=== PATIENT | male | born 1980 | race Caucasian/White ===

== ENCOUNTER → 2018-04-16 06:59 | Outpatient (CLI) | payer OTHER, SELFPAY ==
[2018-04-16 09:01] LABS: Thyroid Stimulating Hormone 0.04 uIU/mL (0.47-4.68)
[2018-04-18 15:07] LABS: Thyroglobulin Antibodies < 1 IU/mL (< 2); Thyroglobulin Level 0.1 ng/mL (2.8-40.9)
== END ==
PROVIDERS: PCP Internal Medicine; Visit Provider Internal Medicine Endocrinology, Diabetes & Metabolism
DX: C73 Malignant neoplasm of thyroid gland (principal); E89.0 Postprocedural hypothyroidism
CPT/HCPCS: 36415; 84432; 84443; 86800

== ENCOUNTER → 2018-06-05 07:01 | Outpatient (CLI) | payer OTHER, SELFPAY ==
[2018-06-05 08:33] LABS: Blood Urea Nitrogen 19 mg/dL (9-20); Calcium 9.3 mg/dL (8.4-10.2); Carbon Dioxide 28 mmol/L (22-32); Chloride 101 mmol/L (98-107); Estimated Glomerular Filt Rate > 60.0 mL/min (>60); Glucose 166 mg/dL (70-100); HEMOLYSIS < 15 (0-50); Potassium 4.5 mmol/L (3.4-5.1); Sodium 140 mmol/L (137-145)
[2018-06-05 14:53] LABS: Creatinine Urine Random 40.5 mg/dL; Protein (Total) Urine Random 60 mg/dL (0-12); Protein Creatinine Ratio Urine 1.48 GRAM/24H
== END ==
PROVIDERS: PCP Internal Medicine; Visit Provider Student in an Organized Health Care Education/Training Program
DX: N05.9 Unspecified nephritic syndrome with unspecified morphologic changes (principal); R80.9 Proteinuria, unspecified
CPT/HCPCS: 36415; 80048; 82570; 84156

== ENCOUNTER → 2018-08-09 11:00 | Outpatient (CLI) | payer OTHER, SELFPAY | PROVIDERS: PCP Internal Medicine | DX: Z23 Encounter for immunization (principal) | CPT/HCPCS: 90471; 90682 ==

== ENCOUNTER → 2018-09-06 11:55 | Outpatient (CLI) | payer OTHER, SELFPAY ==
--- NOTE | 2018-09-06 | DI.MRI.S_ITS ---
PROCEDURE: MR CERVICAL SPINE WO CON INDICATIONS: Radiculopathy, cervical region TECHNIQUE: Noncontrast sagittal T1 spin echo and T2 fast spin echo, sagittal STIR, foraminal oblique sagittal T2 fast spin echo, and axial gradient echo or T2 fast spin echo through the cervical spine. COMPARISON: [facility], , CERVICAL SPINE 2 OR 3 VIEWS, 04/20/2011, 7:37. [facility], MR, C-SPINE WITHOUT CONTRAST, 05/09/2011, 6:44. [facility], MR, C-SPINE WITHOUT CONTRAST, 01/18/2012, 11:35. FINDINGS: Image quality: The anterior coil could not be used on this patient. Furthermore, this examination is limited by involuntary motion artifact. Alignment and Curvature: There is straightening of the normal cervical lordosis. No focal AP alignment abnormality is seen. Bone Marrow: Marrow demonstrates normal overall signal. Spinal Cord: Visualized spinal cord has normal size and signal. No cerebellar tonsillar herniation. Paraspinous Soft Tissues: No paravertebral masses. Prevertebral soft tissues are normal in thickness. C2-C3: Normal appearance. C3-C4: The disc height is well-preserved. Loss of disc signal is seen at this level. A mild degree of generalized disc osteophyte complex is seen. Mild facet joint hypertrophy is seen. There is mild left-sided and no right-sided neural foraminal narrowing seen. No central canal narrowing is seen. When comparison is made with the prior examination, these findings are similar. C4-C5: The disc height is well-preserved. Loss of disc signal is seen at this level. Minimal disc osteophyte complex is seen. Minimal to mild bilateral neural foraminal narrowing is seen. The central canal is widely patent. When comparison is made with the prior examination, these findings are similar. C5-C6: Mild loss of disc height is seen. Loss of disc signal is seen. Moderate disc osteophyte complex is seen, which is eccentric to the left. There is mild left-sided and no significant right-sided neural from narrowing seen. Mild central canal narrowing is seen. When comparison is made with the prior examination, these findings are similar. C6-C7: Mild to moderate loss of disc height and disc signal are seen. Moderate disc osteophyte complex is seen, including a right lateral recess/foraminal disc osteophyte protrusion, as on series 5 image 31. There is at least moderate right-sided neural foraminal narrowing seen. Moderate left-sided neural foraminal narrowing is seen. Moderate central canal narrowing is seen, with associated mass effect upon the ventral spinal cord. These degenerative changes are slightly progressed compared to 2012. C7-T1: No significant abnormality is seen. IMPRESSION: Cervical spine degenerative changes are seen, which are most prominent at the C6-C7 level. The degenerative changes are mildly progressed at C6-C7 compared to 2012. The degenerative changes otherwise appear similar to the prior. Dictated by: Alfie Alston M.D. on 09/06/2018 at 12:50 Approved by: Alfie Alston M.D. on 09/06/2018 at 12:56
== END ==
PROVIDERS: PCP Internal Medicine; Visit Provider Internal Medicine
DX: M50.122 Cervical disc disorder at C5-C6 level with radiculopathy (principal)
CPT/HCPCS: 72141

== ENCOUNTER → 2018-09-21 06:57 | Outpatient (CLI) | payer OTHER, SELFPAY ==
[2018-09-21 08:11] LABS: Hemoglobin A1C% w Est Avg Glu 9.8 % (4.0-6.0)
[2018-09-21 08:17] LABS: BUN Creatinine Ratio 17.8 (6-22); Blood Urea Nitrogen 16 mg/dL (9-20); Calcium 9.3 mg/dL (8.4-10.2); Carbon Dioxide 26 mmol/L (22-32); Chloride 102 mmol/L (98-107); Estimated Glomerular Filt Rate > 60.0 mL/min (>60); Glucose 225 mg/dL (70-100); HEMOLYSIS < 15 (0-50); Potassium 4.8 mmol/L (3.4-5.1); Sodium 141 mmol/L (137-145)
[2018-09-21 08:30] LABS: Creatinine Urine Random 30.7 mg/dL
[2018-09-21 08:53] LABS: Microalbumi Creatinin Ratio Ur 1332.2 ug/mg CR (<30); Microalbumin Urine Random 40.9 mg/dL (0-1.6)
[2018-09-21 09:01] LABS: Thyroid Stimulating Hormone 0.09 uIU/mL (0.47-4.68)
== END ==
PROVIDERS: PCP Internal Medicine; Visit Provider Internal Medicine Endocrinology, Diabetes & Metabolism
DX: E11.319 Type 2 diabetes mellitus with unspecified diabetic retinopathy without macular edema (principal); E89.0 Postprocedural hypothyroidism; C73 Malignant neoplasm of thyroid gland
CPT/HCPCS: 36415; 80048; 82043; 82570; 83036; 84443; 86800

== ENCOUNTER → 2018-10-03 13:09 | Outpatient (CLI) | payer OTHER, SELFPAY | PROVIDERS: PCP Internal Medicine; Visit Provider Family Medicine | DX: L03.032 Cellulitis of left toe (principal); E11.628 Type 2 diabetes mellitus with other skin complications; E11.40 Type 2 diabetes mellitus with diabetic neuropathy, unspecified | CPT/HCPCS: 99203; 99212 ==

== ENCOUNTER → 2019-04-22 06:49 | Outpatient (CLI) | payer OTHER, SELFPAY ==
[2019-04-22 07:56] LABS: Blood Urea Nitrogen 22 mg/dL (9-20); Calcium 9.7 mg/dL (8.4-10.2); Carbon Dioxide 24 mmol/L (22-32); Chloride 104 mmol/L (98-107); Estimated Glomerular Filt Rate > 60.0 mL/min (>60); Glucose 94 mg/dL (70-100); HEMOLYSIS < 15 (0-50); Potassium 4.5 mmol/L (3.4-5.1); Sodium 139 mmol/L (137-145)
[2019-04-22 09:15] LABS: Creatinine Urine Random 32.6 mg/dL; Protein (Total) Urine Random 50 mg/dL (0-12); Protein Creatinine Ratio Urine 1.53 GRAM/24H
== END ==
PROVIDERS: PCP Internal Medicine; Visit Provider Student in an Organized Health Care Education/Training Program
DX: N05.9 Unspecified nephritic syndrome with unspecified morphologic changes (principal); R80.9 Proteinuria, unspecified
CPT/HCPCS: 36415; 80048; 82570; 84156

== ENCOUNTER → 2019-04-25 12:02 | Outpatient (CLI) | payer OTHER, SELFPAY ==
[2019-04-25 14:06] LABS: Thyroid Stimulating Hormone < 0.02 uIU/mL (0.47-4.68)
[2019-04-27 16:10] LABS: Thyroglobulin Antibodies < 1 IU/mL (< 2); Thyroglobulin Level < 0.1 ng/mL (2.8-40.9)
== END ==
PROVIDERS: PCP Internal Medicine; Visit Provider Internal Medicine Endocrinology, Diabetes & Metabolism
DX: C73 Malignant neoplasm of thyroid gland (principal)
CPT/HCPCS: 36415; 84432; 84443; 86800

== ENCOUNTER → 2019-05-24 08:32 | Outpatient (CLI) | payer OTHER, SELFPAY ==
[2019-05-24 08:58] LABS: Hemoglobin 12.2 g/dL (13.5-17.5)
[2019-05-24 09:22] LABS: Blood Urea Nitrogen 24 mg/dL (9-20); Calcium 9.7 mg/dL (8.4-10.2); Carbon Dioxide 24 mmol/L (22-32); Chloride 108 mmol/L (98-107); Estimated Glomerular Filt Rate > 60.0 mL/min (>60); Glucose 87 mg/dL (70-100); HEMOLYSIS < 15 (0-50); Potassium 5.2 mmol/L (3.4-5.1); Sodium 143 mmol/L (137-145)
[2019-05-24 10:18] LABS: Creatinine Urine Random 37.9 mg/dL; Protein (Total) Urine Random 58 mg/dL (0-12); Protein Creatinine Ratio Urine 1.53 GRAM/24H
[2019-05-28 15:18] LABS: Parathyroid Hormone Int 26 pg/mL (14-64)
== END ==
PROVIDERS: PCP Internal Medicine; Visit Provider Student in an Organized Health Care Education/Training Program
DX: N05.9 Unspecified nephritic syndrome with unspecified morphologic changes (principal); D64.9 Anemia, unspecified; N25.81 Secondary hyperparathyroidism of renal origin; R80.9 Proteinuria, unspecified
CPT/HCPCS: 36415; 80048; 82570; 83970; 84156; 85014; 85018

== ENCOUNTER → 2019-08-29 14:09 | Outpatient (CLI) | payer OTHER, SELFPAY | PROVIDERS: PCP Internal Medicine | DX: Z23 Encounter for immunization (principal) | CPT/HCPCS: 90471; 90686 ==

== ENCOUNTER → 2019-11-11 07:00 | Outpatient (CLI) | payer OTHER, SELFPAY ==
[2019-11-11 09:05] LABS: Hemoglobin 9.8 g/dL (13.5-17.5)
[2019-11-11 09:06] LABS: Protein (Total) Urine Random 52 mg/dL (0-12); Protein Creatinine Ratio Urine 0.76 GRAM/24H
[2019-11-11 09:27] LABS: BUN Creatinine Ratio 14.2 (6-22); Blood Urea Nitrogen 17 mg/dL (9-20); Calcium 9.5 mg/dL (8.4-10.2); Carbon Dioxide 25 mmol/L (22-32); Chloride 106 mmol/L (98-107); Estimated Glomerular Filt Rate > 60.0 mL/min (>60); Glucose 89 mg/dL (70-100); HEMOLYSIS < 15 (0-50); Potassium 4.8 mmol/L (3.4-5.1); Sodium 143 mmol/L (137-145)
[2019-11-12 14:55] LABS: Parathyroid Hormone Int 21 pg/mL (14-64)
== END ==
PROVIDERS: PCP Internal Medicine; Visit Provider Student in an Organized Health Care Education/Training Program
DX: N05.9 Unspecified nephritic syndrome with unspecified morphologic changes (principal); D64.9 Anemia, unspecified; N25.81 Secondary hyperparathyroidism of renal origin; R80.9 Proteinuria, unspecified
CPT/HCPCS: 36415; 80048; 82570; 83970; 84156; 85014; 85018

== ENCOUNTER → 2019-12-16 06:59 | Outpatient (CLI) | payer OTHER, SELFPAY ==
[2019-12-16 07:57] LABS: Hematocrit 32.6 % (41-53); Hemoglobin 10.4 g/dL (13.5-17.5)
[2019-12-16 08:14] LABS: Blood Urea Nitrogen 14 mg/dL (9-20); Calcium 9.6 mg/dL (8.4-10.2); Carbon Dioxide 25 mmol/L (22-32); Chloride 107 mmol/L (98-107); Estimated Glomerular Filt Rate > 60.0 mL/min (>60); Glucose 106 mg/dL (70-100); HEMOLYSIS < 15 (0-50); Potassium 4.9 mmol/L (3.4-5.1); Sodium 141 mmol/L (137-145)
[2019-12-16 08:38] LABS: HEMOLYSIS < 15 (0-50); Iron 28 ug/dL (49-181)
[2019-12-16 08:44] LABS: Ferritin 9.4 ng/mL (17.9-464)
[2019-12-16 08:49] LABS: Percent Iron Saturation 8 % (20-50); Total Iron Binding Capacity 336 ug/dL (261-462); Transferrin 277 mg/dL (206-381)
[2019-12-16 09:11] LABS: Thyroid Stimulating Hormone 0.02 uIU/mL (0.47-4.68)
[2019-12-18 23:26] LABS: Fructosamine 221 umol/L (205-285)
[2019-12-19 15:23] LABS: Parathyroid Hormone Int 5 pg/mL (14-64)
== END ==
PROVIDERS: PCP Internal Medicine; Referring Provider Student in an Organized Health Care Education/Training Program; Visit Provider Internal Medicine Endocrinology, Diabetes & Metabolism
DX: N05.9 Unspecified nephritic syndrome with unspecified morphologic changes (principal); D50.0 Iron deficiency anemia secondary to blood loss (chronic); D64.9 Anemia, unspecified; E89.0 Postprocedural hypothyroidism; C73 Malignant neoplasm of thyroid gland; E11.319 Type 2 diabetes mellitus with unspecified diabetic retinopathy without macular edema
CPT/HCPCS: 36415; 80048; 82728; 82985; 83540; 83550; 83970; 84443; 85014; 85018; 86800

== ENCOUNTER → 2020-05-19 17:10 | Outpatient (CLI) | payer OTHER, SELFPAY ==
[2020-05-20 20:29] LABS: COVID19 Sendout Not Detected (Not Detect)
== END ==
PROVIDERS: PCP Internal Medicine; Visit Provider Physician Assistant
DX: Z03.818 Encounter for observation for suspected exposure to other biological agents ruled out (principal)
CPT/HCPCS: 87635

== ENCOUNTER → 2020-09-04 06:59 | Outpatient (CLI) | payer OTHER, SELFPAY ==
[2020-09-04 08:37] LABS: Hematocrit 33.8 % (41-53)
[2020-09-04 08:46] LABS: BUN Creatinine Ratio 14.7 (6-22); Blood Urea Nitrogen 17 mg/dL (9-20); Calcium 8.2 mg/dL (8.4-10.2); Carbon Dioxide 23 mmol/L (22-32); Chloride 103 mmol/L (98-107); Estimated Glomerular Filt Rate > 60.0 mL/min (>60); Glucose 239 mg/dL (70-100); HEMOLYSIS < 15 (0-50); Sodium 133 mmol/L (137-145)
[2020-09-04 08:49] LABS: Potassium 5.4 mmol/L (3.4-5.1)
[2020-09-04 09:07] LABS: HEMOLYSIS < 15 (0-50); Iron 41 ug/dL (49-181)
[2020-09-04 09:14] LABS: Creatinine Urine Random 88.8 mg/dL
[2020-09-04 09:16] LABS: Ferritin 19 ng/mL (18-464)
[2020-09-04 09:18] LABS: Percent Iron Saturation 14 % (20-50); Total Iron Binding Capacity 293 ug/dL (261-462); Transferrin 215 mg/dL (206-381)
[2020-09-04 09:38] LABS: Protein (Total) Urine Random 231 mg/dL (0-12)
[2020-09-05 07:08] LABS: Parathyroid Hormone Int 36 pg/mL (15-65)
== END ==
PROVIDERS: PCP Internal Medicine; Referring Provider Student in an Organized Health Care Education/Training Program; Visit Provider Student in an Organized Health Care Education/Training Program
DX: N05.9 Unspecified nephritic syndrome with unspecified morphologic changes (principal); D50.0 Iron deficiency anemia secondary to blood loss (chronic); D64.9 Anemia, unspecified; N25.81 Secondary hyperparathyroidism of renal origin; R80.9 Proteinuria, unspecified
CPT/HCPCS: 36415; 80048; 82570; 82728; 83540; 83550; 83970; 84156; 85014; 85018

== ENCOUNTER → 2020-09-10 03:32 | Outpatient (CLI) | payer OTHER, SELFPAY | PROVIDERS: PCP Internal Medicine; Referring Provider Internal Medicine; Visit Provider Internal Medicine | DX: Z23 Encounter for immunization (principal) | CPT/HCPCS: 90471; 90686 ==

== ENCOUNTER → 2020-09-18 09:31 | Outpatient (CLI) | payer OTHER, SELFPAY ==
[2020-09-18 11:54] LABS: HEMOLYSIS < 15 (0-50); Potassium 5.1 mmol/L (3.4-5.1)
== END ==
PROVIDERS: PCP Internal Medicine; Referring Provider Student in an Organized Health Care Education/Training Program; Visit Provider Student in an Organized Health Care Education/Training Program
DX: E87.5 Hyperkalemia (principal)
CPT/HCPCS: 36415; 84132

== ENCOUNTER → 2020-09-22 09:11 | Outpatient (CLI) | payer OTHER, SELFPAY ==
--- NOTE | 2020-09-22 09:12 | DI.RAD.S_ITS ---
PROCEDURE: XR CERVICAL SPINE 4V OR 5V INDICATIONS: Cervical radiculopathy TECHNIQUE: 5 total views of the cervical spine were acquired, including bilateral oblique views. COMPARISON: [facility], CR, CERVICAL SPINE 2 OR 3 VIEWS, 04/20/2011, 7:37. [facility], XA, C-SPINE 2 VIEWS PAIN DEPT, 06/10/2011, 14:22. [facility], XA, C-SPINE 2 VIEWS PAIN DEPT, 08/12/2011, 12:47. [facility], MR, MR CERVICAL SPINE WO CON, 09/06/2018, 12:12. FINDINGS: Bones: No fractures or dislocations to the C7 level. Oblique images demonstrate no bony foraminal stenoses. There is a partially bridging anterior osteophytes seen at C5-C6. Moderate disc space narrowing is seen at C6-C7, with partially bridging anterior osteophytes. Soft tissues: No prevertebral soft tissue swelling. The visualized lung apices are unremarkable. IMPRESSION: Lower cervical spine degenerative changes are seen. Dictated by: Alfie Alston M.D. on 09/22/2020 at 9:32 Approved by: Alfie Alston M.D. on 09/22/2020 at 9:35
== END ==
PROVIDERS: PCP Internal Medicine; Referring Provider Internal Medicine; Visit Provider Physical Medicine & Rehabilitation
DX: M47.22 Other spondylosis with radiculopathy, cervical region (principal)
CPT/HCPCS: 72050

== ENCOUNTER → 2020-10-12 11:12 | Outpatient (CLI) | payer OTHER, SELFPAY ==
[2020-10-12 13:00] LABS: Creatinine Urine Random 79.7 mg/dL; Protein (Total) Urine Random 120 mg/dL (0-12)
[2020-10-12 13:07] LABS: BUN Creatinine Ratio 18.2 (6-22); Blood Urea Nitrogen 22 mg/dL (9-20); Calcium 9.3 mg/dL (8.4-10.2); Carbon Dioxide 27 mmol/L (22-32); Chloride 101 mmol/L (98-107); Estimated Glomerular Filt Rate > 60.0 mL/min (>60); Glucose 218 mg/dL (70-100); HEMOLYSIS < 15 (0-50); Potassium 5.3 mmol/L (3.4-5.1); Sodium 134 mmol/L (137-145)
== END ==
PROVIDERS: PCP Internal Medicine; Referring Provider Student in an Organized Health Care Education/Training Program; Visit Provider Student in an Organized Health Care Education/Training Program
DX: N05.9 Unspecified nephritic syndrome with unspecified morphologic changes (principal); R80.9 Proteinuria, unspecified
CPT/HCPCS: 36415; 80048; 82570; 84156

== ENCOUNTER → 2020-11-10 08:37 | Outpatient (CLI) | payer OTHER, SELFPAY ==
[2020-11-10 10:31] LABS: Hematocrit 36.2 % (41-53); Hemoglobin 11.8 g/dL (13.5-17.5)
[2020-11-10 11:37] LABS: HEMOLYSIS < 15 (0-50); Iron 25 ug/dL (49-181)
[2020-11-10 11:44] LABS: BUN Creatinine Ratio 14.8 (6-22); Blood Urea Nitrogen 16 mg/dL (9-20); Calcium 9.2 mg/dL (8.4-10.2); Carbon Dioxide 27 mmol/L (22-32); Chloride 100 mmol/L (98-107); Estimated Glomerular Filt Rate > 60.0 mL/min (>60); Glucose 301 mg/dL (70-100); HEMOLYSIS < 15 (0-50); Sodium 133 mmol/L (137-145)
[2020-11-10 11:45] LABS: Creatinine Urine Random 63.9 mg/dL; Protein (Total) Urine Random 113 mg/dL (0-12); Protein Creatinine Ratio Urine 1.76 GRAM/24H
[2020-11-10 11:46] LABS: Potassium 5.5 mmol/L (3.4-5.1)
[2020-11-10 11:48] LABS: Percent Iron Saturation 8 % (20-50); Total Iron Binding Capacity 312 ug/dL (261-462); Transferrin 252 mg/dL (206-381)
== END ==
PROVIDERS: PCP Internal Medicine; Referring Provider Student in an Organized Health Care Education/Training Program; Visit Provider Student in an Organized Health Care Education/Training Program
DX: N05.9 Unspecified nephritic syndrome with unspecified morphologic changes (principal); D64.9 Anemia, unspecified; D50.0 Iron deficiency anemia secondary to blood loss (chronic); R80.9 Proteinuria, unspecified
CPT/HCPCS: 36415; 80048; 82570; 83540; 83550; 84156; 85014; 85018

== ENCOUNTER → 2020-11-17 14:08 | Outpatient (CLI) | payer OTHER, SELFPAY ==
[2020-11-17 15:24] LABS: COVID19 -Nasal RAPID Negative (Negative)
== END ==
PROVIDERS: PCP Internal Medicine; Visit Provider Physical Medicine & Rehabilitation
DX: Z01.812 Encounter for preprocedural laboratory examination (principal); Z20.822 Contact with and (suspected) exposure to COVID-19
CPT/HCPCS: 87635; C9803

== ENCOUNTER 2020-11-19 07:49 | Outpatient (CLI) | payer OTHER, SELFPAY ==
[2020-11-19] VITALS (8 sets, daily range): BP systolic 109–145; BP diastolic 73–98; PULSE 100–108; RESP 12–18; TEMP 37.1; O2SAT 94–100
--- NOTE | 2020-11-19 07:51 | DI.RAD.S_ITS ---
PROCEDURE: PAIN C/T INTERLAMINAR INJECT INDICATIONS: SPINAL STENOSIS COMPARISON: [facility], CR, XR CERVICAL SPINE 4V OR 5V, 09/22/2020, 9:15. [facility], RF, CERVICAL SPINE INTERLAMINAR, 10/01/2018, 8:00. FINDINGS: Fluoroscopic spot filming was performed to verify placement of spinal needles at the C6 and C7 level(s), as labeled on the films. Appropriate location(s) of the needle tip(s) was confirmed by injection of iodinated contrast. IMPRESSION: Fluoroscopy for pain management. Dictated by: Apolonia Ochoa M.D. on 11/19/2020 at 9:54 Approved by: Apolonia Ochoa M.D. on 11/19/2020 at 10:06
[2020-11-19] MEDS: fentaNYL 100 MCG/2 ML INJ 50 MCG IV (09:20)
[2020-11-19] MEDS: MIDAZOLAM 5 MG/5 ML VIAL IV (09:21)
[2020-11-19] MEDS: BUPIVACAINE 0.25% (PF) VIAL 2 ML INJ (09:25)
[2020-11-19] MEDS: IOPAMIDOL 15 ML VIAL 3 ML INJ (09:25)
[2020-11-19] MEDS: DEXAMETHASONE 10 MG/ML VIAL 30 MG INJ (09:26)
--- NOTE | 2020-11-19 09:34 | P.PCN_ITS ---
Date/Time/Diagnoses Date of procedure: 11/19/20 Time of procedure: 09:34 Pre-procedure diagnosis: 1. CERVICAL STENOSIS, 2. CERVICAL HNP WITH UPPER EXTREMITY RADICULAR FEATURES Post-procedure diagnosis: same Procedure Notes Procedure: 1. FLUORSCOPICALLY GUIDED CONTRAST CONTROLLED INTERLAMINAR EPIDURAL STEROID INJECTION - C6/7 TL MARNIE Indications: Tao is referred by Dr. Haq for treatment of Cervical HNP with Upper Extremity Paresthesias. Physician: Owen Del Toro Total Fluoroscopy time (seconds): 19 Total sedation minutes: 13 Complications: none Procedure in detail & Post-procedure care: FINDINGS Cervical Stenosis due to disc deterioration and nerve root irritation and nerve root irritation DESCRIPTION OF PROCEDURE Fluoroscopically guided, contrast-controlled C6/7 translaminar epidural steroid injection with conscious sedation. Following review of allergy and review of potential side effects and complications, including, but not necessarily limited to, infection, allergic reaction, local tissue breakdown, temporary as well as permanent nerve injury, stroke, paralysis, and possible , the patient indicated that patient understood and agreed to proceed. An informed consent document was signed by the patient, witnessed by a nurse, and placed in the patient's chart. Additionally, other treatment options including modalities, medications, and physical therapy were reviewed with the patient. After review of previous anaesthesic history and IV conscious sedation the patient was deemed safe to proceed with today?s procedure with IV conscious sedation as ASA class II designation. Safety time-out was performed to confirm patient ID, procedure to be performed and site of procedure. IV sedation was accomplished with a combination of 4mg of Versed and 50mcg of Fentanyl administered by the RN after DO order, titrated to patient comfort during the course of the procedure while the patient remained responsive to all verbal commands. In the prone position, following sterile prep and drape of the cervical region, the C6/7 translaminar space was identified fluoroscopically. The skin was anesthetized via a 25-gauge 1.5-inch needle with 1% lidocaine solution. At this point, a 25-gauge, 2.5-inch short bevel spinal needle was atraumatically introduced and advanced under fluoroscopic guidance into epidural space at the C6/7 translaminar space. Depth was confirmed on lateral view. Radiological data, including multiple fluoroscopic views of the cervical spine, reveal a spinal needle at the C6/7 translaminar space. Lateral views then show placement of the needle in the epidural space. Subsequent views show contrast material flowing superiorly and inferiorly in the epidural space. DSA fluoroscopy with live contrast injection, once again, confirmed no vascular or intrathecal uptake. At this point, using loss of resistance technique with saline and air, the epidural space was entered. Following negative aspiration, injection of appr oximately 1.5 cc of [id number]-[id number] with live fluoroscopy in the AP view confirmed epidural flow in the epidural space without vascular or intrathecal uptake observed. Subsequently, a test dose of 1 cc of 1% lidocaine solution was injected and patient was observed for two minutes without signs or symptoms of complications, including abdominal pain, shortness of breath, bilateral upper or lower extremity weakness, nausea and vomiting, prior to steroid injection. At this point, 3cc or 30mg of dexamethasone was then injected without incident. The patient tolerated the procedure well without signs or symptoms of complications prior to being transferred to the recovery area for further monitoring, The patient was then transferred to the recovery area where they were observed for an appropriate period of time after the injection. The patient reported a VAS score of 6 prior to the procedure and a post-procedure VAS of 0. POST OP INSTRUCTIONS The patient was provided a Pain Log to continue to record their response to the target-specific procedure prior to follow-up visit with the referring provider. Additionally, specific post-injection care instructions and a contact number to our office were provided if concerns arise regarding possible complications associated with the procedure are suspected.
--- NOTE | 2020-11-19 10:44 | PC.NURSE ---
Pt ambulated with strong steady gait upon discharge. Stating he was running errands after the procedure. Reiterated repeatedly that pt was to not drive, not drink, nor make any important decisions today. Staying home and resting was recommended per Dr Del Toro post procedure instructions. Pt acting silly and laughing at instructions. Decided to try and spin around and needed redirection and firm verbal instruction to sit into wheelchair safely. He was told (as well as rachel Espinoza) that following the instructions per Dr Del Toro was of utmost importance. Verbalized understanding as did rachel.
== END 2020-11-19 08:57 | disposition home or self-care (01) ==
LOC: RAD 07:49
PROVIDERS: PCP Internal Medicine; Referring Provider Physical Medicine & Rehabilitation; Visit Provider Physical Medicine & Rehabilitation
DX: M48.02 Spinal stenosis, cervical region (principal); M50.123 Cervical disc disorder at C6-C7 level with radiculopathy
CPT/HCPCS: 62321; 99152; J1100; J2250; J3010

== ENCOUNTER → 2020-11-27 09:39 | Outpatient (CLI) | payer OTHER, SELFPAY ==
[2020-11-27] MEDS: COVID-19 VACC(MODERNA-1)/PF 100 MCG/0.5 ML VIAL IM (09:49)
== END ==
PROVIDERS: PCP Internal Medicine; Visit Provider Internal Medicine
DX: Z23 Encounter for immunization (principal)
CPT/HCPCS: 0011A; 91301

== ENCOUNTER → 2020-12-09 08:32 | Outpatient (CLI) | payer OTHER, SELFPAY ==
[2020-12-09 09:16] LABS: Hematocrit 37.7 % (41-53); Hemoglobin 12.1 g/dL (13.5-17.5)
[2020-12-09 09:34] LABS: BUN Creatinine Ratio 21.8 (6-22); Blood Urea Nitrogen 22 mg/dL (9-20); Calcium 8.9 mg/dL (8.4-10.2); Carbon Dioxide 31 mmol/L (22-32); Chloride 99 mmol/L (98-107); Estimated Glomerular Filt Rate > 60.0 mL/min (>60); Glucose 297 mg/dL (70-100); HEMOLYSIS < 15 (0-50); Potassium 4.8 mmol/L (3.4-5.1); Sodium 134 mmol/L (137-145)
[2020-12-09 09:47] LABS: HEMOLYSIS < 15 (0-50); Iron 30 ug/dL (49-181)
[2020-12-09 09:50] LABS: Creatinine Urine Random 51.2 mg/dL; Protein (Total) Urine Random 112 mg/dL (0-12); Protein Creatinine Ratio Urine 2.18 GRAM/24H
[2020-12-09 10:00] LABS: Percent Iron Saturation 9 % (20-50); Total Iron Binding Capacity 320 ug/dL (261-462); Transferrin 249 mg/dL (206-381)
== END ==
PROVIDERS: PCP Internal Medicine; Referring Provider Internal Medicine; Visit Provider Student in an Organized Health Care Education/Training Program
DX: N05.9 Unspecified nephritic syndrome with unspecified morphologic changes (principal); D64.9 Anemia, unspecified; R80.9 Proteinuria, unspecified
CPT/HCPCS: 36415; 80048; 82570; 83540; 83550; 84156; 85014; 85018

== ENCOUNTER → 2020-12-25 09:14 | Outpatient (CLI) | payer OTHER, SELFPAY ==
[2020-12-25] MEDS: COVID-19 VACC #2, MRNA(MOD) 100 MCG/0.5 ML VIAL IM (09:20)
== END ==
PROVIDERS: PCP Internal Medicine; Visit Provider Internal Medicine
DX: Z23 Encounter for immunization (principal)
CPT/HCPCS: 0012A; 91301

== ENCOUNTER → 2021-01-29 08:41 | Outpatient (CLI) | payer OTHER, SELFPAY ==
[2021-01-29 10:05] LABS: Hemoglobin A1C% w Est Avg Glu 11.3 % (4.0-6.0)
[2021-01-29 10:42] LABS: Thyroid Stimulating Hormone 0.886 uIU/mL (0.47-4.68)
[2021-01-30 07:22] LABS: Fructosamine 327 umol/L (0-285)
[2021-01-30 20:07] LABS: Anti Thyroglobulin Antibody <1.0 IU/mL (0.0-0.9)
[2021-02-06 21:06] LABS: Thyroglobulin Level <2.0 ng/mL (.)
== END ==
PROVIDERS: PCP Internal Medicine; Referring Provider Internal Medicine Endocrinology, Diabetes & Metabolism; Visit Provider Internal Medicine Endocrinology, Diabetes & Metabolism
DX: E11.22 Type 2 diabetes mellitus with diabetic chronic kidney disease (principal); N18.2 Chronic kidney disease, stage 2 (mild); E89.0 Postprocedural hypothyroidism; C73 Malignant neoplasm of thyroid gland
CPT/HCPCS: 36415; 82985; 83036; 84432; 84443; 86800

== ENCOUNTER → 2021-03-31 07:05 | Outpatient (CLI) | payer OTHER, SELFPAY ==
[2021-03-31 12:05] LABS: Clostridium Difficile Tox PCR Negative for C. diff
== END ==
PROVIDERS: PCP Internal Medicine; Referring Provider Internal Medicine; Visit Provider Internal Medicine
DX: R19.7 Diarrhea, unspecified (principal)
CPT/HCPCS: 87045; 87177; 87493; 87899

== ENCOUNTER → 2021-04-14 08:33 | Outpatient (CLI) | payer OTHER, SELFPAY ==
[2021-04-14 09:43] LABS: Creatinine Urine Random 52.9 mg/dL; Protein (Total) Urine Random 89 mg/dL (0-12); Protein Creatinine Ratio Urine 1.68 GRAM/24H
[2021-04-14 09:50] LABS: HEMOLYSIS < 15 (0-50); Iron 31 ug/dL (49-181)
[2021-04-14 09:51] LABS: BUN Creatinine Ratio 20.7 (6-22); Blood Urea Nitrogen 23 mg/dL (9-20); Calcium 9.2 mg/dL (8.4-10.2); Carbon Dioxide 27 mmol/L (22-32); Chloride 100 mmol/L (98-107); Estimated Glomerular Filt Rate > 60.0 mL/min (>60); Glucose 196 mg/dL (70-100); HEMOLYSIS < 15 (0-50); Sodium 136 mmol/L (137-145)
[2021-04-14 09:52] LABS: Potassium 4.2 mmol/L (3.4-5.1)
[2021-04-14 10:00] LABS: Percent Iron Saturation 10 % (20-50); Total Iron Binding Capacity 309 ug/dL (261-462); Transferrin 239 mg/dL (206-381)
== END ==
PROVIDERS: PCP Internal Medicine; Referring Provider Student in an Organized Health Care Education/Training Program; Visit Provider Student in an Organized Health Care Education/Training Program
DX: N05.9 Unspecified nephritic syndrome with unspecified morphologic changes (principal); D50.0 Iron deficiency anemia secondary to blood loss (chronic); R80.9 Proteinuria, unspecified
CPT/HCPCS: 36415; 80048; 82570; 83540; 83550; 84156

== ENCOUNTER → 2021-05-18 07:11 | Outpatient (CLI) | payer OTHER, SELFPAY ==
[2021-05-18 09:01] LABS: Add Manual Diff / Slide Review NO; Basophils Absolute Auto 0 /uL (0-100); Basophils Percent Auto 0.4 % (0-2); Eosinophils Absolute Auto 200 /uL (0-450); Hematocrit 35.7 % (41-53); Hemoglobin 11.7 g/dL (13.5-17.5); Lymphocytes Absolute Auto 900 /uL (1100-4500); Lymphocytes Percent Auto 14.3 % (25-40); Mean Corpuscular HGB Conc 32.9 % (30-36); Mean Corpuscular Hemoglobin 27.8 PG (26-34); Mean Corpuscular Volume 84.7 fL (80-100); Monocytes Absolute Auto 600 /uL (0-900); Monocytes Percent Auto 9.7 % (3-14); Neutrophils Absolute Auto 4600 /uL (1500-7000); Neutrophils Percent Auto 72.6 % (50-75); Platelet Count 296 X10^3/uL (150-400); Red Blood Cell Count 4.21 X10^6/uL (4.5-5.9); Red Cell Distribution Width 14.1 % (11.6-14.8); White Blood Cell Count 6.3 X10^3/uL (4.5-11.0)
[2021-05-18 09:31] LABS: Erythrocyte Sedimentation Rate 38 MM/HR (0-15)
[2021-05-18 09:43] LABS: HEMOLYSIS < 15 (0-50); Iron 43 ug/dL (49-181)
[2021-05-18 09:44] LABS: HEMOLYSIS < 15 (0-50); Sodium 138 mmol/L (137-145)
[2021-05-18 09:47] LABS: Alanine Aminotransferase 12 IU/L (<50); Albumin Globulin Ratio 1.3 (1.0-2.8); Alkaline Phosphatase 94 U/L (38-126); Aspartate Aminotransferase 24 IU/L (17-59); BUN Creatinine Ratio 14.3 (6-22); Bilirubin Total 0.2 mg/dL (0.2-1.3); Blood Urea Nitrogen 14 mg/dL (9-20); C-Reactive Protein Quant 1.1 mg/dL (<1.0); Calcium 9.4 mg/dL (8.4-10.2); Carbon Dioxide 26 mmol/L (22-32); Chloride 104 mmol/L (98-107); Estimated Glomerular Filt Rate > 60.0 mL/min (>60); Globulin 3.2 g/dL (1.7-4.1); Glucose 165 mg/dL (70-100); Potassium 4.4 mmol/L (3.4-5.1); Total Protein 7.2 g/dL (6.3-8.2)
[2021-05-18 09:57] LABS: Percent Iron Saturation 14 % (20-50); Total Iron Binding Capacity 317 ug/dL (261-462); Transferrin 249 mg/dL (206-381)
[2021-05-18 10:19] LABS: Ferritin 12 ng/mL (18-464)
[2021-05-18 10:49] LABS: Folate 12.1 ng/mL (2.76-20.0); Vitamin B12 > 1000 pg/mL (239-931)
[2021-05-18 10:52] LABS: Protein (Total) Urine Random 48 mg/dL (0-12); Protein Creatinine Ratio Urine 1.37 GRAM/24H
== END ==
PROVIDERS: PCP Internal Medicine; Referring Provider Internal Medicine Gastroenterology; Visit Provider Internal Medicine Gastroenterology
DX: R19.7 Diarrhea, unspecified (principal); N05.9 Unspecified nephritic syndrome with unspecified morphologic changes; D50.0 Iron deficiency anemia secondary to blood loss (chronic); D64.9 Anemia, unspecified; R80.9 Proteinuria, unspecified
CPT/HCPCS: 36415; 80053; 82175; 82570; 82607; 82710; 82728; 82746; 83540; 83550; 84156; 84597; 85025; 85651; 86140

== ENCOUNTER → 2021-07-20 08:33 | Outpatient (CLI) | payer OTHER, SELFPAY ==
[2021-07-20 10:04] LABS: Hematocrit 36.7 % (41-53); Hemoglobin 11.8 g/dL (13.5-17.5)
[2021-07-20 10:18] LABS: BUN Creatinine Ratio 16.5 (6-22); Blood Urea Nitrogen 17 mg/dL (9-20); Carbon Dioxide 25 mmol/L (22-32); Chloride 102 mmol/L (98-107); Estimated Glomerular Filt Rate > 60.0 mL/min (>60); Glucose 228 mg/dL (70-100); HEMOLYSIS < 15 (0-50); Potassium 4.7 mmol/L (3.4-5.1); Sodium 136 mmol/L (137-145)
[2021-07-20 10:51] LABS: Ferritin 13 ng/mL (18-464)
[2021-07-20 10:58] LABS: HEMOLYSIS < 15 (0-50); Iron 34 ug/dL (49-181)
[2021-07-20 11:09] LABS: Percent Iron Saturation 11 % (20-50); Total Iron Binding Capacity 313 ug/dL (261-462); Transferrin 270 mg/dL (206-381)
[2021-07-20 11:59] LABS: Creatinine Urine Random 57.6 mg/dL; Protein (Total) Urine Random 124 mg/dL (0-12); Protein Creatinine Ratio Urine 2.15 GRAM/24H
[2021-07-21 08:16] LABS: Immunoglobulin A 346 mg/dL (90-386); Immunoglobulin G, Quantitative 1188 mg/dL (603-1613)
== END ==
PROVIDERS: PCP Internal Medicine; Referring Provider Internal Medicine Gastroenterology; Visit Provider Internal Medicine Gastroenterology
DX: N05.9 Unspecified nephritic syndrome with unspecified morphologic changes (principal); D50.0 Iron deficiency anemia secondary to blood loss (chronic); D64.9 Anemia, unspecified; R80.9 Proteinuria, unspecified; R19.7 Diarrhea, unspecified
CPT/HCPCS: 36415; 80048; 82570; 82728; 82784; 83540; 83550; 84156; 85014; 85018

== ENCOUNTER → 2021-09-02 15:52 | Outpatient (CLI) | payer OTHER, SELFPAY | PROVIDERS: PCP Internal Medicine; Referring Provider Internal Medicine; Visit Provider Internal Medicine | DX: Z23 Encounter for immunization (principal) | CPT/HCPCS: 90471; 90686 ==

== ENCOUNTER → 2021-09-16 08:38 | Outpatient (CLI) | payer OTHER, SELFPAY ==
[2021-09-16 11:08] LABS: Cholesterol 156 mg/dL (140-199); HDL Cholesterol 25 mg/dL (40-60); Triglycerides 460 mg/dL (35-150)
[2021-09-16 11:45] LABS: Thyroid Stimulating Hormone 0.773 uIU/mL (0.47-4.68)
[2021-09-17 07:48] LABS: Fructosamine 366 umol/L (0-285)
== END ==
PROVIDERS: PCP Internal Medicine; Referring Provider Internal Medicine Endocrinology, Diabetes & Metabolism; Visit Provider Internal Medicine Endocrinology, Diabetes & Metabolism
DX: E78.2 Mixed hyperlipidemia (principal); C73 Malignant neoplasm of thyroid gland; E11.3213 Type 2 diabetes mellitus with mild nonproliferative diabetic retinopathy with macular edema, bilateral; E89.0 Postprocedural hypothyroidism
CPT/HCPCS: 36415; 80061; 82985; 84443; 86800

== ENCOUNTER → 2021-09-17 13:59 | Outpatient (CLI) | payer OTHER, SELFPAY ==
[2021-09-17] MEDS: COVID-19 VACC #3, MRNA(MOD) 50 MCG/0.25 ML VIAL IM (14:04)
== END ==
PROVIDERS: PCP Internal Medicine; Visit Provider Internal Medicine
DX: Z23 Encounter for immunization (principal)
CPT/HCPCS: 0013A; 91301

== ENCOUNTER → 2021-11-01 08:38 | Outpatient (CLI) | payer OTHER, SELFPAY ==
[2021-11-01 09:45] LABS: Hematocrit 33.9 % (41-53); Hemoglobin 11.5 g/dL (13.5-17.5)
[2021-11-01 10:12] LABS: HEMOLYSIS < 15 (0-50); Iron 26 ug/dL (49-181)
[2021-11-01 10:13] LABS: Blood Urea Nitrogen 22 mg/dL (9-20); Calcium 9.6 mg/dL (8.4-10.2); Carbon Dioxide 29 mmol/L (22-32); Chloride 98 mmol/L (98-107); Estimated Glomerular Filt Rate > 60.0 mL/min (>60); Glucose 303 mg/dL (70-100); HEMOLYSIS < 15 (0-50); Potassium 5.1 mmol/L (3.4-5.1); Sodium 133 mmol/L (137-145)
[2021-11-01 10:24] LABS: Percent Iron Saturation 8 % (20-50); Total Iron Binding Capacity 314 ug/dL (261-462); Transferrin 224 mg/dL (206-381)
[2021-11-01 10:48] LABS: Ferritin 18 ng/mL (18-464)
[2021-11-01 14:50] LABS: Protein (Total) Urine Random 66 mg/dL (0-12); Protein Creatinine Ratio Urine 0.81 GRAM/24H
== END ==
PROVIDERS: PCP Internal Medicine; Referring Provider Student in an Organized Health Care Education/Training Program; Visit Provider Student in an Organized Health Care Education/Training Program
DX: N05.9 Unspecified nephritic syndrome with unspecified morphologic changes (principal); D60.0 Chronic acquired pure red cell aplasia; D64.9 Anemia, unspecified; D50.0 Iron deficiency anemia secondary to blood loss (chronic); R80.9 Proteinuria, unspecified
CPT/HCPCS: 36415; 80048; 82570; 82728; 83540; 83550; 84156; 85014; 85018

== ENCOUNTER → 2022-03-21 07:52 | Outpatient (CLI) | payer OTHER, SELFPAY ==
[2022-03-21 08:50] LABS: Hematocrit 34.9 % (41-53); Hemoglobin 11.6 g/dL (13.5-17.5)
[2022-03-21 08:54] LABS: HEMOLYSIS < 15 (0-50); Iron 32 ug/dL (49-181)
[2022-03-21 08:58] LABS: Creatinine Urine Random 85.2 mg/dL; Protein (Total) Urine Random 107 mg/dL (0-12); Protein Creatinine Ratio Urine 1.25 GRAM/24H
[2022-03-21 09:01] LABS: BUN Creatinine Ratio 16.7 (6-22); Blood Urea Nitrogen 21 mg/dL (9-20); Calcium 8.6 mg/dL (8.4-10.2); Carbon Dioxide 26 mmol/L (22-32); Chloride 101 mmol/L (98-107); Estimated Glomerular Filt Rate > 60 mL/min (>60); Glucose 287 mg/dL (70-100); HEMOLYSIS < 15 (0-50); Potassium 4.8 mmol/L (3.4-5.1); Sodium 134 mmol/L (137-145)
[2022-03-21 09:13] LABS: Percent Iron Saturation 12 % (20-50); Total Iron Binding Capacity 264 ug/dL (261-462); Transferrin 188 mg/dL (206-381)
[2022-03-21 09:33] LABS: Ferritin 26 ng/mL (18-464)
== END ==
PROVIDERS: PCP Internal Medicine; Referring Provider Student in an Organized Health Care Education/Training Program; Visit Provider Student in an Organized Health Care Education/Training Program
DX: N05.9 Unspecified nephritic syndrome with unspecified morphologic changes (principal); D50.0 Iron deficiency anemia secondary to blood loss (chronic); D64.9 Anemia, unspecified; R80.9 Proteinuria, unspecified
CPT/HCPCS: 36415; 80048; 82570; 82728; 83540; 83550; 84156; 85014; 85018

== ENCOUNTER → 2022-06-28 08:38 | Outpatient (CLI) | payer OTHER, SELFPAY ==
[2022-06-28 13:52] LABS: Clostridium Difficile Tox PCR Negative for C. diff (Negative)
[2022-06-30 15:09] LABS: t-Transglutaminase IgA <2 U/mL (0-3)
== END ==
PROVIDERS: PCP Internal Medicine; Referring Provider Internal Medicine Gastroenterology; Visit Provider Internal Medicine Gastroenterology
DX: D50.9 Iron deficiency anemia, unspecified (principal); R19.7 Diarrhea, unspecified; K20.0 Eosinophilic esophagitis; K51.90 Ulcerative colitis, unspecified, without complications
CPT/HCPCS: 36415; 83516; 87493

== ENCOUNTER → 2022-07-01 08:35 | Outpatient (CLI) | payer OTHER, SELFPAY ==
[2022-07-01 10:42] LABS: Alanine Aminotransferase 8 IU/L (<50); Albumin Globulin Ratio 1.2 (1.0-2.8); Alkaline Phosphatase 115 U/L (38-126); Aspartate Aminotransferase 20 IU/L (17-59); BUN Creatinine Ratio 17.9 (6-22); Bilirubin Total 0.3 mg/dL (0.2-1.3); Blood Urea Nitrogen 22 mg/dL (9-20); Calcium 9.1 mg/dL (8.4-10.2); Carbon Dioxide 27 mmol/L (22-32); Chloride 100 mmol/L (98-107); Cholesterol 158 mg/dL (140-199); Estimated Glomerular Filt Rate > 60 mL/min (>60); Globulin 3.3 g/dL (1.7-4.1); Glucose 141 mg/dL (70-100); HDL Cholesterol 27 mg/dL (40-60); HEMOLYSIS < 15 (0-50); Hemoglobin A1C% w Est Avg Glu 11.5 % (4.0-6.0); LDL Cholesterol Calculated 56 mg/dL (<100); Potassium 4.5 mmol/L (3.4-5.1); Sodium 137 mmol/L (137-145); Total Protein 7.3 g/dL (6.3-8.2); Triglycerides 377 mg/dL (35-150)
[2022-07-01 11:02] LABS: Free T4, Direct Thyroxine 2.01 ng/dL (0.78-2.19)
[2022-07-01 11:15] LABS: Thyroid Stimulating Hormone 1.18 uIU/mL (0.47-4.68)
[2022-07-01 13:00] LABS: Creatinine Urine Random 56.3 mg/dL
[2022-07-01 13:26] LABS: Microalbumi Creatinin Ratio Ur 674.9 ug/mg CR (<30)
[2022-07-02 18:40] LABS: Anti Thyroglobulin Antibody <1.0 IU/mL (0.0-0.9); Thyroid Peroxidase Antibodies 18 IU/mL (0-34)
[2022-07-02 22:42] LABS: Thyroglobulin Antibodies < 1.0 IU/mL (0.0-0.9)
== END ==
PROVIDERS: PCP Internal Medicine; Referring Provider Internal Medicine Endocrinology, Diabetes & Metabolism; Visit Provider Internal Medicine Endocrinology, Diabetes & Metabolism
DX: E11.3213 Type 2 diabetes mellitus with mild nonproliferative diabetic retinopathy with macular edema, bilateral (principal); C73 Malignant neoplasm of thyroid gland
CPT/HCPCS: 36415; 80053; 80061; 82043; 82570; 83036; 84432; 84439; 84443; 86376; 86800

== ENCOUNTER → 2022-09-05 08:32 | Outpatient (CLI) | payer OTHER, SELFPAY ==
[2022-09-05 09:43] LABS: Hematocrit 37.6 % (41-53); Hemoglobin 12.8 g/dL (13.5-17.5)
[2022-09-05 10:27] LABS: BUN Creatinine Ratio 21.6 (6-22); Blood Urea Nitrogen 24 mg/dL (9-20); Calcium 8.8 mg/dL (8.4-10.2); Carbon Dioxide 25 mmol/L (22-32); Chloride 103 mmol/L (98-107); Estimated Glomerular Filt Rate > 60 mL/min (>60); Glucose 116 mg/dL (70-100); Potassium 4.5 mmol/L (3.4-5.1); Sodium 139 mmol/L (137-145)
[2022-09-05 10:28] LABS: Iron 51 ug/dL (49-181)
[2022-09-05 10:37] LABS: Total Iron Binding Capacity 309 ug/dL (261-462)
[2022-09-05 11:42] LABS: Creatinine Urine Random 42.7 mg/dL; Protein (Total) Urine Random 58 mg/dL (0-12); Protein Creatinine Ratio Urine 1.35 GRAM/24H
[2022-09-07 09:27] LABS: Parathyroid Hormone Int 32 pg/mL (15-65)
== END ==
PROVIDERS: PCP Internal Medicine; Referring Provider Student in an Organized Health Care Education/Training Program; Visit Provider Student in an Organized Health Care Education/Training Program
DX: N05.9 Unspecified nephritic syndrome with unspecified morphologic changes (principal); D64.9 Anemia, unspecified; D50.0 Iron deficiency anemia secondary to blood loss (chronic); R80.9 Proteinuria, unspecified; N25.81 Secondary hyperparathyroidism of renal origin
CPT/HCPCS: 36415; 80048; 82570; 83540; 83550; 83970; 84156; 85014; 85018

== ENCOUNTER → 2022-09-16 12:42 | Outpatient (CLI) | payer OTHER, SELFPAY | PROVIDERS: PCP Internal Medicine; Referring Provider Internal Medicine; Visit Provider Internal Medicine | DX: Z23 Encounter for immunization (principal) | CPT/HCPCS: 90471; 90686 ==

== ENCOUNTER → 2022-09-22 09:22 | Outpatient (CLI) | payer OTHER, SELFPAY ==
--- NOTE | 2022-09-22 | DI.RAD.S_ITS ---
PROCEDURE: XR CHEST 2V INDICATIONS: Other shelter (current) drug therapy TECHNIQUE: 2 views of the chest were acquired. COMPARISON: None. FINDINGS: Surgical changes and devices: None. Lungs and pleura: Lungs are clear. No pleural effusions or pneumothorax. Mediastinum: Mediastinal contours are normal. Heart size is normal. Bones and chest wall: No suspicious bony abnormalities. Soft tissues appear unremarkable. IMPRESSION: No evidence for active disease in the chest. Dictated by: David Bower M.D. on 09/22/2022 at 9:41 Approved by: David Bower M.D. on 09/22/2022 at 9:42
== END ==
PROVIDERS: PCP Internal Medicine; Referring Provider Surgery; Visit Provider Surgery
DX: K51.90 Ulcerative colitis, unspecified, without complications (principal); K20.0 Eosinophilic esophagitis; D50.9 Iron deficiency anemia, unspecified; Z79.899 Other long term (current) drug therapy
CPT/HCPCS: 36415; 71046; 86480; 86704; 87340

== ENCOUNTER → 2022-09-22 09:47 | Outpatient (CLI) | payer OTHER, SELFPAY ==
[2022-09-22 17:28] LABS: Hepatitis B Surface Antigen NEGATIVE s/c (NEGATIVE)
[2022-09-24 03:10] LABS: Hepatitis B Core Antibody Negative (Negative)
[2022-09-26 16:09] LABS: QuantiFERON Mitogen Value >10.00 IU/mL (.); QuantiFERON Nil Value 0.07 IU/mL (.); QuantiFERON TB Gold Plus Negative (Negative); QuantiFERON TB1 Ag Value 0.06 IU/mL (.); QuantiFERON TB2 Ag Value 0.06 IU/mL (.)
== END ==
PROVIDERS: PCP Internal Medicine; Referring Provider Internal Medicine Gastroenterology; Visit Provider Internal Medicine Gastroenterology
DX: K51.90 Ulcerative colitis, unspecified, without complications (principal); K20.0 Eosinophilic esophagitis; D50.9 Iron deficiency anemia, unspecified; Z79.899 Other long term (current) drug therapy
CPT/HCPCS: 36415; 86480; 86704; 87340

== ENCOUNTER → 2022-10-09 11:21 | Outpatient (CLI) | payer OTHER, SELFPAY ==
[2022-10-09 12:40] LABS: Influenza A - CEPHEID Flu A NEGATIVE (NEGATIVE); Influenza B - CEPHEID Flu B NEGATIVE (NEGATIVE); Respiratory Syncytial Virus Negative (Negative)
[2022-10-09 12:57] LABS: COVID-19 CEPHEID 4-PLEX PCR Negative (Negative)
== END ==
PROVIDERS: PCP Internal Medicine; Visit Provider Physician Assistant
DX: R05.9 Cough, unspecified (principal)
CPT/HCPCS: 0241U

== ENCOUNTER → 2022-11-01 08:51 | Outpatient (CLI) | payer OTHER, SELFPAY ==
[2022-11-01 09:37] LABS: Hemoglobin A1C% w Est Avg Glu 8.2 % (4.0-6.0)
[2022-11-01 09:40] LABS: Alanine Aminotransferase 13 IU/L (<50); Albumin 3.9 g/dL (3.5-5.0); Albumin Globulin Ratio 1.1 (1.0-2.8); Alkaline Phosphatase 90 U/L (38-126); Aspartate Aminotransferase 16 IU/L (17-59); BUN Creatinine Ratio 17.1 (6-22); Bilirubin Total 0.4 mg/dL (0.2-1.3); Blood Urea Nitrogen 22 mg/dL (9-20); Carbon Dioxide 26 mmol/L (22-32); Chloride 103 mmol/L (98-107); Cholesterol 157 mg/dL (140-199); Estimated Glomerular Filt Rate > 60 mL/min (>60); Globulin 3.5 g/dL (1.7-4.1); Glucose 153 mg/dL (70-100); HDL Cholesterol 26 mg/dL (40-60); HEMOLYSIS < 15 (0-50); LDL Cholesterol Calculated 98 mg/dL (<100); Potassium 4.9 mmol/L (3.4-5.1); Sodium 141 mmol/L (137-145); Total Protein 7.4 g/dL (6.3-8.2); Triglycerides 164 mg/dL (35-150)
[2022-11-01 09:41] LABS: Creatinine Urine Random 83.7 mg/dL
[2022-11-01 10:03] LABS: Microalbumi Creatinin Ratio Ur 519.7 ug/mg CR (<30); Microalbumin Urine Random 43.5 mg/dL (0-1.6)
== END ==
PROVIDERS: PCP Internal Medicine; Referring Provider Internal Medicine Endocrinology, Diabetes & Metabolism; Visit Provider Internal Medicine Endocrinology, Diabetes & Metabolism
DX: E11.3213 Type 2 diabetes mellitus with mild nonproliferative diabetic retinopathy with macular edema, bilateral (principal)
CPT/HCPCS: 36415; 80053; 80061; 82043; 82570; 83036

== ENCOUNTER → 2023-01-20 08:33 | Outpatient (CLI) | payer OTHER, SELFPAY ==
[2023-01-20 09:52] LABS: Hematocrit 35.1 % (41-53); Hemoglobin 11.5 g/dL (13.5-17.5)
[2023-01-20 09:59] LABS: Hemoglobin A1C% w Est Avg Glu 7.8 % (4.0-6.0)
[2023-01-20 10:25] LABS: HEMOLYSIS < 15 (0-50); Iron 36 ug/dL (49-181)
[2023-01-20 10:36] LABS: Percent Iron Saturation 11 % (20-50); Total Iron Binding Capacity 337 ug/dL (261-462); Transferrin 269 mg/dL (206-381)
[2023-01-20 10:48] LABS: Alanine Aminotransferase 13 IU/L (<50); Albumin 3.9 g/dL (3.5-5.0); Albumin Globulin Ratio 1.3 (1.0-2.8); Alkaline Phosphatase 92 U/L (38-126); Aspartate Aminotransferase 21 IU/L (17-59); BUN Creatinine Ratio 23.6 (6-22); Bilirubin Total 0.2 mg/dL (0.2-1.3); Blood Urea Nitrogen 26 mg/dL (9-20); Calcium 9.4 mg/dL (8.4-10.2); Carbon Dioxide 25 mmol/L (22-32); Chloride 100 mmol/L (98-107); Cholesterol 180 mg/dL (140-199); Estimated Glomerular Filt Rate > 60 mL/min (>60); Glucose 170 mg/dL (70-100); HDL Cholesterol 25 mg/dL (40-60); HEMOLYSIS < 15 (0-50); Potassium 4.8 mmol/L (3.4-5.1); Sodium 135 mmol/L (137-145); Total Protein 6.9 g/dL (6.3-8.2)
[2023-01-20 10:59] LABS: Triglycerides 773 mg/dL (35-150)
[2023-01-20 15:16] LABS: Microalbumi Creatinin Ratio Ur 480.3 ug/mg CR (<30); Microalbumin Urine Random 31.7 mg/dL (0-1.6)
[2023-01-24 07:20] LABS: Parathyroid Hormone Int 17 pg/mL (15-65)
== END ==
PROVIDERS: Internal Medicine Endocrinology, Diabetes & Metabolism; PCP Internal Medicine; Referring Provider Student in an Organized Health Care Education/Training Program; Visit Provider Student in an Organized Health Care Education/Training Program
DX: N05.9 Unspecified nephritic syndrome with unspecified morphologic changes (principal); D64.9 Anemia, unspecified; D50.0 Iron deficiency anemia secondary to blood loss (chronic); N25.81 Secondary hyperparathyroidism of renal origin; R80.9 Proteinuria, unspecified; E11.3213 Type 2 diabetes mellitus with mild nonproliferative diabetic retinopathy with macular edema, bilateral
CPT/HCPCS: 80053; 80061; 82043; 82570; 83036; 83540; 83550; 83970; 85014; 85018

== ENCOUNTER 2023-02-03 10:03 | Inpatient (IN) | payer OTHER, SELFPAY ==
[2023-02-03] VITALS (22 sets, daily range): BP systolic 115–159; BP diastolic 57–85; PULSE 31–118; RESP 18–22; TEMP 36.6–37.1; O2SAT 94–100; BMI 37.3; BMI 35.7
[2023-02-03 10:31] LABS: Add Manual Diff / Slide Review NO; Basophils Absolute Auto 0 /uL (0-100); Basophils Percent Auto 0.4 % (0-2); Eosinophils Absolute Auto 100 /uL (0-450); Eosinophils Percent Auto 1.8 % (2-4); Hematocrit 32.1 % (41-53); Hemoglobin 10.7 g/dL (13.5-17.5); Lymphocytes Absolute Auto 800 /uL (1100-4500); Lymphocytes Percent Auto 13.7 % (25-40); Mean Corpuscular HGB Conc 33.5 % (30-36); Mean Corpuscular Volume 83.7 fL (80-100); Monocytes Absolute Auto 1100 /uL (0-900); Monocytes Percent Auto 17.6 % (3-14); Neutrophils Absolute Auto 4000 /uL (1500-7000); Neutrophils Percent Auto 66.5 % (50-75); Platelet Count 385 X10^3/uL (150-400); Red Blood Cell Count 3.83 X10^6/uL (4.5-5.9); Red Cell Distribution Width 14.1 % (11.6-14.8)
[2023-02-03 10:57] LABS: Alanine Aminotransferase 11 IU/L (<50); Albumin 3.6 g/dL (3.5-5.0); Alkaline Phosphatase 87 U/L (38-126); Aspartate Aminotransferase 16 IU/L (17-59); Bilirubin Total 0.3 mg/dL (0.2-1.3); Blood Urea Nitrogen 24 mg/dL (9-20); Calcium 8.2 mg/dL (8.4-10.2); Carbon Dioxide 27 mmol/L (22-32); Chloride 95 mmol/L (98-107); Estimated Glomerular Filt Rate > 60 mL/min (>60); Globulin 3.7 g/dL (1.7-4.1); Glucose 155 mg/dL (70-100); HEMOLYSIS < 15 (0-50); Lipase 40 U/L (23-300); Sodium 130 mmol/L (137-145); Total Protein 7.3 g/dL (6.3-8.2)
[2023-02-03 11:53] LABS: Bacteria Urine None Seen; Culture Indicated Urine Cult Not Indicated; RBC Urine None Seen (0-5/HPF); Squamous Epithelial Cell Urine None Seen (0-5/HPF); WBC Urine None Seen (0-5/HPF)
--- NOTE | 2023-02-03 13:22 | ED.ABDPAIN ---
HPI - Abdominal Pain <Carlos Sanabria PA-C - Last Filed: 02/03/23 19:45> General Chief Complaint: Abdominal Pain Stated Complaint: dizziness, chills, body aches, extreme abd pain Time Seen by Provider: 02/03/23 12:33 Source: patient Mode of arrival: Ambulatory History of Present Illness HPI narrative: This is a 42-year-old male with a history of ulcerative colitis presents emergency department due to acute onset right lower quadrant pain as well as some nausea, and ?hot flashes? onset 2 days ago. Patient has a history of ulcerative colitis states that the pain that he is experiencing is different. He says he has had minimal food as he is nauseous whenever he eats. Denies any recorded fevers, chest pain, shortness of breath. States that he has chronic diarrhea secondary to his ulcerative colitis. Currently seen by a GI provider, Ed Jack who helps manage his UC meds. States he currently takes mesalamine and was just started on Humira. Related Data Home Medications Medication Instructions Recorded Confirmed levothyroxine 112 mcg tablet 224 mcg PO 0600 09/30/18 02/03/23 Respironics Dreamstation CPAP #1 ea 05/28/19 02/03/23 glipizide 10 mg tablet 10 mg PO DAILY 10/12/20 02/03/23 metoprolol tartrate 50 mg tablet 25 mg PO TID 10/12/20 02/03/23 amlodipine 10 mg tablet 10 mg PO DAILY 04/29/22 02/03/23 hydrochlorothiazide 25 mg tablet 25 mg PO BEDTIME 04/29/22 02/03/23 insulin glargine 100 unit/mL (3 40 unit SUBCUT BEDTIME 04/29/22 02/03/23 mL) subcutaneous pen (Basaglar KwikPen U-100 Insulin) liraglutide 0.6 mg/0.1 mL (18 mg/3 1.8 mg SUBCUT BEDTIME 04/29/22 02/03/23 mL) subcutaneous pen injector (Victoza 2-Lloyd) losartan 25 mg tablet 25 mg PO BID 04/29/22 02/03/23 mesalamine 1.2 gram tablet,delayed 1.2 g PO BID 04/29/22 02/03/23 release pen needle, diabetic 32 gauge x #50 ea 06/17/22 03/24/23 5/32 (BD Ultra-Fine [place]elaria Pen Needle) sodium zirconium cyclosilicate 5 5 g PO DAILY PRN low potassium 04/29/22 02/03/23 gram oral powder packet blood sugar diagnostic (FreeStyle #10 ea 10/26/22 02/03/23 Precision Felix Strips) budesonide 9 mg tablet,delayed and 9 mg PO DAILY 10/26/22 02/03/23 extended release adalimumab 40 mg/0.4 mL 40 mg SUBCUT Q2W 02/03/23 02/03/23 subcutaneous pen kit (Humira(CF) Pen) atorvastatin 10 mg tablet 10 mg PO DAILY 02/03/23 02/03/23 gabapentin 300 mg capsule 300 mg PO TID 02/03/23 02/03/23 Allergies Allergy/AdvReac Type Severity Reaction Status Date / Time alcohol [ALCOHOL] Allergy Severe throat Verified 02/03/23 10:12 swells up Review of Systems <Carlos Sanabria PA-C - Last Filed: 02/03/23 19:45> Review of Systems Narrative: GENERAL: Denies chills, fatigue, malaise, fever, sweats. HEENT: Denies sinus pain, ear pain, sore throat, difficulty swallowing, dizziness. RESPIRATORY: Denies dyspnea, cough, wheezing, hemoptysis, sputum. CARDIOVASCULAR: Denies chest pain, palpitations, orthopnea, edema, GASTROINTESTINAL: Reports abdominal pain, chronic diarrhea,, Denies nausea, vomiting, , constipation, melena. : Denies dysuria, frequency, incontinence, hematuria, urinary retention. MUSCULOSKELETAL: denies weakness, joint pain, or bony pain SKIN: Denies rash, skin lesions, or other NEUROLOGIC: Denies weakness, headache, numbness, change in speech, confusion, seizures, incoordination. PSYCHIATRIC: No concerning psychosocial issues. 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 and albumin creatinine ratio 30-299 mg/g Eosinophilic esophagitis Essential hypertension Facet arthropathy, cervical Inflamed sebaceous cyst Mixed hyperlipidemia Pinched nerve (~2013) Polyneuropathy, unspecified Primary osteoarthritis involving multiple joints Severe obesity Sleep apnea (~2013) Thyroid cancer (~2015) 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 chronic kidney disease Type 2 diabetes mellitus with stage 3a chronic kidney disease Ulcerative colitis (~2020) Venous insufficiency Viral URI with cough Vocal cord paralysis (~2015) Surgical History Anesthesia H/O Achilles tendon repair (~2012) Status post removal of thyroid nodule (~2015) Family History Mother Spine degeneration Grandmother Diabetes mellitus History of heart disease Grandfather History of heart disease Grandfather Diabetes mellitus Stroke Grandmother Cancer Social History household members: friend(s) Smoking Status: Never smoker alcohol intake: current Smoking Status: Never smoker alcohol intake frequency: 0-2 drinks per day Substance Use Type: does not use Exam <Carlos Sanabria PA-C - Last Filed: 02/03/23 19:45> Narrative Exam Narrative: GENERAL: Well-developed patient, in mild distress. HEAD: Atraumatic. Normocephalic. EYES: Pupils equal round and reactive. Extraocular motions intact. No scleral icterus. No injection or drainage. ENT: Nose without bleeding, purulent drainage. Throat without erythema, tonsillar hypertrophy or exudate. Airway patent. NECK: Trachea midline. Non tender CARDIOVASCULAR: Regular rate and rhythm without murmurs, gallops, or rubs. RESPIRATORY: Clear to auscultation. Breath sounds equal bilaterally. No wheezes, rales, or rhonchi. GASTROINTESTINAL: Moderate right lower quadrant tenderness to palpation. Nondistended. EXTREMITIES: No edema or joint tenderness. BACK: Nontender without deformity or crepitance. No flank tenderness. NEURO: AOx3. SKIN: No rash or erythema of visible areas Initial Vital Signs Initial Vital Signs: Vital Signs Temperature 98.8 F 02/03/23 10:09 Pulse Rate 97 H 02/03/23 10:09 Respiratory Rate 18 02/03/23 10:09 Blood Pressure 138/80 02/03/23 10:09 Pulse Oximetry 100 02/03/23 10:09 Oxygen Delivery Method Room Air 02/03/23 10:09 <Maddie Sommer DO - Last Filed: 02/04/23 08:29> Initial Vital Signs Initial Vital Signs: Vital Signs Temperature 98.8 F 02/03/23 10:09 Pulse Rate 97 H 02/03/23 10:09 Respiratory Rate 18 02/03/23 10:09 Blood Pressure 138/80 02/03/23 10:09 Pulse Oximetry 100 02/03/23 10:09 Oxygen Delivery Method Room Air 02/03/23 10:09 Course <Carlos Sanabria PA-C - Last Filed: 02/03/23 19:45> Orders Ordered: Acetaminophen (Acetaminophen 325 Mg Tablet) 650 mg PO Q6H PRN PRN Reason: Fever/Mild Pain (1-3) Amlodipine Besylate (Amlodipine 5 Mg Tablet) 10 mg PO DAILY JONEL Atorvastatin Calcium (Atorvastatin 20 Mg Tablet) 10 mg PO DAILY JONEL Budesonide (Budesonide 3 Mg Cap) 9 mg PO DAILY JONEL Calcium Carbonate (Calcium Carbonate 500 Mg Tab) 1,000 mg PO Q4HR PRN PRN Reason: Dyspepsia Dextrose (Dextrose 50 % In Water 25 Gm/50 Ml Syringe) 25 gm IV PRN PRN PRN Reason: Hypoglycemia Enoxaparin Sodium (Enoxaparin 40 Mg/0.4 Ml Syringe) 40 mg SUBCUT DAILY JONEL Gabapentin (Gabapentin 300 Mg Capsule) 300 mg PO TID PRN PRN Reason: Pain, Mild (1-3) Sodium Chloride (Normal Saline 0.9%) 1,000 mls @ 84 mls/hr IV CONT [facility] Last Admin: 02/04/23 08:13 Dose: 84 mls/hr Documented By: Infusion: 02/04/23 07:07 Dose: 84 mls/hr Documented By: Admin: 02/03/23 19:12 Dose: 84 mls/hr Documented By: UMA Insulin Glargine (Insulin Glargine 100 Unit/Ml 3ml Pen) 40 unit SUBCUT BEDTIME [facility] Last Admin: 02/04/23 00:26 Dose: 40 unit Documented By: AGW Co-signed By: ISAÍAS Insulin Human Lispro (Insulin Lispro 100 Unit/Ml 3ml Vial) 0 unit SUBCUT ACHS [facility]; Protocol Levothyroxine Sodium (Levothyroxine 100 Mcg Tablet) 200 mcg PO DAILY@0600 [facility] Last Admin: 02/04/23 05:47 Dose: 200 mcg Documented By: SURI Losartan Potassium (Losartan 25 Mg Tablet) 25 mg PO BID [facility] Last Admin: 02/04/23 00:27 Dose: 25 mg Documented By: SURI Mesalamine (Mesalamine 400 Mg Cap.Drtab.) 1,200 mg PO BID [facility] Methylprednisolone (Methylprednisolone 125 Mg/2 Ml Vial) 125 mg IV DAILY [facility] Metoprolol Tartrate (Metoprolol Ir 50 Mg Tablet) 25 mg PO TID [facility] Last Admin: 02/04/23 00:30 Dose: 25 mg Documented By: SURI Naloxone HCl (Naloxone 0.4 Mg/Ml Vial) 0.2 mg IV Q2MIN PRN PRN Reason: Opiate Reversal Nf - Liraglutide ( Victoza) 0.6 Mg/0.1 Ml Pen 1.8 mg SUBCUT BEDTIME [facility] Ondansetron HCl (Ondansetron 4 Mg Odt) 4 mg PO NOW PRN PRN Reason: Nausea And Vomiting Ondansetron HCl (Ondansetron 4 Mg/2 Ml Inj) 4 mg IV NOW PRN PRN Reason: Nausea And Vomiting Ondansetron HCl (Ondansetron 4 Mg/2 Ml Inj) 4 mg IV Q4HR PRN PRN Reason: Nausea And Vomiting Discontinued Medications Gabapentin (Gabapentin 300 Mg Capsule) 300 mg PO TID [facility] Last Admin: 02/04/23 00:29 Dose: Not Given Documented By: SURI Sodium Chloride (Normal Saline 0.9%) 1,000 mls @ 1,000 mls/hr IV BOLUS ONE Stop: 02/03/23 14:16 Last Infusion: 02/03/23 15:15 Dose: 0 mls/hr Documented By: Admin: 02/03/23 13:49 Dose: 1,000 mls/hr Documented By: RLS Levothyroxine Sodium (Levothyroxine 112 Mcg Tablet) 224 mcg PO 0600 [facility] Methylprednisolone (Methylprednisolone 125 Mg/2 Ml Vial) 125 mg IV NOW ONE Stop: 02/03/23 17:10 Last Admin: 02/03/23 17:44 Dose: 125 mg Documented By: UMA Non-Formulary Medication (Adalimumab [Humira(Cf) Pen]) 40 mg SUBCUT Q2W [facility] Last Admin: 02/04/23 04:02 Dose: Not Given Documented By: AGW Vital Signs Vital signs: Vital Signs - 8 hr 02/03/23 13:52 02/03/23 13:53 02/03/23 13:53 Pulse Rate 94 H 95 H Respiratory Rate 22 Blood Pressure 136/76 Pulse Oximetry 100 100 Oxygen Delivery Method Room Air 02/03/23 14:09 02/03/23 14:19 02/03/23 14:19 Pulse Rate 101 H 95 H Respiratory Rate 19 Blood Pressure 137/73 Pulse Oximetry 96 99 Oxygen Delivery Method 02/03/23 14:30 02/03/23 14:30 02/03/23 15:00 Pulse Rate 93 H Respiratory Rate 22 Blood Pressure 133/60 130/66 Pulse Oximetry 98 Oxygen Delivery Method 02/03/23 15:00 02/03/23 15:30 02/03/23 15:30 Pulse Rate 96 H 94 H Respiratory Rate 20 Blood Pressure 125/58 L Pulse Oximetry 100 98 Oxygen Delivery Method Room Air 02/03/23 16:00 02/03/23 16:00 02/03/23 16:36 Pulse Rate 95 H 31 L Respiratory Rate Blood Pressure 136/70 Pulse Oximetry 98 96 Oxygen Delivery Method 02/03/23 16:38 02/03/23 16:38 02/03/23 17:00 Pulse Rate 96 H Respiratory Rate 22 Blood Pressure 123/67 117/58 L Pulse Oximetry 99 Oxygen Delivery Method 02/03/23 17:00 02/03/23 17:30 02/03/23 17:30 Pulse Rate 91 H 94 H Respiratory Rate 20 Blood Pressure 115/66 Pulse Oximetry 97 96 Oxygen Delivery Method 02/03/23 18:00 02/03/23 18:00 02/03/23 18:30 Pulse Rate 95 H Respiratory Rate 22 Blood Pressure 124/69 121/62 Pulse Oximetry 94 Oxygen Delivery Method 02/03/23 18:30 Pulse Rate 95 H Respiratory Rate Blood Pressure Pulse Oximetry 94 Oxygen Delivery Method <Maddie Sommer DO - Last Filed: 02/04/23 08:29> Orders Ordered: Acetaminophen (Acetaminophen 325 Mg Tablet) 650 mg PO Q6H PRN PRN Reason: Fever/Mild Pain (1-3) Amlodipine Besylate (Amlodipine 5 Mg Tablet) 10 mg PO DAILY JONEL Atorvastatin Calcium (Atorvastatin 20 Mg Tablet) 10 mg PO DAILY JONEL Budesonide (Budesonide 3 Mg Cap) 9 mg PO DAILY [facility] Calcium Carbonate (Calcium Carbonate 500 Mg Tab) 1,000 mg PO Q4HR PRN PRN Reason: Dyspepsia Dextrose (Dextrose 50 % In Water 25 Gm/50 Ml Syringe) 25 gm IV PRN PRN PRN Reason: Hypoglycemia Enoxaparin Sodium (Enoxaparin 40 Mg/0.4 Ml Syringe) 40 mg SUBCUT DAILY [facility] Gabapentin (Gabapentin 300 Mg Capsule) 300 mg PO TID PRN PRN Reason: Pain, Mild (1-3) Sodium Chloride (Normal Saline 0.9%) 1,000 mls @ 84 mls/hr IV CONT [facility] Last Admin: 02/04/23 08:13 Dose: 84 mls/hr Documented By: Infusion: 02/04/23 07:07 Dose: 84 mls/hr Documented By: Admin: 02/03/23 19:12 Dose: 84 mls/hr Documented By: UMA Insulin Glargine (Insulin Glargine 100 Unit/Ml 3ml Pen) 40 unit SUBCUT BEDTIME [facility] Last Admin: 02/04/23 00:26 Dose: 40 unit Documented By: SURI Co-signed By: ISAÍAS Insulin Human Lispro (Insulin Lispro 100 Unit/Ml 3ml Vial) 0 unit SUBCUT ACHS [facility]; Protocol Levothyroxine Sodium (Levothyroxine 100 Mcg Tablet) 200 mcg PO DAILY@0600 [facility] Last Admin: 02/04/23 05:47 Dose: 200 mcg Documented By: SURI Losartan Potassium (Losartan 25 Mg Tablet) 25 mg PO BID [facility] Last Admin: 02/04/23 00:27 Dose: 25 mg Documented By: SURI Mesalamine (Mesalamine 400 Mg Cap.Drtab.) 1,200 mg PO BID [facility] Methylprednisolone (Methylprednisolone 125 Mg/2 Ml Vial) 125 mg IV DAILY [facility] Metoprolol Tartrate (Metoprolol Ir 50 Mg Tablet) 25 mg PO TID [facility] Last Admin: 02/04/23 00:30 Dose: 25 mg Documented By: SURI Naloxone HCl (Naloxone 0.4 Mg/Ml Vial) 0.2 mg IV Q2MIN PRN PRN Reason: Opiate Reversal Nf - Liraglutide ( Victoza) 0.6 Mg/0.1 Ml Pen 1.8 mg SUBCUT BEDTIME [facility] Ondansetron HCl (Ondansetron 4 Mg Odt) 4 mg PO NOW PRN PRN Reason: Nausea And Vomiting Ondansetron HCl (Ondansetron 4 Mg/2 Ml Inj) 4 mg IV NOW PRN PRN Reason: Nausea And Vomiting Ondansetron HCl (Ondansetron 4 Mg/2 Ml Inj) 4 mg IV Q4HR PRN PRN Reason: Nausea And Vomiting Discontinued Medications Gabapentin (Gabapentin 300 Mg Capsule) 300 mg PO TID [facility] Last Admin: 02/04/23 00:29 Dose: Not Given Documented By: SURI Sodium Chloride (Normal Saline 0.9%) 1,000 mls @ 1,000 mls/hr IV BOLUS ONE Stop: 02/03/23 14:16 Last Infusion: 02/03/23 15:15 Dose: 0 mls/hr Documented By: Admin: 02/03/23 13:49 Dose: 1,000 mls/hr Documented By: UMA Levothyroxine Sodium (Levothyroxine 112 Mcg Tablet) 224 mcg PO 0600 [facility] Methylprednisolone (Methylprednisolone 125 Mg/2 Ml Vial) 125 mg IV NOW ONE Stop: 02/03/23 17:10 Last Admin: 02/03/23 17:44 Dose: 125 mg Documented By: UMA Non-Formulary Medication (Adalimumab [Humira(Cf) Pen]) 40 mg SUBCUT Q2W [facility] Last Admin: 02/04/23 04:02 Dose: Not Given Documented By: SURI Vital Signs Vital signs: Vital Signs - 8 hr 02/03/23 13:52 02/03/23 13:53 02/03/23 13:53 Pulse Rate 94 H 95 H Respiratory Rate 22 Blood Pressure 136/76 Pulse Oximetry 100 100 Oxygen Delivery Method Room Air 02/03/23 14:09 02/03/23 14:19 02/03/23 14:19 Pulse Rate 101 H 95 H Respiratory Rate 19 Blood Pressure 137/73 Pulse Oximetry 96 99 Oxygen Delivery Method 02/03/23 14:30 02/03/23 14:30 02/03/23 15:00 Pulse Rate 93 H Respiratory Rate 22 Blood Pressure 133/60 130/66 Pulse Oximetry 98 Oxygen Delivery Method 02/03/23 15:00 02/03/23 15:30 02/03/23 15:30 Pulse Rate 96 H 94 H Respiratory Rate 20 Blood Pressure 125/58 L Pulse Oximetry 100 98 Oxygen Delivery Method Room Air 02/03/23 16:00 02/03/23 16:00 02/03/23 16:36 Pulse Rate 95 H 31 L Respiratory Rate Blood Pressure 136/70 Pulse Oximetry 98 96 Oxygen Delivery Method 02/03/23 16:38 02/03/23 16:38 02/03/23 17:00 Pulse Rate 96 H Respiratory Rate 22 Blood Pressure 123/67 117/58 L Pulse Oximetry 99 Oxygen Delivery Method 02/03/23 17:00 02/03/23 17:30 02/03/23 17:30 Pulse Rate 91 H 94 H Respiratory Rate 20 Blood Pressure 115/66 Pulse Oximetry 97 96 Oxygen Delivery Method 02/03/23 18:00 02/03/23 18:00 02/03/23 18:30 Pulse Rate 95 H Respiratory Rate 22 Blood Pressure 124/69 121/62 Pulse Oximetry 94 Oxygen Delivery Method 02/03/23 18:30 Pulse Rate 95 H Respiratory Rate Blood Pressure Pulse Oximetry 94 Oxygen Delivery Method MDM - Abdominal Pain <Carlos Sanabria PA-C - Last Filed: 02/03/23 19:45> Lab Data 02/04/23 05:16 02/04/23 05:16 Labs: Lab Results 02/03/23 02/03/23 02/03/23 Range/Units 10:14 10:25 10:25 WBC 6.0 (4.5-11.0) X10^3/uL RBC 3.83 L (4.5-5.9) X10^6/uL Hgb 10.7 L (13.5-17.5) g/dL Hct 32.1 L (41-53) % MCV 83.7 (80-100) fL MCH 28.0 (26-34) PG MCHC 33.5 (30-36) % RDW 14.1 (11.6-14.8) % Plt Count 385 (150-400) X10^3/uL Neut % (Auto) 66.5 (50-75) % Lymph % (Auto) 13.7 L (25-40) % [place] % (Auto) 17.6 H (3-14) % Eos % (Auto) 1.8 L (2-4) % Baso % (Auto) 0.4 (0-2) % Neut # (Auto) 4000 (2860-0647) /uL Lymph # (Auto) 800 L (8493-5900) /uL [place] # (Auto) 1100 H (0-900) /uL Eos # (Auto) 100 (0-450) /uL Baso # (Auto) 0 (0-100) /uL Sodium 130 L (137-145) mmol/L Potassium 4.0 (3.4-5.1) mmol/L Chloride 95 L (98-107) mmol/L Carbon Dioxide 27 (22-32) mmol/L BUN 24 H (9-20) mg/dL Creatinine 1.33 H (0.66-1.25) mg/dL Estimated GFR > 60 (>60) mL/min BUN/Creatinine Ratio 18.0 (6-22) Glucose 155 H (70-100) mg/dL Calcium 8.2 L (8.4-10.2) mg/dL Magnesium (1.6-2.3) mg/dL Total Bilirubin 0.3 (0.2-1.3) mg/dL AST 16 L (17-59) IU/L ALT 11 (<50) IU/L Alkaline Phosphatase 87 (38-126) U/L C-Reactive Protein (<1.0) mg/dL Total Protein 7.3 (6.3-8.2) g/dL Albumin 3.6 (3.5-5.0) g/dL Globulin 3.7 (1.7-4.1) g/dL Albumin/Globulin Ratio 1.0 (1.0-2.8) Lipase 40 (23-300) U/L Procalcitonin (<0.5) ng/mL TSH (0.47-4.68) uIU/mL Urine RBC (0-5/HPF) Urine WBC (0-5/HPF) Ur Squamous Epith Cells (0-5/HPF) Urine Bacteria (None) Ur Culture Indicated? SARS-CoV-2 (PCR) Negative (Negative) Influenza A (RT-PCR) Flu a negative (NEGATIVE) Influenza B (RT-PCR) Flu b negative (NEGATIVE) RSV (PCR) Negative (Negative) 02/03/23 02/03/23 02/03/23 Range/Units 10:25 10:25 10:25 WBC (4.5-11.0) X10^3/uL RBC (4.5-5.9) X10^6/uL Hgb (13.5-17.5) g/dL Hct (41-53) % MCV (80-100) fL MCH (26-34) PG MCHC (30-36) % RDW (11.6-14.8) % Plt Count (150-400) X10^3/uL Neut % (Auto) (50-75) % Lymph % (Auto) (25-40) % [place] % (Auto) (3-14) % Eos % (Auto) (2-4) % Baso % (Auto) (0-2) % Neut # (Auto) (3614-5571) /uL Lymph # (Auto) (1237-4209) /uL [place] # (Auto) (0-900) /uL Eos # (Auto) (0-450) /uL Baso # (Auto) (0-100) /uL Sodium (137-145) mmol/L Potassium (3.4-5.1) mmol/L Chloride (98-107) mmol/L Carbon Dioxide (22-32) mmol/L BUN (9-20) mg/dL Creatinine (0.66-1.25) mg/dL Estimated GFR (>60) mL/min BUN/Creatinine Ratio (6-22) Glucose (70-100) mg/dL Calcium (8.4-10.2) mg/dL Magnesium 2.6 H (1.6-2.3) mg/dL Total Bilirubin (0.2-1.3) mg/dL AST (17-59) IU/L ALT (<50) IU/L Alkaline Phosphatase (38-126) U/L C-Reactive Protein 14.4 H (<1.0) mg/dL Total Protein (6.3-8.2) g/dL Albumin (3.5-5.0) g/dL Globulin (1.7-4.1) g/dL Albumin/Globulin Ratio (1.0-2.8) Lipase (23-300) U/L Procalcitonin 0.20 (<0.5) ng/mL TSH 0.093 L (0.47-4.68) uIU/mL Urine RBC (0-5/HPF) Urine WBC (0-5/HPF) Ur Squamous Epith Cells (0-5/HPF) Urine Bacteria (None) Ur Culture Indicated? SARS-CoV-2 (PCR) (Negative) Influenza A (RT-PCR) (NEGATIVE) Influenza B (RT-PCR) (NEGATIVE) RSV (PCR) (Negative) 02/03/23 Range/Units 10:49 WBC (4.5-11.0) X10^3/uL RBC (4.5-5.9) X10^6/uL Hgb (13.5-17.5) g/dL Hct (41-53) % MCV (80-100) fL MCH (26-34) PG MCHC (30-36) % RDW (11.6-14.8) % Plt Count (150-400) X10^3/uL Neut % (Auto) (50-75) % Lymph % (Auto) (25-40) % [place] % (Auto) (3-14) % Eos % (Auto) (2-4) % Baso % (Auto) (0-2) % Neut # (Auto) (0587-9955) /uL Lymph # (Auto) (3269-7102) /uL [place] # (Auto) (0-900) /uL Eos # (Auto) (0-450) /uL Baso # (Auto) (0-100) /uL Sodium (137-145) mmol/L Potassium (3.4-5.1) mmol/L Chloride (98-107) mmol/L Carbon Dioxide (22-32) mmol/L BUN (9-20) mg/dL Creatinine (0.66-1.25) mg/dL Estimated GFR (>60) mL/min BUN/Creatinine Ratio (6-22) Glucose (70-100) mg/dL Calcium (8.4-10.2) mg/dL Magnesium (1.6-2.3) mg/dL Total Bilirubin (0.2-1.3) mg/dL AST (17-59) IU/L ALT (<50) IU/L Alkaline Phosphatase (38-126) U/L C-Reactive Protein (<1.0) mg/dL Total Protein (6.3-8.2) g/dL Albumin (3.5-5.0) g/dL Globulin (1.7-4.1) g/dL Albumin/Globulin Ratio (1.0-2.8) Lipase (23-300) U/L Procalcitonin (<0.5) ng/mL TSH (0.47-4.68) uIU/mL Urine RBC None seen (0-5/HPF) Urine WBC None seen (0-5/HPF) Ur Squamous Epith Cells None seen (0-5/HPF) Urine Bacteria None seen (None) Ur Culture Indicated? Cult not indicated SARS-CoV-2 (PCR) (Negative) Influenza A (RT-PCR) (NEGATIVE) Influenza B (RT-PCR) (NEGATIVE) RSV (PCR) (Negative) Point of care testing: Urine Dip Bedside Urine Glucose Negative Bedside Urine Bilirubin - Negative Bedside Urine Ketone - Negative Urine Specific [place] 1.015 Bedside Urine Occult Blood - Negative Bedside Urine pH 6.0 Bedside Urine Protein + 30 Bedside Urine Urobilinogen - Negative Bedside Urine Nitrite - Negative Bedside Urine Leukocytes - Negative Esterase Imaging Data CT scan - abdomen/pelvis: Radiologist's Impression: [address] [address] [address] Scan Report Signed Patient: Tao Lamb MR#: [id number] : 1980 Acct:[id number] Age/Sex: 42 / M Date of Service: 02/03/23 Loc: ED Accession Number: [id number] ?? Procedure: CT abdomen pelvis w con Ordering Provider: Carlos Sanabria P.A-C PROCEDURE:? CT ABDOMEN PELVIS W CON ? INDICATIONS:? RLQ pain, hx of UC ? TECHNIQUE:? After the administration of IV contrast, axial sections were acquired from the lung bases to the pubic symphysis.? Coronal and sagittal reformats were performed.? For radiation dose reduction, the following was used:? automated exposure control, adjustment of mA and/or kV according to patient size. ? COMPARISON:? None. ? FINDINGS:? Image quality:? Excellent.? ? Lung bases:? Small lung nodules are present in right lung base.? For example, there is a 4 mm nodule in the right lower lobe (series 3 image 2).? Left basilar atelectasis.? Small hiatal hernia.? Heart:? No significant findings. ? ? ABDOMEN: Liver:? Normal size.? Mild hepatic steatosis.? ? Gallbladder:? Unremarkable.? ? Biliary ducts:? Unremarkable.? ? Pancreas:? Unremarkable.? ? Spleen:? Unremarkable.? ? Adrenal Glands:? Unremarkable.? ? Kidneys and Ureters:? There is a 4 mm nonobstructive stone in the inferior pole of the left kidney.? ? ? Stomach and Bowel:? Stomach, small bowel loops, and colon are normal in caliber.? There is diffuse colonic wall thickening consistent with colitis.? Appendix is mildly thickened, measuring up to 11 mm in diameter.? No periappendiceal stranding. ? Peritoneum:? No abnormal intraperitoneal fluid.? No free air.? ? Ventral Wall: ? Small umbilical hernia.? Abdominal Nodes:? There are multiple borderline sized mesenteric lymph nodes in the right abdomen.? Vessels:? Aorta and inferior vena cava are normal in size.? ? PELVIS: Pelvic Organs:? Unremarkable.? ? Bladder:? Unremarkable.? ? Pelvic Nodes: No enlarged lymph nodes.? Miscellaneous: No inguinal hernias are seen. ? ? ? Bones:? Unremarkable.? IMPRESSION:? ? 1. Diffuse colonic wall thickening in keeping with colitis. 2. There is thickening of appendix, measuring up to 11 mm.? No periappendiceal stranding. ?The findings may be secondary to appendiceal involvement of UC.? Infectious acute appendicitis is felt less likely but not excluded.? Recommend clinical correlation. 3. Borderline enlarged mesenteric lymph nodes in the right abdomen.? This finding is nonspecific and may be secondary to infectious, inflammatory or neoplastic etiology.? Recommend clinical correlation and follow up.? 4. A nonobstructive left renal stone.? 5. Small lung nodules are present in the right lung base.? Recommend follow-up chest CT for further evaluation.? Please see enclosed follow-up recommendation.? Fleischner Society criteria for SOLID lung nodule followup.? Nodule size (mm)Low-risk patientHigh-risk patient?4No follow-up neededFollow-up at 12 mo; if no change, no further follow-up>[id number] CT at 12 mo; if no change, no further follow-up needed.Initial follow-up CT at 6-12 mo, then 18-24 mo if no change.? >6-8Initial follow-up CT at 6-12 mo, then 18-24 mo if no change. Initial follow-up CT at 3-6 mo, then 9-12 mo and 24 mo if no change.? >8Follow-up CT at 3, 9, 24 mo.? Or PET and/or biopsy.Same as for low-risk pts.? Dictated by: Apolonia Ochoa M.D. on 02/03/2023 at 14:21 ? ? Approved by: Apolonia Ochoa M.D. on 02/03/2023 at 14:30 ? MDM Narrative Medical decision making narrative: MDM * differential diagnosis includes but not limited to ulcerative colitis flare, appendicitis, gastroenteritis, cholecystitis * Prior records reviewed: Per GI note patient has a history of eosinophilic esophagitis as well as ulcerative colitis. Patient has baseline diarrhea. Patient was seen most recently 2 months ago. By his housekeeper. Patient's housekeeper is Ed Jack. History of diabetes. History of hypertension, hyperlipidemia, hypothyroidism, CKD stage 2, osteoarthritis, ulcerative colitis, obstructive sleep apnea. * My lab interpretation: No evidence of leukocytosis. Anemia which is chronic. Mild hyponatremia. Creatinine of 1.33 which is mildly elevated from the creatinine of 1.1 14 days ago. Patient has a history of stage 2 chronic kidney disease. * My imgaing interpretation: As above in report. CT scan was negative for appendicitis but did show diffuse inflammation. * Clinical Decision Rules/Scores evaluated: None * Independent discussions with: Spoke with Dr. Del Cid, general surgeon, who recommended admission due to the amount of inflammation with IV steroids. She read the CT head low suspicion for appendicitis at this time. Stated that she would be happy to see the patient while hospitalized. ED Course: This is a 42-year-old male with a history of ulcerative colitis as well as multiple other medical comorbidities as above presents to the emergency department due to 2 days of acute right-sided abdominal pain. CT abdomen pelvis was ordered which showed the above findings. They were discussed with the general surgeon, Dr. Del Cid who recommended admission for IV steroids due to the amount of inflammation found on CT. Solu-Medrol given. Lab work was remarkable for mild hyponatremia as well as decreased TSH. Free T4 pending at time of writing this note. Patient states he has been taking his thyroid medication as prescribed. Discussed case with hospitalist, EFREM Mike, who kindly accepted the patient for admission. Recommended I add blood cultures, procalcitonin, ESR, magnesium, guaiac if patient is able to provide, and start maintenance fluids at 80 cc/hour, which were ordered. Assistance very much appreciated. Shared Decision Making: Discussed plan for possible admission with the patient who is comfortable with this plan. Social Considerations: None Disposition: Admit to hospitalist <Maddie Sommer DO - Last Filed: 02/04/23 08:29> Lab Data Labs: Lab Results 02/03/23 02/03/23 02/03/23 Range/Units 10:14 10:25 10:25 WBC 6.0 (4.5-11.0) X10^3/uL RBC 3.83 L (4.5-5.9) X10^6/uL Hgb 10.7 L (13.5-17.5) g/dL Hct 32.1 L (41-53) % MCV 83.7 (80-100) fL MCH 28.0 (26-34) PG MCHC 33.5 (30-36) % RDW 14.1 (11.6-14.8) % Plt Count 385 (150-400) X10^3/uL Neut % (Auto) 66.5 (50-75) % Lymph % (Auto) 13.7 L (25-40) % [place] % (Auto) 17.6 H (3-14) % Eos % (Auto) 1.8 L (2-4) % Baso % (Auto) 0.4 (0-2) % Neut # (Auto) 4000 (5287-0341) /uL Lymph # (Auto) 800 L (2525-4183) /uL [place] # (Auto) 1100 H (0-900) /uL Eos # (Auto) 100 (0-450) /uL Baso # (Auto) 0 (0-100) /uL Sodium 130 L (137-145) mmol/L Potassium 4.0 (3.4-5.1) mmol/L Chloride 95 L (98-107) mmol/L Carbon Dioxide 27 (22-32) mmol/L BUN 24 H (9-20) mg/dL Creatinine 1.33 H (0.66-1.25) mg/dL Estimated GFR > 60 (>60) mL/min BUN/Creatinine Ratio 18.0 (6-22) Glucose 155 H (70-100) mg/dL Calcium 8.2 L (8.4-10.2) mg/dL Magnesium (1.6-2.3) mg/dL Total Bilirubin 0.3 (0.2-1.3) mg/dL AST 16 L (17-59) IU/L ALT 11 (<50) IU/L Alkaline Phosphatase 87 (38-126) U/L C-Reactive Protein (<1.0) mg/dL Total Protein 7.3 (6.3-8.2) g/dL Albumin 3.6 (3.5-5.0) g/dL Globulin 3.7 (1.7-4.1) g/dL Albumin/Globulin Ratio 1.0 (1.0-2.8) Lipase 40 (23-300) U/L Procalcitonin (<0.5) ng/mL TSH (0.47-4.68) uIU/mL Urine RBC (0-5/HPF) Urine WBC (0-5/HPF) Ur Squamous Epith Cells (0-5/HPF) Urine Bacteria (None) Ur Culture Indicated? SARS-CoV-2 (PCR) Negative (Negative) Influenza A (RT-PCR) Flu a negative (NEGATIVE) Influenza B (RT-PCR) Flu b negative (NEGATIVE) RSV (PCR) Negative (Negative) 02/03/23 02/03/23 02/03/23 Range/Units 10:25 10:25 10:25 WBC (4.5-11.0) X10^3/uL RBC (4.5-5.9) X10^6/uL Hgb (13.5-17.5) g/dL Hct (41-53) % MCV (80-100) fL MCH (26-34) PG MCHC (30-36) % RDW (11.6-14.8) % Plt Count (150-400) X10^3/uL Neut % (Auto) (50-75) % Lymph % (Auto) (25-40) % [place] % (Auto) (3-14) % Eos % (Auto) (2-4) % Baso % (Auto) (0-2) % Neut # (Auto) (1887-2754) /uL Lymph # (Auto) (9392-7695) /uL [place] # (Auto) (0-900) /uL Eos # (Auto) (0-450) /uL Baso # (Auto) (0-100) /uL Sodium (137-145) mmol/L Potassium (3.4-5.1) mmol/L Chloride (98-107) mmol/L Carbon Dioxide (22-32) mmol/L BUN (9-20) mg/dL Creatinine (0.66-1.25) mg/dL Estimated GFR (>60) mL/min BUN/Creatinine Ratio (6-22) Glucose (70-100) mg/dL Calcium (8.4-10.2) mg/dL Magnesium 2.6 H (1.6-2.3) mg/dL Total Bilirubin (0.2-1.3) mg/dL AST (17-59) IU/L ALT (<50) IU/L Alkaline Phosphatase (38-126) U/L C-Reactive Protein 14.4 H (<1.0) mg/dL Total Protein (6.3-8.2) g/dL Albumin (3.5-5.0) g/dL Globulin (1.7-4.1) g/dL Albumin/Globulin Ratio (1.0-2.8) Lipase (23-300) U/L Procalcitonin 0.20 (<0.5) ng/mL TSH 0.093 L (0.47-4.68) uIU/mL Urine RBC (0-5/HPF) Urine WBC (0-5/HPF) Ur Squamous Epith Cells (0-5/HPF) Urine Bacteria (None) Ur Culture Indicated? SARS-CoV-2 (PCR) (Negative) Influenza A (RT-PCR) (NEGATIVE) Influenza B (RT-PCR) (NEGATIVE) RSV (PCR) (Negative) 02/03/23 Range/Units 10:49 WBC (4.5-11.0) X10^3/uL RBC (4.5-5.9) X10^6/uL Hgb (13.5-17.5) g/dL Hct (41-53) % MCV (80-100) fL MCH (26-34) PG MCHC (30-36) % RDW (11.6-14.8) % Plt Count (150-400) X10^3/uL Neut % (Auto) (50-75) % Lymph % (Auto) (25-40) % [place] % (Auto) (3-14) % Eos % (Auto) (2-4) % Baso % (Auto) (0-2) % Neut # (Auto) (0671-5646) /uL Lymph # (Auto) (2150-3049) /uL [place] # (Auto) (0-900) /uL Eos # (Auto) (0-450) /uL Baso # (Auto) (0-100) /uL Sodium (137-145) mmol/L Potassium (3.4-5.1) mmol/L Chloride (98-107) mmol/L Carbon Dioxide (22-32) mmol/L BUN (9-20) mg/dL Creatinine (0.66-1.25) mg/dL Estimated GFR (>60) mL/min BUN/Creatinine Ratio (6-22) Glucose (70-100) mg/dL Calcium (8.4-10.2) mg/dL Magnesium (1.6-2.3) mg/dL Total Bilirubin (0.2-1.3) mg/dL AST (17-59) IU/L ALT (<50) IU/L Alkaline Phosphatase (38-126) U/L C-Reactive Protein (<1.0) mg/dL Total Protein (6.3-8.2) g/dL Albumin (3.5-5.0) g/dL Globulin (1.7-4.1) g/dL Albumin/Globulin Ratio (1.0-2.8) Lipase (23-300) U/L Procalcitonin (<0.5) ng/mL TSH (0.47-4.68) uIU/mL Urine RBC None seen (0-5/HPF) Urine WBC None seen (0-5/HPF) Ur Squamous Epith Cells None seen (0-5/HPF) Urine Bacteria None seen (None) Ur Culture Indicated? Cult not indicated SARS-CoV-2 (PCR) (Negative) Influenza A (RT-PCR) (NEGATIVE) Influenza B (RT-PCR) (NEGATIVE) RSV (PCR) (Negative) Point of care testing: Urine Dip Bedside Urine Glucose Negative Bedside Urine Bilirubin - Negative Bedside Urine Ketone - Negative Urine Specific [place] 1.015 Bedside Urine Occult Blood - Negative Bedside Urine pH 6.0 Bedside Urine Protein + 30 Bedside Urine Urobilinogen - Negative Bedside Urine Nitrite - Negative Bedside Urine Leukocytes - Negative Esterase Discharge Plan Departure Patient Disposition: Admitted As Inpatient Clinical Impression: Ulcerative colitis, Acquired hypothyroidism, CKD stage G2/A2, GFR 60-89 and albumin creatinine ratio 30-299 mg/g, Acute hyponatremia Admit Date/Time: 02/03/23 18:42 Admit Provider: Suzie Mike <Maddie Sommer DO - Last Filed: 02/04/23 08:29> Cosign ED Attending Cosignature Attestation: I was immediately available in the department for consultation. Documentation has been reviewed.
--- NOTE | 2023-02-03 13:38 | DI.CT.S_ITS ---
PROCEDURE: CT ABDOMEN PELVIS W CON INDICATIONS: RLQ pain, hx of UC TECHNIQUE: After the administration of IV contrast, axial sections were acquired from the lung bases to the pubic symphysis. Coronal and sagittal reformats were performed. For radiation dose reduction, the following was used: automated exposure control, adjustment of mA and/or kV according to patient size. COMPARISON: None. FINDINGS: Image quality: Excellent. Lung bases: Small lung nodules are present in right lung base. For example, there is a 4 mm nodule in the right lower lobe (series 3 image 2). Left basilar atelectasis. Small hiatal hernia. Heart: No significant findings. ABDOMEN: Liver: Normal size. Mild hepatic steatosis. Gallbladder: Unremarkable. Biliary ducts: Unremarkable. Pancreas: Unremarkable. Spleen: Unremarkable. Adrenal Glands: Unremarkable. Kidneys and Ureters: There is a 4 mm nonobstructive stone in the inferior pole of the left kidney. Stomach and Bowel: Stomach, small bowel loops, and colon are normal in caliber. There is diffuse colonic wall thickening consistent with colitis. Appendix is mildly thickened, measuring up to 11 mm in diameter. No periappendiceal stranding. Peritoneum: No abnormal intraperitoneal fluid. No free air. Ventral Wall: Small umbilical hernia. Abdominal Nodes: There are multiple borderline sized mesenteric lymph nodes in the right abdomen. Vessels: Aorta and inferior vena cava are normal in size. PELVIS: Pelvic Organs: Unremarkable. Bladder: Unremarkable. Pelvic Nodes: No enlarged lymph nodes. Miscellaneous: No inguinal hernias are seen. Bones: Unremarkable. IMPRESSION: 1. Diffuse colonic wall thickening in keeping with colitis. 2. There is thickening of appendix, measuring up to 11 mm. No periappendiceal stranding. The findings may be secondary to appendiceal involvement of UC. Infectious acute appendicitis is felt less likely but not excluded. Recommend clinical correlation. 3. Borderline enlarged mesenteric lymph nodes in the right abdomen. This finding is nonspecific and may be secondary to infectious, inflammatory or neoplastic etiology. Recommend clinical correlation and follow up. 4. A nonobstructive left renal stone. 5. Small lung nodules are present in the right lung base. Recommend follow-up chest CT for further evaluation. Please see enclosed follow-up recommendation. Fleischner Society criteria for SOLID lung nodule followup. Nodule size (mm)Low-risk patientHigh-risk patient?4No follow-up neededFollow-up at 12 mo; if no change, no further follow-up>[id number]-dd CT at 12 mo; if no change, no further follow-up needed.Initial follow-up CT at 6-12 mo, then 18-24 mo if no change. >6-8Initial follow-up CT at 6-12 mo, then 18-24 mo if no change. Initial follow-up CT at 3-6 mo, then 9-12 mo and 24 mo if no change. >8Follow-up CT at 3, 9, 24 mo. Or PET and/or biopsy.Same as for low-risk pts. Dictated by: Apolonia Ochoa M.D. on 02/03/2023 at 14:21 Approved by: Apolonia Ochoa M.D. on 02/03/2023 at 14:30
[2023-02-03 13:39] LABS: COVID-19 CEPHEID 4-PLEX PCR Negative (Negative); Influenza A - CEPHEID Flu A NEGATIVE (NEGATIVE); Influenza B - CEPHEID Flu B NEGATIVE (NEGATIVE); Respiratory Syncytial Virus Negative (Negative)
[2023-02-03] MEDS: SODIUM CHLORIDE 0.9% 1,000 ML 1000 ML IV (13:49)
[2023-02-03 15:30] LABS: C-Reactive Protein Quant 14.4 mg/dL (<1.0)
[2023-02-03 16:20] LABS: Thyroid Stimulating Hormone 0.093 uIU/mL (0.47-4.68)
[2023-02-03] MEDS: methylPREDNISolone 125 MG/2 ML VIAL IV (17:44)
[2023-02-03] MEDS: SODIUM CHLORIDE 0.9% 1,000 ML 84 ML IV (19:12)
[2023-02-03 19:15] LABS: Magnesium 2.6 mg/dL (1.6-2.3)
--- NOTE | 2023-02-03 23:39 | DI.RAD.S_ITS ---
PROCEDURE: XR CHEST 2V INDICATIONS: Tachypneic, tachycardic TECHNIQUE: 2 views of the chest were acquired. COMPARISON: [facility], CR, XR CHEST 2V, 09/22/2022, 9:26. FINDINGS: Surgical changes and devices: None. Lungs and pleura: There are low lung volumes with mild elevation of the right hemidiaphragm redemonstrated. No acute consolidation. No pleural effusions or pneumothorax. Mediastinum: Mediastinal contours are normal. Heart size is normal. Bones and chest wall: No suspicious bony abnormalities. Soft tissues appear unremarkable. IMPRESSION: 1. No acute cardiopulmonary disease. Dictated by: Tommy Holloway M.D. on 02/04/2023 at 1:15 Approved by: Tommy Holloway M.D. on 02/04/2023 at 1:15
[2023-02-04] VITALS: BP 128/69; PULSE 107; RESP 21; TEMP 36.8; O2SAT 93
[2023-02-04] MEDS: INSULIN GLARGINE 100 UNIT/ML 3ML PEN 40 UNIT SUBCUT (00:26)
[2023-02-04 00:27] VITALS: BP 118/69; PULSE 107
[2023-02-04] MEDS: LOSARTAN 25 MG TABLET PO ×2 (00:27→09:11)
[2023-02-04] MEDS: METOPROLOL IR 50 MG TABLET 25 MG PO ×2 (00:30→09:12)
--- NOTE | 2023-02-04 03:45 | P.HP_ITS ---
History of Present Illness History of Present Illness Date Patient Seen: 02/03/23 Time Patient Seen: 23:28 Chief complaint: dizziness, chills, body aches, extreme abd pain Narrative: Tao Lamb is a 42-year-old male who presented to the ED with a medical history of CKD stage G2/A2, HLD, INDRA, DM type 2, hypothyroidism secondary to surgery for papillary thyroid carcinoma, and ulcerative colitis who presented to the ED complaining acute onset of right lower abdominal pain, nausea, hot flashes x2 days.?He says he has had minimal food as he is nauseous whenever he eats.? Denies any recorded fevers, chest pain, shortness of breath.? States that he has chronic diarrhea secondary to his ulcerative colitis.? Currently seen by a GI provider, Ed Jack who helps manage his UC meds.? States he currently takes mesalamine and was just started on Humira. ABD CT: demonstrated Diffuse colonic wall thickening in keeping with colitis, thickening of appendix, mary uring up to 11 mm.? No periappendiceal stranding which may be secondary to appendiceal involvement of UC.?Borderline enlarged mesenteric lymph nodes in the right abdomen.? A nonobstructive left renal stone, and Small lung nodules are present in the right lung base. Dr. Del Cid was consulted as it was initially believed that possible this was an acute appendicitis Dr. Del Cid did not feel that to be the case but recommended the patient be brought in for hydration fluids and IV steroids. Patient had no white count mono feels 1100, H&H 10.7/32.1, sodium 130, chloride 95, BUN 24, creatinine 1.33, glucose 1 D5, urinalysis was negative, CRP 14.4, procalcitonin was negative, COVID/influenza a/B/RSV are all negative. Patient had received IV steroids and fluid bolus in ED at the time of admit patient reports that abdominal pain has all but resolved he is feeling much improved, and is resting comfortably. denies chest pain, shortness in breath, headache, changes in vision, difficulty swallowing, speech impairment, weakness, numbness, tingling, difficulty with ambulation, recent falls, head injury, LOC, fever, body aches, chills, cough, recent exposure to illness, abdominal pain, nausea, vomiting, urinary incontinence/retention, dysuria, frequency, urgency, hematuria, bowel changes, constipation, incontinence, melena, rashes, illness, injury, or trauma. Vital signs are stable temp 98.3?, BP 118/69, HR 107, RR 21, O2 saturation 93% on room air. Patient admitted for right lower abdominal pain. Patient History Medical History Acquired hypothyroidism Acute bacterial sinusitis Cervical radiculopathy CKD stage G2/A2, GFR 60-89 and albumin creatinine ratio 30-299 mg/g Eosinophilic esophagitis Essential hypertension Facet arthropathy, cervical Inflamed sebaceous cyst Mixed hyperlipidemia Pinched nerve (~2013) Polyneuropathy, unspecified Primary osteoarthritis involving multiple joints Severe obesity Sleep apnea (~2013) Thyroid cancer (~2015) 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 chronic kidney disease Type 2 diabetes mellitus with stage 3a chronic kidney disease Ulcerative colitis (~2020) Venous insufficiency Viral URI with cough Vocal cord paralysis (~2015) Surgical History Anesthesia H/O Achilles tendon repair (~2012) Status post removal of thyroid nodule (~2015) Family & Social History Family History Mother Spine degeneration Grandmother Diabetes mellitus History of heart disease Grandfather History of heart disease Grandfather Diabetes mellitus Stroke Grandmother Cancer Social History: household members friend(s) Prior Living Arrangements Apartment/Condo Safety & Behavioral: Feels Safe in Current Yes Environment Been Physically Hurt or No Threatened By a Person Tobacco & Substance use: Smoking Status Never smoker alcohol intake current alcohol intake frequency 0-2 drinks per day Substance Use Type does not use Meds Home Medications and Allergies Home Medications Medication Instructions Recorded Confirmed Type levothyroxine 112 mcg tablet 224 mcg PO 0600 09/30/18 02/03/23 History Respironics Dreamstation CPAP #1 ea 05/28/19 02/03/23 History glipizide 10 mg tablet 10 mg PO DAILY 10/12/20 02/03/23 History metoprolol tartrate 50 mg tablet 25 mg PO TID 10/12/20 02/03/23 History amlodipine 10 mg tablet 10 mg PO DAILY 04/29/22 02/03/23 History hydrochlorothiazide 25 mg tablet 25 mg PO BEDTIME 04/29/22 02/03/23 History insulin glargine 100 unit/mL (3 40 unit SUBCUT BEDTIME 04/29/22 02/03/23 History mL) subcutaneous pen (Basaglar KwikPen U-100 Insulin) liraglutide 0.6 mg/0.1 mL (18 mg/3 1.8 mg SUBCUT BEDTIME 04/29/22 02/03/23 His tory mL) subcutaneous pen injector (Counselyticsza 2-Lloyd) losartan 25 mg tablet 25 mg PO BID 04/29/22 02/03/23 History mesalamine 1.2 gram tablet,delayed 1.2 g PO BID 04/29/22 02/03/23 History release pen needle, diabetic 32 gauge x #50 ea 04/29/22 02/03/23 History / (BD Ultra-Fine Candelaria Pen Needle) sodium zirconium cyclosilicate 5 5 g PO DAILY PRN low potassium 04/29/22 02/03/23 History gram oral powder packet blood sugar diagnostic (FreeStyle #10 ea 10/26/22 02/03/23 History Precision Felix Strips) budesonide 9 mg tablet,delayed and 9 mg PO DAILY 10/26/22 02/03/23 History extended release adalimumab 40 mg/0.4 mL 40 mg SUBCUT Q2W 02/03/23 02/03/23 History subcutaneous pen kit (Humira(CF) Pen) atorvastatin 10 mg tablet 10 mg PO DAILY 02/03/23 02/03/23 History gabapentin 300 mg capsule 300 mg PO TID 02/03/23 02/03/23 History Allergies Allergy/AdvReac Type Severity Reaction Status Date / Time alcohol [ALCOHOL] Allergy Severe throat Verified 02/03/23 10:12 swells up Review of Systems Review of Systems Narrative: All 12 point systems reviewed with the patient and are negative except otherwise documented. Exam Vital Signs (past 8 hours): - 02/03/23 20:00 02/03/23 20:00 02/03/23 20:30 Temperature Pulse Rate 105 H Respiratory Rate Blood Pressure 118/57 L 124/66 Pulse Oximetry 95 02/03/23 20:30 02/03/23 21:00 02/03/23 21:00 Temperature Pulse Rate 99 H 98 H Respiratory Rate Blood Pressure 121/58 L Pulse Oximetry 94 94 02/03/23 21:30 02/03/23 21:30 02/03/23 21:45 Temperature 97.8 F Pulse Rate 103 H 118 H Respiratory Rate 20 Blood Pressure 159/85 H 136/77 Pulse Oximetry 95 95 02/04/23 00:00 02/04/23 00:27 Temperature 98.3 F Pulse Rate 107 H 107 H Respiratory Rate 21 Blood Pressure 128/69 118/69 Pulse Oximetry 93 Oxygen Delivery Method Room Air Narrative Exam Narrative: General: Patient is a well-developed, well-nourished in no distress at this time. Currently on CPAP HEENT: Normocephalic, atraumatic, extraocular muscles intact, oral pharynx is clear and mucous membranes are moist. Neck is supple and symmetric, trachea is midline, no adenopathy, no thyroid enlargement, nontender, no masses palpated. Negative for JVD Chest: Normal AP diameter and contour without kyphoscoliosis, no nasal flaring, retractions, or tachypneic labored Lungs: Auscultation of all lung weber are clear without adventitious sounds, wheezes, rhonchi, or rales. Cardio: regular rate and rhythm without murmur, rubs, or gallops, no carotid bruit, no cardiac pulsations present. Abdomen: Soft nontender, negative for organomegaly, or masses. Bowel sounds are Hypoactive present in all 4 quadrants no CVA tenderness. Musculoskeletal: Muscle strength and tone are equal within normal limits, no deformity, crepitus, effusions, cyanosis, clubbing or edema present. Full range of motion intact radial and pedal pulses are normal. Skin: Warm dry and intact without rashes, ulcerations or petechiae. Neuro: Alert and orientated x3, strength is +5/5 in all extremities, sensation to touch intact, no gross deficits noted of cranial nerves. Psych: Patient has a well-kept appearance, appropriate affect, mental status attitude thought context and judgment are appropriate for age. Objective Labs 02/03/23 10:25 02/03/23 10:25 Labs: Laboratory Results - last 24 hr 02/03/23 02/03/23 02/03/23 10:14 10:25 10:25 WBC 6.0 RBC 3.83 L Hgb 10.7 L Hct 32.1 L MCV 83.7 MCH 28.0 MCHC 33.5 RDW 14.1 Plt Count 385 Neut % (Auto) 66.5 Lymph % (Auto) 13.7 L [place] % (Auto) 17.6 H Eos % (Auto) 1.8 L Baso % (Auto) 0.4 Neut # (Auto) 4000 Lymph # (Auto) 800 L [place] # (Auto) 1100 H Eos # (Auto) 100 Baso # (Auto) 0 Sodium 130 L Potassium 4.0 Chloride 95 L Carbon Dioxide 27 BUN 24 H Creatinine 1.33 H Estimated GFR > 60 BUN/Creatinine Ratio 18.0 Glucose 155 H Calcium 8.2 L Magnesium Total Bilirubin 0.3 AST 16 L ALT 11 Alkaline Phosphatase 87 C-Reactive Protein Total Protein 7.3 Albumin 3.6 Globulin 3.7 Albumin/Globulin Ratio 1.0 Lipase 40 Procalcitonin TSH Urine RBC Urine WBC Ur Squamous Epith Cells Urine Bacteria Ur Culture Indicated? SARS-CoV-2 (PCR) Negative Influenza A (RT-PCR) Flu a negative Influenza B (RT-PCR) Flu b negative RSV (PCR) Negative 02/03/23 02/03/23 02/03/23 10:25 10:25 10:25 WBC RBC Hgb Hct MCV MCH MCHC RDW Plt Count Neut % (Auto) Lymph % (Auto) [place] % (Auto) Eos % (Auto) Baso % (Auto) Neut # (Auto) Lymph # (Auto) [place] # (Auto) Eos # (Auto) Baso # (Auto) Sodium Potassium Chloride Carbon Dioxide BUN Creatinine Estimated GFR BUN/Creatinine Ratio Glucose Calcium Magnesium 2.6 H Total Bilirubin AST ALT Alkaline Phosphatase C-Reactive Protein 14.4 H Total Protein Albumin Globulin Albumin/Globulin Ratio Lipase Procalcitonin 0.20 TSH 0.093 L Urine RBC Urine WBC Ur Squamous Epith Cells Urine Bacteria Ur Culture Indicated? SARS-CoV-2 (PCR) Influenza A (RT-PCR) Influenza B (RT-PCR) RSV (PCR) 02/03/23 10:49 WBC RBC Hgb Hct MCV MCH MCHC RDW Plt Count Neut % (Auto) Lymph % (Auto) [place] % (Auto) Eos % (Auto) Baso % (Auto) Neut # (Auto) Lymph # (Auto) [place] # (Auto) Eos # (Auto) Baso # (Auto) Sodium Potassium Chloride Carbon Dioxide BUN Creatinine Estimated GFR BUN/Creatinine Ratio Glucose Calcium Magnesium Total Bilirubin AST ALT Alkaline Phosphatase C-Reactive Protein Total Protein Albumin Globulin Albumin/Globulin Ratio Lipase Procalcitonin TSH Urine RBC None seen Urine WBC None seen Ur Squamous Epith Cells None seen Urine Bacteria None seen Ur Culture Indicated? Cult not indicated SARS-CoV-2 (PCR) Influenza A (RT-PCR) Influenza B (RT-PCR) RSV (PCR) Assessment & Plan Assessment & Plan narrative: Tao Lamb is a 42-year-old male who presented to the ED with a medical history of CKD stage G2/A2, HLD, INDRA, DM type 2, hypothyroidism secondary to surgery for papillary thyroid carcinoma, and ulcerative colitis who presented to the ED complaining acute onset of right lower abdominal pain, nausea, hot flashes x2 days. Patient admitted for acute abdominal pain, will receive IV fluid hydration, monitoring for acute abdomen/appendicitis, Dr. Del Cid to consult, and IV Solu-Medrol. 1. Abdominal pain, acute, right lower quadrant, present on admission-resolved -likely UC exacerbation -patient on IV hydration NS at 84 cc/HR, Solu-Medrol 125mg IV Q24H - ABD CT: demonstrated Diffuse colonic wall thickening in keeping with colitis, thickening of appendix, measuring up to 11 mm.? No periappendiceal stranding which may be secondary to appendiceal involvement of UC.?Borderline enlarged mesenteric lymph nodes in the right abdomen.? A nonobstructive left renal stone, and Small lung nodules are present in the right lung base. -Dr. Del Cid to consult -abdominal ultrasound ordered for tomorrow 2. Ulcerative colitis, possible exacerbation, acute on chronic, present on admission -Currently seen by a GI provider, Ed Jack who helps manage his UC meds.? States he currently takes mesalamine and was just started on Humira. -continue meds 3. LIZABETH on CKD stage 3A, with type 2 diabetes, chronic, present on admission -admitting creatinine 1.33/BUN 24, GFR>60, previous creatinine 1.10. -baseline GFR 60-89 -admit sodium 130-NS at 84 cc/HR -patient admitted under diabetic protocol, blood sugar checks a.c. HS, sliding scale for coverage 4. Hypothyroidism secondary to thyroidectomy from papillary thyroid carcinoma, chronic, present on admission -order TSH 0.093 Low -continue levothyroxine will decrease levothyroxine from dosage from 224mcg to 200mcg - recommend follow-up and repeat TSH check in 6 weeks 5. Hyperlipidemia secondary to type 2 diabetes, chronic, present on admission -continue Lipitor 6. Hypertension, essential, chronic present on admission -continue Norvasc Budesonide 7. Obesity mild, acute on chronic, present on admission -as evidence by BMI of 35.7 -dietary consult ordered regarding nutritional education and information for dietary, lifestyle, exercise, and weight changes. -the patient is at much higher risk for medical and surgical complications due to obesity as it relates to chronic illnesses:, and acute illness. The patient's obesity increases the difficulty and complexity of medical and/or surgical interventions, management and increases the chances of poor outcome such as morbidity and mortality as well as impaired wound healing. 8. INDRA, chronic, present on admission -respiratory consult, CPAP Code status: Full Surrogate decision maker: Mother Tawnya MORENO PCR: Negative DVT/VTE prophylaxis: Lovenox and SCDs Disposition: Patient admitted to acute care expected length of stay greater th an 2 midnights, patient will require IV hydration, monitoring for acute appendicitis, and IV steroids. I have utilized all available immediate resources to obtain, update, or review the patient's current medications. I confirmed that the patient's advanced care plan is present, Code status is documented and/or surrogate decision maker is listed in the patient's medical record. I have personally reviewed patient's chart notes from PCP, specialists, diagnostic imaging, and laboratory results. Quality VTE Deep Vein Thrombosis/Pulmonary Embolism Present on Admission: No
[2023-02-04 05:32] LABS: Add Manual Diff / Slide Review NO; Basophils Absolute Auto 0 /uL (0-100); Basophils Percent Auto 0.1 % (0-2); Eosinophils Absolute Auto 0 /uL (0-450); Eosinophils Percent Auto 0.1 % (2-4); Hematocrit 30.5 % (41-53); Hemoglobin 10.1 g/dL (13.5-17.5); Lymphocytes Absolute Auto 500 /uL (1100-4500); Lymphocytes Percent Auto 9.7 % (25-40); Mean Corpuscular HGB Conc 33.2 % (30-36); Mean Corpuscular Hemoglobin 27.8 PG (26-34); Mean Corpuscular Volume 83.9 fL (80-100); Monocytes Absolute Auto 200 /uL (0-900); Monocytes Percent Auto 4.2 % (3-14); Neutrophils Absolute Auto 4400 /uL (1500-7000); Neutrophils Percent Auto 85.9 % (50-75); Platelet Count 358 X10^3/uL (150-400); Red Blood Cell Count 3.64 X10^6/uL (4.5-5.9); Red Cell Distribution Width 14.2 % (11.6-14.8); White Blood Cell Count 5.1 X10^3/uL (4.5-11.0)
[2023-02-04 05:41] LABS: Alanine Aminotransferase 11 IU/L (<50); Albumin 3.2 g/dL (3.5-5.0); Albumin Globulin Ratio 0.9 (1.0-2.8); Alkaline Phosphatase 74 U/L (38-126); Aspartate Aminotransferase 14 IU/L (17-59); BUN Creatinine Ratio 18.2 (6-22); Bilirubin Total 0.3 mg/dL (0.2-1.3); Blood Urea Nitrogen 29 mg/dL (9-20); Calcium 7.7 mg/dL (8.4-10.2); Carbon Dioxide 16 mmol/L (22-32); Chloride 98 mmol/L (98-107); Estimated Glomerular Filt Rate 55 mL/min (>60); Globulin 3.4 g/dL (1.7-4.1); Glucose 336 mg/dL (70-100); HEMOLYSIS < 15 (0-50); Magnesium 2.5 mg/dL (1.6-2.3); Potassium 4.6 mmol/L (3.4-5.1); Sodium 131 mmol/L (137-145); Total Protein 6.6 g/dL (6.3-8.2)
[2023-02-04] MEDS: LEVOTHYROXINE 100 MCG TABLET 200 MCG PO (05:47)
[2023-02-04 06:00] VITALS: BP 129/74; PULSE 101; RESP 21; TEMP 36.1; O2SAT 100
[2023-02-04 06:29] LABS: Erythrocyte Sedimentation Rate 78 MM/HR (0-15)
[2023-02-04 07:41] VITALS: BP 145/78; PULSE 101; RESP 16; TEMP 36.1; O2SAT 94
--- NOTE | 2023-02-04 08:00 | DI.US.S_ITS ---
PROCEDURE: US ABDOMEN LIMITED INDICATIONS: RLQ PAIN; POSSIBLE APPENDICITIS ON CT TECHNIQUE: Real-time focused scanning was performed of the abdomen with attention to the appendix, with image documentation. COMPARISON: [facility], CT, CT ABDOMEN PELVIS W CON, 02/03/2023, 14:03. FINDINGS: Appendix visualization: Appendix is not visualized. Appendix is noted to be in retrocecal location on prior CT from 02/03/2023. Associated findings: Nearby free fluid: Absent Lymphadenopathy: Absent Tenderness on exam: Absent IMPRESSION: Appendix not visualized, and acute appendicitis cannot be entirely excluded. No secondary signs of acute cholecystitis. Upon review of the CT from the day prior, no significant periappendiceal inflammatory changes are seen and acute appendicitis is felt to be less likely. Approved by: Omer Lewis M.D. on 02/04/2023 at 8:55
[2023-02-04] MEDS: SODIUM CHLORIDE 0.9% 1,000 ML 84 ML IV (08:13)
[2023-02-04] MEDS: INSULIN LISPRO 100 UNIT/ML 3ML VIAL SUBCUT ×2 (09:06→11:59)
[2023-02-04] MEDS: ATORVASTATIN 20 MG TABLET 10 MG PO (09:10)
[2023-02-04] MEDS: AMLODIPINE 5 MG TABLET 10 MG PO (09:11)
[2023-02-04] MEDS: methylPREDNISolone 125 MG/2 ML VIAL IV (09:13)
[2023-02-04] MEDS: MESALAMINE 400 MG CAP.DRTAB. 1200 MG PO (09:44)
--- NOTE | 2023-02-04 10:26 | CM.DANOTE ---
Initial Discharge Assessment Note: Case reviewed, met with patient. Introduced self and role. Payer: [facility] Medical and self pay PCP: Dr Haq 42 year old male with chronic ulcerative colitis and IBS, managed by medications. He was admitted with acute onset abdominal pain, treated with IVFs, IV steroids, which have relieved pain. Ultrasound done. 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 He is pleasant, alert/oriented. He lives in [place] with roommates, his mom Tawnya (Amrit) is his POA. No identified dc needs. Plan: When medically cleared, dc home, no dc needs identified. Friend to transport. FARRAH Discharge Planning/Care Management CM Discharge Assessment Start: 02/04/23 10:24 Freq: Status: Active Protocol: Document 02/04/23 10:25 (Rec: 02/04/23 10:26 [id number]) Discharge Planning Assessment Assigned Oversize Load Pilot Escort Shea Merlos RN/DCP Advance Directives? No History Provided By Patient,Medical Record Has Patient been admitted in last 30 No days? Prior Living Arrangements Apartment/Condo Household Members friend(s) Type of transporation used prior to Drives own vehicle admit Independent with ADL's Yes Is patient alert and oriented? Yes Caregiver for Another No Barriers to Discharge No Discharge Plan Home Transportation Arrangement Friend to transport Referrals Initiated None needed Review Status In Process Next Review Type Continued Stay Review
--- NOTE | 2023-02-04 10:49 | PM.CN ---
History of Present Illness Consult details Date Patient Seen: 02/04/23 Chief complaint: dizziness, chills, body aches, extreme abd pain Narrative: Saul is a 42-year-old man with known ulcerative colitis who presented with abdominal pain. A CT scan showed thickening of the colon as well as a slightly enlarged appendix. There is no periappendiceal stranding or fluid Meds Home Medications and Allergies Home Medications Medication Instructions Recorded Confirmed Type levothyroxine 112 mcg tablet 224 mcg PO 0600 09/30/18 02/03/23 History Respironics Dreamstation CPAP #1 ea 05/28/19 02/03/23 History glipizide 10 mg tablet 10 mg PO DAILY 10/12/20 02/03/23 History metoprolol tartrate 50 mg tablet 25 mg PO TID 10/12/20 02/03/23 History amlodipine 10 mg tablet 10 mg PO DAILY 04/29/22 02/03/23 History hydrochlorothiazide 25 mg tablet 25 mg PO BEDTIME 04/29/22 02/03/23 History insulin glargine 100 unit/mL (3 40 unit SUBCUT BEDTIME 04/29/22 02/03/23 History mL) subcutaneous pen (Basaglar KwikPen U-100 Insulin) liraglutide 0.6 mg/0.1 mL (18 mg/3 1.8 mg SUBCUT BEDTIME 04/29/22 02/03/23 History mL) subcutaneous pen injector (Victoza 2-Lloyd) losartan 25 mg tablet 25 mg PO BID 04/29/22 02/03/23 History mesalamine 1.2 gram tablet,delayed 1.2 g PO BID 04/29/22 02/03/23 History release pen needle, diabetic 32 gauge x #50 ea 04/29/22 02/03/23 History /32 (BD Ultra-Fine Candelaria Pen Needle) sodium zirconium cyclosilicate 5 5 g PO DAILY PRN low potassium 04/29/22 02/03/23 History gram oral powder packet blood sugar diagnostic (FreeStyle #10 ea 10/26/22 02/03/23 History Precision Felix Strips) budesonide 9 mg tablet,delayed and 9 mg PO DAILY 10/26/22 02/03/23 History extended release adalimumab 40 mg/0.4 mL 40 mg SUBCUT Q2W 02/03/23 02/03/23 History subcutaneous pen kit (Humira(CF) Pen) atorvastatin 10 mg tablet 10 mg PO DAILY 02/03/23 02/03/23 History gabapentin 300 mg capsule 300 mg PO TID 02/03/23 02/03/23 History Allergies Allergy/AdvReac Type Severity Reaction Status Date / Time alcohol [ALCOHOL] Allergy Severe throat Verified 02/03/23 10:12 swells up Exam Vital Signs (past 8 hours): - 02/04/23 06:00 02/04/23 07:41 Temperature 97.0 F L 96.9 F L Pulse Rate 101 H 101 H Respiratory Rate 21 16 Blood Pressure 129/74 145/78 H Pulse Oximetry 100 94 Oxygen Delivery Method Room Air Narrative Exam Narrative: Abdomen soft, nontender Objective Labs 02/04/23 05:16 02/04/23 05:16 Labs: Laboratory Results - last 24 hr 02/03/23 02/03/23 02/03/23 10:14 10:25 10:25 WBC RBC Hgb Hct MCV MCH MCHC RDW Plt Count Neut % (Auto) Lymph % (Auto) [place] % (Auto) Eos % (Auto) Baso % (Auto) Neut # (Auto) Lymph # (Auto) [place] # (Auto) Eos # (Auto) Baso # (Auto) ESR Sodium 130 L Potassium 4.0 Chloride 95 L Carbon Dioxide 27 BUN 24 H Creatinine 1.33 H Estimated GFR > 60 BUN/Creatinine Ratio 18.0 Glucose 155 H Calcium 8.2 L Magnesium Total Bilirubin 0.3 AST 16 L ALT 11 Alkaline Phosphatase 87 C-Reactive Protein 14.4 H Total Protein 7.3 Albumin 3.6 Globulin 3.7 Albumin/Globulin Ratio 1.0 Lipase 40 Procalcitonin TSH Urine RBC Urine WBC Ur Squamous Epith Cells Urine Bacteria Ur Culture Indicated? SARS-CoV-2 (PCR) Negative Influenza A (RT-PCR) Flu a negative Influenza B (RT-PCR) Flu b negative RSV (PCR) Negative 02/03/23 02/03/23 02/03/23 10:25 10:25 10:49 WBC RBC Hgb Hct MCV MCH MCHC RDW Plt Count Neut % (Auto) Lymph % (Auto) [place] % (Auto) Eos % (Auto) Baso % (Auto) Neut # (Auto) Lymph # (Auto) [place] # (Auto) Eos # (Auto) Baso # (Auto) ESR Sodium Potassium Chloride Carbon Dioxide BUN Creatinine Estimated GFR BUN/Creatinine Ratio Glucose Calcium Magnesium 2.6 H Total Bilirubin AST ALT Alkaline Phosphatase C-Reactive Protein Total Protein Albumin Globulin Albumin/Globulin Ratio Lipase Procalcitonin 0.20 TSH 0.093 L Urine RBC None seen Urine WBC None seen Ur Squamous Epith Cells None seen Urine Bacteria None seen Ur Culture Indicated? Cult not indicated SARS-CoV-2 (PCR) Influenza A (RT-PCR) Influenza B (RT-PCR) RSV (PCR) 02/04/23 02/04/23 02/04/23 05:16 05:16 05:16 WBC 5.1 RBC 3.64 L Hgb 10.1 L Hct 30.5 L MCV 83.9 MCH 27.8 MCHC 33.2 RDW 14.2 Plt Count 358 Neut % (Auto) 85.9 H Lymph % (Auto) 9.7 L [place] % (Auto) 4.2 Eos % (Auto) 0.1 L Baso % (Auto) 0.1 Neut # (Auto) 4400 Lymph # (Auto) 500 L [place] # (Auto) 200 Eos # (Auto) 0 Baso # (Auto) 0 ESR 78 H Sodium 131 L Potassium 4.6 Chloride 98 Carbon Dioxide 16 L BUN 29 H Creatinine 1.59 H Estimated GFR 55 L BUN/Creatinine Ratio 18.2 Glucose 336 H D Calcium 7.7 L Magnesium 2.5 H Total Bilirubin 0.3 AST 14 L ALT 11 Alkaline Phosphatase 74 C-Reactive Protein Total Protein 6.6 Albumin 3.2 L Globulin 3.4 Albumin/Globulin Ratio 0.9 L Lipase Procalcitonin TSH Urine RBC Urine WBC Ur Squamous Epith Cells Urine Bacteria Ur Culture Indicated? SARS-CoV-2 (PCR) Influenza A (RT-PCR) Influenza B (RT-PCR) RSV (PCR) [facility] Medical History Acquired hypothyroidism Acute bacterial sinusitis Cervical radiculopathy CKD stage G2/A2, GFR 60-89 and albumin creatinine ratio 30-299 mg/g Eosinophilic esophagitis Essential hypertension Facet arthropathy, cervical Inflamed sebaceous cyst Mixed hyperlipidemia Pinched nerve (~2013) Polyneuropathy, unspecified Primary osteoarthritis involving multiple joints Severe obesity Sleep apnea (~2013) Thyroid cancer (~2015) 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 chronic kidney disease Type 2 diabetes mellitus with stage 3a chronic kidney disease Ulcerative colitis (~2020) Venous insufficiency Viral URI with cough Vocal cord paralysis (~2015) Surgical History Anesthesia H/O Achilles tendon repair (~2012) Status post removal of thyroid nodule (~2015) Family History Mother Spine degeneration Grandmother Diabetes mellitus History of heart disease Grandfather History of heart disease Grandfather Diabetes mellitus Stroke Grandmother Cancer Social History household members: friend(s) Tobacco & Substance Use Smoking Status: Never smoker alcohol intake: current Assessment & Plan Assessment and plan (1) Ulcerative colitis: Status: Acute Plan A 42-year-old man with ulcerative colitis and a mildly enlarged appendix with no evidence of appendicitis. Recommend continuation of treatment for ulcerative colitis.
--- NOTE | 2023-02-04 12:55 | P.DS_ITS ---
History of Present Illness History of Present Illness Chief complaint: dizziness, chills, body aches, extreme abd pain Narrative: Tao Lamb is a 42-year-old male who presented to the ED with a medical history of CKD stage G2/A2, HLD, INDRA, DM type 2, hypothyroidism secondary to surgery for papillary thyroid carcinoma, and ulcerative colitis who presented to the ED complaining acute onset of right lower abdominal pain, nausea, hot flashes x2 days.?He stated he has had minimal food as he had nausea whenever he ate.? Denied any recorded fevers, chest pain, shortness of breath.? Stated that he has chronic diarrhea secondary to his ulcerative colitis.? Currently seen by a GI provider, Ed Jack who helps manage his UC meds.? States he currently takes mesalamine and was just started on Humira.? ABD CT: demonstrated Diffuse colonic wall thickening in keeping with colitis, thickening of appendix, measu ring up to 11 mm.? No periappendiceal stranding which may be secondary to appendiceal involvement of UC.?Borderline enlarged mesenteric lymph nodes in the right abdomen.? A nonobstructive left renal stone, and Small lung nodules are present in the right lung base.? Dr. Del Cid was consulted as it was initially believed that possible this was an acute appendicitis Dr. Del Cid did not feel that to be the case but recommended the patient be brought in for hydration fluids and IV steroids. Dr. Holley saw the patient on the day of discharge and confirmed no concern for appendicitis. Patient has been pain-free since the initiation of the Solu-Medrol. Patient's blood sugars has been not as well controlled and required sliding scale insulin. He is aware that on discharge she needs to closely monitor his insulin and likely give higher dose of Basaglar for a day or 2. He will monitor this with the freestyle apparatus. Discharge Providers Provider Date of admission: 02/03/23 18:42 Discharge Date: 02/04/23 Primary care physician: Radhames Haq MD Consults: 02/03/23 23:39 Consult to Dietitian, Adult Routine Comment: Reason For Exam: BMI 37.3 Consult to Discharge Planning Routine Comment: 02/04/23 03:56 Consult to Physician Routine Comment: Consulting Provider: Rosey Del Cid Reason for consultation: Acute ABD pain, poss appy Has provider been notified: Yes Discharge provider: Rosemary Dubose MD Summary Hospital Course Discharge Diagnosis: Abdominal pain, acute, right lower quadrant, present on admission-resolved Ulcerative colitis, possible exacerbation, acute on chronic, present on admission LIZABETH on CKD stage 3A, with type 2 diabetes, chronic, present on admission Hypothyroidism secondary to thyroidectomy from papillary thyroid carcinoma, chronic, present on admission Hyperlipidemia secondary to type 2 diabetes, chronic, present on admission Hypertension, essential, chronic present on admission Obesity, acute on chronic, present on admission INDRA, chronic, present on admission History of Acute bacterial sinusitis History of Cervical radiculopathy History of Eosinophilic esophagitis Facet arthropathy, cervical History of Inflamed sebaceous cyst Polyneuropathy, unspecified Venous insufficiency History of Vocal cord paralysis (~2015) H/O Achilles tendon repair (~2012) Status post removal of thyroid nodule (~2015) Hospital Course: Patient presented because of acute onset of right lower abdominal pain, nausea, hot flashes x2 days.?He stated he has had minimal food as he had nausea whenever he ate.? He had right lower quadrant pain and CT was concerning for possible appendicitis/colitis. However based on the findings of the CT it was thought that it was more than likely a flare of the ulcerative colitis and the patient was treated with Solu-Medrol 125 mg IV daily. This resolved his symptoms and follow-up with the surgeon in the hospital confirm that no concern was for appendicitis is was present and no surgery was planned. Ultrasound confirmed no acute cholecystitis as well. Due to the corticosteroid treatment the patient required sliding scale insulin to help control his blood sugars. On discharge patient will more closely monitor his blood sugars and increase his Basaglar d ose accordingly. Patient has a good understanding of how to manage his blood sugars. Status at Discharge Cognitive/behavioral status at discharge: at baseline, oriented Functional status at discharge: independent ambulation Overall status at discharge: patient is back to baseline Time Spent with Patient Time spent: Greater than 30 minutes Exam Vital Signs (past 8 hours): - 02/04/23 06:00 02/04/23 07:41 Temperature 97.0 F L 96.9 F L Pulse Rate 101 H 101 H Respiratory Rate 21 16 Blood Pressure 129/74 145/78 H Pulse Oximetry 100 94 Oxygen Delivery Method Room Air Narrative Exam Narrative: General:? Patient is a well-developed, well-nourished in no distress at this time.? HEENT:? Normocephalic, atraumatic, extraocular muscles intact, oral pharynx is clear and mucous membranes are moist.? Neck is supple and symmetric, trachea is midline, no adenopathy, no thyroid enlargement, nontender, no masses palpated.? Negative for JVD Chest:? Normal AP diameter and contour without kyphoscoliosis, no nasal flaring, retractions, or tachypneic labored Lungs:? Auscultation of all lung weber are clear without adventitious sounds, wheezes, rhonchi, or rales. Cardio: ? regular rate and rhythm without murmur, rubs, or gallops, no carotid bruit, no cardiac pulsations present. Abdomen:? Soft nontender, negative for organomegaly, or masses.? Bowel sounds are Hypoactive present in all 4 quadrants no CVA tenderness. Musculoskeletal:? Muscle strength and tone are equal within normal limits, no deformity, crepitus, effusions, cyanosis, clubbing or edema present.? Full range of motion intact radial and pedal pulses are normal. Skin:? Warm dry and intact without rashes, ulcerations or petechiae.? Neuro:? Alert and orientated x3, strength is +5/5 in all extremities, sensation to touch intact, no gross deficits noted of cranial nerves. Psych:? Patient has a well-kept appearance, appropriate affect, mental status attitude thought context and judgment are appropriate for age. Objective Labs 02/04/23 05:16 02/04/23 05:16 Labs: Laboratory Results - last 24 hr 02/03/23 02/03/23 02/03/23 10:14 10:25 10:25 WBC RBC Hgb Hct MCV MCH MCHC RDW Plt Count Neut % (Auto) Lymph % (Auto) [place] % (Auto) Eos % (Auto) Baso % (Auto) Neut # (Auto) Lymph # (Auto) [place] # (Auto) Eos # (Auto) Baso # (Auto) ESR Sodium Potassium Chloride Carbon Dioxide BUN Creatinine Estimated GFR BUN/Creatinine Ratio Glucose Calcium Magnesium Total Bilirubin AST ALT Alkaline Phosphatase C-Reactive Protein 14.4 H Total Protein Albumin Globulin Albumin/Globulin Ratio Procalcitonin TSH 0.093 L SARS-CoV-2 (PCR) Negative Influenza A (RT-PCR) Flu a negative Influenza B (RT-PCR) Flu b negative RSV (PCR) Negative 02/03/23 02/04/23 02/04/23 10:25 05:16 05:16 WBC 5.1 RBC 3.64 L Hgb 10.1 L Hct 30.5 L MCV 83.9 MCH 27.8 MCHC 33.2 RDW 14.2 Plt Count 358 Neut % (Auto) 85.9 H Lymph % (Auto) 9.7 L [place] % (Auto) 4.2 Eos % (Auto) 0.1 L Baso % (Auto) 0.1 Neut # (Auto) 4400 Lymph # (Auto) 500 L [place] # (Auto) 200 Eos # (Auto) 0 Baso # (Auto) 0 ESR 78 H Sodium Potassium Chloride Carbon Dioxide BUN Creatinine Estimated GFR BUN/Creatinine Ratio Glucose Calcium Magnesium 2.6 H Total Bilirubin AST ALT Alkaline Phosphatase C-Reactive Protein Total Protein Albumin Globulin Albumin/Globulin Ratio Procalcitonin 0.20 TSH SARS-CoV-2 (PCR) Influenza A (RT-PCR) Influenza B (RT-PCR) RSV (PCR) 02/04/23 05:16 WBC RBC Hgb Hct MCV MCH MCHC RDW Plt Count Neut % (Auto) Lymph % (Auto) [place] % (Auto) Eos % (Auto) Baso % (Auto) Neut # (Auto) Lymph # (Auto) [place] # (Auto) Eos # (Auto) Baso # (Auto) ESR Sodium 131 L Potassium 4.6 Chloride 98 Carbon Dioxide 16 L BUN 29 H Creatinine 1.59 H Estimated GFR 55 L BUN/Creatinine Ratio 18.2 Glucose 336 H D Calcium 7.7 L Magnesium 2.5 H Total Bilirubin 0.3 AST 14 L ALT 11 Alkaline Phosphatase 74 C-Reactive Protein Total Protein 6.6 Albumin 3.2 L Globulin 3.4 Albumin/Globulin Ratio 0.9 L Procalcitonin TSH SARS-CoV-2 (PCR) Influenza A (RT-PCR) Influenza B (RT-PCR) RSV (PCR) [facility] Medical History Acquired hypothyroidism Acute bacterial sinusitis Cervical radiculopathy CKD stage G2/A2, GFR 60-89 and albumin creatinine ratio 30-299 mg/g Eosinophilic esophagitis Essential hypertension Facet arthropathy, cervical Inflamed sebaceous cyst Mixed hyperlipidemia Pinched nerve (~2013) Polyneuropathy, unspecified Primary osteoarthritis involving multiple joints Severe obesity Sleep apnea (~2013) Thyroid cancer (~2015) 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 chronic kidney disease Type 2 diabetes mellitus with stage 3a chronic kidney disease Ulcerative colitis (~2020) Venous insufficiency Viral URI with cough Vocal cord paralysis (~2015) Surgical History Anesthesia H/O Achilles tendon repair (~2012) Status post removal of thyroid nodule (~2015) Family History Mother Spine degeneration Grandmother Diabetes mellitus History of heart disease Grandfather History of heart disease Grandfather Diabetes mellitus Stroke Grandmother Cancer Social History household members: friend(s) Smoking Status: Never smoker alcohol intake: current Discharge Plan Discharge Plan Patient Disposition: Home Provider Discharge Comment: Follow-up with Dr. Haq next week. Patient is aware that he may need to increase his Basaglar over the next day or 2. He ind icated that he will be monitoring his blood glucose with a freestyle unit. He is confident that he can blood sugars until the effect of the corticosteroid subsides. Discharge orders & Medications Prescriptions: Continued levothyroxine 112 mcg tablet 224 mcg PO 0600 (DME) Respironics Dreamstation CPAP Qty: 1 Dose Instruction: As directed Patient Comments: Pressure: 8-18 cmH2O DME: [employer] Rx Instructions: As directed (DME) pen needle, diabetic [BD Ultra-Fine Candelaria Pen Needle] 32 gauge x 5/32 needle See Rx Instructions .ROUTE .MEDSUPPLY Qty: 50 Rx Instructions: As directed losartan 25 mg tablet 25 mg PO BID amlodipine 10 mg tablet 10 mg PO DAILY hydrochlorothiazide 25 mg tablet 25 mg PO BEDTIME mesalamine 1.2 gram tablet,delayed release (DR/EC) 1.2 g PO BID insulin glargine [Basaglar KwikPen U-100 Insulin] 100 unit/mL (3 mL) insulin pen 40 unit SUBCUT BEDTIME sodium zirconium cyclosilicate 5 gram powder in packet 5 g PO DAILY PRN (Reason: low potassium) (DME) FreeStyle Precision Felix Strips Strip See Rx Instructions .ROUTE .MEDSUPPLY Qty: 10 Rx Instructions: As directed; Use to check blood glucose. budesonide 9 mg tablet,delayed and ext.release 9 mg PO DAILY atorvastatin 10 mg tablet 10 mg PO DAILY Patient Comments: patient has not started yet. Humira(CF) Pen 40 mg/0.4 mL pen injector kit 40 mg SUBCUT Q2W gabapentin 300 mg capsule 300 mg PO TID Rx Instructions: 1-3 PO Tid to begin at HS and titrate to pain relief metoprolol tartrate 50 mg tablet 25 mg PO TID glipizide 10 mg tablet 10 mg PO DAILY Victoza 2-Lloyd 0.6 mg/0.1 mL (18 mg/3 mL) pen injector 1.8 mg SUBCUT BEDTIME Follow up/Referrals: Radhames Haq MD [Primary Care Provider] - Visit Report/Discharge Packet Instructions: DI for Ulcerative Colitis Stand Alone Forms: Patient Portal/API, Stroke Signs & Symptoms Discharge Data Primary Care Provider: Radhames Haq [facility] Quality VTE Deep Vein Thrombosis/Pulmonary Embolism Present on Admission: No
[2023-02-04 13:02] VITALS: BMI 35.7
[2023-02-07 04:57] LABS: Free T4, Direct Thyroxine 2.89 ng/dL (0.78-2.19)
== END 2023-02-04 13:40 | disposition home or self-care (01) | DRG 386 ==
LOC: ED 13:17 → AC 18:44
PROVIDERS: Emergency Medicine; Admitting Provider Nurse Practitioner Family; Emergency Provider Physician Assistant Medical; PCP Internal Medicine; Referring Provider Physician Assistant Medical; Visit Provider Nurse Practitioner Family
DX: K51.90 Ulcerative colitis, unspecified, without complications (principal); D84.821 Immunodeficiency due to drugs; N17.9 Acute kidney failure, unspecified; E11.22 Type 2 diabetes mellitus with diabetic chronic kidney disease; I12.9 Hypertensive chronic kidney disease with stage 1 through stage 4 chronic kidney disease, or unspecified chronic kidney disease; N18.31 Chronic kidney disease, stage 3a; K21.9 Gastro-esophageal reflux disease without esophagitis; E89.0 Postprocedural hypothyroidism; E78.5 Hyperlipidemia, unspecified; E66.9 Obesity, unspecified; G47.33 Obstructive sleep apnea (adult) (pediatric); Z20.822 Contact with and (suspected) exposure to COVID-19; Z68.35 Body mass index [BMI] 35.0-35.9, adult; Z85.850 Personal history of malignant neoplasm of thyroid; Z79.4 Long term (current) use of insulin; Z79.620 Long term (current) use of immunosuppressive biologic
CPT/HCPCS: 0241U; 36415; 36592; 71046; 74177; 76705; 80053; 81003; 81015; 82962; 83690; 83735; 84145; 84439; 84443; 85025; 85651; 86140; 87040; 94660; 96374; 99232; 99284; J1650; J1815; J2930

== ENCOUNTER → 2023-03-08 08:30 | Outpatient (CLI) | payer OTHER, SELFPAY ==
[2023-03-08 10:06] LABS: BUN Creatinine Ratio 12.5 (6-22); Blood Urea Nitrogen 15 mg/dL (9-20); Calcium 8.3 mg/dL (8.4-10.2); Carbon Dioxide 29 mmol/L (22-32); Chloride 101 mmol/L (98-107); Estimated Glomerular Filt Rate > 60 mL/min (>60); Glucose 132 mg/dL (70-100); HEMOLYSIS < 15 (0-50); Potassium 5.1 mmol/L (3.4-5.1); Sodium 136 mmol/L (137-145)
[2023-03-09 16:00] LABS: Clostridium Difficile Tox PCR Negative for C. diff (Negative)
[2023-03-09 18:00] LABS: Adenovirus F 40/41 Not Detected (Not Detect); Astrovirus Not Detected (Not Detect); Campylobacter Not Detected (Not Detect); Clostridium difficile toxin AB Not Detected (Not Detect); Cryptosporidium Not Detected (Not Detect); Cyclospora cayetanensis Not Detected (Not Detect); Entamoeba histolytica Not Detected (Not Detect); Enteroaggregative E.coli Not Detected (Not Detect); Enteropathogenic E.coli Not Detected (Not Detect); Enterotoxigenic E.coli It/st Not Detected (Not Detect); Giardia lamblia Not Detected (Not Detect); Norovirus GI/GII Not Detected (Not Detect); Plesiomonsa shigelloides Not Detected (Not Detect); Rotavirus A Not Detected (Not Detect); Salmonella Not Detected (Not Detect); Sapovirus Not Detected (Not Detect); Shiga-like toxin-prod E.coli Not Detected (Not Detect); Shigella/Enteroinvasive E.coli Not Detected (Not Detect); Vibrio Not Detected (Not Detect); Vibrio cholerae Not Detected (Not Detect); Yersinia enterocolitica Not Detected (Not Detect)
== END ==
PROVIDERS: PCP Internal Medicine; Referring Provider Internal Medicine Gastroenterology; Visit Provider Internal Medicine Gastroenterology
DX: Z79.899 Other long term (current) drug therapy (principal); R19.7 Diarrhea, unspecified
CPT/HCPCS: 36415; 80048; 87493; 87507

== ENCOUNTER → 2023-05-22 08:16 | Outpatient (CLI) | payer BC, SELFPAY ==
[2023-05-22 10:09] LABS: Hematocrit 32.4 % (41-53); Hemoglobin 10.6 g/dL (13.5-17.5)
[2023-05-22 10:33] LABS: HEMOLYSIS < 15 (0-50); Iron 17 ug/dL (49-181)
[2023-05-22 10:42] LABS: HEMOLYSIS < 15 (0-50)
[2023-05-22 10:43] LABS: Blood Urea Nitrogen 17 mg/dL (9-20); Calcium 8.9 mg/dL (8.4-10.2); Carbon Dioxide 26 mmol/L (22-32); Chloride 102 mmol/L (98-107); Estimated Glomerular Filt Rate > 60 mL/min (>60); Glucose 131 mg/dL (70-100); Sodium 136 mmol/L (137-145)
[2023-05-22 10:44] LABS: Percent Iron Saturation 5 % (20-50); Potassium 5.5 mmol/L (3.4-5.1); Total Iron Binding Capacity 330 ug/dL (261-462); Transferrin 229 mg/dL (206-381)
[2023-05-22 10:54] LABS: Creatinine Urine Random 73.2 mg/dL; Protein (Total) Urine Random 90 mg/dL (0-12); Protein Creatinine Ratio Urine 1.22 GRAM/24H
[2023-05-24 10:00] LABS: Parathyroid Hormone Int 25 pg/mL (15-65)
== END ==
PROVIDERS: PCP Internal Medicine; Referring Provider Student in an Organized Health Care Education/Training Program; Visit Provider Student in an Organized Health Care Education/Training Program
DX: N05.9 Unspecified nephritic syndrome with unspecified morphologic changes (principal); D64.9 Anemia, unspecified; D50.0 Iron deficiency anemia secondary to blood loss (chronic); R80.9 Proteinuria, unspecified; N25.81 Secondary hyperparathyroidism of renal origin
CPT/HCPCS: 36415; 80048; 82570; 83540; 83550; 83970; 84156; 85014; 85018

== ENCOUNTER → 2023-06-14 07:56 | Outpatient (CLI) | payer BC, SELFPAY ==
[2023-06-14 09:09] LABS: HEMOLYSIS < 15 (0-50); Potassium 5.3 mmol/L (3.4-5.1)
== END ==
PROVIDERS: PCP Internal Medicine; Referring Provider Student in an Organized Health Care Education/Training Program; Visit Provider Student in an Organized Health Care Education/Training Program
DX: E87.5 Hyperkalemia (principal)
CPT/HCPCS: 36415; 84132

== ENCOUNTER → 2023-06-30 08:19 | Outpatient (CLI) | payer BC, SELFPAY ==
[2023-06-30 09:00] LABS: Hematocrit 33.3 % (41-53)
[2023-06-30 09:10] LABS: BUN Creatinine Ratio 19.5 (6-22); Blood Urea Nitrogen 23 mg/dL (9-20); Calcium 9.3 mg/dL (8.4-10.2); Carbon Dioxide 26 mmol/L (22-32); Chloride 102 mmol/L (98-107); Estimated Glomerular Filt Rate > 60 mL/min (>60); Glucose 112 mg/dL (70-100); HEMOLYSIS < 15 (0-50); Iron 27 ug/dL (49-181); Sodium 138 mmol/L (137-145)
[2023-06-30 09:21] LABS: Percent Iron Saturation 8 % (20-50); Total Iron Binding Capacity 320 ug/dL (261-462); Transferrin 235 mg/dL (206-381)
[2023-06-30 09:45] LABS: Ferritin 21 ng/mL (18-464)
[2023-06-30 10:54] LABS: Creatinine Urine Random 50.7 mg/dL; Protein (Total) Urine Random 62 mg/dL (0-12); Protein Creatinine Ratio Urine 1.22 GRAM/24H
== END ==
PROVIDERS: PCP Internal Medicine; Referring Provider Student in an Organized Health Care Education/Training Program; Visit Provider Student in an Organized Health Care Education/Training Program
DX: N05.9 Unspecified nephritic syndrome with unspecified morphologic changes (principal); T86.10 Unspecified complication of kidney transplant; D64.9 Anemia, unspecified; D50.0 Iron deficiency anemia secondary to blood loss (chronic); R80.9 Proteinuria, unspecified
CPT/HCPCS: 36415; 80048; 82570; 82728; 83540; 83550; 84156; 85014; 85018

== ENCOUNTER → 2023-08-29 16:15 | Outpatient (CLI) | payer BC, SELFPAY | PROVIDERS: PCP Internal Medicine; Referring Provider Family Medicine; Visit Provider Family Medicine | DX: Z23 Encounter for immunization (principal) | CPT/HCPCS: 90471; 90686 ==

== ENCOUNTER → 2023-10-17 07:03 | Outpatient (CLI) | payer BC, SELFPAY ==
[2023-10-17 08:10] LABS: Hematocrit 29.5 % (41-53); Hemoglobin 9.7 g/dL (13.5-17.5)
[2023-10-17 08:27] LABS: HEMOLYSIS < 15 (0-50); Iron 24 ug/dL (49-181)
[2023-10-17 08:28] LABS: BUN Creatinine Ratio 18.3 (6-22); Blood Urea Nitrogen 26 mg/dL (9-20); Calcium 9.5 mg/dL (8.4-10.2); Carbon Dioxide 24 mmol/L (22-32); Chloride 102 mmol/L (98-107); Estimated Glomerular Filt Rate > 60 mL/min (>60); Glucose 94 mg/dL (70-100); HEMOLYSIS < 15 (0-50); Potassium 4.7 mmol/L (3.4-5.1); Sodium 133 mmol/L (137-145)
[2023-10-17 08:38] LABS: Percent Iron Saturation 11 % (20-50); Total Iron Binding Capacity 218 ug/dL (261-462); Transferrin 175 mg/dL (206-381)
[2023-10-17 11:13] LABS: Creatinine Urine Random 75.5 mg/dL; Protein (Total) Urine Random 47 mg/dL (0-12); Protein Creatinine Ratio Urine 0.62 GRAM/24H
[2023-10-19 08:19] LABS: Parathyroid Hormone Int 27 pg/mL (15-65)
[2023-10-20 09:44] LABS: Ferritin 96 ng/mL (18-464)
== END ==
PROVIDERS: PCP Internal Medicine; Referring Provider Student in an Organized Health Care Education/Training Program; Visit Provider Student in an Organized Health Care Education/Training Program
DX: N05.9 Unspecified nephritic syndrome with unspecified morphologic changes (principal); D70.9 Neutropenia, unspecified; D63.1 Anemia in chronic kidney disease; D50.0 Iron deficiency anemia secondary to blood loss (chronic); N25.1 Nephrogenic diabetes insipidus; R80.9 Proteinuria, unspecified
CPT/HCPCS: 36415; 80048; 82570; 82728; 83540; 83550; 83970; 84156; 85014; 85018

== ENCOUNTER 2023-11-07 14:40 | Emergency (ER) | payer BC, SELFPAY ==
[2023-11-07] VITALS (27 sets, daily range): BP systolic 115–177; BP diastolic 59–85; PULSE 99–137; RESP 11–22; TEMP 37.1–37.9; O2SAT 90–95; BMI 37.3
--- NOTE | 2023-11-07 14:58 | DI.RAD.S_ITS ---
PROCEDURE: XR CHEST 1V INDICATIONS: Shortness of breath TECHNIQUE: One view of the chest was acquired. COMPARISON: [facility], CR, XR CHEST 2V, 02/04/2023, 0:10. FINDINGS: Surgical changes and devices: None. Lungs and pleura: Patchy opacities in the left mid lung concerning for pneumonia. Increased opacification right lung base which could represent pneumonia or atelectasis. Mediastinum: Mediastinal contours appear normal. Heart size is normal. Bones and chest wall: No suspicious bony lesions. Overlying soft tissues appear unremarkable. IMPRESSION: Left-sided pneumonia. Right basilar atelectasis versus pneumonia. Dictated by: Cheryle Ontiveros MD, PhD on 11/07/2023 at 15:31 Approved by: Cheryle Ontiveros MD, PhD on 11/07/2023 at 15:32
--- NOTE | 2023-11-07 15:12 | PC.NURSE ---
Pt states he gets frequent Iron infusions for anemia. States recently has been more SOB and fatigued than normal. SPO2 91% RA. ST 106 and hypertensive 160/systolic which he states is not normal for him. appears pale. states my last hemoglobin was around 9 denies any bloody or melena stool. Also reporting new onset back pain sharp in the low back and stops mid leg. No cardiac history noted by patient. Resting in [facility] on cardiac monitoring. IV in place. CXR and EKG obtained.
[2023-11-07 15:15] LABS: Add Manual Diff / Slide Review NO; Basophils Absolute Auto 0 /uL (0-100); Basophils Percent Auto 0.4 % (0-2); Eosinophils Absolute Auto 100 /uL (0-450); Eosinophils Percent Auto 2.5 % (2-4); Hematocrit 24.1 % (41-53); Hemoglobin 7.9 g/dL (13.5-17.5); Lymphocytes Absolute Auto 800 /uL (1100-4500); Lymphocytes Percent Auto 13.7 % (25-40); Mean Corpuscular Hemoglobin 26.7 PG (26-34); Monocytes Absolute Auto 1100 /uL (0-900); Monocytes Percent Auto 19.1 % (3-14); Neutrophils Absolute Auto 3700 /uL (1500-7000); Neutrophils Percent Auto 64.3 % (50-75); Platelet Count 500 X10^3/uL (150-400); Red Blood Cell Count 2.98 X10^6/uL (4.5-5.9); Red Cell Distribution Width 15.3 % (11.6-14.8); White Blood Cell Count 5.7 X10^3/uL (4.5-11.0)
[2023-11-07 15:20] LABS: INR 1.3 (0.9-1.3)
[2023-11-07 15:29] LABS: Alanine Aminotransferase 12 IU/L (<50); Albumin 3.3 g/dL (3.5-5.0); Albumin Globulin Ratio 0.9 (1.0-2.8); Alkaline Phosphatase 132 U/L (38-126); Aspartate Aminotransferase 20 IU/L (17-59); BUN Creatinine Ratio 18.1 (6-22); Bilirubin Total 0.6 mg/dL (0.2-1.3); Blood Urea Nitrogen 48 mg/dL (9-20); Calcium 8.7 mg/dL (8.4-10.2); Carbon Dioxide 24 mmol/L (22-32); Chloride 97 mmol/L (98-107); Estimated Glomerular Filt Rate 29 mL/min (>60); Globulin 3.8 g/dL (1.7-4.1); Glucose 102 mg/dL (70-100); HEMOLYSIS < 15 (0-50); Lactate (Lactic Acid) 0.9 mmol/L (0.7-2.1); Sodium 128 mmol/L (137-145); Total Protein 7.1 g/dL (6.3-8.2)
[2023-11-07 15:38] LABS: NT-proBNP (BNP-Adult 18+) 3420 pg/mL (<125)
[2023-11-07 15:42] LABS: Troponin I < 0.012 ng/mL (0.01-0.034)
--- NOTE | 2023-11-07 16:24 | ED_ITS ---
HPI - SOB/Dyspnea <Maddie Sommer, DO - Last Filed: 11/08/23 08:03> General Chief Complaint: Shortness of Breath/Dyspnea Stated Complaint: back pain/bad reaction iron infusions/fatigue/ sob Time Seen by Provider: 11/07/23 16:04 Source: patient Mode of arrival: Ambulatory Limitations: no limitations History of Present Illness HPI Narrative: Patient is a 43-year-old male history of ulcerative colitis on Humira, insulin- dependent diabetes, anemia with iron infusions, ongoing back pain presenting today with increasing shortness of breath and fatigue. He has been seen sore some ongoing low back pain given naproxen 500 mg twice a day. He has been taking it. He went for his iron infusion today it would be his 4th iron infusion. He says typically they do help him although the 1st 1 helped him the most in the others not as much. Today he reports he felt significantly worse. He is significant shortness of breath with exertion. He denies any fever. He actually reports significant rigors without fever. He says he shakes so hard it hurts but denies any sweats. He has no abdominal pain nausea or vomiting. He does not feel like his legs are significantly swollen. Patient reports that he was seen by Nephrology instructed to stop taking naproxen on October 19. However he started having back flare last Monday and started taking it. Related Data Home Medications Medication Instructions Recorded Confirmed levothyroxine 112 mcg tablet 224 mcg PO 0600 09/30/18 10/13/23 Respironics Dreamstation CPAP #1 ea 05/28/19 10/13/23 glipizide 10 mg tablet 10 mg PO DAILY 10/12/20 10/13/23 metoprolol tartrate 50 mg tablet 25 mg PO TID 10/12/20 10/13/23 amlodipine 10 mg tablet 10 mg PO DAILY 04/29/22 10/13/23 hydrochlorothiazide 25 mg tablet 25 mg PO BEDTIME 04/29/22 10/13/23 insulin glargine 100 unit/mL (3 40 unit SUBCUT BEDTIME 04/29/22 10/13/23 mL) subcutaneous pen (Basaglar KwikPen U-100 Insulin) liraglutide 0.6 mg/0.1 mL (18 mg/3 1.8 mg SUBCUT BEDTIME 04/29/22 10/13/23 mL) subcutaneous pen injector ([employer] 2-Lloyd) losartan 25 mg tablet 25 mg PO BID 04/29/22 10/13/23 mesalamine 1.2 gram tablet,delayed 1.2 g PO BID 04/29/22 10/13/23 release pen needle, diabetic 32 gauge x #50 ea 04/29/22 10/13/23/32 (BD Ultra-Fine [place] Pen Needle) sodium zirconium cyclosilicate 5 5 g PO DAILY PRN low potassium 04/29/22 10/13/23 gram oral powder packet blood sugar diagnostic (FreeStyle #10 ea 10/26/22 10/13/23 Precision Felix Strips) adalimumab 40 mg/0.4 mL 40 mg SUBCUT Q2W 02/03/23 10/13/23 subcutaneous pen kit (Humira(CF) Pen) atorvastatin 10 mg tablet 10 mg PO DAILY 02/03/23 10/13/23 gabapentin 300 mg capsule 300 mg PO TID 02/03/23 10/13/23 flash glucose sensor (FreeStyle #1 ea 05/19/23 10/13/23 Cody 14 Day Sensor kit) Previous Rx's Medication Instructions Recorded diabetic shoes and orthotics #1 ea 05/19/23 methocarbamol 500 mg tablet 500 mg PO TID PRN Muscle strain 10/13/23 #30 tabs naproxen 500 mg tablet 500 mg PO BID PRN pain #30 tabs 10/13/23 furosemide 20 mg tablet (Lasix) 20 mg PO DAILY #3 tabs 11/08/23 levofloxacin 750 mg tablet 750 mg PO DAILY 5 days #5 tabs 11/08/23 Allergies Allergy/AdvReac Type Severity Reaction Status Date / Time alcohol [ALCOHOL] Allergy Severe throat Verified 10/13/23 10:29 swells up Patient History <Maddie Sommer DO - Last Filed: 11/08/23 08:03> Medical History (Updated 11/08/23 @ 01:00 by David Liz DO) Strain of flexor muscle of left hip 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 History of thyroid cancer Paralysis of left vocal cord Acute bacterial sinusitis Viral URI with cough Sleep apnea (~2013) Pinched nerve (~2013) Vocal cord paralysis (~2015) Thyroid cancer (~2015) Eosinophilic esophagitis Inflamed sebaceous cyst Ulcerative colitis (~2020) 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 chronic kidney disease Severe obesity Venous insufficiency Polyneuropathy, unspecified CKD stage G2/A2, GFR 60-89 and albumin creatinine ratio 30-299 mg/g Primary osteoarthritis involving multiple joints Acquired hypothyroidism Mixed hyperlipidemia Essential hypertension Facet arthropathy, cervical Cervical radiculopathy Surgical History Anesthesia H/O Achilles tendon repair (~2012) Status post removal of thyroid nodule (~2015) Family History Mother Spine degeneration Grandmother Diabetes mellitus History of heart disease Grandfather History of heart disease Grandfather Diabetes mellitus Stroke Grandmother Cancer Social History household members: friend(s) Smoking Status: Never smoker alcohol intake: current Smoking Status: Never smoker alcohol intake frequency: 0-2 drinks per day Substance Use Type: does not use Exam <Maddie Sommer DO - Last Filed: 11/08/23 08:03> Initial Vital Signs Initial Vital Signs: Vital Signs Temperature 98.7 F 11/07/23 14:53 Pulse Rate 105 H 11/07/23 14:53 Respiratory Rate 20 11/07/23 14:53 Blood Pressure 160/78 H 11/07/23 14:53 Pulse Oximetry 91 11/07/23 14:53 Oxygen Delivery Method Room Air 11/07/23 14:53 GENERAL: 43-year-old male pale HEENT: Head atraumatic,EOMI, pupils reactive, face symmetric, moist mucous membranes CARDIOVASCULAR: Regular rate and rhythm without murmurs, rubs or gallops. RESPIRATORY: Breath sounds equal bilaterally, no wheezes rales or rhonchi. Minimal conversational dyspnea ABDOMEN: Soft, nontender. Normoactive bowel sounds all 4 quadrants. No guarding or rebound. EXTREMITIES: Normal range of motion, no clubbing or edema. Neurovascularly intact NEUROLOGICAL: Alert and oriented x4 SKIN: Warm, dry, no laceration, no petechiae, no rashes or lesions. <DO Damir Guevara Last Filed: 11/08/23 05:29> Initial Vital Signs Initial Vital Signs: Vital Signs Temperature 98.7 F 11/07/23 14:53 Pulse Rate 105 H 11/07/23 14:53 Respiratory Rate 20 11/07/23 14:53 Blood Pressure 160/78 H 11/07/23 14:53 Pulse Oximetry 91 11/07/23 14:53 Oxygen Delivery Method Room Air 11/07/23 14:53 Course <Maddie Sommer DO - Last Filed: 11/08/23 08:03> Orders Ordered: Discontinued Medications Furosemide (Furosemide 40 Mg/4 Ml Vial) 20 mg IV NOW ONE Stop: 11/07/23 16:37 Last Admin: 11/07/23 18:42 Dose: 20 mg Documented By: EM Acetaminophen (Ofirmev) 1,000 mg in 100 mls @ 400 mls/hr IV NOW ONE Stop: 11/07/23 20:02 Last Infusion: 11/07/23 20:26 Dose: Infused Documented By: Admin: 11/07/23 20:05 Dose: 400 mls/hr Documented By: EM Ceftriaxone Sodium 2,000 mg/ (Sodium Chloride) 100 mls @ 200 mls/hr IV NOW ONE Stop: 11/07/23 19:54 Last Infusion: 11/07/23 21:04 Dose: Infused Documented By: Infusion: 11/07/23 20:26 Dose: 200 mls/hr Documented By: Infusion: 11/07/23 20:10 Dose: 0 mls/hr Documented By: Admin: 11/07/23 20:10 Dose: 200 mls/hr Documented By: EM Azithromycin 500 mg/ Dextrose 250 mls @ 250 mls/hr IV NOW ONE Stop: 11/07/23 19:54 Last Infusion: 11/07/23 22:17 Dose: Infused Documented By: Admin: 11/07/23 21:06 Dose: 250 mls/hr Documented By: EM Ondansetron HCl (Ondansetron 4 Mg/2 Ml Inj) 4 mg IV NOW ONE Stop: 11/07/23 21:22 Last Admin: 11/07/23 21:22 Dose: 4 mg Documented By: EM Vital Signs Vital signs: Vital Signs - 8 hr 11/08/23 01:03 11/08/23 01:04 11/08/23 01:04 Pulse Rate 101 H 101 H Blood Pressure 132/71 Pulse Oximetry 92 94 <David Liz DO - Last Filed: 11/08/23 05:29> Orders Ordered: Discontinued Medications Furosemide (Furosemide 40 Mg/4 Ml Vial) 20 mg IV NOW ONE Stop: 11/07/23 16:37 Last Admin: 11/07/23 18:42 Dose: 20 mg Documented By: EM Acetaminophen (Ofirmev) 1,000 mg in 100 mls @ 400 mls/hr IV NOW ONE Stop: 11/07/23 20:02 Last Infusion: 11/07/23 20:26 Dose: Infused Documented By: Admin: 11/07/23 20:05 Dose: 400 mls/hr Documented By: EM Ceftriaxone Sodium 2,000 mg/ (Sodium Chloride) 100 mls @ 200 mls/hr IV NOW ONE Stop: 11/07/23 19:54 Last Infusion: 11/07/23 21:04 Dose: Infused Documented By: Infusion: 11/07/23 20:26 Dose: 200 mls/hr Documented By: Infusion: 11/07/23 20:10 Dose: 0 mls/hr Documented By: Admin: 11/07/23 20:10 Dose: 200 mls/hr Documented By: EM Azithromycin 500 mg/ Dextrose 250 mls @ 250 mls/hr IV NOW ONE Stop: 11/07/23 19:54 Last Infusion: 11/07/23 22:17 Dose: Infused Documented By: Admin: 11/07/23 21:06 Dose: 250 mls/hr Documented By: EM Ondansetron HCl (Ondansetron 4 Mg/2 Ml Inj) 4 mg IV NOW ONE Stop: 11/07/23 21:22 Last Admin: 11/07/23 21:22 Dose: 4 mg Documented By: EM Vital Signs Vital signs: Vital Signs - 8 hr 11/08/23 01:03 11/08/23 01:04 11/08/23 01:04 Pulse Rate 101 H 101 H Blood Pressure 132/71 Pulse Oximetry 92 94 MDM - SOB/Dyspnea <Maddie Sommer DO - Last Filed: 11/08/23 08:03> Lab Data 11/07/23 22:14 11/07/23 22:14 Labs: Lab Results 11/07/23 11/07/23 11/07/23 Range/Units 15:00 16:08 16:43 WBC 5.7 (4.5-11.0) X10^3/uL RBC 2.98 L (4.5-5.9) X10^6/uL Hgb 7.9 L (13.5-17.5) g/dL Hct 24.1 L (41-53) % MCV 81.0 (80-100) fL MCH 26.7 (26-34) PG MCHC 33.0 (30-36) % RDW 15.3 H (11.6-14.8) % Plt Count 500 H (150-400) X10^3/uL Neut % (Auto) 64.3 (50-75) % Lymph % (Auto) 13.7 L (25-40) % [place] % (Auto) 19.1 H (3-14) % Eos % (Auto) 2.5 (2-4) % Baso % (Auto) 0.4 (0-2) % Neut # (Auto) 3700 (0599-4910) /uL Lymph # (Auto) 800 L (9304-8413) /uL [place] # (Auto) 1100 H (0-900) /uL Eos # (Auto) 100 (0-450) /uL Baso # (Auto) 0 (0-100) /uL PT 15.0 H (9.4-12.5) SECONDS INR 1.3 (0.9-1.3) Sodium 128 L (137-145) mmol/L Potassium 5.0 (3.4-5.1) mmol/L Chloride 97 L (98-107) mmol/L Carbon Dioxide 24 (22-32) mmol/L BUN 48 H (9-20) mg/dL Creatinine 2.65 H (0.66-1.25) mg/dL Estimated GFR 29 L (>60) mL/min BUN/Creatinine Ratio 18.1 (6-22) Glucose 102 H (70-100) mg/dL Lactate 0.9 (0.7-2.1) mmol/L Calcium 8.7 (8.4-10.2) mg/dL Total Bilirubin 0.6 (0.2-1.3) mg/dL AST 20 (17-59) IU/L ALT 12 (<50) IU/L Alkaline Phosphatase 132 H (38-126) U/L Troponin I < 0.012 (0.01-0.034) ng/mL NT-Pro-B Natriuret Pep 3420 H (<125) pg/mL Total Protein 7.1 (6.3-8.2) g/dL Albumin 3.3 L (3.5-5.0) g/dL Globulin 3.8 (1.7-4.1) g/dL Albumin/Globulin Ratio 0.9 L (1.0-2.8) Procalcitonin 0.29 (<0.5) ng/mL Urine Color Urine Appearance Urine pH (4.5-8.0) Ur Specific [place] (1.000-1.035) Urine Protein (Negative) Urine Glucose (UA) (Negative) g/dL Urine Ketones (NEGATIVE) Urine Occult Blood (Negative) Urine Nitrate (Negative) Urine Bilirubin (NEGATIVE) Urine Urobilinogen (0.2) E.U./dL Ur Leukocyte Esterase (NEGATIVE) Urine RBC (0-5/HPF) Urine WBC (0-5/HPF) Ur Squamous Epith Cells (0-5/HPF) Urine Bacteria (None) Ur Culture Indicated? SARS-CoV-2 (PCR) Negative (Negative) Influenza A (RT-PCR) Flu a negative (NEGATIVE) Influenza B (RT-PCR) Flu b negative (NEGATIVE) RSV (PCR) Negative (Negative) Blood Type O Positive Antibody Screen Negative Crossmatch See Detail 11/07/23 11/07/23 11/07/23 Range/Units 19:03 19:53 22:14 WBC 6.9 (4.5-11.0) X10^3/uL RBC 3.04 L (4.5-5.9) X10^6/uL Hgb 8.1 L (13.5-17.5) g/dL Hct 24.2 L (41-53) % MCV 79.7 L (80-100) fL MCH 26.7 (26-34) PG MCHC 33.5 (30-36) % RDW 16.3 H (11.6-14.8) % Plt Count 466 H (150-400) X10^3/uL Neut % (Auto) 77.8 H (50-75) % Lymph % (Auto) 6.0 L (25-40) % [place] % (Auto) 15.0 H (3-14) % Eos % (Auto) 0.7 L (2-4) % Baso % (Auto) 0.5 (0-2) % Neut # (Auto) 5300 (9555-6478) /uL Lymph # (Auto) 400 L (9464-1333) /uL [place] # (Auto) 1000 H (0-900) /uL Eos # (Auto) 0 (0-450) /uL Baso # (Auto) 0 (0-100) /uL PT (9.4-12.5) SECONDS INR (0.9-1.3) Sodium 131 L 129 L (137-145) mmol/L Potassium 4.5 4.6 (3.4-5.1) mmol/L Chloride 98 99 (98-107) mmol/L Carbon Dioxide 22 20 L (22-32) mmol/L BUN 45 H 46 H (9-20) mg/dL Creatinine 2.56 H 2.35 H (0.66-1.25) mg/dL Estimated GFR 31 L 34 L (>60) mL/min BUN/Creatinine Ratio 17.6 19.6 (6-22) Glucose 81 118 H (70-100) mg/dL Lactate (0.7-2.1) mmol/L Calcium 8.7 8.2 L (8.4-10.2) mg/dL Total Bilirubin (0.2-1.3) mg/dL AST (17-59) IU/L ALT (<50) IU/L Alkaline Phosphatase (38-126) U/L Troponin I (0.01-0.034) ng/mL NT-Pro-B Natriuret Pep (<125) pg/mL Total Protein (6.3-8.2) g/dL Albumin (3.5-5.0) g/dL Globulin (1.7-4.1) g/dL Albumin/Globulin Ratio (1.0-2.8) Procalcitonin (<0.5) ng/mL Urine Color Yellow Urine Appearance Clear Urine pH 5.5 (4.5-8.0) Ur Specific [place] <=1.005 (1.000-1.035) Urine Protein Negative (Negative) Urine Glucose (UA) Negative (Negative) g/dL Urine Ketones Negative (NEGATIVE) Urine Occult Blood Trace-intact (Negative) Urine Nitrate Negative (Negative) Urine Bilirubin Negative (NEGATIVE) Urine Urobilinogen 0.2 (0.2) E.U./dL Ur Leukocyte Esterase Negative (NEGATIVE) Urine RBC 0-1/hpf (0-5/HPF) Urine WBC None seen (0-5/HPF) Ur Squamous Epith Cells None seen (0-5/HPF) Urine Bacteria None seen (None) Ur Culture Indicated? Cult not indicated SARS-CoV-2 (PCR) (Negative) Influenza A (RT-PCR) (NEGATIVE) Influenza B (RT-PCR) (NEGATIVE) RSV (PCR) (Negative) Blood Type Antibody Screen Crossmatch Point of Care Testing Glucose POC 83 Urine Dip Bedside Urine Glucose Negative Bedside Urine Bilirubin - Negative Bedside Urine Ketone - Negative Urine Specific [place] 1.01 Bedside Urine Occult Blood - Negative Bedside Urine pH 6 Bedside Urine Protein - Negative Bedside Urine Urobilinogen - Negative Bedside Urine Nitrite - Negative Bedside Urine Leukocytes - Negative Esterase Imaging Data Chest x-ray: Radiologist's Impression: PROCEDURE: XR CHEST 1V INDICATIONS: Shortness of breath TECHNIQUE: One view of the chest was acquired. COMPARISON: [facility], , XR CHEST 2V, 02/04/2023, 0:10. FINDINGS: Surgical changes and devices: None. Lungs and pleura: Patchy opacities in the left mid lung concerning for pneumonia. Increased opacification right lung base which could represent pneumonia or atelectasis. Mediastinum: Mediastinal contours appear normal. Heart size is normal. Bones and chest wall: No suspicious bony lesions. Overlying soft tissues appear unremarkable. IMPRESSION: Left-sided pneumonia. Right basilar atelectasis versus pneumonia. Dictated by: Cheryle Ontiveros MD, PhD on 11/07/2023 at 15:31 MDM Narrative Medical decision making narrative: Patient 43-year-old male presenting today with increasing shortness of breath weakness and pain. On exam he is hypoxic requiring 3 L of oxygen. He also complains of some orthopnea. He is quite chilled but no fever. Blood work reveals worsening anemia hemoglobin of 7.9 hematocrit 24.1 previously 9.7 and 29.5. He has no leukocytosis. Mild hyponatremia sodium 128 potassium 5.0 chloride 97 carbon dioxide 24 BUN 40, creatinine 2.65, previously creatinine was 1.42 on October 17 he has a negative troponin and a BNP of 3420 without prior history of congestive heart failure. Chest x-ray right atelectasis versus pneumonia left-sided pneumonia, bilateral lower extremity ultrasound negative for DVT,, CT abdomen pelvis without contrast shows a left 6 mm obstructing stone at the UPJ Patient he has not tachycardic or hypotensive. But he has some obvious shortness of breath. With significant changes anemia and hypoxia I think reasonable to transfuse 1 unit of blood. He has no prior history of congestive heart failure he is also given 40 mg of Lasix and urinating. Patient has worsening renal function initially thought to be due to naproxen use however he has a 6 mm obstructing UPJ which also might be contributing to it. I do think that his back pain is likely secondary to a kidney stone in not herniated disc. Unfortunately urology not available locally with worsening renal function would likely benefit from stent. Creatinine actually did improve on repeat went from 2.65-2.56. Patient signed out to Dr. Liz <David Liz DO - Last Filed: 11/08/23 05:29> Lab Data Labs: Lab Results 11/07/23 11/07/23 11/07/23 Range/Units 15:00 16:08 16:43 WBC 5.7 (4.5-11.0) X10^3/uL RBC 2.98 L (4.5-5.9) X10^6/uL Hgb 7.9 L (13.5-17.5) g/dL Hct 24.1 L (41-53) % MCV 81.0 (80-100) fL MCH 26.7 (26-34) PG MCHC 33.0 (30-36) % RDW 15.3 H (11.6-14.8) % Plt Count 500 H (150-400) X10^3/uL Neut % (Auto) 64.3 (50-75) % Lymph % (Auto) 13.7 L (25-40) % [place] % (Auto) 19.1 H (3-14) % Eos % (Auto) 2.5 (2-4) % Baso % (Auto) 0.4 (0-2) % Neut # (Auto) 3700 (3020-4051) /uL Lymph # (Auto) 800 L (8819-3296) /uL [place] # (Auto) 1100 H (0-900) /uL Eos # (Auto) 100 (0-450) /uL Baso # (Auto) 0 (0-100) /uL PT 15.0 H (9.4-12.5) SECONDS INR 1.3 (0.9-1.3) Sodium 128 L (137-145) mmol/L Potassium 5.0 (3.4-5.1) mmol/L Chloride 97 L (98-107) mmol/L Carbon Dioxide 24 (22-32) mmol/L BUN 48 H (9-20) mg/dL Creatinine 2.65 H (0.66-1.25) mg/dL Estimated GFR 29 L (>60) mL/min BUN/Creatinine Ratio 18.1 (6-22) Glucose 102 H (70-100) mg/dL Lactate 0.9 (0.7-2.1) mmol/L Calcium 8.7 (8.4-10.2) mg/dL Total Bilirubin 0.6 (0.2-1.3) mg/dL AST 20 (17-59) IU/L ALT 12 (<50) IU/L Alkaline Phosphatase 132 H (38-126) U/L Troponin I < 0.012 (0.01-0.034) ng/mL NT-Pro-B Natriuret Pep 3420 H (<125) pg/mL Total Protein 7.1 (6.3-8.2) g/dL Albumin 3.3 L (3.5-5.0) g/dL Globulin 3.8 (1.7-4.1) g/dL Albumin/Globulin Ratio 0.9 L (1.0-2.8) Procalcitonin 0.29 (<0.5) ng/mL Urine Color Urine Appearance Urine pH (4.5-8.0) Ur Specific [place] (1.000-1.035) Urine Protein (Negative) Urine Glucose (UA) (Negative) g/dL Urine Ketones (NEGATIVE) Urine Occult Blood (Negative) Urine Nitrate (Negative) Urine Bilirubin (NEGATIVE) Urine Urobilinogen (0.2) E.U./dL Ur Leukocyte Esterase (NEGATIVE) Urine RBC (0-5/HPF) Urine WBC (0-5/HPF) Ur Squamous Epith Cells (0-5/HPF) Urine Bacteria (None) Ur Culture Indicated? SARS-CoV-2 (PCR) Negative (Negative) Influenza A (RT-PCR) Flu a negative (NEGATIVE) Influenza B (RT-PCR) Flu b negative (NEGATIVE) RSV (PCR) Negative (Negative) Blood Type O Positive Antibody Screen Negative Crossmatch See Detail 11/07/23 11/07/23 11/07/23 Range/Units 19:03 19:53 22:14 WBC 6.9 (4.5-11.0) X10^3/uL RBC 3.04 L (4.5-5.9) X10^6/uL Hgb 8.1 L (13.5-17.5) g/dL Hct 24.2 L (41-53) % MCV 79.7 L (80-100) fL MCH 26.7 (26-34) PG MCHC 33.5 (30-36) % RDW 16.3 H (11.6-14.8) % Plt Count 466 H (150-400) X10^3/uL Neut % (Auto) 77.8 H (50-75) % Lymph % (Auto) 6.0 L (25-40) % [place] % (Auto) 15.0 H (3-14) % Eos % (Auto) 0.7 L (2-4) % Baso % (Auto) 0.5 (0-2) % Neut # (Auto) 5300 (6619-1615) /uL Lymph # (Auto) 400 L (4419-6930) /uL [place] # (Auto) 1000 H (0-900) /uL Eos # (Auto) 0 (0-450) /uL Baso # (Auto) 0 (0-100) /uL PT (9.4-12.5) SECONDS INR (0.9-1.3) Sodium 131 L 129 L (137-145) mmol/L Potassium 4.5 4.6 (3.4-5.1) mmol/L Chloride 98 99 (98-107) mmol/L Carbon Dioxide 22 20 L (22-32) mmol/L BUN 45 H 46 H (9-20) mg/dL Creatinine 2.56 H 2.35 H (0.66-1.25) mg/dL Estimated GFR 31 L 34 L (>60) mL/min BUN/Creatinine Ratio 17.6 19.6 (6-22) Glucose 81 118 H (70-100) mg/dL Lactate (0.7-2.1) mmol/L Calcium 8.7 8.2 L (8.4-10.2) mg/dL Total Bilirubin (0.2-1.3) mg/dL AST (17-59) IU/L ALT (<50) IU/L Alkaline Phosphatase (38-126) U/L Troponin I (0.01-0.034) ng/mL NT-Pro-B Natriuret Pep (<125) pg/mL Total Protein (6.3-8.2) g/dL Albumin (3.5-5.0) g/dL Globulin (1.7-4.1) g/dL Albumin/Globulin Ratio (1.0-2.8) Procalcitonin (<0.5) ng/mL Urine Color Yellow Urine Appearance Clear Urine pH 5.5 (4.5-8.0) Ur Specific [place] <=1.005 (1.000-1.035) Urine Protein Negative (Negative) Urine Glucose (UA) Negative (Negative) g/dL Urine Ketones Negative (NEGATIVE) Urine Occult Blood Trace-intact (Negative) Urine Nitrate Negative (Negative) Urine Bilirubin Negative (NEGATIVE) Urine Urobilinogen 0.2 (0.2) E.U./dL Ur Leukocyte Esterase Negative (NEGATIVE) Urine RBC 0-1/hpf (0-5/HPF) Urine WBC None seen (0-5/HPF) Ur Squamous Epith Cells None seen (0-5/HPF) Urine Bacteria None seen (None) Ur Culture Indicated? Cult not indicated SARS-CoV-2 (PCR) (Negative) Influenza A (RT-PCR) (NEGATIVE) Influenza B (RT-PCR) (NEGATIVE) RSV (PCR) (Negative) Blood Type Antibody Screen Crossmatch Point of Care Testing Glucose POC 83 Urine Dip Bedside Urine Glucose Negative Bedside Urine Bilirubin - Negative Bedside Urine Ketone - Negative Urine Specific [place] 1.01 Bedside Urine Occult Blood - Negative Bedside Urine pH 6 Bedside Urine Protein - Negative Bedside Urine Urobilinogen - Negative Bedside Urine Nitrite - Negative Bedside Urine Leukocytes - Negative Esterase MDM Narrative Medical decision making narrative: Patient 43-year-old male presenting today with increasing shortness of breath weakness and pain. On exam he is hypoxic requiring 3 L of oxygen. He also complains of some orthopnea. He is quite chilled but no fever. Blood work reveals worsening anemia hemoglobin of 7.9 hematocrit 24.1 previously 9.7 and 29.5. He has no leukocytosis. Mild hyponatremia sodium 128 potassium 5.0 chloride 97 carbon dioxide 24 BUN 40, creatinine 2.65, previously creatinine was 1.42 on October 17 he has a negative troponin and a BNP of 3420 without prior history of congestive heart failure. Chest x-ray right atelectasis versus pneumonia left-sided pneumonia, bilateral lower extremity ultrasound negative for DVT,, CT abdomen pelvis without contrast shows a left 6 mm obstructing stone at the UPJ Patient he has not tachycardic or hypotensive. But he has some obvious shortness of breath. With significant changes anemia and hypoxia I think reasonable to transfuse 1 unit of blood. He has no prior history of congestive heart failure he is also given 40 mg of Lasix and urinating. Patient has worsening renal function initially thought to be due to naproxen use however he has a 6 mm obstructing UPJ which also might be contributing to it. I do think that his back pain is likely secondary to a kidney stone in not herniated disc. Unfortunately urology not available locally with worsening renal function would likely benefit from stent. Creatinine actually did improve on repeat went from 2.65-2.56. Patient signed out to Dr. Agusto liz: Received turned over. Review patient's history and physical and workup up to this point. Patient has received a unit of blood. Had a extensive discussion with the patient regarding his symptoms. He stated that he was feeling much better. His shortness of breath was improving. He was able to ambulate to the bathroom and around the department and did have an oxygen saturation as low as 89% but he states he was not having chest pain and no cough and no short of breath. He does see a sales support advisor. His creatinine is slightly improving. We had a discussion regarding the findings of the proximal ureteral stone. He has not having back pain. No urinary symptoms. His urinalysis is not consistent with a urinary tract infection. Chest x-ray was concerning for pneumonia. He clinically does not have pneumonia. I had a very extensive discussion with the patient regarding his symptoms. We discussed possibility of transferring to a facility that has pulmonology and urology although given the fact that he now states that he is ?night and day? different from when he arrived I suspect that there would be no facility that would accept the patient for transfer as he does not appear to need any emergent urologic intervention. Discussed admitting the patient here to this facility although the fever would require admission he should be transferred to a facility that has neurology which we do not have this point in time. Patient states that he is feeling much better and feels like he can be discharged home. Plan will be is to continue him on Levaquin. This would treat any potential respiratory infection and any urologic infection. Will have patient contact his primary doctor for follow-up. He was given strict return precautions. He expressed understanding and agreement. Discharge Plan Departure Patient Disposition: Home Clinical Impression: Anemia, Shortness of breath, Left ureteral stone, Creatinine elevation Activity Restrictions/Additional Instructions: Continue to take all of your medications as directed. Contact your primary care doctor and also your sales support advisor for follow-up. Given the left-sided kidney stone I suspect a follow-up with Urology would be warranted as well. You can contact them with the number provided below. Keep all of your scheduled medical appointments. Return to the emergency department for new or worsening symptoms. Prescriptions: New levofloxacin 750 mg tablet 750 mg PO DAILY 5 Days Qty: 5 0RF furosemide [Lasix] 20 mg tablet 20 mg PO DAILY Qty: 3 0RF No Action levothyroxine 112 mcg tablet 224 mcg PO 0600 (DME) Respironics Dreamstation CPAP Qty: 1 Dose Instruction: As directed Patient Comments: Pressure: 8-18 cmH2O DME: [facility] Instructions: As directed (DME) pen needle, diabetic [BD Ultra-Fine Candelaria Pen Needle] 32 gauge x 5/32 needle See Rx Instructions .ROUTE .MEDSUPPLY Qty: 50 Rx Instructions: As directed losartan 25 mg tablet 25 mg PO BID amlodipine 10 mg tablet 10 mg PO DAILY hydrochlorothiazide 25 mg tablet 25 mg PO BEDTIME mesalamine 1.2 gram tablet,delayed release (DR/EC) 1.2 g PO BID insulin glargine [Basaglar KwikPen U-100 Insulin] 100 unit/mL (3 mL) insulin pen 40 unit SUBCUT BEDTIME sodium zirconium cyclosilicate 5 gram powder in packet 5 g PO DAILY PRN (Reason: low potassium) (DME) FreeStyle Precision Felix Strips Strip See Rx Instructions .ROUTE .MEDSUPPLY Qty: 10 Rx Instructions: As directed; Use to check blood glucose. (DME) FreeStyle Cody 14 Day Sensor Kit See Rx Instructions .ROUTE .MEDSUPPLY Qty: 1 Patient Comments: CHANGE EVERY 14 DAYS DIRECTED. Rx Instructions: As directed (DME) diabetic shoes and orthotics See Rx Instructions .Route .MEDSUPPLY Qty: 1 0RF Rx Instructions: As directed naproxen 500 mg tablet 500 mg PO BID PRN (Reason: pain) Qty: 30 1RF methocarbamol 500 mg tablet 500 mg PO TID PRN (Reason: Muscle strain) Qty: 30 0RF atorvastatin 10 mg tablet 10 mg PO DAILY Patient Comments: patient has not started yet. Humira(CF) Pen 40 mg/0.4 mL pen injector kit 40 mg SUBCUT Q2W gabapentin 300 mg capsule 300 mg PO TID Rx Instructions: 1-3 PO Tid to begin at HS and titrate to pain relief metoprolol tartrate 50 mg tablet 25 mg PO TID glipizide 10 mg tablet 10 mg PO DAILY Victoza 2-Lloyd 0.6 mg/0.1 mL (18 mg/3 mL) pen injector 1.8 mg SUBCUT BEDTIME Referrals: Radhames Haq MD [Primary Care Provider] - Rodney Dawkins MD [Physician] - Stand Alone Forms: Patient Portal/API
--- NOTE | 2023-11-07 16:36 | DI.US.S_ITS ---
PROCEDURE: US PERIPH VENOUS LOW EXTREM BI INDICATIONS: Please evaluate for dvt hypoxia TECHNIQUE: Real-time imaging, as well as color and pulse Doppler interrogation, were performed of the deep veins of both legs from the inguinal ligament to the popliteal fossa, with documentation of the visualized calf veins. COMPARISON: None. FINDINGS: Right: The common femoral, femoral, popliteal, and the visualized calf veins are normally compressible, and free of intraluminal thrombus. Color and pulse Doppler demonstrate normal phasic intravascular flow. There is normal augmentation response to distal compression maneuver. Left: The common femoral, femoral, popliteal, and the visualized calf veins are normally compressible, and free of intraluminal thrombus. Color and pulse Doppler demonstrate normal phasic intravascular flow. There is normal augmentation response to distal compression maneuver. IMPRESSION: No findings of deep venous thrombosis in either lower extremity. Dictated by: Alfie Alston M.D. on 11/07/2023 at 16:25 Approved by: Alfie Alston M.D. on 11/07/2023 at 16:26
[2023-11-07 17:05] LABS: Influenza A - CEPHEID Flu A NEGATIVE (NEGATIVE); Influenza B - CEPHEID Flu B NEGATIVE (NEGATIVE); Respiratory Syncytial Virus Negative (Negative)
[2023-11-07 17:14] LABS: COVID-19 CEPHEID 4-PLEX PCR Negative (Negative)
[2023-11-07 17:16] LABS: Procalcitonin 0.29 ng/mL (<0.5)
--- NOTE | 2023-11-07 17:54 | DI.CT.S_ITS ---
PROCEDURE: CT ABDOMEN PELVIS WO CON INDICATIONS: renal failure TECHNIQUE: Axial sections were acquired from the lung bases to the pubic symphysis. Coronal and sagittal reformats were performed. For radiation dose reduction, the following was used: automated exposure control, adjustment of mA and/or kV according to patient size. COMPARISON: [facility], CT, CT ABDOMEN PELVIS W CON, 02/03/2023, 14:03. FINDINGS: Image quality: Diagnostic. Lower Chest: Diffusely scattered patchy and ill-defined bibasilar consolidations. URINARY: Right Kidney: No stones or hydronephrosis. Right Ureter: No hydroureter. Left Kidney: There is a 3 mm left renal stone. There is mild left hydronephrosis. There is mild left perinephric stranding. There is a 6 mm proximal left ureteral stone with associated hydroureter proximally as well as dilatation of the left renal pelvis. The left ureter is normal in course and caliber distally. Bladder: Normal wall thickness. No stones. ABDOMEN: Liver: No contour-deforming solid mass. Gallbladder: No radiopaque gallstones or wall thickening. Biliary ducts: No biliary dilation. Pancreas: No ductal dilation. Spleen: Size is within normal limits. Adrenal Glands: No adrenal nodules. Stomach and Bowel: Stable appearance of circumferential wall thickening of the entire colon. No significant pericolonic stranding. Chronic appearing dilatation thickening of the appendix without periappendiceal stranding. This is similar to prior study. Multiple scattered mesenteric lymph nodes more notable for number rather than size, likely reactive in etiology. Peritoneum: No abnormal intraperitoneal fluid. No free air. Ventral Wall: There is a fat-containing umbilical hernia with small amount of fluid in the hernia sac. Minimal amount of surrounding inflammation. Abdominal Nodes: Multiple scattered mesenteric lymph nodes are more notable for number rather than size and likely reactive in etiology. Vessels: Scattered atherosclerotic calcifications of the abdominal aorta and iliac vessels without aneurysmal dilatation. The inferior vena cava appears patent. PELVIS: Pelvic Organs: Unremarkable. Pelvic Nodes: Unremarkable. Miscellaneous: No inguinal hernias are seen. Bones: No acute vertebral body compression fractures. Multilevel spondylitic changes throughout the imaged spine. No suspicious osseous lesions. IMPRESSION: Obstructing 6 mm proximal left ureteral stone visualized a short distance from the left ureteropelvic junction. This stone measures approximately 150 Hounsfield units. There is also mild left hydronephrosis and perinephric stranding. Recommend clinical and laboratory correlation for possible concurrent infectious uropathy. Additional punctate 3 mm left renal stone. Persistent circumferential wall thickening of the entire colon likely related to infectious or inflammatory colitis. Numerous scattered mesenteric lymph nodes are more notable for number rather than size and likely reactive in etiology. Diffusely scattered patchy ill-defined airspace consolidations of the bilateral lung bases which may represent multifocal pneumonia. Recommend clinical correlation. Recommend short interval follow-up chest CT in 3 months to document stability versus resolution. Other chronic findings as above. Dictated by: Francisco Rinaldi M.D. on 11/07/2023 at 19:05 Approved by: Francisco Rinaldi M.D. on 11/07/2023 at 19:14
[2023-11-07] MEDS: FUROSEMIDE 40 MG/4 ML VIAL 20 MG IV (18:42)
[2023-11-07 19:21] LABS: BUN Creatinine Ratio 17.6 (6-22); Blood Urea Nitrogen 45 mg/dL (9-20); Calcium 8.7 mg/dL (8.4-10.2); Carbon Dioxide 22 mmol/L (22-32); Chloride 98 mmol/L (98-107); Estimated Glomerular Filt Rate 31 mL/min (>60); Glucose 81 mg/dL (70-100); HEMOLYSIS < 15 (0-50); Potassium 4.5 mmol/L (3.4-5.1); Sodium 131 mmol/L (137-145)
[2023-11-07 20:02] LABS: Appearance Urine UA CLEAR; Bilirubin Urine UA NEGATIVE (NEGATIVE); Color Urine UA YELLOW; Glucose Urine UA NEGATIVE (Negative); Ketones Urine UA NEGATIVE (NEGATIVE); Leukocyte Esterase Urine UA NEGATIVE (NEGATIVE); Nitrite Urine UA NEGATIVE (Negative); Occult Blood Urine UA TRACE-INTACT (Negative); Protein Urine UA NEGATIVE (Negative); Specific Gravity Urine UA <=1.005 (1.000-1.035); Urobilinogen Urine UA 0.2 E.U./dL (0.2); pH Urine UA 5.5 (4.5-8.0)
[2023-11-07] MEDS: ACETAMINOPHEN IV 1,000 MG/100 ML VIAL 400 MG IV (20:05)
[2023-11-07] MEDS: cefTRIAXone 2,000 MG in SODIUM CHLORIDE 0.9% 100 ML 200 MG IV (20:10)
[2023-11-07 20:30] LABS: Bacteria Urine None Seen; Culture Indicated Urine Cult Not Indicated; RBC Urine 0-1/HPF (0-5/HPF); Squamous Epithelial Cell Urine None Seen (0-5/HPF); WBC Urine None Seen (0-5/HPF)
[2023-11-07] MEDS: AZITHROMYCIN 500 MG in DEXTROSE 5% IN WATER 250 ML 250 MG IV (21:06)
[2023-11-07] MEDS: ONDANSETRON 4 MG/2 ML INJ IV (21:22)
--- NOTE | 2023-11-07 21:29 | PC.NURSE ---
patient had a sudden onset of nausea and one episode of vomiting. Dr. Liz aware and 4mg of zofran IV given.
[2023-11-07 22:25] LABS: Add Manual Diff / Slide Review NO; Basophils Absolute Auto 0 /uL (0-100); Basophils Percent Auto 0.5 % (0-2); Eosinophils Absolute Auto 0 /uL (0-450); Eosinophils Percent Auto 0.7 % (2-4); Hematocrit 24.2 % (41-53); Hemoglobin 8.1 g/dL (13.5-17.5); Lymphocytes Absolute Auto 400 /uL (1100-4500); Mean Corpuscular HGB Conc 33.5 % (30-36); Mean Corpuscular Hemoglobin 26.7 PG (26-34); Mean Corpuscular Volume 79.7 fL (80-100); Monocytes Absolute Auto 1000 /uL (0-900); Neutrophils Absolute Auto 5300 /uL (1500-7000); Neutrophils Percent Auto 77.8 % (50-75); Platelet Count 466 X10^3/uL (150-400); Red Blood Cell Count 3.04 X10^6/uL (4.5-5.9); Red Cell Distribution Width 16.3 % (11.6-14.8); White Blood Cell Count 6.9 X10^3/uL (4.5-11.0)
[2023-11-07 22:33] LABS: BUN Creatinine Ratio 19.6 (6-22); Blood Urea Nitrogen 46 mg/dL (9-20); Calcium 8.2 mg/dL (8.4-10.2); Carbon Dioxide 20 mmol/L (22-32); Chloride 99 mmol/L (98-107); Estimated Glomerular Filt Rate 34 mL/min (>60); Glucose 118 mg/dL (70-100); HEMOLYSIS < 15 (0-50); Potassium 4.6 mmol/L (3.4-5.1); Sodium 129 mmol/L (137-145)
[2023-11-08 01:03] VITALS: PULSE 101; O2SAT 92
[2023-11-08 01:04] VITALS: BP 132/71; PULSE 101; O2SAT 94
== END 2023-11-08 01:13 | disposition home or self-care (01) ==
PROVIDERS: Emergency Medicine; Emergency Provider Emergency Medicine; PCP Internal Medicine
DX: D64.9 Anemia, unspecified (principal); R06.02 Shortness of breath; N20.1 Calculus of ureter; R79.89 Other specified abnormal findings of blood chemistry; I10 Essential (primary) hypertension
CPT/HCPCS: 0241U; 36415; 36430; 71045; 74176; 80048; 80053; 81001; 81003; 82962; 83605; 83880; 84145; 84484; 85025; 85610; 86850; 86900; 86901; 87040; 93005; 93970; 96365; 96367; 96375; 99284; 99285; P9016; J0131; J0696; J1756; J1940; J2405

== ENCOUNTER → 2023-11-21 06:51 | Outpatient (CLI) | payer BC, SELFPAY ==
[2023-11-21 08:00] LABS: Hematocrit 29.2 % (41-53); Hemoglobin 9.4 g/dL (13.5-17.5); Mean Corpuscular HGB Conc 32.4 % (30-36); Mean Corpuscular Hemoglobin 26.3 PG (26-34); Mean Corpuscular Volume 81.3 fL (80-100); Platelet Count 424 X10^3/uL (150-400); Red Blood Cell Count 3.59 X10^6/uL (4.5-5.9); Red Cell Distribution Width 17.4 % (11.6-14.8); White Blood Cell Count 9.1 X10^3/uL (4.5-11.0)
[2023-11-21 08:22] LABS: Hemoglobin A1C% w Est Avg Glu 6.7 % (4.0-6.0)
[2023-11-21 08:29] LABS: HEMOLYSIS < 15 (0-50); Iron 29 ug/dL (49-181)
[2023-11-21 08:35] LABS: Alanine Aminotransferase 12 IU/L (<50); Albumin 3.7 g/dL (3.5-5.0); Alkaline Phosphatase 116 U/L (38-126); Aspartate Aminotransferase 22 IU/L (17-59); BUN Creatinine Ratio 13.3 (6-22); Bilirubin Total 0.4 mg/dL (0.2-1.3); Blood Urea Nitrogen 28 mg/dL (9-20); Calcium 9.6 mg/dL (8.4-10.2); Carbon Dioxide 21 mmol/L (22-32); Chloride 106 mmol/L (98-107); Estimated Glomerular Filt Rate 39 mL/min (>60); Globulin 3.7 g/dL (1.7-4.1); Glucose 63 mg/dL (70-100); HEMOLYSIS < 15 (0-50); Sodium 138 mmol/L (137-145); Total Protein 7.4 g/dL (6.3-8.2)
[2023-11-21 08:36] LABS: Potassium 5.8 mmol/L (3.4-5.1)
[2023-11-21 08:41] LABS: Percent Iron Saturation 11 % (20-50); Total Iron Binding Capacity 256 ug/dL (261-462); Transferrin 208 mg/dL (206-381)
[2023-11-21 09:05] LABS: Ferritin 249 ng/mL (18-464)
== END ==
LOC: LAB 06:52
PROVIDERS: PCP Internal Medicine; Referring Provider Internal Medicine; Visit Provider Internal Medicine
DX: R79.89 Other specified abnormal findings of blood chemistry (principal); I50.32 Chronic diastolic (congestive) heart failure; E11.22 Type 2 diabetes mellitus with diabetic chronic kidney disease; N18.2 Chronic kidney disease, stage 2 (mild)
CPT/HCPCS: 36415; 80053; 82728; 83036; 83540; 83550; 85027

== ENCOUNTER → 2023-12-19 15:13 | Outpatient (CLI) | payer BC, SELFPAY ==
--- NOTE | 2023-12-19 15:15 | DI.CT.S_ITS ---
PROCEDURE: CT KIDNEY URETER BLADDER (KUB) INDICATIONS: kidney stones TECHNIQUE: Axial sections were acquired from the lung bases to the pubic symphysis. Coronal and sagittal reformats were performed. For radiation dose reduction, the following was used: automated exposure control, adjustment of mA and/or kV according to patient size. COMPARISON: [facility], CT, CT ABDOMEN PELVIS WO CON, 11/07/2023, 18:00. FINDINGS: Image quality: Diagnostic. Lower Chest: No significant findings. URINARY: Right Kidney: Nonobstructing 2 mm calcification within the right interpolar kidney posteriorly. No hydronephrosis. Right Ureter: No hydroureter. Left Kidney: No hydronephrosis. Nonobstructing 2 mm calcification in the inferior pole. Left Ureter: No hydroureter. Bladder: Normal wall thickness. No stones. ABDOMEN: Liver: No contour-deforming solid mass. Gallbladder: No radiopaque gallstones or wall thickening. Biliary ducts: No biliary dilation. Pancreas: No ductal dilation. Spleen: Size is within normal limits. Adrenal Glands: No adrenal nodules. Stomach and Bowel: Stomach is grossly unremarkable. There is mild thickening and dilatation of the distal ileum. Normal appendix. Colon is nondistended. There is mild diffuse colonic thickening. Peritoneum: No abnormal intraperitoneal fluid. No free air. Ventral Wall: No hernia. Abdominal Nodes: No enlarged retroperitoneal or mesenteric lymph nodes. Vessels: Aorta and inferior vena cava are normal in size. PELVIS: Pelvic Organs: Unremarkable. Pelvic Nodes: Unremarkable. Miscellaneous: No inguinal hernias are seen. Bones: Unremarkable. IMPRESSION: 1. Non-obstructing bilateral nephroliths. 2. Normal appendix. 3. Thickening of the small and large bowel. Differential considerations include ischemia, infection, and inflammation. Colonoscopy is recommended to exclude underlying neoplasm. Dictated by: Connie Escobar M.D. on 12/19/2023 at 15:57 Approved by: Connie Escobar M.D. on 12/19/2023 at 15:59
== END ==
PROVIDERS: PCP Internal Medicine; Referring Provider Specialist; Visit Provider Specialist
DX: N20.0 Calculus of kidney (principal)
CPT/HCPCS: 74176

== ENCOUNTER → 2023-12-21 12:29 | Outpatient (CLI) | payer BC, SELFPAY ==
--- NOTE | 2023-12-21 12:30 | DI.ECHO.S_ITS ---
[facility] +---------+ [facility] +---------+ : : [address] : : : : [id number] : : : : Phone: [phone] Echocardiogram Report + + :Name: ANAND HAMMER Study Date: 12/21/2023 Height: 70 in : :[facility] ReadingLocation: Weight: 250 lb : : Gender: Male BSA: 2.3 m2 : :: 1980 Age: 43 yrs BP: 147/83 mmHg: :Reason For Study: CONGESTIVE HEART FAILURE : :Ordering Physician: SUSAN, : :TRACIE Performed By: Elsa Oneil : :Referring: TRACIE DAVIS : + + Interpretation Summary The ejection fraction is estimated to be 60-65%. Diastolic parameters suggest probable normal left ventricular diastolic function and normal filling pressures. The right ventricle is normal in size and function. There is mild mitral regurgitation. Pulmonary artery pressures cannot be estimated because of the lack of a measurable TR jet velocity but the IVC suggests a CVP of around 3 mmHg. Procedure: A two-dimensional transthoracic echocardiogram with color flow and Doppler was performed. The study quality was technically adequate. There is no prior echocardiogram noted for this patient. The patient was in sinus rhythm with heart rates between 75-90 bpm during the exam. Left Ventricle: The left ventricle is normal in size and wall thickness. The ejection fraction is estimated to be 60-65%. Diastolic parameters suggest probable normal left ventricular diastolic function and normal filling pressures. Right Ventricle: The right ventricle is normal in size and function. Atria: The left atrial size is normal. Right atrial size is normal. There is no Doppler evidence for an interatrial shunt. Mitral Valve: The mitral valve is normal. There is mild mitral regurgitation. Aortic Valve: The aortic valve is trileaflet. The aortic valve is slightly calcified. There is no aortic valve stenosis. No aortic regurgitation is present. Tricuspid Valve: The tricuspid valve is normal in structure and function. There is trace tricuspid regurgitation. Pulmonary artery pressures cannot be estimated because of the lack of a measurable TR jet velocity but the IVC suggests a CVP of around 3 mmHg. Pulmonic Valve: The pulmonic valve leaflets are thin and pliable; valve motion is normal. There is mild pulmonic regurgitation. Great Vessels: The aortic root is normal size. The dimensions of the ascending aorta are normal. The IVC is of normal diameter and collapses greater than 50% with a sniff. This suggests a low right atrial pressure of 3 mm Hg. Pericardium/ Pleura There is no pericardial effusion. There is no pleural effusion. MMode/2D Measurements & Calculations LVIDd: 4.4 cm LVOT diam: 2.3 cm LVIDs: 3.3 cm Ao root diam: 3.6 cm FS: 25.4 % asc Aorta Diam: 3.4 cm EPSS: 1.1 cm Ao Arch Diam (Prox Trans): 3.2 cm IVSd: 1.1 cm LVPWd: 0.99 cm LV cotton. diameter/BSA (cm/m^2): 1.9 LV sys. diameter/BSA (cm/m^2): 1.4 LA A2 area: 21.8 cm2 RA long axis: 4.9 cm LA A4 area: 18.6 cm2 RA area: 16.4 cm2 LA length (vol): 5.5 cm RA vol: 46.4 ml LA vol: 62.1 ml RA : 20.2 ml/m2 LA vol index: 27.1 ml/m2 IVC diam: 1.7 cm RVD1 (basal): 4.2 cm TAPSE: 2.0 cm Doppler Measurements & Calculations Ao V2 max: 138.5 cm/sec LVOT Max Quinton: 84.2 cm/sec Ao V2 mean: 107.0 cm/sec LV V1 max P.8 mmHg Ao max P.7 mmHg LV V1 VTI: 19.2 cm Ao mean P.9 mmHg HIMA(I,D): 2.4 cm2 Ao V2 VTI: 33.0 cm HIMA(V,D): 2.5 cm2 sev ratio: 0.58 HIMA indexed to BSA (cm^2/m^2): 1.1 MV E max quinton: 106.3 cm/sec TR max quinton: 269.8 cm/sec MV A max quinton: 48.6 cm/sec TR max P.1 mmHg MV E/A: 2.2 PA V2 max: 89.8 cm/sec Med Peak E' Quinton: 8.4 cm/sec PA V2 mean: 63.6 cm/sec E/E' med: 12.6 PA mean P.8 mmHg Lat Peak E' Quinton: 11.3 cm/sec PA pr(Accel): 43.0 mmHg E/E' lat: 9.4 E/e' average: 11.0 MV dec time: 0.20 sec SVLVOT): 79.6 ml Reading Physician:08:20 PM
== END ==
PROVIDERS: PCP Internal Medicine; Referring Provider Internal Medicine; Visit Provider Internal Medicine
DX: I34.0 Nonrheumatic mitral (valve) insufficiency (principal); I37.1 Nonrheumatic pulmonary valve insufficiency; I50.32 Chronic diastolic (congestive) heart failure; K51.90 Ulcerative colitis, unspecified, without complications
CPT/HCPCS: 93306

== ENCOUNTER → 2023-12-26 06:29 | Outpatient (CLI) | payer BC, SELFPAY ==
[2023-12-26 08:00] LABS: Hematocrit 33.6 % (41-53); Hemoglobin 11.1 g/dL (13.5-17.5)
[2023-12-26 08:20] LABS: HEMOLYSIS < 15 (0-50); Iron 42 ug/dL (49-181)
[2023-12-26 08:24] LABS: BUN Creatinine Ratio 18.3 (6-22); Blood Urea Nitrogen 23 mg/dL (9-20); Calcium 9.2 mg/dL (8.4-10.2); Carbon Dioxide 22 mmol/L (22-32); Chloride 105 mmol/L (98-107); Estimated Glomerular Filt Rate > 60 mL/min (>60); Glucose 91 mg/dL (70-100); HEMOLYSIS < 15 (0-50); Potassium 5.1 mmol/L (3.4-5.1); Sodium 138 mmol/L (137-145)
[2023-12-26 08:31] LABS: Percent Iron Saturation 17 % (20-50); Total Iron Binding Capacity 248 ug/dL (261-462); Transferrin 199 mg/dL (206-381)
[2023-12-26 08:54] LABS: Ferritin 64 ng/mL (18-464)
[2023-12-26 10:41] LABS: Creatinine Urine Random 51.2 mg/dL; Protein (Total) Urine Random 53 mg/dL (0-12); Protein Creatinine Ratio Urine 1.03 GRAM/24H
[2023-12-28 09:15] LABS: Parathyroid Hormone Int 22 pg/mL (15-65)
== END ==
PROVIDERS: PCP Internal Medicine; Referring Provider Student in an Organized Health Care Education/Training Program; Visit Provider Student in an Organized Health Care Education/Training Program
DX: N05.9 Unspecified nephritic syndrome with unspecified morphologic changes (principal); D50.0 Iron deficiency anemia secondary to blood loss (chronic); D70.9 Neutropenia, unspecified; D63.1 Anemia in chronic kidney disease; R80.9 Proteinuria, unspecified
CPT/HCPCS: 36415; 80048; 82570; 82728; 83540; 83550; 83970; 84156; 85014; 85018

== ENCOUNTER → 2024-02-22 15:27 | Outpatient (CLI) | payer BC, SELFPAY ==
[2024-02-22 16:23] LABS: Add Manual Diff / Slide Review NO; Basophils Absolute Auto 0 /uL (0-100); Basophils Percent Auto 0.4 % (0-2); Eosinophils Absolute Auto 100 /uL (0-450); Eosinophils Percent Auto 1.1 % (2-4); Hematocrit 30.9 % (41-53); Hemoglobin 10.2 g/dL (13.5-17.5); Lymphocytes Absolute Auto 1400 /uL (1100-4500); Lymphocytes Percent Auto 13.8 % (25-40); Mean Corpuscular HGB Conc 33.1 % (30-36); Mean Corpuscular Hemoglobin 27.5 PG (26-34); Monocytes Absolute Auto 1900 /uL (0-900); Monocytes Percent Auto 18.3 % (3-14); Neutrophils Absolute Auto 6900 /uL (1500-7000); Neutrophils Percent Auto 66.4 % (50-75); Platelet Count 482 X10^3/uL (150-400); Red Blood Cell Count 3.72 X10^6/uL (4.5-5.9); Red Cell Distribution Width 15.4 % (11.6-14.8); White Blood Cell Count 10.3 X10^3/uL (4.5-11.0)
[2024-02-22 16:50] LABS: Alanine Aminotransferase 9 IU/L (<50); Albumin 3.6 g/dL (3.5-5.0); Alkaline Phosphatase 95 U/L (38-126); Aspartate Aminotransferase 17 IU/L (17-59); BUN Creatinine Ratio 15.7 (6-22); Bilirubin Total 0.4 mg/dL (0.2-1.3); Blood Urea Nitrogen 44 mg/dL (9-20); Carbon Dioxide 22 mmol/L (22-32); Chloride 96 mmol/L (98-107); Estimated Glomerular Filt Rate 27 mL/min (>60); Globulin 3.6 g/dL (1.7-4.1); Glucose 166 mg/dL (70-100); HEMOLYSIS < 15 (0-50); Sodium 129 mmol/L (137-145); Total Protein 7.2 g/dL (6.3-8.2)
[2024-02-22 17:07] LABS: Erythrocyte Sedimentation Rate 89 MM/HR (0-15)
[2024-02-22 17:21] LABS: TSH w/ Reflex to FT4 2.84 uIU/mL (0.47-4.68)
== END ==
PROVIDERS: PCP Internal Medicine; Referring Provider Physician Assistant; Visit Provider Physician Assistant
DX: D64.9 Anemia, unspecified (principal)
CPT/HCPCS: 36415; 80053; 84443; 85025; 85651

== ENCOUNTER 2024-02-26 07:06 | Emergency (ER) | payer SELFPAY ==
[2024-02-26] VITALS (34 sets, daily range): BP systolic 101–147; BP diastolic 51–72; PULSE 87–121; RESP 16–18; TEMP 37.2–38.1; O2SAT 92–100; BMI 35.7
--- NOTE | 2024-02-26 07:18 | ED.GENADULT ---
HPI - General Adult General Chief complaint: Urogenital-Male Stated complaint: pain in kidney area per pt Time Seen by Provider: 02/26/24 07:16 Source: patient, RN notes reviewed and old records reviewed Mode of arrival: Ambulatory Limitations: no limitations History of Present Illness HPI narrative: This is a 43-year-old male with a history of ulcerative colitis on Humira, insulin-dependent diabetes, anemia with iron infusions, chronic kidney disease, hypertension, hypothyroidism with complaint of having some abdominal pain, frequent diarrhea with black stools and nausea. Patient had outpatient labs on 02/22/2024 hemoglobin was stable but his creatinine had increased 2.8. Patient has had 1 prior episode when he had kidney stone here in October had a creatinine 2.6 at that time which had improved he states that he has not having pain like that but is having a little bit of left flank pain he has had some generalized abdominal discomfort. He denies fevers or chills. No syncope, denies any chest pain or shortness of breath. He has had nausea, occasional small amounts of emesis or dry heaves but not persistently. He does describe frequent loose watery stools that are blackish in color. He related a black discoloration to his iron supplements. He states he has only been urinating about once a day 1st thing in the morning and a small amount. Patient states no new swelling of his extremities. He also notes it has been hard to regulate his temperature he feels hot and cold on and off. Patient notes he has not been using his insulin recently because he has not been eating much but continues to take his oral diabetic meds. States only surgery prior was thyroidectomy. He has not alcohol intolerance. Denies any tobacco, alcohol or recreational drugs. Primary care is Dr. Haq, Dr. Gutierrez is his director machine, Dr. Conroy is his urologist and he follows with endocrinology [facility]. Related Data Home Medications Medication Instructions Recorded Confirmed levothyroxine 112 mcg tablet 224 mcg PO 0600 09/30/18 02/26/24 Respironics Dreamstation CPAP #1 ea 05/28/19 02/26/24 glipizide 10 mg tablet 10 mg PO DAILY 10/12/20 02/26/24 metoprolol tartrate 50 mg tablet 25 mg PO TID 10/12/20 02/26/24 amlodipine 10 mg tablet 10 mg PO DAILY 04/29/22 02/26/24 hydrochlorothiazide 25 mg tablet 25 mg PO BEDTIME 04/29/22 02/26/24 insulin glargine 100 unit/mL (3 40 unit SUBCUT BEDTIME 04/29/22 02/26/24 mL) subcutaneous pen (Basaglar KwikPen U-100 Insulin) pen needle, diabetic 32 gauge x #50 ea 04/29/22 02/26/24 (BD Ultra-Fine Candelaria Pen Needle) sodium zirconium cyclosilicate 5 5 g PO DAILY PRN low potassium 04/29/22 02/26/24 gram oral powder packet blood sugar diagnostic (FreeStyle #10 ea 10/26/22 02/26/24 Precision Felix Strips) flash glucose sensor (FreeStyle #1 ea 05/19/23 02/26/24 Cody 14 Day Sensor kit) adalimumab 80 mg/0.8 mL 80 mg SUBCUT Q2W 11/20/23 02/26/24 subcutaneous pen kit (Humira(CF) Pen Crohn's-[facility] Colitis-Hid Sup Strt) losartan 50 mg tablet 50 mg PO BID 11/20/23 02/26/24 empagliflozin 10 mg tablet 10 mg PO DAILY 02/07/24 02/26/24 (Jardiance) ferrous gluconate 324 mg (37.5 mg 324 mg PO DAILY 02/26/24 02/26/24 iron) tablet Previous Rx's Medication Instructions Recorded diabetic shoes and orthotics #1 ea 05/19/23 potassium citrate 10 mEq (1,080 20 meq (2 x 10 mEq (1,080 mg)) PO 02/07/24 mg) tablet,extended release TID #270 tabs Allergies Allergy/AdvReac Type Severity Reaction Status Date / Time alcohol [ALCOHOL] Allergy Severe throat Verified 02/26/24 10:01 swells up Review of Systems Review of Systems ROS Unobtainable: All systems reviewed & are unremarkable except as noted in HPI and below Patient History Medical History History of nephrolithiasis Bilateral nephrolithiasis Chronic diastolic (congestive) heart failure 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 History of thyroid cancer Paralysis of left vocal cord Acute bacterial sinusitis Viral URI with cough Sleep apnea (~2013) Pinched nerve (~2013) Vocal cord paralysis (~2015) Eosinophilic esophagitis Inflamed sebaceous cyst Ulcerative colitis (~2020) 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 chronic kidney disease Severe obesity Venous insufficiency Polyneuropathy, unspecified CKD stage G2/A2, GFR 60-89 and albumin creatinine ratio 30-299 mg/g Primary osteoarthritis involving multiple joints Acquired hypothyroidism Mixed hyperlipidemia Essential hypertension Facet arthropathy, cervical Cervical radiculopathy Surgical History Anesthesia H/O Achilles tendon repair (~2012) Status post removal of thyroid nodule (~2015) Family History Mother Spine degeneration Grandmother Diabetes mellitus History of heart disease Grandfather History of heart disease Grandfather Diabetes mellitus Stroke Hyperlipidemia Grandmother Cancer Other Hypertension Social History marital status: unmarried,single household members: friend(s) Smoking Status: Never smoker alcohol intake: current caffeine: Yes Type(s) of exercise: walking frequency: daily Smoking Status: Never smoker alcohol intake frequency: 0-2 drinks per day Substance Use Type: does not use Exam Narrative Exam Narrative: GENERAL: Alert and oriented x three, male in mild distress. HEENT: Head normocephalic, atraumatic, EOMI, pupils reactive, face symmetric, moist mucous membranes NECK: Supple, full range of motion CARDIOVASCULAR: Regular rate and rhythm without murmurs, rubs or gallops. RESPIRATORY: Breath sounds equal bilaterally, no wheezes rales or rhonchi. No tachypnea accessory muscle use. ABDOMEN: Soft, nontender. Normoactive bowel sounds all 4 quadrants. No guarding or rebound, rigidity, no mass : No CVA tenderness EXTREMITIES: Normal range of motion, no clubbing or edema. Neurovascularly intact NEUROLOGICAL: Cranial nerves II through XII grossly intact. Moving all extremities. Normal gait. SKIN: Warm, dry, no petechiae, no rashes or lesions. Initial Vital Signs Initial Vital Signs: Vital Signs Pulse Rate 104 H 02/26/24 07:13 Blood Pressure 136/72 02/26/24 07:13 Pulse Oximetry 97 02/26/24 07:13 Course Orders Ordered: Discontinued Medications Acetaminophen (Acetaminophen 325 Mg Tablet) 650 mg PO Q6H PRN PRN Reason: Pain, Moderate (4-6) Amlodipine Besylate (Amlodipine 5 Mg Tablet) 10 mg PO DAILY JONEL Amlodipine Besylate (Amlodipine 5 Mg Tablet) 10 mg PO NOW ONE Stop: 02/26/24 18:07 Last Admin: 02/26/24 18:40 Dose: 10 mg Documented By: SPF Glipizide (Glipizide 5 Mg Tablet) 5 mg PO NOW ONE Stop: 02/26/24 18:06 Last Admin: 02/26/24 18:40 Dose: 5 mg Documented By: SPF Glipizide (Glipizide 5 Mg Tablet) 5 mg PO DAILY JONEL Hydrochlorothiazide (Hydrochlorothiazide 25 Mg Tablet) 25 mg PO BEDTIME JONEL Sodium Chloride (Normal Saline 0.9%) 1,000 mls @ 1,000 mls/hr IV BOLUS ONE Stop: 02/26/24 08:17 Last Infusion: 02/26/24 08:54 Dose: Infused Documented By: Admin: 02/26/24 07:53 Dose: 1,000 mls/hr Documented By: SPF Sodium Chloride (Normal Saline 0.9%) 1,000 mls @ 150 mls/hr IV CONT JONEL Last Infusion: 02/26/24 17:50 Dose: Infused Documented By: Admin: 02/26/24 10:29 Dose: 150 mls/hr Documented By: SPF Sodium Chloride (Normal Saline 0.9%) 1,000 mls @ 150 mls/hr IV CONT JONEL Last Infusion: 02/26/24 20:59 Dose: 150 mls/hr Documented By: Admin: 02/26/24 19:10 Dose: 150 mls/hr Documented By: SPF Insulin Glargine (Insulin Glargine 100 Unit/Ml 3ml Pen) 40 unit SUBCUT BEDTIME JONEL Levothyroxine Sodium (Levothyroxine 112 Mcg Tablet) 112 mcg PO DAILY@0600 JONEL Losartan Potassium (Losartan 50 Mg Tablet) 50 mg PO BID JONEL Metoprolol Tartrate (Metoprolol Ir 25 Mg Tablet) 25 mg PO Q8HR JONEL Ondansetron HCl (Ondansetron 4 Mg/2 Ml Inj) 4 mg IV NOW ONE Stop: 02/26/24 07:43 Last Admin: 02/26/24 07:53 Dose: 4 mg Documented By: REGINALD Ondansetron HCl (Ondansetron 4 Mg/2 Ml Inj) 4 mg IV NOW ONE Stop: 02/26/24 19:09 Last Admin: 02/26/24 19:32 Dose: 4 mg Documented By: BERNARDO Vital Signs Vital signs: Vital Signs - 8 hr 02/26/24 07:13 02/26/24 07:13 02/26/24 07:18 Temperature 98.9 F Pulse Rate 104 H 106 H Respiratory Rate 18 Blood Pressure 136/72 145/66 H Pulse Oximetry 97 95 Oxygen Delivery Method Room Air 02/26/24 07:34 02/26/24 08:04 02/26/24 08:29 Temperature Pulse Rate 96 H 96 H 98 H Respiratory Rate Blood Pressure Pulse Oximetry 98 96 100 Oxygen Delivery Method Room Air Room Air 02/26/24 08:29 02/26/24 08:30 02/26/24 08:30 Temperature Pulse Rate 96 H Respiratory Rate Blood Pressure 121/59 L 106/55 L Pulse Oximetry 99 Oxygen Delivery Method Room Air 02/26/24 09:00 02/26/24 09:00 02/26/24 09:34 Temperature Pulse Rate 89 98 H Respiratory Rate Blood Pressure 106/56 L Pulse Oximetry 97 99 Oxygen Delivery Method Room Air 02/26/24 09:34 02/26/24 10:00 02/26/24 10:00 Temperature Pulse Rate 89 Respiratory Rate Blood Pressure 114/56 L 109/55 L Pulse Oximetry 94 Oxygen Delivery Method 02/26/24 10:25 02/26/24 10:30 02/26/24 10:30 Temperature Pulse Rate 92 H Respiratory Rate Blood Pressure 103/55 L Pulse Oximetry 92 98 Oxygen Delivery Method Room Air Room Air Medical Decision Making Lab Data 02/26/24 07:35 02/26/24 19:40 Labs: Lab Results 02/26/24 02/26/24 02/26/24 Range/Units 07:35 09:30 11:57 WBC 10.7 (4.5-11.0) X10^3/uL RBC 3.66 L (4.5-5.9) X10^6/uL Hgb 9.9 L (13.5-17.5) g/dL Hct 30.0 L (41-53) % MCV 81.9 (80-100) fL MCH 27.1 (26-34) PG MCHC 33.1 (30-36) % RDW 15.2 H (11.6-14.8) % Plt Count 596 H (150-400) X10^3/uL Neut % (Auto) 80.3 H (50-75) % Lymph % (Auto) 7.7 L (25-40) % [place] % (Auto) 11.5 (3-14) % Eos % (Auto) 0.3 L (2-4) % Baso % (Auto) 0.2 (0-2) % Neut # (Auto) 8600 H (3218-6305) /uL Lymph # (Auto) 800 L (1640-2935) /uL [place] # (Auto) 1200 H (0-900) /uL Eos # (Auto) 0 (0-450) /uL Baso # (Auto) 0 (0-100) /uL PT 13.3 H (9.4-12.5) SECONDS INR 1.2 (0.9-1.3) APTT 33 (25.1-36.5) SECONDS Sodium 128 L (137-145) mmol/L Potassium 3.7 (3.4-5.1) mmol/L Chloride 94 L (98-107) mmol/L Carbon Dioxide 23 (22-32) mmol/L BUN 48 H (9-20) mg/dL Creatinine 3.00 H (0.66-1.25) mg/dL Estimated GFR 25 L (>60) mL/min BUN/Creatinine Ratio 16.0 (6-22) Glucose 171 H (70-100) mg/dL Calcium 8.3 L (8.4-10.2) mg/dL Total Bilirubin 0.4 (0.2-1.3) mg/dL AST 20 (17-59) IU/L ALT 13 (<50) IU/L Alkaline Phosphatase 100 (38-126) U/L Total Protein 7.1 (6.3-8.2) g/dL Albumin 3.6 (3.5-5.0) g/dL Globulin 3.5 (1.7-4.1) g/dL Albumin/Globulin Ratio 1.0 (1.0-2.8) Lipase 51 (23-300) U/L Urine Color Yellow Urine Appearance Clear Urine pH 5.0 (4.5-8.0) Ur Specific [place] 1.015 (1.000-1.035) Urine Protein Negative (Negative) Urine Glucose (UA) Negative (Negative) g/dL Urine Ketones Negative (NEGATIVE) Urine Occult Blood Trace-intact (Negative) Urine Nitrate Negative (Negative) Urine Bilirubin Negative (NEGATIVE) Urine Urobilinogen 0.2 (0.2) E.U./dL Ur Leukocyte Esterase Negative (NEGATIVE) Urine RBC 0-1/hpf (0-5/HPF) Urine WBC 0-1/hpf (0-5/HPF) Ur Squamous Epith Cells 1-5 /hpf (0-5/HPF) Urine Bacteria None seen (None) Hyaline Casts 1-5/lpf (None) Ur Culture Indicated? Cult not indicated Vol Urine Centrifuged 10ml (spun) Ur Random Sodium 21 L (30-90) mmol/L Urine Creatinine 136.8 mg/dL C. difficile Tox (PCR) Negative for c. diff (Negative) 02/26/24 Range/Units 19:40 WBC (4.5-11.0) X10^3/uL RBC (4.5-5.9) X10^6/uL Hgb (13.5-17.5) g/dL Hct (41-53) % MCV (80-100) fL MCH (26-34) PG MCHC (30-36) % RDW (11.6-14.8) % Plt Count (150-400) X10^3/uL Neut % (Auto) (50-75) % Lymph % (Auto) (25-40) % [place] % (Auto) (3-14) % Eos % (Auto) (2-4) % Baso % (Auto) (0-2) % Neut # (Auto) (6684-7104) /uL Lymph # (Auto) (8242-9089) /uL [place] # (Auto) (0-900) /uL Eos # (Auto) (0-450) /uL Baso # (Auto) (0-100) /uL PT (9.4-12.5) SECONDS INR (0.9-1.3) APTT (25.1-36.5) SECONDS Sodium 128 L (137-145) mmol/L Potassium 3.6 (3.4-5.1) mmol/L Chloride 99 (98-107) mmol/L Carbon Dioxide 20 L (22-32) mmol/L BUN 45 H (9-20) mg/dL Creatinine 2.38 H (0.66-1.25) mg/dL Estimated GFR 33 L (>60) mL/min BUN/Creatinine Ratio 18.9 (6-22) Glucose 189 H (70-100) mg/dL Calcium 7.5 L (8.4-10.2) mg/dL Total Bilirubin (0.2-1.3) mg/dL AST (17-59) IU/L ALT (<50) IU/L Alkaline Phosphatase (38-126) U/L Total Protein (6.3-8.2) g/dL Albumin (3.5-5.0) g/dL Globulin (1.7-4.1) g/dL Albumin/Globulin Ratio (1.0-2.8) Lipase (23-300) U/L Urine Color Urine Appearance Urine pH (4.5-8.0) Ur Specific [place] (1.000-1.035) Urine Protein (Negative) Urine Glucose (UA) (Negative) g/dL Urine Ketones (NEGATIVE) Urine Occult Blood (Negative) Urine Nitrate (Negative) Urine Bilirubin (NEGATIVE) Urine Urobilinogen (0.2) E.U./dL Ur Leukocyte Esterase (NEGATIVE) Urine RBC (0-5/HPF) Urine WBC (0-5/HPF) Ur Squamous Epith Cells (0-5/HPF) Urine Bacteria (None) Hyaline Casts (None) Ur Culture Indicated? Vol Urine Centrifuged Ur Random Sodium (30-90) mmol/L Urine Creatinine mg/dL C. difficile Tox (PCR) (Negative) Imaging Data CT scan - abdomen/pelvis: Radiologist's Impression: [address] [address] [address] Scan Report Signed Patient: Tao Lamb MR#: [id number] : 1980 Acct:[id number] Age/Sex: 43 / M Date of Service: 02/26/24 Loc: ED Accession Number: [id number] Procedure: CT kidney ureter bladder (KUB) Ordering Provider: Constance Amador D.O. PROCEDURE: CT KIDNEY URETER BLADDER (KUB) INDICATIONS: l flank, lower abd, alissa TECHNIQUE: Axial sections were acquired from the lung bases to the pubic symphysis. Coronal and sagittal reformats were performed. For radiation dose reduction, the following was used: automated exposure control, adjustment of mA and/or kV according to patient size. COMPARISON: Located Within [facility], CT, CT KIDNEY URETER BLADDER (KUB), 12/19/2023, 15:22. FINDINGS: Image quality: Diagnostic. Lower Chest: No significant findings. URINARY: Right Kidney: 2 mm nonobstructing calculus is seen at the inferior pole of the right kidney. No hydronephrosis. Right Ureter: No hydroureter. Left Kidney: 3 mm nonobstructing calculus is seen at the inferior pole of the left kidney. No hydronephrosis. Left Ureter: No hydroureter. Bladder: Normal wall thickness. No stones. ABDOMEN: Liver: No contour-deforming solid mass. Liver is mildly hypoattenuating, compatible with fatty infiltration. Gallbladder: No radiopaque gallstones or wall thickening. Biliary ducts: No biliary dilation. Pancreas: No ductal dilation. Spleen: Size is within normal limits. Adrenal Glands: No adrenal nodules. Stomach and Bowel: Mild diffuse bowel wall thickening throughout the colon with fluid in the lumen, suspicious for an nonspecific colitis. Retrocecal appendix is upper limits of normal in size without periappendiceal fat stranding. Peritoneum: No abnormal intraperitoneal fluid. No free air. Ventral Wall: Small fat containing periumbilical hernia. Abdominal Nodes: No enlarged retroperitoneal or mesenteric lymph nodes. Vessels: Aorta and inferior vena cava are normal in size. PELVIS: Pelvic Organs: Unremarkable. Pelvic Nodes: Unremarkable. Miscellaneous: No inguinal hernias are seen. Bones: Degenerative changes are noted in the hips and included spine. Mild sclerosis is seen adjacent to the sacroiliac joints that could indicate prior sacroiliitis. IMPRESSION: 1. Mild bowel wall thickening throughout the colon is suspicious for a nonspecific colitis. 2. Bilateral small non-obstructing renal calculi. No hydronephrosis. 3. Mild diffuse hepatic steatosis. 4. Mild sclerosis adjacent to the sacroiliac joints may indicate prior sacroiliitis. Approved by: Omer Lewis M.D. on 02/26/2024 at 8:28 MDM Narrative Medical decision making narrative: This is a 43-year-old male who presents with lab abnormalities, patient appears to have a worsening creatinine. Labs show hemoglobin of 9.9 today was 10.2 on the , he has been describing some black stools and diarrhea. He states he feel like his colitis has been worsened. Platelets are 596 with a white count of 10.7. Sodium is 128 chloride 94 potassium 3 7, BUN 48 with a creatinine of 3, glucose is 171. LFTs are otherwise negative. FENA is 0.4% prerenal. UA shows no signs of infection. Urine sodium and creatinine were sent CT KUB shows mild bowel wall thickening throughout the colon suspicious for nonspecific colitis, bilateral small nonobstructing renal calculi no hydro, mild diffuse hepatic steatosis with mild sclerosis adjacent sacroiliac joints possibly indicating prior sacroiliitis. Patient notes he has had decreased urine output, was given fluids and Slater catheter was placed for strict I's and O's. Spoke with Dr. Hawkins, nephrology: Recommends IV fluids to monitor creatinine and monitor over the next 1 or 2 days if improving does not require additional intervention if not to re-contact. Spoke with Dr. Voss, hospitalist who notes that gastroenterology has told folks with ulcerative colitis should be transferred because we do not have the right medications and did not have gastroenterology service here. He does note if patient has positive for C diff you could keep him here. Spoke with Gastroenterology, [facility] they do recommend C diff and calprotectin in case they need to start steroids agree with transfer if we do not have gastroenterology support. SPoke with Dr. Moore, hospitalist at [facility], accepts for transfer patient would likely be appropriate for [facility]. Has been ambulating. Otherwise not in any distress. Discharge Plan Departure Patient Disposition: [facility] Clinical Impression: Acute on chronic kidney failure, Ulcerative colitis, Dehydration Prescriptions: No Action levothyroxine 112 mcg tablet 224 mcg PO 0600 (DME) Respironics Dreamstation CPAP Qty: 1 Dose Instruction: As directed Patient Comments: Pressure: 8-18 cmH2O DME: [employer] Rx Instructions: As directed (DME) pen needle, diabetic [BD Ultra-Fine Candelaria Pen Needle] 32 gauge x 5/32 needle See Rx Instructions .ROUTE .MEDSUPPLY Qty: 50 Rx Instructions: As directed amlodipine 10 mg tablet 10 mg PO DAILY hydrochlorothiazide 25 mg tablet 25 mg PO BEDTIME insulin glargine [Basaglar KwikPen U-100 Insulin] 100 unit/mL (3 mL) insulin pen 40 unit SUBCUT BEDTIME sodium zirconium cyclosilicate 5 gram powder in packet 5 g PO DAILY PRN (Reason: low potassium) (DME) FreeStyle Precision Felix Strips Strip See Rx Instructions .ROUTE .MEDSUPPLY Qty: 10 Rx Instructions: As directed; Use to check blood glucose. (DME) FreeStyle Cody 14 Day Sensor Kit See Rx Instructions .ROUTE .MEDSUPPLY Qty: 1 Patient Comments: CHANGE EVERY 14 DAYS DIRECTED. Rx Instructions: As directed (DME) diabetic shoes and orthotics See Rx Instructions .Route .MEDSUPPLY Qty: 1 0RF Rx Instructions: As directed losartan 50 mg tablet 50 mg PO BID Humira(CF) Pen Axdwmd-QT-TS 80 mg/0.8 mL pen injector kit 80 mg SUBCUT Q2W Patient Comments: [NO ORIGINAL SIG] ferrous gluconate 324 mg (37.5 mg iron) Tablet 324 mg PO DAILY metoprolol tartrate 50 mg tablet 25 mg PO TID glipizide 10 mg tablet 10 mg PO DAILY Jardiance 10 mg tablet 10 mg PO DAILY potassium citrate 10 mEq (1,080 mg) tablet extended release 20 meq PO TID Qty: 270 3RF Patient Comments: Pt has not picked up RX yet due to insurance changes 02/26/24 Referrals: Radhames Haq MD [Primary Care Provider] -
[2024-02-26 07:43] LABS: Add Manual Diff / Slide Review NO; Basophils Absolute Auto 0 /uL (0-100); Basophils Percent Auto 0.2 % (0-2); Eosinophils Absolute Auto 0 /uL (0-450); Eosinophils Percent Auto 0.3 % (2-4); Hemoglobin 9.9 g/dL (13.5-17.5); Lymphocytes Absolute Auto 800 /uL (1100-4500); Lymphocytes Percent Auto 7.7 % (25-40); Mean Corpuscular HGB Conc 33.1 % (30-36); Mean Corpuscular Hemoglobin 27.1 PG (26-34); Mean Corpuscular Volume 81.9 fL (80-100); Monocytes Absolute Auto 1200 /uL (0-900); Monocytes Percent Auto 11.5 % (3-14); Neutrophils Absolute Auto 8600 /uL (1500-7000); Neutrophils Percent Auto 80.3 % (50-75); Platelet Count 596 X10^3/uL (150-400); Red Blood Cell Count 3.66 X10^6/uL (4.5-5.9); Red Cell Distribution Width 15.2 % (11.6-14.8); White Blood Cell Count 10.7 X10^3/uL (4.5-11.0)
[2024-02-26 07:49] LABS: INR 1.2 (0.9-1.3); Prothrombin Time 13.3 SECONDS (9.4-12.5)
[2024-02-26 07:52] LABS: PTT Partial Thromboplastin Tim 33 SECONDS (25.1-36.5)
[2024-02-26] MEDS: SODIUM CHLORIDE 0.9% 1,000 ML 1000 ML IV (07:53)
[2024-02-26] MEDS: ONDANSETRON 4 MG/2 ML INJ IV ×2 (07:53→19:32)
[2024-02-26 07:55] LABS: Alanine Aminotransferase 13 IU/L (<50); Albumin 3.6 g/dL (3.5-5.0); Alkaline Phosphatase 100 U/L (38-126); Aspartate Aminotransferase 20 IU/L (17-59); Bilirubin Total 0.4 mg/dL (0.2-1.3); Blood Urea Nitrogen 48 mg/dL (9-20); Calcium 8.3 mg/dL (8.4-10.2); Carbon Dioxide 23 mmol/L (22-32); Chloride 94 mmol/L (98-107); Estimated Glomerular Filt Rate 25 mL/min (>60); Globulin 3.5 g/dL (1.7-4.1); Glucose 171 mg/dL (70-100); HEMOLYSIS < 15 (0-50); Lipase 51 U/L (23-300); Potassium 3.7 mmol/L (3.4-5.1); Sodium 128 mmol/L (137-145); Total Protein 7.1 g/dL (6.3-8.2)
--- NOTE | 2024-02-26 08:11 | PC.NURSE ---
PT reports feeling of urinary retention with abdominal pressure and minimal urine output. He describes waking up around 4am to urinate, and then dribbling throughout the day. Bladder scan reading 22cc. Diarrhea with history of ulcerative collitis, reports dark stools, taking iron supplements. Pt is an insulin dependant diabetic, has not taken his insulin since monday since he has been unable to eat. Pt describes eating toast for breakfast, a small ham sandwich for dinners.
[2024-02-26 09:43] LABS: Appearance Urine UA CLEAR; Bilirubin Urine UA NEGATIVE (NEGATIVE); Color Urine UA YELLOW; Glucose Urine UA NEGATIVE (Negative); Ketones Urine UA NEGATIVE (NEGATIVE); Leukocyte Esterase Urine UA NEGATIVE (NEGATIVE); Nitrite Urine UA NEGATIVE (Negative); Occult Blood Urine UA TRACE-INTACT (Negative); Protein Urine UA NEGATIVE (Negative); Specific Gravity Urine UA 1.015 (1.000-1.035); Urobilinogen Urine UA 0.2 E.U./dL (0.2)
[2024-02-26 09:47] LABS: Urine Volume 10mL (spun)
[2024-02-26 09:48] LABS: Bacteria Urine None Seen; Culture Indicated Urine Cult Not Indicated; Hyaline Casts Urine 1-5/LPF; RBC Urine 0-1/HPF (0-5/HPF); Squamous Epithelial Cell Urine 1-5 /HPF (0-5/HPF); WBC Urine 0-1/HPF (0-5/HPF)
[2024-02-26] MEDS: SODIUM CHLORIDE 0.9% 1,000 ML 150 ML IV ×2 (10:29→19:10)
[2024-02-26 10:41] LABS: Creatinine Urine Random 136.8 mg/dL; Sodium Urine Random 21 mmol/L (30-90)
[2024-02-26 13:11] LABS: Clostridium Difficile Tox PCR Negative for C. diff (Negative)
--- NOTE | 2024-02-26 13:23 | PC.NURSE ---
Started transfer. Called [id number], on list for bed, notes short staffed, may not be able to take, will call back. Called [facility], on list for bed, may need Covid test prior to admit, will call back. Called [facility], on list for bed, will call back. Called [facility], on list, will call back.
--- NOTE | 2024-02-26 13:37 | PC.NURSE ---
Dr. Moore, [facility] accepts transfer awaiting bed assignment.
[2024-02-26] MEDS: AMLODIPINE 5 MG TABLET 10 MG PO (18:40)
[2024-02-26] MEDS: glipiZIDE 5 MG TABLET PO (18:40)
[2024-02-26 20:00] LABS: BUN Creatinine Ratio 18.9 (6-22); Blood Urea Nitrogen 45 mg/dL (9-20); Calcium 7.5 mg/dL (8.4-10.2); Carbon Dioxide 20 mmol/L (22-32); Chloride 99 mmol/L (98-107); Estimated Glomerular Filt Rate 33 mL/min (>60); Glucose 189 mg/dL (70-100); HEMOLYSIS < 15 (0-50); Potassium 3.6 mmol/L (3.4-5.1); Sodium 128 mmol/L (137-145)
[2024-03-03 20:38] LABS: Calprotectin, Stool 7070 ug/g (0-120)
== END 2024-02-26 20:59 | disposition short-term general hospital (02) ==
PROVIDERS: Emergency Provider Emergency Medicine; PCP Internal Medicine
DX: N17.9 Acute kidney failure, unspecified (principal); K51.90 Ulcerative colitis, unspecified, without complications; E86.0 Dehydration
CPT/HCPCS: 36415; 74176; 80048; 80053; 81001; 82570; 83690; 83993; 84300; 85025; 85610; 85730; 87493; 96361; 96374; 96376; 99284; J2405

== ENCOUNTER → 2024-03-08 06:54 | Outpatient (CLI) | payer BC, SELFPAY ==
[2024-03-01 08:36] VITALS: BMI 35.7
[2024-03-08 09:03] LABS: Hemoglobin 10.3 g/dL (13.5-17.5); Mean Corpuscular HGB Conc 32.2 % (30-36); Mean Corpuscular Hemoglobin 27.5 PG (26-34); Mean Corpuscular Volume 85.4 fL (80-100); Platelet Count 488 X10^3/uL (150-400); Red Blood Cell Count 3.74 X10^6/uL (4.5-5.9); Red Cell Distribution Width 16.2 % (11.6-14.8); White Blood Cell Count 9.4 X10^3/uL (4.5-11.0)
[2024-03-08 09:27] LABS: Hemoglobin A1C% w Est Avg Glu 8.8 % (4.0-6.0)
[2024-03-08 09:32] LABS: Alanine Aminotransferase 13 IU/L (<50); Albumin 3.9 g/dL (3.5-5.0); Albumin Globulin Ratio 1.6 (1.0-2.8); Alkaline Phosphatase 94 U/L (38-126); Aspartate Aminotransferase 16 IU/L (17-59); BUN Creatinine Ratio 37.7 (6-22); Bilirubin Total 0.4 mg/dL (0.2-1.3); Blood Urea Nitrogen 52 mg/dL (9-20); Calcium 9.2 mg/dL (8.4-10.2); Carbon Dioxide 25 mmol/L (22-32); Chloride 104 mmol/L (98-107); Estimated Glomerular Filt Rate > 60 mL/min (>60); Globulin 2.5 g/dL (1.7-4.1); Glucose 250 mg/dL (70-100); HEMOLYSIS < 15 (0-50); Potassium 5.4 mmol/L (3.4-5.1); Sodium 136 mmol/L (137-145); Total Protein 6.4 g/dL (6.3-8.2)
== END ==
PROVIDERS: PCP Internal Medicine; Referring Provider Internal Medicine; Visit Provider Internal Medicine
DX: N17.9 Acute kidney failure, unspecified (principal); N18.9 Chronic kidney disease, unspecified; E11.22 Type 2 diabetes mellitus with diabetic chronic kidney disease; N18.2 Chronic kidney disease, stage 2 (mild)
CPT/HCPCS: 36415; 80053; 83036; 85027

== ENCOUNTER → 2024-03-20 06:51 | Outpatient (CLI) | payer BC, SELFPAY ==
[2024-03-01 08:36] VITALS: BMI 35.7
[2024-03-20 07:28] LABS: HEMOLYSIS < 15 (0-50); Potassium 4.3 mmol/L (3.4-5.1)
== END ==
PROVIDERS: PCP Internal Medicine; Referring Provider Student in an Organized Health Care Education/Training Program; Visit Provider Student in an Organized Health Care Education/Training Program
DX: E87.5 Hyperkalemia (principal)
CPT/HCPCS: 36415; 84132

== ENCOUNTER → 2024-05-01 09:34 | Outpatient (CLI) | payer OTHER, SELFPAY ==
[2024-03-01 08:36] VITALS: BMI 35.7
[2024-05-01 10:25] LABS: Add Manual Diff / Slide Review NO; Basophils Absolute Auto 0 /uL (0-100); Basophils Percent Auto 0.1 % (0-2); Eosinophils Absolute Auto 100 /uL (0-450); Eosinophils Percent Auto 0.8 % (2-4); Hematocrit 32.8 % (41-53); Hemoglobin 10.3 g/dL (13.5-17.5); Lymphocytes Absolute Auto 800 /uL (1100-4500); Lymphocytes Percent Auto 9.9 % (25-40); Mean Corpuscular HGB Conc 31.4 % (30-36); Mean Corpuscular Hemoglobin 25.7 PG (26-34); Mean Corpuscular Volume 81.8 fL (80-100); Monocytes Absolute Auto 1200 /uL (0-900); Monocytes Percent Auto 14.1 % (3-14); Neutrophils Absolute Auto 6300 /uL (1500-7000); Neutrophils Percent Auto 75.1 % (50-75); Platelet Count 458 X10^3/uL (150-400); Red Blood Cell Count 4.01 X10^6/uL (4.5-5.9); Red Cell Distribution Width 15.4 % (11.6-14.8); White Blood Cell Count 8.3 X10^3/uL (4.5-11.0)
[2024-05-01 10:54] LABS: HEMOLYSIS < 15 (0-50); Iron 28 ug/dL (49-181)
[2024-05-01 10:58] LABS: Alanine Aminotransferase 7 IU/L (<50); Albumin 3.6 g/dL (3.5-5.0); Albumin Globulin Ratio 1.2 (1.0-2.8); Alkaline Phosphatase 78 U/L (38-126); Aspartate Aminotransferase 15 IU/L (17-59); BUN Creatinine Ratio 10.7 (6-22); Bilirubin Total 0.3 mg/dL (0.2-1.3); Blood Urea Nitrogen 18 mg/dL (9-20); Calcium 8.2 mg/dL (8.4-10.2); Carbon Dioxide 25 mmol/L (22-32); Chloride 98 mmol/L (98-107); Estimated Glomerular Filt Rate 50 mL/min (>60); Globulin 2.9 g/dL (1.7-4.1); Glucose 90 mg/dL (70-100); HEMOLYSIS < 15 (0-50); Potassium 4.2 mmol/L (3.4-5.1); Sodium 130 mmol/L (137-145); Total Protein 6.5 g/dL (6.3-8.2)
[2024-05-01 11:07] LABS: Percent Iron Saturation 13 % (20-50); Total Iron Binding Capacity 221 ug/dL (261-462); Transferrin 155 mg/dL (206-381)
[2024-05-01 11:28] LABS: Ferritin 74 ng/mL (18-464)
--- NOTE | 2024-05-01 12:54 | DI.RAD.S_ITS ---
PROCEDURE: XR CHEST 2V INDICATIONS: Fever; hx of pneumonia TECHNIQUE: 2 views of the chest were acquired. COMPARISON: [facility], CR, XR CHEST 1V, 11/07/2023, 14:57. FINDINGS: Surgical changes and devices: None. Lungs and pleura: Lungs are clear. No pleural effusions or pneumothorax. Mediastinum: Mediastinal contours are normal. Heart size is normal. Bones and chest wall: No suspicious bony abnormalities. Soft tissues appear unremarkable. IMPRESSION: No acute cardiopulmonary abnormality is seen. Dictated by: Kim Wade M.D. on 05/01/2024 at 16:41 Approved by: Kim Wade M.D. on 05/01/2024 at 16:42
[2024-05-01 15:22] LABS: Adenovirus Not Detected (Not Detect); B. parapertussis Not Detected (Not Detecte); Bordetella pertussis Not Detected (Not Detect); Chlamydophila pneumoniae Not Detected (Not Detect); Coronavirus 229E Not Detected (Not Detect); Coronavirus HKU1 Not Detected (Not Detect); Coronavirus NL 63 Not Detected (Not Detect); Coronavirus OC43 Not Detected (Not Detect); Human Metapneumovirus Not Detected (Not Detect); Human Rhinovirus/Enterovirus Detected (Not Detect); Influenza A Not Detected (Not Detect); Influenza B Not Detected (Not Detect); Mycoplasma pneumoniae Not Detected (Not Detect); Parainfluenza Virus 1 Not Detected (Not Detect); Parainfluenza Virus 2 Not Detected (Not Detect); Parainfluenza Virus 3 Not Detected (Not Detect); Parainfluenza Virus 4 Not Detected (Not Detect); Respiratory Syncytial Virus Not Detected (Not Detect); SARS- CoV-2 Not Detected (Not Detecte)
== END ==
PROVIDERS: PCP Internal Medicine; Referring Provider Physician Assistant; Visit Provider Physician Assistant
DX: D84.821 Immunodeficiency due to drugs (principal); T45.1X5A Adverse effect of antineoplastic and immunosuppressive drugs, initial encounter; K51.90 Ulcerative colitis, unspecified, without complications; N18.2 Chronic kidney disease, stage 2 (mild); R50.9 Fever, unspecified; D64.9 Anemia, unspecified; R53.83 Other fatigue; Z79.899 Other long term (current) drug therapy; E11.22 Type 2 diabetes mellitus with diabetic chronic kidney disease
CPT/HCPCS: 36415; 71046; 80053; 82728; 83540; 83550; 85025; 87633

== ENCOUNTER → 2024-05-08 10:50 | Outpatient (CLI) | payer OTHER, BC, SELFPAY ==
[2024-03-01 08:36] VITALS: BMI 35.7
--- NOTE | 2024-05-08 10:52 | DI.RAD.S_ITS ---
PROCEDURE: XR HAND LT MIN 3V INDICATIONS: swelling and pain of left hand w/o injury att medial aspect TECHNIQUE: 3 views of the hand(s) acquired. COMPARISON: None. FINDINGS: Bones: No acute fractures or dislocations. Carpal bones are normally aligned. No suspicious bony lesions. Soft tissues: Diffuse soft tissue swelling of the left hand. No suspicious soft tissue calcifications. Vascular calcifications are present. IMPRESSION: Diffuse left hand soft tissue swelling without underlying osseous abnormalities. If there are persistent symptoms or clinical suspicion for pathology, then repeat radiographs or advanced imaging (CT or MRI) may be considered for further evaluation. Dictated by: Francisco Rinaldi M.D. on 05/08/2024 at 13:54 Approved by: Francisco Rinaldi M.D. on 05/08/2024 at 13:56
== END ==
PROVIDERS: PCP Internal Medicine; Referring Provider Nurse Practitioner Family; Visit Provider Nurse Practitioner Family
DX: M79.642 Pain in left hand (principal); M79.89 Other specified soft tissue disorders
CPT/HCPCS: 73130

== ENCOUNTER → 2024-05-10 08:43 | Outpatient (CLI) | payer OTHER, SELFPAY ==
[2024-03-01 08:36] VITALS: BMI 35.7
[2024-05-10 09:53] LABS: Hematocrit 31.4 % (41-53); Hemoglobin 10.1 g/dL (13.5-17.5)
[2024-05-10 10:28] LABS: BUN Creatinine Ratio 12.7 (6-22); Blood Urea Nitrogen 16 mg/dL (9-20); Carbon Dioxide 27 mmol/L (22-32); Chloride 102 mmol/L (98-107); Estimated Glomerular Filt Rate > 60 mL/min (>60); Glucose 81 mg/dL (70-100); HEMOLYSIS < 15 (0-50); Potassium 4.7 mmol/L (3.4-5.1); Sodium 134 mmol/L (137-145)
[2024-05-10 10:33] LABS: Creatinine Urine Random 118.54 mg/dL; Protein (Total) Urine Random 54 mg/dL (0-12); Protein Creatinine Ratio Urine 0.45 GRAM/24H
[2024-05-10 10:36] LABS: HEMOLYSIS < 15 (0-50); Iron 29 ug/dL (49-181)
[2024-05-10 10:47] LABS: Percent Iron Saturation 14 % (20-50); Total Iron Binding Capacity 206 ug/dL (261-462); Transferrin 153 mg/dL (206-381)
[2024-05-12 11:39] LABS: Parathyroid Hormone Int 33 pg/mL (15-65)
== END ==
PROVIDERS: PCP Internal Medicine; Referring Provider Student in an Organized Health Care Education/Training Program; Visit Provider Student in an Organized Health Care Education/Training Program
DX: N05.9 Unspecified nephritic syndrome with unspecified morphologic changes (principal); D70.9 Neutropenia, unspecified; D63.1 Anemia in chronic kidney disease; D50.0 Iron deficiency anemia secondary to blood loss (chronic); N25.81 Secondary hyperparathyroidism of renal origin; R80.9 Proteinuria, unspecified
CPT/HCPCS: 36415; 80048; 82570; 83540; 83550; 83970; 84156; 85014; 85018

== ENCOUNTER → 2024-08-02 06:43 | Outpatient (CLI) | payer OTHER, SELFPAY ==
[2024-07-03 11:30] VITALS: BMI 35.7
[2024-08-02 08:12] LABS: Hematocrit 31.7 % (41-53); Hemoglobin 9.9 g/dL (13.5-17.5)
[2024-08-02 08:53] LABS: Creatinine Urine Random 66.11 mg/dL; Protein (Total) Urine Random 23 mg/dL (0-12); Protein Creatinine Ratio Urine 0.34 GRAM/24H
[2024-08-02 08:57] LABS: BUN Creatinine Ratio 15.8 (6-22); Blood Urea Nitrogen 21 mg/dL (9-20); Calcium 9.4 mg/dL (8.4-10.2); Carbon Dioxide 26 mmol/L (22-32); Chloride 102 mmol/L (98-107); Estimated Glomerular Filt Rate > 60 mL/min (>60); Glucose 147 mg/dL (70-100); HEMOLYSIS < 15 (0-50); Iron 39 ug/dL (49-181); Potassium 4.8 mmol/L (3.4-5.1); Sodium 138 mmol/L (137-145)
[2024-08-02 09:05] LABS: Transferrin 213 mg/dL (206-381)
[2024-08-02 09:10] LABS: Percent Iron Saturation 14 % (20-50); Total Iron Binding Capacity 282 ug/dL (261-462)
[2024-08-02 09:30] LABS: Ferritin 19 ng/mL (18-464)
[2024-08-04 10:07] LABS: Parathyroid Hormone Int 31 pg/mL (15-65)
== END ==
PROVIDERS: PCP Internal Medicine; Referring Provider Student in an Organized Health Care Education/Training Program; Visit Provider Student in an Organized Health Care Education/Training Program
DX: N05.9 Unspecified nephritic syndrome with unspecified morphologic changes (principal); D50.0 Iron deficiency anemia secondary to blood loss (chronic); T86.10 Unspecified complication of kidney transplant; N25.81 Secondary hyperparathyroidism of renal origin; D63.1 Anemia in chronic kidney disease; D70.9 Neutropenia, unspecified; R80.9 Proteinuria, unspecified
CPT/HCPCS: 36415; 80048; 82570; 82728; 83540; 83550; 83970; 84156; 85014; 85018

== ENCOUNTER → 2024-09-06 15:42 | Outpatient (CLI) | payer OTHER, SELFPAY ==
[2024-07-03 11:30] VITALS: BMI 35.7
== END ==
PROVIDERS: PCP Internal Medicine; Referring Provider Internal Medicine; Visit Provider Internal Medicine
DX: Z23 Encounter for immunization (principal)
CPT/HCPCS: 90471; 90656

== ENCOUNTER 2024-10-22 09:07 | Day surgery (SDC) | payer OTHER, SELFPAY ==
[2024-07-03 11:30] VITALS: BMI 35.7
[2024-10-21 13:14] VITALS: BMI 35.2
[2024-10-22] MEDS: LACTATED RINGERS 1,000 ML 42 ML IV (09:31)
[2024-10-22 09:40] VITALS: BP 119/74; PULSE 84; RESP 18; TEMP 36.1; O2SAT 100; BMI 35.2
[2024-10-22] MEDS: ACETAMINOPHEN 325 MG TABLET 975 MG PO (10:12)
--- NOTE | 2024-10-22 10:41 | PM.OP.1 ---
Operative Date/Time/Diagnoses Date of procedure: 10/22/24 Time of procedure: 11:49 Pre-op diagnosis: Umbilical hernia Post-op diagnosis: same Procedure & Clinicians Procedure: Open umbilical hernia repair with mesh Same procedure as scheduled: Yes Surgeon: Jorje Juarez [employer] Founder: Tyrel Rasmussen Anesthesia Type: General Operative Notes Procedure in detail: Ancef was administered. The patient was brought to the operating room, placed on the table in the supine position and general endotracheal anesthesia was induced. The abdomen was prepped and draped in the usual fashion. A time-out was performed. A 6 cm curvilinear incision was made inferior to the umbilicus. The hernia sac was dissected free from the surrounding subcutaneous adipose tissue. The sac was dissected off the umbilical stalk using a combination of cautery, sharp and blunt dissection. The hernia sac was dissected free from the fascial ring and allowed to drop back down into the abdomen. The fascial defect was about 1 cm. The fascia was then closed transversely with four interrupted 0 Ethibond sutures. The subcutaneous adipose tissue was cleared off of the anterior sheath circumferentially about 2 cm in each direction. A piece of polypropylene mesh was trimmed to fit over the fascial closure and secured with Tisseel. Once the Tisseel was dried the umbilical skin was tacked down to the mesh with a single 3-0 Vicryl stitch. The skin was closed with multiple interrupted 3-0 Vicryl dermal sutures followed by a running 4 Monocryl subcuticular closure. Steri-Strips were applied and an abdominal binder was applied. EBL: 10 mL Tyrel MEZA provided assistance with exposure, retraction and closure of incisions. Post-operative Condition: stable Disposition: PACU
--- NOTE | 2024-10-22 10:42 | P.HP_ITS ---
History of Present Illness History of Present Illness Date Patient Seen: 10/22/24 Time Patient Seen: 10:42 Chief complaint: Open umbilical hernia repair w/mesh Narrative: Saul is a 44-year-old man who presents for an umbilical hernia repair. See the prior office note for details. 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 History of thyroid cancer Paralysis of left vocal cord Acute bacterial sinusitis Viral URI with cough Sleep apnea (~2013) Pinched nerve (~2013) Vocal cord paralysis (~2015) Eosinophilic esophagitis Inflamed sebaceous cyst Ulcerative colitis (~2020) 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 chronic kidney disease Severe obesity Venous insufficiency Polyneuropathy, unspecified CKD stage G2/A2, GFR 60-89 and albumin creatinine ratio 30-299 mg/g Primary osteoarthritis involving multiple joints Acquired hypothyroidism Mixed hyperlipidemia Essential hypertension Facet arthropathy, cervical Cervical radiculopathy Surgical History Anesthesia H/O Achilles tendon repair (~2012) Status post removal of thyroid nodule (~2015) Family History Mother Spine degeneration Grandmother Diabetes mellitus History of heart disease Grandfather History of heart disease Grandfather Diabetes mellitus Stroke Hyperlipidemia Grandmother Cancer Other Hypertension Social History marital status: unmarried,single household members: family Smoking Status: Never smoker alcohol intake: former caffeine: Yes Type(s) of exercise: walking frequency: daily Meds Home Medications and Allergies Home Medications Medication Instructions Recorded Confirmed Type levothyroxine 112 mcg tablet 224 mcg PO 0600 09/30/18 10/22/24 History Respironics Dreamstation CPAP #1 ea 05/28/19 09/02/24 History glipizide 10 mg tablet 10 mg PO DAILY 10/12/20 10/22/24 History metoprolol tartrate 50 mg tablet 25 mg PO TID 10/12/20 10/22/24 History amlodipine 10 mg tablet 10 mg PO DAILY 04/29/22 10/22/24 History hydrochlorothiazide 25 mg tablet 25 mg PO BEDTIME 04/29/22 10/22/24 History insulin glargine 100 unit/mL (3 40 unit SUBCUT BEDTIME 04/29/22 10/22/24 History mL) subcutaneous pen (Basaglar KwikPen U-100 Insulin) pen needle, diabetic 32 gauge x #50 ea 04/29/22 09/02/24 History 5/32 (BD Ultra-Fine Candelaria Pen Needle) sodium zirconium cyclosilicate 5 5 g PO DAILY PRN low potassium 04/29/22 10/22/24 History gram oral powder packet blood sugar diagnostic (FreeStyle #10 ea 10/26/22 09/02/24 History Precision Felix Strips) diabetic shoes and orthotics #1 ea 05/19/23 09/02/24 Rx flash glucose sensor (FreeStyle #1 ea 05/19/23 09/02/24 History Cody 14 Day Sensor kit) empagliflozin 10 mg tablet 10 mg PO DAILY 02/07/24 10/22/24 History (Jardiance) ferrous gluconate 324 mg (37.5 mg 324 mg PO DAILY 02/26/24 10/22/24 History iron) tablet adalimumab-bwwd 40 mg/0.8 mL 80 mg (1.6 mL) SUBCUT Q2W #4.8 mL 05/01/24 10/22/24 Rx subcutaneous syringe (Hadlima) losartan 50 mg tablet 50 mg PO DAILY 05/01/24 10/22/24 History prednisone 10 mg tablet See Rx Instructions .Route 07/04/24 10/22/24 Rx .COMPLEX #20 tabs Allergies Allergy/AdvReac Type Severity Reaction Status Date / Time alcohol [ALCOHOL] Allergy Severe throat Verified 10/22/24 09:34 swells up Exam Vital Signs (past 8 hours): - 10/22/24 09:40 Temperature 96.9 F L Pulse Rate 84 Respiratory Rate 18 Blood Pressure 119/74 Pulse Oximetry 100 Oxygen Delivery Method Room Air Oxygen Delivery Method Room Air Const General: No acute distress Assessment & Plan Assessment and plan (1) Umbilical hernia without mention of obstruction or gangrene: Qualifiers: Obstruction and gangrene presence: without obstruction or gangrene Qualified Code(s): K42.9 - Umbilical hernia without obstruction or gangrene Status: Acute Plan Open umbilical hernia repair with mesh Time-Based Coding :: [TOTAL MINUTES] spent with patient and on the chart (including review of chart, obtaining history, exam, reviewing outside data, placing orders, documenting exam and treatment plan, and counseling patient) on [DATE].
[2024-10-22] MEDS: CEFAZOLIN 2 GM/100 ML PREMIX 100 ML IV (11:21)
--- NOTE | 2024-10-22 11:36 | SUR.OPER ---
Supine on padded OR bed, head on pillow, arms secured on padded arm boards at <90 degrees abduction, legs uncrossed, safety belt at thigh, tape over blanket over lower legs.
[2024-10-22] MEDS: BUPIVACAINE 0.5% W/ EPI (PF) 30 ML VIAL INJ (11:44)
[2024-10-22 12:01] VITALS: PULSE 11; RESP 97; TEMP 36.7; O2SAT 4
[2024-10-22 12:05] VITALS: BP 91/58; PULSE 92; RESP 11; O2SAT 98
[2024-10-22 12:10] VITALS: BP 93/61; PULSE 93; RESP 11; O2SAT 98
[2024-10-22 12:20] VITALS: BP 109/62; PULSE 88; RESP 11; O2SAT 96
[2024-10-22] MEDS: OXYCODONE IR 5 MG TABLET PO ×2 (12:20→13:08)
[2024-10-22] MEDS: ONDANSETRON 4 MG/2 ML INJ IV (12:20)
[2024-10-22 12:28] VITALS: BP 109/65; PULSE 89; RESP 11; O2SAT 94
== END 2024-10-22 13:17 | disposition home or self-care (01) ==
PROVIDERS: PCP Internal Medicine; Referring Provider Surgery; Visit Provider Surgery
PROC: (CPT 49591; principal; 2024-10-22 10:45)
DX: K42.9 Umbilical hernia without obstruction or gangrene (principal)
CPT/HCPCS: 49591; 82962; J0690; J2250; J2405; J2704; J3010

== ENCOUNTER → 2024-10-25 11:24 | Outpatient (CLI) | payer OTHER, SELFPAY ==
[2024-07-03 11:30] VITALS: BMI 35.7
[2024-11-18 13:09] LABS: Adalimumab Antiboday 33993 ng/mL (.); Adalimumab Drug Level <0.6 ug/mL (.)
== END ==
PROVIDERS: PCP Internal Medicine; Referring Provider Internal Medicine Gastroenterology; Visit Provider Internal Medicine Gastroenterology
DX: K51.919 Ulcerative colitis, unspecified with unspecified complications (principal)
CPT/HCPCS: 36415; 80145; 82397

== ENCOUNTER → 2024-12-06 06:26 | Outpatient (CLI) | payer OTHER, SELFPAY ==
[2024-07-03 11:30] VITALS: BMI 35.7
[2024-12-06 08:08] LABS: Creatinine Urine Random 64.44 mg/dL
[2024-12-06 08:13] LABS: Microalbumin Urine Random 6.6 mg/dL (0-1.6)
[2024-12-06 08:21] LABS: Hemoglobin A1C% w Est Avg Glu 6.4 % (4.0-6.0)
[2024-12-06 08:38] LABS: BUN Creatinine Ratio 17.1 (6-22); Blood Urea Nitrogen 26 mg/dL (9-20); Carbon Dioxide 26 mmol/L (22-32); Chloride 104 mmol/L (98-107); Cholesterol 168 mg/dL (140-199); Estimated Glomerular Filt Rate 57 mL/min (>60); Glucose 74 mg/dL (70-100); HDL Cholesterol 33 mg/dL (40-60); HEMOLYSIS < 15 (0-50); LDL Cholesterol Calculated 101 mg/dL (<100); Sodium 140 mmol/L (137-145); Triglycerides 171 mg/dL (35-150)
== END ==
PROVIDERS: PCP Internal Medicine; Referring Provider Internal Medicine Endocrinology, Diabetes & Metabolism; Visit Provider Internal Medicine Endocrinology, Diabetes & Metabolism
DX: E11.65 Type 2 diabetes mellitus with hyperglycemia (principal); Z79.4 Long term (current) use of insulin
CPT/HCPCS: 36415; 80048; 80061; 82043; 82570; 83036

== ENCOUNTER → 2025-01-28 10:58 | Outpatient (CLI) | payer OTHER, SELFPAY ==
[2024-07-03 11:30] VITALS: BMI 35.7
[2025-01-28 12:00] LABS: Add Manual Diff / Slide Review NO; Basophils Absolute Auto 0 /uL (0-100); Basophils Percent Auto 0.2 % (0-2); Eosinophils Absolute Auto 200 /uL (0-450); Eosinophils Percent Auto 1.6 % (2-4); Hematocrit 33.6 % (41-53); Hemoglobin 10.4 g/dL (13.5-17.5); Lymphocytes Absolute Auto 1100 /uL (1100-4500); Lymphocytes Percent Auto 9.2 % (25-40); Mean Corpuscular HGB Conc 31.1 % (30-36); Mean Corpuscular Hemoglobin 23.7 PG (26-34); Mean Corpuscular Volume 76.4 fL (80-100); Monocytes Absolute Auto 1200 /uL (0-900); Monocytes Percent Auto 10.4 % (3-14); Neutrophils Absolute Auto 9200 /uL (1500-7000); Neutrophils Percent Auto 78.6 % (50-75); Platelet Count 420 X10^3/uL (150-400); Red Blood Cell Count 4.39 X10^6/uL (4.5-5.9); Red Cell Distribution Width 16.3 % (11.6-14.8); White Blood Cell Count 11.7 X10^3/uL (4.5-11.0)
[2025-01-28 12:18] LABS: HEMOLYSIS < 15 (0-50); Iron 21 ug/dL (49-181)
--- NOTE | 2025-01-28 12:19 | DI.RAD.S_ITS ---
PROCEDURE: XR FOOT RT 2V INDICATIONS: r/o osteo TECHNIQUE: 2 views of the foot were acquired. COMPARISON: None. FINDINGS AND IMPRESSION: Pathologic fracture and erosive changes at the 5th metatarsal base, concerning for infection/osteomyelitis. Surrounding periosteal reaction is present. There is also soft tissue swelling. Dictated by: David Vora M.D. on 01/28/2025 at 12:46 Approved by: David Vora M.D. on 01/28/2025 at 12:47
[2025-01-28 12:29] LABS: Percent Iron Saturation 7 % (20-50); Total Iron Binding Capacity 307 ug/dL (261-462); Transferrin 245 mg/dL (206-381)
[2025-01-28 12:54] LABS: Ferritin 16 ng/mL (18-464)
[2025-01-28 15:26] LABS: Hepatitis B Surface Antigen NEGATIVE s/c (NEGATIVE)
[2025-01-29 01:08] LABS: Hepatitis B Surf AB Quant <3.5 mIU/mL (Immunity>10)
== END ==
PROVIDERS: PCP Internal Medicine; Referring Provider Physician Assistant; Visit Provider Nurse Practitioner Family
DX: K51.019 Ulcerative (chronic) pancolitis with unspecified complications (principal); D50.0 Iron deficiency anemia secondary to blood loss (chronic); M79.671 Pain in right foot
CPT/HCPCS: 36415; 73620; 82728; 83540; 83550; 85025; 86480; 86706; 87340

== ENCOUNTER 2025-01-28 15:06 | Inpatient (IN) | payer OTHER, SELFPAY ==
[2024-07-03 11:30] VITALS: BMI 35.7
[2025-01-28] VITALS (11 sets, daily range): BP systolic 91–139; BP diastolic 48–73; PULSE 95–107; RESP 18–20; TEMP 36.7–38.3; O2SAT 93–97; BMI 35.2
--- NOTE | 2025-01-28 15:33 | ED.WOUNDLAC ---
HPI - Wound/Laceration General Chief Complaint: Wound/Laceration Stated Complaint: lesion on rt foot Time Seen by Provider: 01/28/25 15:27 Source: patient Mode of arrival: Ambulatory History of Present Illness HPI narrative: Patient is diabetic. Complains of left lateral foot pain swelling and discharge since this past weekend. He got his foot wet while walking. However redness and pain started in the past couple of days. Had outpatient x-ray of the foot showed pathological fracture and possible osteomyelitis of the 5th metatarsal bone. Fever noted. Related Data Home Medications Medication Instructions Recorded Confirmed levothyroxine 112 mcg tablet 224 mcg PO 0600 09/30/18 01/28/25 Respironics Dreamstation CPAP #1 ea 05/28/19 01/28/25 glipizide 10 mg tablet 10 mg PO DAILY 10/12/20 01/28/25 metoprolol tartrate 50 mg tablet 25 mg PO TID 10/12/20 01/28/25 amlodipine 10 mg tablet 10 mg PO DAILY 04/29/22 01/28/25 hydrochlorothiazide 25 mg tablet 25 mg PO QAM 04/29/22 01/28/25 insulin glargine 100 unit/mL (3 40 unit SUBCUT BEDTIME 04/29/22 01/28/25 mL) subcutaneous pen (Basaglar KwikPen U-100 Insulin) pen needle, diabetic 32 gauge x #50 ea 04/29/22 01/28/25/ (BD Ultra-Fine Candelaria Pen Needle) sodium zirconium cyclosilicate 5 5 g PO DAILY PRN low potassium 04/29/22 01/28/25 gram oral powder packet blood sugar diagnostic (FreeStyle #10 ea 10/26/22 01/28/25 Precision Felix Strips) flash glucose sensor (FreeStyle #1 ea 05/19/23 01/28/25 Cody 14 Day Sensor kit) empagliflozin 10 mg tablet 10 mg PO DAILY 02/07/24 01/28/25 (Jardiance) ferrous gluconate 324 mg (37.5 mg 324 mg PO DAILY 02/26/24 01/28/25 iron) tablet adalimumab-bwwd 40 mg/0.4 mL 40 mg SUBCUT Q2W 01/28/25 01/28/25 subcutaneous auto-injector (Hadlima(CF) PushTouch) atorvastatin 10 mg tablet 10 mg PO DAILY 01/28/25 01/28/25 losartan 25 mg tablet 25 mg PO DAILY 01/28/25 01/28/25 prednisone 10 mg tablet 10 mg PO QAM PRN colitis 01/28/25 01/28/25 Previous Rx's Medication Instructions Recorded diabetic shoes and orthotics #1 ea 05/19/23 cephalexin 500 mg capsule 500 mg PO QID 10 days #40 caps 01/28/25 Allergies Allergy/AdvReac Type Severity Reaction Status Date / Time alcohol [ALCOHOL] Allergy Severe throat Verified 01/28/25 11:56 swells up Review of Systems Review of Systems Narrative: GENERAL: Negative chills, fatigue, malaise, positive fever, negative sweats. HEENT: Negative sinus pain, ear pain, sore throat RESPIRATORY: Negative dyspnea, cough CARDIOVASCULAR: Negative chest pain, palpitations GASTROINTESTINAL: Negative vomiting, nausea, abdominal pain : Negative dysuria, frequency, hematuria MUSCULOSKELETAL: Positive muscle or bony pain SKIN: Negative rash, skin lesions NEUROLOGIC: Negative weakness, numbness ROS Unobtainable: All systems reviewed & are unremarkable except as noted in HPI and below Patient History Medical History (Updated 01/28/25 @ 15:36 by Rodney Cabrera MD) Thyroid cancer Umbilical hernia without mention of obstruction or gangrene History of nephrolithiasis Bilateral nephrolithiasis Chronic diastolic (congestive) heart failure 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 due to intermediate immunosuppressive drug therapy History of thyroid cancer Paralysis of left vocal cord Acute bacterial sinusitis Viral URI with cough Sleep apnea (~2013) Pinched nerve (~2013) Vocal cord paralysis (~2015) Eosinophilic esophagitis Inflamed sebaceous cyst Ulcerative colitis (~2020) 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 chronic kidney disease Severe obesity Venous insufficiency Polyneuropathy, unspecified CKD stage G2/A2, GFR 60-89 and albumin creatinine ratio 30-299 mg/g Primary osteoarthritis involving multiple joints Acquired hypothyroidism Mixed hyperlipidemia Essential hypertension Facet arthropathy, cervical Cervical radiculopathy Surgical History Anesthesia H/O Achilles tendon repair (~2012) Status post removal of thyroid nodule (~2015) Family History Mother Spine degeneration Grandmother Diabetes mellitus History of heart disease Grandfather History of heart disease Grandfather Diabetes mellitus Stroke Hyperlipidemia Grandmother Cancer Other Hypertension Social History marital status: unmarried,single household members: family Smoking Status: Never smoker alcohol intake: former caffeine: Yes Type(s) of exercise: walking frequency: daily Smoking Status: Never smoker alcohol intake frequency: 0-2 drinks per day Exam Narrative Exam Narrative: GENERAL: in no distress, not toxic not dyspneic HEAD: Normocephalic. EYES: Pupils equal round EXTREMITIES: Examination right foot. On the lateral aspect of the foot it is edematous erythematous and tender with fissure at the center. No fluctuance. Foot otherwise warm soft pink strong pedal pulse brisk cap refills. No crepitus. No pain out of portion exam. No necrotizing fasciitis. Strong pedal pulse. NEURO: AOx4. Clear speech SKIN: Warm and dry PSYCH: Not anxious, is cooperative Initial Vital Signs Initial Vital Signs: Vital Signs Temperature 101 F H 01/28/25 15:17 Pulse Rate 105 H 01/28/25 15:17 Respiratory Rate 20 01/28/25 15:17 Blood Pressure 109/67 01/28/25 15:17 Pulse Oximetry 95 01/28/25 15:17 Oxygen Delivery Method Room Air 01/28/25 15:17 Course Orders Ordered: Acetaminophen (Acetaminophen 325 Mg Tablet) 650 mg PO Q6H PRN PRN Reason: Fever/Mild Pain (1-3) Hydrocodone Bitart/Acetaminophen (Hydrocodone/Acet 5/325 Tablet) 1 tab PO Q4H PRN PRN Reason: Pain, Moderate (4-6) Dextrose (Dextrose 50 % In Water 25 Gm/50 Ml Syringe) 12.5 gm IV PRN PRN PRN Reason: Hypoglycemia Sodium Chloride (Normal Saline 0.9%) 1,000 mls @ 100 mls/hr IV CONT JONEL Last Infusion: 01/29/25 04:49 Dose: 100 mls/hr Documented By: Admin: 01/29/25 04:49 Dose: 100 mls/hr Documented By: Infusion: 01/29/25 04:25 Dose: Infused Documented By: Admin: 01/28/25 18:25 Dose: 100 mls/hr Documented By: PRATIBHA Cefepime HCl 2 gm/ Sodium (Chloride) 100 mls @ 200 mls/hr IV Q12H [facility] Last Infusion: 01/29/25 04:05 Dose: Infused Documented By: Admin: 01/29/25 03:35 Dose: 200 mls/hr Documented By: DENILSON Daptomycin 530 mg/ (Miscellaneous) 0 mls @ 318 mls/hr IV DAILY [facility] Insulin Human Lispro (Insulin Lispro 100 Unit/Ml 3ml Vial) 0 unit SUBCUT [facility]; Protocol Last Admin: 01/29/25 08:13 Dose: Not Given Documented By: Admin: 01/28/25 21:06 Dose: Not Given Documented By: DENILSON Naloxone HCl (Naloxone 0.4 Mg/Ml Vial) 0.2 mg IV Q2MIN PRN PRN Reason: Opiate Reversal Ondansetron HCl (Ondansetron 4 Mg/2 Ml Inj) 4 mg IV Q8HR PRN PRN Reason: Nausea And Vomiting Discontinued Medications Heparin Sodium (Porcine) (Heparin 5,000 Unit/Ml Vial) 5,000 unit SUBCUT NOW ONE Stop: 01/28/25 18:06 Last Admin: 01/28/25 18:26 Dose: 5,000 unit Documented By: PRATIBHA Cefepime HCl 2 gm/ Sodium (Chloride) 100 mls @ 200 mls/hr IV NOW ONE Stop: 01/28/25 15:32 Last Infusion: 01/28/25 16:43 Dose: Infused Documented By: Admin: 01/28/25 16:10 Dose: 200 mls/hr Documented By: KJ Vancomycin HCl/Dextrose (Vancomycin) 2,000 mg in 400 mls @ 200 mls/hr IV NOW ONE Stop: 01/28/25 17:44 Last Infusion: 01/28/25 16:49 Dose: 0 mls/hr Documented By: Admin: 01/28/25 16:46 Dose: 200 mls/hr Documented By: KJ Morphine Sulfate (Morphine 4 Mg/Ml Inj) 4 mg IV NOW ONE Stop: 01/28/25 17:02 Last Admin: 01/28/25 17:33 Dose: Not Given Documented By: LARA Ondansetron HCl (Ondansetron 4 Mg/2 Ml Inj) 4 mg IV NOW ONE Stop: 01/28/25 17:02 Last Admin: 01/28/25 17:16 Dose: 4 mg Documented By: KJ Ondansetron HCl (Ondansetron 4 Mg/2 Ml Inj) 4 mg IV NOW ONE Stop: 01/28/25 17:02 Last Admin: 01/28/25 18:00 Dose: Not Given Documented By: PRATIBHA Vancomycin HCl (Vancomycin Per Pharmacy) 1 request MISC NOW PRN PRN Reason: Wound Healing Vital Signs Vital signs: Vital Signs - 8 hr 01/28/25 15:17 01/28/25 15:43 01/28/25 15:43 Temperature 101 F H Pulse Rate 105 H 107 H Respiratory Rate 20 Blood Pressure 109/67 104/59 L Pulse Oximetry 95 96 Oxygen Delivery Method Room Air 01/28/25 16:00 Temperature Pulse Rate 99 H Respiratory Rate Blood Pressure Pulse Oximetry 93 Oxygen Delivery Method Room Air MDM - Wound/Laceration Lab Data 01/29/25 05:50 01/28/25 15:40 Labs: Lab Results 01/28/25 Range/Units 15:40 WBC 11.3 H (4.5-11.0) X10^3/uL RBC 4.16 L (4.5-5.9) X10^6/uL Hgb 9.9 L (13.5-17.5) g/dL Hct 31.5 L (41-53) % MCV 75.7 L (80-100) fL MCH 23.8 L (26-34) PG MCHC 31.5 (30-36) % RDW 16.5 H (11.6-14.8) % Plt Count 412 H (150-400) X10^3/uL Neut % (Auto) 76.7 H (50-75) % Lymph % (Auto) 11.3 L (25-40) % [place] % (Auto) 10.7 (3-14) % Eos % (Auto) 1.0 L (2-4) % Baso % (Auto) 0.3 (0-2) % Neut # (Auto) 8700 H (0482-0788) /uL Lymph # (Auto) 1300 (1430-3020) /uL [place] # (Auto) 1200 H (0-900) /uL Eos # (Auto) 100 (0-450) /uL Baso # (Auto) 0 (0-100) /uL ESR 65 H (0-15) MM/HR Sodium 135 L (137-145) mmol/L Potassium 4.2 (3.4-5.1) mmol/L Chloride 101 (98-107) mmol/L Carbon Dioxide 21 L (22-32) mmol/L BUN 29 H (9-20) mg/dL Creatinine 1.81 H (0.66-1.25) mg/dL Estimated GFR 46 L (>60) mL/min BUN/Creatinine Ratio 16.0 (6-22) Glucose 92 (70-100) mg/dL Lactate 1.1 (0.7-2.1) mmol/L Calcium 9.0 (8.4-10.2) mg/dL Total Bilirubin 0.3 (0.2-1.3) mg/dL AST 23 (17-59) IU/L ALT 13 (<50) IU/L Alkaline Phosphatase 87 (38-126) U/L C-Reactive Protein 8.4 H (<1.0) mg/dL Total Protein 7.7 (6.3-8.2) g/dL Albumin 4.2 (3.5-5.0) g/dL Globulin 3.5 (1.7-4.1) g/dL Albumin/Globulin Ratio 1.2 (1.0-2.8) Procalcitonin 0.113 (<0.5) ng/mL Imaging Data Extremity x-ray #1: Radiologist's Impression: [place] [address] XRay Report Signed Patient: Tao Lamb MR#: [id number] : 1980 Acct:[id number] Age/Sex: 44 / M Date of Service: 01/28/25 Loc: LAB Accession Number: [id number] Procedure: XR foot RT 2V Ordering Provider: Manuela Lopez [facility] PROCEDURE: XR FOOT RT 2V INDICATIONS: r/o osteo TECHNIQUE: 2 views of the foot were acquired. COMPARISON: None. FINDINGS AND IMPRESSION: Pathologic fracture and erosive changes at the 5th metatarsal base, concerning for infection/osteomyelitis. Surrounding periosteal reaction is present. There is also soft tissue swelling. Dictated by: David Vora M.D. on 01/28/2025 at 12:46 Approved by: David Vora M.D. on 01/28/2025 at 12:47 [facility] Narrative Medical decision making narrative: Patient is diabetic. Complains of left lateral foot pain swelling and discharge since this past weekend. He got his foot wet while walking. However redness and pain started in the past couple of days. Had outpatient x-ray of the foot showed pathological fracture and possible osteomyelitis of the 5th metatarsal bone. Fever noted. After history and exam, CBC CMP ESR CRP blood culture procalcitonin lactic acid vancomycin cefepime/admit [facility] Medical records reviewed: No recent visit for this complaint Differential considered: Includes but not limited to osteomyelitis foot fracture Lab Test results independently reviewed as above. Pertinent findings: WBC 11.3 hemoglobin 9.9 sodium 135 potassium 4.2 BUN 29 creatinine 1.81 GFR 46 lactate 1.1 procalcitonin 0.113 CRP 8.4 glucose 92 bicarb 21 Imaging studies independently reviewed: X-ray right foot pathological fracture with erosive changes 5th metatarsal base infection/osteomyelitis Consultations: 3:50 p.m.. Spoke with Orthopedics, Dr. Daily, who will follow in consult. No surgery indicated at this time. 5:08 p.m.. Spoke with hospitalist,, Dr Lopez, will admit Treatments: Vancomycin cefepime Re-evaluations: Updated patient findings and results and agrees for admission. Discussion: Appropriate for admission for IV antibiotics and orthopedic consult/management. Antibiotics have been started. Pain is controlled. Diagnosis: Foot osteomyelitis/fracture Discharge Plan Departure Patient Disposition: Admitted As Inpatient Clinical Impression: Acute osteomyelitis of right foot Foot fracture, right Qualifiers: Encounter type: initial encounter Fracture type: closed Qualified Code(s): S92.901A - Unspecified fracture of right foot, initial encounter for closed fracture Admit Date/Time: 01/28/25 17:17 Admit Provider: Earnest Lopez
[2025-01-28 15:54] LABS: Add Manual Diff / Slide Review NO; Basophils Absolute Auto 0 /uL (0-100); Basophils Percent Auto 0.3 % (0-2); Eosinophils Absolute Auto 100 /uL (0-450); Hematocrit 31.5 % (41-53); Hemoglobin 9.9 g/dL (13.5-17.5); Lymphocytes Absolute Auto 1300 /uL (1100-4500); Lymphocytes Percent Auto 11.3 % (25-40); Mean Corpuscular HGB Conc 31.5 % (30-36); Mean Corpuscular Hemoglobin 23.8 PG (26-34); Mean Corpuscular Volume 75.7 fL (80-100); Monocytes Absolute Auto 1200 /uL (0-900); Monocytes Percent Auto 10.7 % (3-14); Neutrophils Absolute Auto 8700 /uL (1500-7000); Neutrophils Percent Auto 76.7 % (50-75); Platelet Count 412 X10^3/uL (150-400); Red Blood Cell Count 4.16 X10^6/uL (4.5-5.9); Red Cell Distribution Width 16.5 % (11.6-14.8); White Blood Cell Count 11.3 X10^3/uL (4.5-11.0)
[2025-01-28 16:08] LABS: HEMOLYSIS < 15 (0-50); Sodium 135 mmol/L (137-145)
[2025-01-28] MEDS: CEFEPIME 2 GM in SODIUM CHLORIDE 0.9% 100 ML IV (16:10)
[2025-01-28 16:11] LABS: Lactate (Lactic Acid) 1.1 mmol/L (0.7-2.1)
[2025-01-28 16:13] LABS: Alanine Aminotransferase 13 IU/L (<50); Albumin 4.2 g/dL (3.5-5.0); Albumin Globulin Ratio 1.2 (1.0-2.8); Alkaline Phosphatase 87 U/L (38-126); Aspartate Aminotransferase 23 IU/L (17-59); Bilirubin Total 0.3 mg/dL (0.2-1.3); Blood Urea Nitrogen 29 mg/dL (9-20); C-Reactive Protein Quant 8.4 mg/dL (<1.0); Carbon Dioxide 21 mmol/L (22-32); Chloride 101 mmol/L (98-107); Erythrocyte Sedimentation Rate 65 MM/HR (0-15); Estimated Glomerular Filt Rate 46 mL/min (>60); Globulin 3.5 g/dL (1.7-4.1); Glucose 92 mg/dL (70-100); Potassium 4.2 mmol/L (3.4-5.1); Total Protein 7.7 g/dL (6.3-8.2)
[2025-01-28 16:27] LABS: Procalcitonin 0.113 ng/mL (<0.5)
[2025-01-28] MEDS: VANCOMYCIN 2,000 MG/400 ML PIGGYBACK 200 MG IV (16:46)
[2025-01-28] MEDS: ONDANSETRON 4 MG/2 ML INJ IV (17:16)
--- NOTE | 2025-01-28 17:17 | PC.NURSE ---
This RN started the vancomycin and after a couple minutes the patient reports sudden onset nausea and started vomiting, this RN stopped the infusion and notified Dr elias. Provider ordered for the infusion to be paused until hospitalist can come assess and decide orders. Gave the patient dulce maria, see MAR
--- NOTE | 2025-01-28 18:13 | PM.HP.1 ---
History of Present Illness History of Present Illness Chief complaint: lesion on rt foot Narrative: Chief complaint: Right foot pain and swelling with ascending erythema secondary to osteomyelitis with pathological fracture in right foot. History of present illness: 44-year-old male with type 2 diabetes recently escalated in his treatment to include 44 units of basal insulin about 4 years ago who has had multiple previous foot infections of the right foot and previous infections of the left foot patient got caught in the rain and developed a blister on the right lateral foot over the weekend. He develops these frequently however this morning he started having significant pain redness swelling with streaking up his right lower leg went to a walk-in clinic. X-rays of foot at the walk-in clinic showed a pathologic fracture and erosive changes at the 5th metatarsal base concerning for osteomyelitis. Patient came to the emergency department for evaluation. In the emergency department the patient was noted to have fever of 101 white blood cell count of 11,000, ESR 65 BUN 29 creatinine 1.8 C-reactive protein of 8.4 patient was given 2 g of cefepime and vancomycin was started but was not tolerated and interrupted due to nausea and vomiting and headache Patient was referred for admission for osteomyelitis consultation with Dr. Pedro orthopedic surgery. Consultation with pharmacy for coverage of MRSA and g negative I do have concerns discussion of cefepime and daptomycin given his reaction to vancomycin and his acute on chronic kidney injury. Pharmacy will also help manage his insulin we will hold his oral medications tonight and will resume only essential medications tomorrow Review of systems: Up until today patient has not had fever or chills dizziness No visuals or sinus symptoms or dysphagia No chest pain palpitation No shortness of breath cough No abdominal pain nausea vomiting No urinary symptoms No paresthesias paresis Physical exam: Pleasant middle-aged male that nervous but no acute distress HEENT unremarkable Neck no carotid bruits Heart rate and rhythm regular no murmurs Lungs clear Abdomen benign Extremities right lower extremity demonstrates erythema and swelling from toes to just below the knee there is callus and eschar on the right lateral aspect of the right foot Left lower extremity shows chronic edema no acute erythema but evidence of pes cavus suggesting neuropathy [facility] Medical History (Updated 01/28/25 @ 15:36 by Rodney Cabrera MD) Thyroid cancer Umbilical hernia without mention of obstruction or gangrene History of nephrolithiasis Bilateral nephrolithiasis Chronic diastolic (congestive) heart failure 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 History of thyroid cancer Paralysis of left vocal cord Acute bacterial sinusitis Viral URI with cough Sleep apnea (~2013) Pinched nerve (~2013) Vocal cord paralysis (~2015) Eosinophilic esophagitis Inflamed sebaceous cyst Ulcerative colitis (~2020) 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 chronic kidney disease Severe obesity Venous insufficiency Polyneuropathy, unspecified CKD stage G2/A2, GFR 60-89 and albumin creatinine ratio 30-299 mg/g Primary osteoarthritis involving multiple joints Acquired hypothyroidism Mixed hyperlipidemia Essential hypertension Facet arthropathy, cervical Cervical radiculopathy Surgical History Anesthesia H/O Achilles tendon repair (~2012) Status post removal of thyroid nodule (~2015) Family History Mother Spine degeneration Grandmother Diabetes mellitus History of heart disease Grandfather History of heart disease Grandfather Diabetes mellitus Stroke Hyperlipidemia Grandmother Cancer Other Hypertension Social History marital status: unmarried,single household members: family Smoking Status: Never smoker alcohol intake: former caffeine: Yes Type(s) of exercise: walking frequency: daily Meds Home Medications and Allergies Home Medications Medication Instructions Recorded Confirmed Type levothyroxine 112 mcg tablet 224 mcg PO 0600 09/30/18 01/28/25 History Respironics Dreamstation CPAP #1 ea 05/28/19 01/28/25 History glipizide 10 mg tablet 10 mg PO DAILY 10/12/20 01/28/25 History metoprolol tartrate 50 mg tablet 25 mg PO TID 10/12/20 01/28/25 History amlodipine 10 mg tablet 10 mg PO DAILY 04/29/22 01/28/25 History hydrochlorothiazide 25 mg tablet 25 mg PO QAM 04/29/22 01/28/25 History insulin glargine 100 unit/mL (3 40 unit SUBCUT BEDTIME 04/29/22 01/28/25 History mL) subcutaneous pen (Basaglar KwikPen U-100 Insulin) pen needle, diabetic 32 gauge x #50 ea 04/29/22 01/28/25 History (BD Ultra-Fine Candelaria Pen Needle) sodium zirconium cyclosilicate 5 5 g PO DAILY PRN low potassium 04/29/22 01/28/25 History gram oral powder packet blood sugar diagnostic (FreeStyle #10 ea 10/26/22 01/28/25 History Precision Felix Strips) diabetic shoes and orthotics #1 ea 05/19/23 01/28/25 Rx flash glucose sensor (FreeStyle #1 ea 05/19/23 01/28/25 History Cody 14 Day Sensor kit) empagliflozin 10 mg tablet 10 mg PO DAILY 02/07/24 01/28/25 History (Jardiance) ferrous gluconate 324 mg (37.5 mg 324 mg PO DAILY 02/26/24 01/28/25 History iron) tablet adalimumab-bwwd 40 mg/0.4 mL 40 mg SUBCUT Q2W 01/28/25 01/28/25 History subcutaneous auto-injector (Hadlima(CF) PushTouch) atorvastatin 10 mg tablet 10 mg PO DAILY 01/28/25 01/28/25 History cephalexin 500 mg capsule 500 mg PO QID 10 days #40 caps 01/28/25 01/28/25 Rx losartan 25 mg tablet 25 mg PO DAILY 01/28/25 01/28/25 History prednisone 10 mg tablet 10 mg PO QAM PRN colitis 01/28/25 01/28/25 History Allergies Allergy/AdvReac Type Severity Reaction Status Date / Time alcohol [ALCOHOL] Allergy Severe throat Verified 01/28/25 11:56 swells up Exam Vital Signs (past 8 hours): - 01/28/25 15:17 01/28/25 15:43 01/28/25 15:43 Temperature 101 F H Pulse Rate 105 H 107 H Respiratory Rate 20 Blood Pressure 109/67 104/59 L Pulse Oximetry 95 96 Oxygen Delivery Method Room Air 01/28/25 16:00 01/28/25 16:30 01/28/25 16:51 Temperature Pulse Rate 99 H 98 H 100 H Respiratory Rate Blood Pressure Pulse Oximetry 93 93 96 Oxygen Delivery Method Room Air 01/28/25 16:51 01/28/25 17:00 01/28/25 17:00 Temperature Pulse Rate 99 H Respiratory Rate Blood Pressure 130/66 119/58 L Pulse Oximetry 94 Oxygen Delivery Method 01/28/25 17:30 01/28/25 17:30 01/28/25 17:32 Temperature Pulse Rate 95 H 96 H Respiratory Rate Blood Pressure 91/48 L Pulse Oximetry 97 97 Oxygen Delivery Method 01/28/25 17:32 01/28/25 17:34 Temperature 99.1 F Pulse Rate Respiratory Rate Blood Pressure 127/65 Pulse Oximetry Oxygen Delivery Method Oxygen Delivery Method Room Air Objective Labs 01/28/25 15:40 01/28/25 15:40 Labs: Laboratory Results - last 24 hr 01/28/25 15:40 WBC 11.3 H RBC 4.16 L Hgb 9.9 L Hct 31.5 L MCV 75.7 L MCH 23.8 L MCHC 31.5 RDW 16.5 H Plt Count 412 H Neut % (Auto) 76.7 H Lymph % (Auto) 11.3 L [place] % (Auto) 10.7 Eos % (Auto) 1.0 L Baso % (Auto) 0.3 Neut # (Auto) 8700 H Lymph # (Auto) 1300 [place] # (Auto) 1200 H Eos # (Auto) 100 Baso # (Auto) 0 ESR 65 H Sodium 135 L Potassium 4.2 Chloride 101 Carbon Dioxide 21 L BUN 29 H Creatinine 1.81 H Estimated GFR 46 L BUN/Creatinine Ratio 16.0 Glucose 92 Lactate 1.1 Calcium 9.0 Total Bilirubin 0.3 AST 23 ALT 13 Alkaline Phosphatase 87 C-Reactive Protein 8.4 H Total Protein 7.7 Albumin 4.2 Globulin 3.5 Albumin/Globulin Ratio 1.2 Procalcitonin 0.113 Assessment & Plan Assessment & Plan narrative: Osteomyelitis of right 5th metatarsal in a patient with diabetic nephropathy type 2 diabetes requiring insulin. -admit for acute treatment with intravenous antibiotics and consultation with Orthopedic surgery -IV cefepime and daptomycin for coverage of Gram-negative anaerobes and MRSA given multiple previous infections -further imaging had discretion of Orthopedic surgery -blood cultures -NPO after midnight Acute kidney injury on chronic kidney disease with diabetic nephropathy: -Hydrate with normal saline -renally dose medications and avoid nephrotoxic agents Type 2 diabetes requiring insulin: -consult pharmacy for insulin management with particular focus on unpredictability of his ability to eat due to procedures -hold all oral antidiabetic medications Essential hypertension: -resume amlodipine tomorrow -avoid MICHAEL inhibitors arbs and thiazides due to acute kidney injury Thyroid cancer status post treatment -resume Synthroid replacement DVT prophylaxis: -1 dose of heparin 5000 units subQ tonight Code status: -full code Time-based coding: I spent 75 minutes in consultation both in the presence of the patient as well as obtaining history, exam reviewing outside data placing orders discussions with pharmacy and counseling the patient Time-Based Coding :: [TOTAL MINUTES] spent with patient and on the chart (including review of chart, obtaining history, exam, reviewing outside data, placing orders, documenting exam and treatment plan, and counseling patient) on [DATE].
[2025-01-28] MEDS: SODIUM CHLORIDE 0.9% 1,000 ML 100 ML IV (18:25)
[2025-01-28] MEDS: HEPARIN 5,000 UNIT/ML VIAL 5000 UNIT SUBCUT (18:26)
--- NOTE | 2025-01-28 18:54 | PC.NURSE ---
Patient arrived to room 211 this evening at approximately 1800. He is A&OX4 VSS, afebrile. IVF NS at 100ml/hr started. Admission assessment completed. Pt reports baseline numbess/neuropathy to B feet. Pain to wounded R foot only painful when weight is placed on foot. At rest denies pain.
--- NOTE | 2025-01-28 19:55 | PC.NURSE ---
Pictures of wound taken by day shift RN unable to upload, will get assistance to post photos.
[2025-01-29] MEDS: CEFEPIME 2 GM in SODIUM CHLORIDE 0.9% 100 ML IV ×2 (03:35→17:35)
[2025-01-29] MEDS: SODIUM CHLORIDE 0.9% 1,000 ML 100 ML IV ×2 (04:49→15:07)
[2025-01-29 06:39] LABS: Add Manual Diff / Slide Review NO; Basophils Absolute Auto 0 /uL (0-100); Basophils Percent Auto 0.3 % (0-2); Eosinophils Absolute Auto 200 /uL (0-450); Eosinophils Percent Auto 2.1 % (2-4); Hematocrit 31.1 % (41-53); Hemoglobin 9.9 g/dL (13.5-17.5); Lymphocytes Absolute Auto 1000 /uL (1100-4500); Lymphocytes Percent Auto 11.9 % (25-40); Mean Corpuscular HGB Conc 31.7 % (30-36); Mean Corpuscular Volume 75.8 fL (80-100); Monocytes Absolute Auto 1000 /uL (0-900); Monocytes Percent Auto 12.1 % (3-14); Neutrophils Absolute Auto 6000 /uL (1500-7000); Neutrophils Percent Auto 73.6 % (50-75); Platelet Count 370 X10^3/uL (150-400); Red Blood Cell Count 4.11 X10^6/uL (4.5-5.9); Red Cell Distribution Width 16.3 % (11.6-14.8); White Blood Cell Count 8.1 X10^3/uL (4.5-11.0)
[2025-01-29 08:00] VITALS: BP 144/81; PULSE 104; RESP 14; TEMP 36.8; O2SAT 96
[2025-01-29 09:01] LABS: Alanine Aminotransferase 11 IU/L (<50); Albumin 3.9 g/dL (3.5-5.0); Albumin Globulin Ratio 1.1 (1.0-2.8); Alkaline Phosphatase 78 U/L (38-126); Aspartate Aminotransferase 21 IU/L (17-59); BUN Creatinine Ratio 16.1 (6-22); Bilirubin Total 0.3 mg/dL (0.2-1.3); Blood Urea Nitrogen 22 mg/dL (9-20); Calcium 9.1 mg/dL (8.4-10.2); Carbon Dioxide 24 mmol/L (22-32); Chloride 105 mmol/L (98-107); Estimated Glomerular Filt Rate > 60 mL/min (>60); Globulin 3.5 g/dL (1.7-4.1); Glucose 87 mg/dL (70-100); HEMOLYSIS < 15 (0-50); Potassium 4.3 mmol/L (3.4-5.1); Sodium 138 mmol/L (137-145); Total Protein 7.4 g/dL (6.3-8.2)
[2025-01-29] MEDS: DAPTOMYCIN IV (10:00)
[2025-01-29] MEDS: ISOOSMOTIC VEHICLE IV (10:00)
[2025-01-29] MEDS: METOPROLOL IR 25 MG TABLET PO ×2 (11:52→17:29)
[2025-01-29] MEDS: AMLODIPINE 5 MG TABLET 10 MG PO (11:52)
[2025-01-29] MEDS: LEVOTHYROXINE 112 MCG TABLET 224 MCG PO (12:05)
--- NOTE | 2025-01-29 12:05 | DI.MRI.S_ITS ---
PROCEDURE: MR FOOT RT WO/W CON INDICATIONS: Diabetic ulcer TECHNIQUE: Noncontrast coronal T1 spin echo and STIR, sagittal T1 spin echo with fat saturation and STIR, axial T1 spin echo and T2 fast spin echo with fat saturation. After the administration of contrast, axial/sagittal/coronal T1 spin echo with fat saturation through the right foot . COMPARISON: [facility], CR, XR FOOT RT 2V, 01/28/2025, 12:30. FINDINGS: Image quality: Excellent. Enhancement: There is no abnormal mass-like or nodular enhancement. Bone: There is an age-indeterminate, ununited fracture of the 5th metatarsal proximal shaft (04/08). There is marrow replacement of the dominant distal fracture fragment/shaft with corresponding marrow edema, and mild enhancement (04/09; 05/10; 10/09). There is loss of the marrow signal with corresponding marrow edema, but without enhancement of the dominant proximal fracture fragment/base of the 5th metatarsal (10/10). Between the 2 fracture fragments, there is a nonenhancing 1.4 cm focus of granulation tissue versus bony sequestrum (05/10). There is a sinus tract that extends to the lateral plantar subcutaneous tissue (05/12). Periosteal reaction is present around the 5th metatarsal proximal-mid shaft region. Foci of discontinuous marrow edema are present throughout the proximal shafts and bases of the 2nd-4th metatarsals, neck of the 4th metacarpal (05/12), intermediate/lateral cuneiforms, and cuboid without corresponding T1 hypointense fracture lines or discrete marrow replacement (04/24-). Joint: There is no significant joint effusion in the field of view. There is no significant collapse of the midfoot arch at this time. Muscle: Mild diffuse fatty replacement and corresponding intramuscular edema is present in the visualized plantar foot musculature, with corresponding mild enhancement. Tendon: The visualized flexor and extensor tendons are within normal limits. Other: Subcutaneous edema is present around the midfoot and hindfoot, predominantly on the lateral aspect (8/48). IMPRESSION: 1. Age-indeterminate ununited 5th metatarsal proximal shaft fracture, complicated by osteomyelitis, and likely necrosis of the proximal fracture fragment with an intervening bony sequestrum versus granulation tissue. 2. Subacute denervation changes of the plantar foot musculature, along with foci of marrow edema, likely representing sequelae of neuropathic arthropathy/myopathy. 3. Subcutaneous edema along the midfoot and hindfoot, which can be seen with cellulitis, lymphedema, or venous congestion. Dictated by: Laith Robles M.D. on 01/29/2025 at 18:23 Approved by: Laith Robles M.D. on 01/29/2025 at 18:36
--- NOTE | 2025-01-29 13:58 | P.PN_ITS ---
Subjective Subjective Date Patient Seen: 01/29/25 Time Patient Seen: 13:59 Interval history: Chief complaint: Right foot pain and swelling with ascending erythema secondary to osteomyelitis with pathological fracture in right foot. History of present illness: 44-year-old male with type 2 diabetes recently escalated in his treatment to include 44 units of basal insulin about 4 years ago who has had multiple previous foot infections of the right foot and previous infections of the left foot patient got caught in the rain and developed a blister on the right lateral foot over the weekend. He develops these frequently however this morning he started having significant pain redness swelling with streaking up his right lower leg went to a walk-in clinic. X-rays of foot at the walk-in clinic showed a pathologic fracture and erosive changes at the 5th metatarsal base concerning for osteomyelitis. Patient came to the emergency department for evaluation. In the emergency department the patient was noted to have fever of 101 white blood cell count of 11,000, ESR 65 BUN 29 creatinine 1.8 C-reactive protein of 8.4 patient was given 2 g of cefepime and vancomycin was started but was not tolerated and interrupted due to nausea and vomiting and headache Patient was referred for admission for osteomyelitis consultation with Dr. Pedro orthopedic surgery. Consultation with pharmacy for coverage of MRSA and g negative I do have concerns discussion of cefepime and daptomycin given his reaction to vancomycin and his acute on chronic kidney injury. Pharmacy will also help manage his insulin we will hold his oral medications tonight and will resume only essential medications tomorrow Hospital course: 01/29: No fevers overnight pain is controlled minimal use of analgesics Resumed home medications except oral diabetic medications Consultation with Orthopedic surgery MRI is pending of the foot Continue with daptomycin and cefepime Review of systems: Up until today patient has not had fever or chills dizziness No visuals or sinus symptoms or dysphagia No chest pain palpitation No shortness of breath cough No abdominal pain nausea vomiting No urinary symptoms No paresthesias paresis Physical exam: Pleasant middle-aged male that nervous but no acute distress HEENT unremarkable Neck no carotid bruits Heart rate and rhythm regular no murmurs Lungs clear Abdomen benign Extremities right lower extremity demonstrates erythema and swelling from toes to just below the knee there is callus and eschar on the right lateral aspect of the right foot Left lower extremity shows chronic edema no acute erythema but evidence of pes cavus suggesting neuropathy Exam Vital Signs (past 8 hours): - 01/29/25 08:00 Temperature 98.3 F Pulse Rate 104 H Respiratory Rate 14 Blood Pressure 144/81 H Pulse Oximetry 96 Oxygen Flow Rate 0 Oxygen Delivery Method Room Air Oxygen Flow Rate 0 Objective Labs 01/29/25 05:50 01/29/25 08:35 Labs: Laboratory Results - last 24 hr 01/28/25 01/29/25 01/29/25 15:40 05:50 08:35 WBC 11.3 H 8.1 RBC 4.16 L 4.11 L Hgb 9.9 L 9.9 L Hct 31.5 L 31.1 L MCV 75.7 L 75.8 L MCH 23.8 L 24.0 L MCHC 31.5 31.7 RDW 16.5 H 16.3 H Plt Count 412 H 370 Neut % (Auto) 76.7 H 73.6 Lymph % (Auto) 11.3 L 11.9 L [place] % (Auto) 10.7 12.1 Eos % (Auto) 1.0 L 2.1 Baso % (Auto) 0.3 0.3 Neut # (Auto) 8700 H 6000 Lymph # (Auto) 1300 1000 L [place] # (Auto) 1200 H 1000 H Eos # (Auto) 100 200 Baso # (Auto) 0 0 ESR 65 H Sodium 135 L 138 Potassium 4.2 4.3 Chloride 101 105 Carbon Dioxide 21 L 24 BUN 29 H 22 H Creatinine 1.81 H 1.37 H Estimated GFR 46 L > 60 BUN/Creatinine Ratio 16.0 16.1 Glucose 92 87 Lactate 1.1 Calcium 9.0 9.1 Total Bilirubin 0.3 0.3 AST 23 21 ALT 13 11 Alkaline Phosphatase 87 78 C-Reactive Protein 8.4 H Total Protein 7.7 7.4 Albumin 4.2 3.9 Globulin 3.5 3.5 Albumin/Globulin Ratio 1.2 1.1 Procalcitonin 0.113 [facility] Medical History (Updated 01/28/25 @ 15:36 by Rodney Cabrera MD) Thyroid cancer Umbilical hernia without mention of obstruction or gangrene History of nephrolithiasis Bilateral nephrolithiasis Chronic diastolic (congestive) heart failure 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 History of thyroid cancer Paralysis of left vocal cord Acute bacterial sinusitis Viral URI with cough Sleep apnea (~2013) Pinched nerve (~2013) Vocal cord paralysis (~2015) Eosinophilic esophagitis Inflamed sebaceous cyst Ulcerative colitis (~2020) 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 chronic kidney disease Severe obesity Venous insufficiency Polyneuropathy, unspecified CKD stage G2/A2, GFR 60-89 and albumin creatinine ratio 30-299 mg/g Primary osteoarthritis involving multiple joints Acquired hypothyroidism Mixed hyperlipidemia Essential hypertension Facet arthropathy, cervical Cervical radiculopathy Surgical History Anesthesia H/O Achilles tendon repair (~2012) Status post removal of thyroid nodule (~2015) Family History Mother Spine degeneration Grandmother Diabetes mellitus History of heart disease Grandfather History of heart disease Grandfather Diabetes mellitus Stroke Hyperlipidemia Grandmother Cancer Other Hypertension Social History marital status: unmarried,single household members: family Smoking Status: Never smoker alcohol intake: former caffeine: Yes Type(s) of exercise: walking frequency: daily Assessment & Plan Assessment & Plan narrative: Osteomyelitis of right 5th metatarsal in a patient with diabetic nephropathy type 2 diabetes requiring insulin. -admit for acute treatment with intravenous antibiotics and consultation with Orthopedic surgery -IV cefepime and daptomycin for coverage of Gram-negative anaerobes and MRSA given multiple previous infections -further imaging had discretion of Orthopedic surgery MRI pending -blood cultures -resume diet Acute kidney injury on chronic kidney disease with diabetic nephropathy: -Hydrate with normal saline -renally dose medications and avoid nephrotoxic agents Type 2 diabetes requiring insulin: -consult pharmacy for insulin management with particular focus on unpredictability of his ability to eat due to procedures -hold all oral antidiabetic medications Essential hypertension: -resume amlodipine tomorrow -avoid MICHAEL inhibitors arbs and thiazides due to acute kidney injury Thyroid cancer status post treatment -resume Synthroid replacement DVT prophylaxis: -1 dose of heparin 5000 units subQ tonight Code status: -full code Time-based coding: I spent 75 minutes in consultation both in the presence of the patient as well as obtaining history, exam reviewing outside data placing orders discussions with pharmacy and counseling the patient Time-Based Coding :: I spent 75 minutes in consultation both in the presence of the patient as well as obtaining history, exam reviewing outside data placing orders discussions with pharmacy and counseling the patient
--- NOTE | 2025-01-29 18:18 | PM.PN.1 ---
Subjective Subjective Interval history: I came by to check on Tao this evening but unfortunately he was not present as he was downstairs getting an MRI. On review of his radiographs and history, he has an open wound on the plantar aspect of his lateral foot at the site of his 5th metatarsal base. There is a fracture through that area as well which is likely indicative of osteomyelitis. This is unfortunately an area that is not easily amenable to functioning with an amputation which makes it challenging to provide definitive surgical management of his presumed osteomyelitis. Unfortunately the pathologic fracture through the 5th metatarsal is also through an area with very poor blood supply. This will further complicate efforts to get this area to heal. I have ordered an MRI to evaluate for any abscess which could be drained in the area. With regards to definitive management of the osteomyelitis however, he is certainly at risk of having progression to requiring a below-knee amputation. I think the most likely outcome in his case is that we did not identify a abscess on the MRI and then he follows up outpatient with Podiatry for management of his wound potentially with total contact casting or other modalities. This would obviously not address the fracture of the 5th metatarsal base even if it were to heal however which underscores the severity of this presentation. I will follow up after reviewing the MRI. Exam Vital Signs (past 8 hours): Oxygen Delivery Method Room Air Oxygen Flow Rate 0 Objective Labs 01/29/25 05:50 01/29/25 08:35 Labs: Laboratory Results - last 24 hr 01/29/25 01/29/25 05:50 08:35 WBC 8.1 RBC 4.11 L Hgb 9.9 L Hct 31.1 L MCV 75.8 L MCH 24.0 L MCHC 31.7 RDW 16.3 H Plt Count 370 Neut % (Auto) 73.6 Lymph % (Auto) 11.9 L [place] % (Auto) 12.1 Eos % (Auto) 2.1 Baso % (Auto) 0.3 Neut # (Auto) 6000 Lymph # (Auto) 1000 L [place] # (Auto) 1000 H Eos # (Auto) 200 Baso # (Auto) 0 Sodium 138 Potassium 4.3 Chloride 105 Carbon Dioxide 24 BUN 22 H Creatinine 1.37 H Estimated GFR > 60 BUN/Creatinine Ratio 16.1 Glucose 87 Calcium 9.1 Total Bilirubin 0.3 AST 21 ALT 11 Alkaline Phosphatase 78 Total Protein 7.4 Albumin 3.9 Globulin 3.5 Albumin/Globulin Ratio 1.1 [facility] Medical History (Updated 01/28/25 @ 15:36 by Rodney Cabrera MD) Thyroid cancer Umbilical hernia without mention of obstruction or gangrene History of nephrolithiasis Bilateral nephrolithiasis Chronic diastolic (congestive) heart failure 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 History of thyroid cancer Paralysis of left vocal cord Acute bacterial sinusitis Viral URI with cough Sleep apnea (~2013) Pinched nerve (~2013) Vocal cord paralysis (~2015) Eosinophilic esophagitis Inflamed sebaceous cyst Ulcerative colitis (~2020) 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 chronic kidney disease Severe obesity Venous insufficiency Polyneuropathy, unspecified CKD stage G2/A2, GFR 60-89 and albumin creatinine ratio 30-299 mg/g Primary osteoarthritis involving multiple joints Acquired hypothyroidism Mixed hyperlipidemia Essential hypertension Facet arthropathy, cervical Cervical radiculopathy Surgical History Anesthesia H/O Achilles tendon repair (~2012) Status post removal of thyroid nodule (~2015) Family History Mother Spine degeneration Grandmother Diabetes mellitus History of heart disease Grandfather History of heart disease Grandfather Diabetes mellitus Stroke Hyperlipidemia Grandmother Cancer Other Hypertension Social History marital status: unmarried,single household members: family Smoking Status: Never smoker alcohol intake: former caffeine: Yes Type(s) of exercise: walking frequency: daily Assessment & Plan Time-Based Coding :: [TOTAL MINUTES] spent with patient and on the chart (including review of chart, obtaining history, exam, reviewing outside data, placing orders, documenting exam and treatment plan, and counseling patient) on [DATE].
[2025-01-29 20:00] VITALS: BP 132/77; PULSE 93; RESP 18; TEMP 36.6; O2SAT 97
[2025-01-30] MEDS: SODIUM CHLORIDE 0.9% 1,000 ML 100 ML IV (02:01)
[2025-01-30] MEDS: LEVOTHYROXINE 112 MCG TABLET 224 MCG PO (05:16)
[2025-01-30] MEDS: CEFEPIME 2 GM in SODIUM CHLORIDE 0.9% 100 ML IV ×2 (05:16→17:24)
[2025-01-30 07:00] VITALS: BP 130/70; PULSE 90; RESP 17; TEMP 36.4; O2SAT 98
--- NOTE | 2025-01-30 07:48 | CM.DANOTE ---
Initial DCP Assessment Visit Note Reviewed EMR and team rounds for pt's medical status and updates. Met with pt at bedside to introduce self and role, pt was found to be resting quietly, stating his was in no pain, and that he's independent at baseline with no AD for mobility needs. Pt is full-time employed, lives in own home in [place]. He will either drive himself home, or have a friend drive him, pending the outcome of the medical procedures that Ortho will decide on in the next day. Payor: [facility] PCP: Dr. Haq Pt is a 44 year-old with a hx of type II diabetes and multiple foot wounds, presented to the ED after having worsening pain/swelling/discharge from his L-lateral foot. OP x-ray in the [facility] confirmed a pathological fracture (ended up being two) and extensive osteomyelitis. He was started on IV ABO's, blood cultures are pending. Ortho consulted, pending a decision for nonsurgical managment. Depending on foot MRI results, pt may need to see OP podiatry for the wound care, and/or possibly face amputation below the knee if he is not able to improve. DCP will continue to follow and assist with final d/c needs and recommendations. 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 No History Provided By Patient,Medical Record Has Patient been admitted in last 30 No days? Prior Living Arrangements House Household Members family Type of transporation used prior to Drives own vehicle admit Independent with ADL's Yes Is patient alert and oriented? Yes Comment N/A Caregiver for Another No Comment N/A Comment OP Podiatry Barriers to Discharge No Discharge Plan Home Transportation Arrangement Not yet determined. Referrals Initiated None needed Whiteboard Updated in Patient Room with Yes name and ext. # of Fretted Instruments Inspector Review Status In Process Please Provide Date Initial DC 01/30/25 Assessment Was Performed
--- NOTE | 2025-01-30 08:30 | PM.PN.1 ---
Subjective Subjective Interval history: MRI obtained yesterday evening was reviewed. This demonstrates, as anticipated, osteomyelitis of the fifth ray with osteomyelitis and a pathologic fracture. I obtained the MRI to evaluate for a possible drainable abscess which could be debrided in order to reduce infectious burden during this admission given his acute presentation. There are no large fluid collections visualized, as would be anticipated given the open wound as the infectious material is likely draining from the open wound. The location of the pathologic fracture will compromise the function of the peroneus brevis tendon and has a very poor blood supply, both of which would present complicating factures for management of the osteomyelitis and render a simple amputation of the area a non-viable option as it would leave the foot nonfunctional. Once he has stabilized medically I would recommend discharge on oral antibiotics with followup with either a foot surgeon or a security incident response specialist for likely outpatient surgery to definitively manage this chronic issue which may involve reconstructive procedures in addition to resection of the necrotic bone. He should not bear any weight through the area of the wound but may bear weight through his heel if this can be accomodated. Exam Vital Signs (past 8 hours): Oxygen Delivery Method Room Air Oxygen Flow Rate 0 Objective Labs 01/29/25 05:50 01/29/25 08:35 Labs: Laboratory Results - last 24 hr 01/29/25 08:35 Sodium 138 Potassium 4.3 Chloride 105 Carbon Dioxide 24 BUN 22 H Creatinine 1.37 H Estimated GFR > 60 BUN/Creatinine Ratio 16.1 Glucose 87 Calcium 9.1 Total Bilirubin 0.3 AST 21 ALT 11 Alkaline Phosphatase 78 Total Protein 7.4 Albumin 3.9 Globulin 3.5 Albumin/Globulin Ratio 1.1 [facility] Medical History (Updated 01/28/25 @ 15:36 by Rodney Cabrera MD) Thyroid cancer Umbilical hernia without mention of obstruction or gangrene History of nephrolithiasis Bilateral nephrolithiasis Chronic diastolic (congestive) heart failure 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 History of thyroid cancer Paralysis of left vocal cord Acute bacterial sinusitis Viral URI with cough Sleep apnea (~2013) Pinched nerve (~2013) Vocal cord paralysis (~2015) Eosinophilic esophagitis Inflamed sebaceous cyst Ulcerative colitis (~2020) 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 chronic kidney disease Severe obesity Venous insufficiency Polyneuropathy, unspecified CKD stage G2/A2, GFR 60-89 and albumin creatinine ratio 30-299 mg/g Primary osteoarthritis involving multiple joints Acquired hypothyroidism Mixed hyperlipidemia Essential hypertension Facet arthropathy, cervical Cervical radiculopathy Surgical History Anesthesia H/O Achilles tendon repair (~2012) Status post removal of thyroid nodule (~2015) Family History Mother Spine degeneration Grandmother Diabetes mellitus History of heart disease Grandfather History of heart disease Grandfather Diabetes mellitus Stroke Hyperlipidemia Grandmother Cancer Other Hypertension Social History marital status: unmarried,single household members: family Smoking Status: Never smoker alcohol intake: former caffeine: Yes Type(s) of exercise: walking frequency: daily Assessment & Plan Time-Based Coding :: [TOTAL MINUTES] spent with patient and on the chart (including review of chart, obtaining history, exam, reviewing outside data, placing orders, documenting exam and treatment plan, and counseling patient) on [DATE].
[2025-01-30] MEDS: DAPTOMYCIN IV (09:38)
[2025-01-30] MEDS: ISOOSMOTIC VEHICLE IV (09:38)
[2025-01-30] MEDS: AMLODIPINE 5 MG TABLET 10 MG PO (09:39)
[2025-01-30] MEDS: METOPROLOL IR 25 MG TABLET PO ×3 (09:39→20:40)
--- NOTE | 2025-01-30 14:10 | P.PN_ITS ---
Subjective Subjective Date Patient Seen: 01/30/25 Time Patient Seen: 14:10 Interval history: Chief complaint: Right foot pain and swelling with ascending erythema secondary to osteomyelitis with pathological fracture in right foot. History of present illness: 44-year-old male with type 2 diabetes recently escalated in his treatment to include 44 units of basal insulin about 4 years ago who has had multiple previous foot infections of the right foot and previous infections of the left foot patient got caught in the rain and developed a blister on the right lateral foot over the weekend. He develops these frequently however this morning he started having significant pain redness swelling with streaking up his right lower leg went to a walk-in clinic. X-rays of foot at the walk-in clinic showed a pathologic fracture and erosive changes at the 5th metatarsal base concerning for osteomyelitis. Patient came to the emergency department for evaluation. In the emergency department the patient was noted to have fever of 101 white blood cell count of 11,000, ESR 65 BUN 29 creatinine 1.8 C-reactive protein of 8.4 patient was given 2 g of cefepime and vancomycin was started but was not tolerated and interrupted due to nausea and vomiting and headache Patient was referred for admission for osteomyelitis consultation with Dr. Pedro orthopedic surgery. Consultation with pharmacy for coverage of MRSA and g negative I do have concerns discussion of cefepime and daptomycin given his reaction to vancomycin and his acute on chronic kidney injury. Pharmacy will also help manage his insulin we will hold his oral medications tonight and will resume only essential medications tomorrow Hospital course: 01/29: No fevers overnight pain is controlled minimal use of analgesics Resumed home medications except oral diabetic medications Consultation with Orthopedic surgery MRI is pending of the foot Continue with daptomycin and cefepime 01/30: No fevers or chills patient is not complaining of significant pain of his right lower extremity. Blood cultures no growth in 24 hours from specimen drawn 01/28 White blood cell count de-escalated to 8.1 BUN creatinine 22/1.37 yesterday MRI demonstrates right metatarsal fracture and probable necrosis. Discussed the case with Dr. Daily who can refer to [facility]ie Quan podiatry in his group [phone] at [address] [id number] We will continue daptomycin cefepime and see if we can initiate a referral to Infectious Disease as well as PICC line tomorrow if there is no growth and antibiotics Review of systems: Up until today patient has not had fever or chills dizziness No visuals or sinus symptoms or dysphagia No chest pain palpitation No shortness of breath cough No abdominal pain nausea vomiting No urinary symptoms No paresthesias paresis Physical exam: Pleasant middle-aged male that nervous but no acute distress HEENT unremarkable Neck no carotid bruits Heart rate and rhythm regular no murmurs Lungs clear Abdomen benign Extremities right lower extremity demonstrates erythema and swelling from toes to just below the knee there is callus and eschar on the right lateral aspect of the right foot Left lower extremity shows chronic edema no acute erythema but evidence of pes cavus suggesting neuropathy MRI right foot: IMPRESSION: 1. Age-indeterminate ununited 5th metatarsal proximal shaft fracture, complicated by osteomyelitis, and likely necrosis of the proximal fracture fragment with an intervening bony sequestrum versus granulation tissue. 2. Subacute denervation changes of the plantar foot musculature, along with foci of marrow edema, likely representing sequelae of neuropathic arthropathy/myopathy. 3. Subcutaneous edema along the midfoot and hindfoot, which can be seen with cellulitis, lymphedema, or venous congestion. Assessment and plan: Osteomyelitis of right 5th metatarsal in a patient with diabetic nephropathy type 2 diabetes requiring insulin. -admit for acute treatment with intravenous antibiotics and consultation with Orthopedic surgery -IV cefepime and daptomycin for coverage of Gram-negative anaerobes and MRSA given multiple previous infections Recommendations from orthopedic surgery: ...There are no large fluid collections visualized, as would be anticipated given the open wound as the infectious material is likely draining from the open wound. The location of the pathologic fracture will compromise the function of the peroneus brevis tendon and has a very poor blood supply, both of which would present complicating factures for management of the osteomyelitis and render a simple amputation of the area a non-viable option as it would leave the foot nonfunctional. Once he has stabilized medically I would recommend discharge on oral antibiotics with followup with either a foot surgeon or a warehouse order picker for likely outpatient surgery to definitively manage this chronic issue which may involve reconstructive procedures in addition to resection of the necrotic bone. He should not bear any weight through the area of the wound but may bear weight through MRI demonstrates right metatarsal fracture and probable necrosis. Discussed the case with Dr. Daily who can refer to Francie Quan podiatry in his group [phone] [facility] [id number] We will continue daptomycin cefepime and see if we can initiate a referral to Infectious Disease as well as PICC line tomorrow if there is no growth and antibioticseel if this can be accomodated. Acute kidney injury on chronic kidney disease with diabetic nephropathy: -Hydrate with normal saline -renally dose medications and avoid nephrotoxic agents Type 2 diabetes requiring insulin: -consult pharmacy for insulin management with particular focus on unpredictability of his ability to eat due to procedures -hold all oral antidiabetic medications Essential hypertension: -resume amlodipine tomorrow -avoid MICHAEL inhibitors arbs and thiazides due to acute kidney injury Thyroid cancer status post treatment -resume Synthroid replacement DVT prophylaxis: -1 dose of heparin 5000 units subQ tonight Code status: -full code Time-based coding: I spent 55 minutes in consultation both in the presence of the patient as well as obtaining history, exam reviewing outside data placing orders discussions with pharmacy and counseling the patient Exam Vital Signs (past 8 hours): - 01/30/25 07:00 Temperature 97.5 F L Pulse Rate 90 Respiratory Rate 17 Blood Pressure 130/70 Pulse Oximetry 98 Oxygen Flow Rate 0 Oxygen Delivery Method Room Air Oxygen Flow Rate 0 Objective Labs 01/29/25 05:50 01/29/25 08:35 [facility] Medical History (Updated 01/28/25 @ 15:36 by Rodney Cabrera MD) Thyroid cancer Umbilical hernia without mention of obstruction or gangrene History of nephrolithiasis Bilateral nephrolithiasis Chronic diastolic (congestive) heart failure 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 immunosuppressive drug therapy History of thyroid cancer Paralysis of left vocal cord Acute bacterial sinusitis Viral URI with cough Sleep apnea (~2013) Pinched nerve (~2013) Vocal cord paralysis (~2015) Eosinophilic esophagitis Inflamed sebaceous cyst Ulcerative colitis (~2020) 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 chronic kidney disease Severe obesity Venous insufficiency Polyneuropathy, unspecified CKD stage G2/A2, GFR 60-89 and albumin creatinine ratio 30-299 mg/g Primary osteoarthritis involving multiple joints Acquired hypothyroidism Mixed hyperlipidemia Essential hypertension Facet arthropathy, cervical Cervical radiculopathy Surgical History Anesthesia H/O Achilles tendon repair (~2012) Status post removal of thyroid nodule (~2015) Family History Mother Spine degeneration Grandmother Diabetes mellitus History of heart disease Grandfather History of heart disease Grandfather Diabetes mellitus Stroke Hyperlipidemia Grandmother Cancer Other Hypertension Social History marital status: unmarried,single household members: family Smoking Status: Never smoker alcohol intake: former caffeine: Yes Type(s) of exercise: walking frequency: daily Assessment & Plan Time-Based Coding :: [TOTAL MINUTES] spent with patient and on the chart (including review of chart, obtaining history, exam, reviewing outside data, placing orders, documenting exam and treatment plan, and counseling patient) on [DATE].
--- NOTE | 2025-01-30 17:12 | P.PN_ITS ---
Subjective Subjective Interval history: Tao is a pleasant 44 year old male who is seen for evaluation of his R foot osteomyelitis. He denies any significant foot pain, states the pain and swelling have significantly improved since being started on antibiotics. He has little feeling in his feet from baseline diabetic neuropathy. 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 He is eager to be d/c to home and get back to work. Exam Vital Signs (past 8 hours): Oxygen Delivery Method Room Air Oxygen Flow Rate 0 Narrative Exam Narrative: Patient sitting comfortably in bed eating a meal during our interview today. No acute distress. AOx3. Significant swelling in the RLE, most especially in the right foot. There is evidence of a healing wound w/ an area of dry eschar on the lateral right foot. DF, PF, EHL intact. Decreased sensation in bilateral lower extremities. Calves soft and non-tender bilaterally. 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 History of thyroid cancer Paralysis of left vocal cord Acute bacterial sinusitis Viral URI with cough Sleep apnea (~2013) Pinched nerve (~2013) Vocal cord paralysis (~2015) Eosinophilic esophagitis Inflamed sebaceous cyst Ulcerative colitis (~2020) 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 chronic kidney disease Severe obesity Venous insufficiency Polyneuropathy, unspecified CKD stage G2/A2, GFR 60-89 and albumin creatinine ratio 30-299 mg/g Primary osteoarthritis involving multiple joints Acquired hypothyroidism Mixed hyperlipidemia Essential hypertension Facet arthropathy, cervical Cervical radiculopathy Surgical History Anesthesia H/O Achilles tendon repair (~2012) Status post removal of thyroid nodule (~2015) Family History Mother Spine degeneration Grandmother Diabetes mellitus History of heart disease Grandfather History of heart disease Grandfather Diabetes mellitus Stroke Hyperlipidemia Grandmother Cancer Other Hypertension Social History marital status: unmarried,single household members: family Smoking Status: Never smoker alcohol intake: former caffeine: Yes Type(s) of exercise: walking frequency: daily Assessment & Plan Assessment and plan (1) Acute osteomyelitis of right foot: Status: Acute (2) Foot fracture, right: Problem details: pathological fracture Qualifiers: Encounter type: initial encounter Fracture type: closed Qualified Code(s): S92.901A - Unspecified fracture of right foot, initial encounter for closed fracture Status: Acute Plan 1) Discharge disposition per medicine. Orthopedics recommendation is home w/ oral antibiotics. Patient will need follow up w/ either a foot and ankle surgeon or a reclamation furnace operator upon d/c to discuss more definitive treatment options including possible reconstructive procedure w/ resection of necrotic bone. (we have both at our office, patient to call and schedule outpatient appt). 2) Continue multimodal pain management as needed. 3) No weight bearing to the area of the wound/lateral foot, okay to weight bear through heel if able to do so safely. All patient's questions were answered, the hey demonstrates understanding and is in agreement with the plan. Call our office if any questions or concerns arise. Time-Based Coding :: [TOTAL MINUTES] spent with patient and on the chart (including review of chart, obtaining history, exam, reviewing outside data, placing orders, documenting exam and treatment plan, and counseling patient) on [DATE].
[2025-01-30 19:00] VITALS: BP 134/74; PULSE 87; RESP 19; TEMP 36.6; O2SAT 98
[2025-01-30] MEDS: SODIUM CHLORIDE 0.9% FLUSH 10 ML IV (20:40)
[2025-01-31] MEDS: CEFEPIME 2 GM in SODIUM CHLORIDE 0.9% 100 ML IV (05:33)
[2025-01-31] MEDS: LEVOTHYROXINE 112 MCG TABLET 224 MCG PO (05:33)
[2025-01-31 08:00] VITALS: BP 138/78; PULSE 95; RESP 18; TEMP 36.5; O2SAT 98
--- NOTE | 2025-01-31 08:13 | PM.DS.1 ---
History of Present Illness History of Present Illness Date Patient Seen: 01/31/25 Time Patient Seen: 08:13 Date of Onset of Symptoms: 01/27/25 Chief complaint: lesion on rt foot Narrative: Date of admission 01/28/2025 Date of discharge 01/31/25 Admission diagnosis osteomyelitis and pathologic fracture right 5th metatarsal Discharge diagnosis osteomyelitis and pathologic fracture right 5th metatarsal \01/29: No fevers overnight pain is controlled minimal use of analgesics Resumed home medications except oral diabetic medications Consultation with Orthopedic surgery MRI is pending of the foot Continue with daptomycin and cefepime 01/30: No fevers or chills patient is not complaining of significant pain of his right lower extremity. Blood cultures no growth in 24 hours from specimen drawn 01/28 White blood cell count de-escalated to 8.1 BUN creatinine /.37 yesterday MRI demonstrates right metatarsal fracture and probable necrosis. Discussed the case with Dr. Daily who can refer to Francie Quan podiatry in his group [phone] at [address] [address] We will continue daptomycin cefepime and see if we can initiate a referral to Infectious Disease as well as PICC line tomorrow if there is no growth and antibiotics Review of systems: Up until today patient has not had fever or chills dizziness No visuals or sinus symptoms or dysphagia No chest pain palpitation No shortness of breath cough No abdominal pain nausea vomiting No urinary symptoms No paresthesias paresis Physical exam: Pleasant middle-aged male that nervous but no acute distress HEENT unremarkable Neck no carotid bruits Heart rate and rhythm regular no murmurs Lungs clear Abdomen benign Extremities right lower extremity demonstrates erythema and swelling from toes to just below the knee there is callus and eschar on the right lateral aspect of the right foot Left lower extremity shows chronic edema no acute erythema but evidence of pes cavus suggesting neuropathy MRI right foot: IMPRESSION: 1. Age-indeterminate ununited 5th metatarsal proximal shaft fracture, complicated by osteomyelitis, and likely necrosis of the proximal fracture fragment with an intervening bony sequestrum versus granulation tissue. 2. Subacute denervation changes of the plantar foot musculature, along with foci of marrow edema, likely representing sequelae of neuropathic arthropathy/myopathy. 3. Subcutaneous edema along the midfoot and hindfoot, which can be seen with cellulitis, lymphedema, or venous congestion. Assessment and plan: Osteomyelitis of right 5th metatarsal in a patient with diabetic nephropathy type 2 diabetes requiring insulin. -admit for acute treatment with intravenous antibiotics and consultation with Orthopedic surgery -IV cefepime change to ertapenem for outpatient IV infusion and daptomycin continue for coverage of Gram-negative anaerobes and MRSA given multiple previous infections We will get IV infusion here at [facility] on Monday an outpatient starting Monday Follow-up with Dr. Winston Moore Orthopedic surgery Follow-up with Dr. Quan podiatry Follow with Dr. Ora Zamora Recommendations from orthopedic surgery: ...There are no large fluid collections visualized, as would be anticipated given the open wound as the infectious material is likely draining from the open wound. The location of the pathologic fracture will compromise the function of the peroneus brevis tendon and has a very poor blood supply, both of which would present complicating factures for management of the osteomyelitis and render a simple amputation of the area a non-viable option as it would leave the foot nonfunctional. Once he has stabilized medically I would recommend discharge on oral antibiotics with followup with either a foot surgeon or a gate attendant for likely outpatient surgery to definitively manage this chronic issue which may involve reconstructive procedures in addition to resection of the necrotic bone. He should not bear any weight through the area of the wound but may bear weight through MRI demonstrates right metatarsal fracture and probable necrosis. Discussed the case with Dr. Daily who can refer to Francie Quan podiatry in his group [phone] [place] [address] We will continue daptomycin cefepime and see if we can initiate a referral to Infectious Disease as well as PICC line tomorrow if there is no growth and antibioticseel if this can be accomodated. Acute kidney injury on chronic kidney disease with diabetic nephropathy: -Hydrate with normal saline -renally dose medications and avoid nephrotoxic agents Type 2 diabetes requiring insulin: -consult pharmacy for insulin management with particular focus on unpredictability of his ability to eat due to procedures -hold all oral antidiabetic medications Essential hypertension: -resume amlodipine tomorrow -avoid MICHAEL inhibitors arbs and thiazides due to acute kidney injury Thyroid cancer status post treatment -resume Synthroid replacement DVT prophylaxis: -1 dose of heparin 5000 units subQ tonight Code status: -full code Time-based coding: I spent 55 minutes in consultation both in the presence of the patient as well as obtaining history, exam reviewing outside data placing orders discussions with pharmacy and counseling the patient Discharge Providers Provider Date of admission: 01/28/25 17:17 Discharge Date: 01/31/25 Primary care physician: Radhames Haq MD Consults: 01/29/25 07:21 Consult to Orthopedic Surgery Routine Comment: Consulting Provider: Jesus Daily Reason for consultation: osteomylitis pathologic fracture Has provider been notified: No 01/29/25 12:42 Consult to Orthopedic Surgery Routine Comment: Consulting Provider: Jesus Daily Reason for consultation: osteomyelitis 5th metatarsal Has provider been notified: Yes Discharge provider: Earnest Lopez MD Exam Vital Signs (past 8 hours): Oxygen Delivery Method Room Air,CPAP Oxygen Flow Rate 0 Objective Labs 01/29/25 05:50 01/29/25 08:35 [facility] Medical History (Updated 01/30/25 @ 17:33 by Yane Corrigan PA-C) Foot fracture, right Thyroid cancer Umbilical hernia without mention of obstruction or gangrene History of nephrolithiasis Bilateral nephrolithiasis Chronic diastolic (congestive) heart failure 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 History of thyroid cancer Paralysis of left vocal cord Acute bacterial sinusitis Viral URI with cough Sleep apnea (~2013) Pinched nerve (~2013) Vocal cord paralysis (~2015) Eosinophilic esophagitis Inflamed sebaceous cyst Ulcerative colitis (~2020) 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 chronic kidney disease Severe obesity Venous insufficiency Polyneuropathy, unspecified CKD stage G2/A2, GFR 60-89 and albumin creatinine ratio 30-299 mg/g Primary osteoarthritis involving multiple joints Acquired hypothyroidism Mixed hyperlipidemia Essential hypertension Facet arthropathy, cervical Cervical radiculopathy Surgical History Anesthesia H/O Achilles tendon repair (~2012) Status post removal of thyroid nodule (~2015) Family History Mother Spine degeneration Grandmother Diabetes mellitus History of heart disease Grandfather History of heart disease Grandfather Diabetes mellitus Stroke Hyperlipidemia Grandmother Cancer Other Hypertension Social History marital status: unmarried,single household members: family Smoking Status: Never smoker alcohol intake: former caffeine: Yes Type(s) of exercise: walking frequency: daily Discharge Plan Discharge Plan Patient Disposition: Home Discharge orders & Medications Prescriptions: New miscellaneous medical supply Misc 1 ea miscellaneous .Continuous PRN (Reason: Ambulation) Qty: 1 0RF Rx Instructions: Knee scooter daptomycin 500 mg recon soln 556 mg IV Q24H 21 Days Rx Instructions: administer over 30 mins ertapenem 1 gram recon soln 1 g IV DAILY 21 Days Continued Hadlima(CF) PushTouch 40 mg/0.4 mL auto-injector 40 mg SUBCUT Q2W Patient Comments: [NO ORIGINAL SIG] atorvastatin 10 mg tablet 10 mg PO DAILY levothyroxine 112 mcg tablet 224 mcg PO 0600 (DME) Respironics Dreamstation CPAP Qty: 1 Dose Instruction: As directed Patient Comments: Pressure: 8-18 cmH2O DME: [employer] Rx Instructions: As directed (DME) pen needle, diabetic [BD Ultra-Fine Candelaria Pen Needle] 32 gauge x 5/32 needle See Rx Instructions .ROUTE .MEDSUPPLY Qty: 50 Rx Instructions: As directed amlodipine 10 mg tablet 10 mg PO DAILY insulin glargine [Basaglar KwikPen U-100 Insulin] 100 unit/mL (3 mL) insulin pen 40 unit SUBCUT BEDTIME sodium zirconium cyclosilicate 5 gram powder in packet 5 g PO DAILY PRN (Reason: low potassium) (DME) FreeStyle Precision Felix Strips Strip See Rx Instructions .ROUTE .MEDSUPPLY Qty: 10 Rx Instructions: As directed; Use to check blood glucose. (DME) FreeStyle Cody 14 Day Sensor Kit See Rx Instructions .ROUTE .MEDSUPPLY Qty: 1 Patient Comments: CHANGE EVERY 14 DAYS DIRECTED. Rx Instructions: As directed (DME) diabetic shoes and orthotics See Rx Instructions .Route .MEDSUPPLY Qty: 1 0RF Rx Instructions: As directed ferrous gluconate 324 mg (37.5 mg iron) Tablet 324 mg PO DAILY prednisone 10 mg tablet 10 mg PO QAM PRN (Reason: colitis) metoprolol tartrate 50 mg tablet 25 mg PO TID glipizide 10 mg tablet 10 mg PO DAILY Jardiance 10 mg tablet 10 mg PO DAILY Discontinued losartan 25 mg tablet 25 mg PO DAILY cephalexin 500 mg capsule 500 mg PO QID 10 Days Qty: 40 0RF hydrochlorothiazide 25 mg tablet 25 mg PO QAM Follow up/Referrals: Zenaida Zamora MD [Non-Staff] - 1 Week Francie Quan DPM [Physician] - 1 Week (osteomyelitis [facility]) Radhames Haq MD [Primary Care Provider] - Jesus Daily MD [Physician] - 1 Week Visit Report/Discharge Packet Stand Alone Forms: Patient Portal/API Discharge Data Primary Care Provider: Radhames Haq V
[2025-01-31] MEDS: AMLODIPINE 5 MG TABLET 10 MG PO (09:43)
[2025-01-31] MEDS: METOPROLOL IR 25 MG TABLET PO (09:44)
[2025-01-31] MEDS: ISOOSMOTIC VEHICLE IV (09:48)
[2025-01-31] MEDS: DAPTOMYCIN IV (09:48)
[2025-01-31] MEDS: SODIUM CHLORIDE 0.9% FLUSH 10 ML IV (09:55)
--- NOTE | 2025-01-31 11:10 | DI.RAD.S_ITS ---
PROCEDURE: XR CHEST FOR PICC 1V INDICATIONS: PICC placement COMPARISON: [facility], [place], XR CHEST 2V, 05/01/2024, 13:01. FINDINGS: PICC was placed by the intravenous therapy team from the right side. Fluoroscopic spot film demonstrates the tip of PICC projecting to the area of distal SVC. IMPRESSION: Tip of PICC projects to the area of distal SVC. Dictated by: Devin Burger M.D. on 01/31/2025 at 11:29 Approved by: Devin Burger M.D. on 01/31/2025 at 11:30
--- NOTE | 2025-01-31 15:14 | CM.DPC ---
DCP Discharge Home Per MD and Drum Sander, pt stable to d/c home today with IV Ertapenem and Dapto for 21 days and script written for knee scooter and below knee cam walker. ALFREDO attempted to contact [facility] but they are closed until Mon. SW called [facility] and faxed clinicals and scripts and they confirm they will call patient later today to arrange pickup or delivery of the DME and does not appear he needs prior auth. SW spoke to [facility] and they reviewed pt's insurance and pt would have $162 a week until he meets the deductible. signed [facility] order form for IV Abx and disk sander confirmed pt set up for outpt infusion tomorrow [facility] and ALFREDO faxed order form and left ms for [facility] for Monday. ALFREDO met bedside with pt and explained role and he remains agreeable with d/c home today and states he has a ride at 1530 and will await [facility] call about DME. Pt aware he is to be here at the hospital [facility] for IV Abx around 1100 and plans to work starting Monday again and will also contact Kay at the [facility] to make sure he is on their schedule. Pt at this time declines Home Infusion. Pt requested Excuse for Work letter and ALFREDO provided. Plan: Patient to d/c home today via friend POV around 1530 and to continue with outpt [facility] and [facility] for recommended DME. ADITI Vega
--- NOTE | 2025-01-31 15:46 | PC.NURSE ---
Day shift Discharge: Pt left via W/C to private vehicle with all belongings. Pt was A & o X 4, and stable, IV removed intact with no issues, pt was educated about stroke and HF.
[2025-02-01] MEDS: ERTAPENEM 1 GM in SODIUM CHLORIDE 0.9% 100 ML IV (13:00)
[2025-02-01] MEDS: DAPTOMYCIN IV (13:29)
[2025-02-01] MEDS: ISOOSMOTIC VEHICLE IV (13:29)
--- NOTE | 2025-02-03 10:44 | CM.DPC ---
Addendum entered by ADITI Vega 02/03/25 15:20: ADD: Call from [facility]anna needing Hospitalist NPI number and dx code/osteomyelitis and duration needed for DME and SW able to update the copy of the scripts and refax. BF Original Note: SW received a call from Alison at [facility] needing at least verbal order for the grams for pt's two IV abx and orders for labs. Dr. Lopez completed the discharge on Wednesday 01/[address] Jensen kindly agreeable to call Alison at [phone] to finalize the needed orders. ALFREDO called [facility] and they have not yet received pt's clinicals for new referral and outpt f/u and SW faxed referral to their office for review and updated Alison at [facility] and they will follow with Dr. Zamora. ADITI Vega
== END 2025-01-31 15:51 | disposition home or self-care (01) | DRG 638 ==
LOC: ED 15:36 → AC 17:18
PROVIDERS: Admitting Provider Internal Medicine; Emergency Provider Emergency Medicine; PCP Internal Medicine; Referring Provider Emergency Medicine; Visit Provider Internal Medicine
DX: E11.69 Type 2 diabetes mellitus with other specified complication (principal); E11.52 Type 2 diabetes mellitus with diabetic peripheral angiopathy with gangrene; K51.019 Ulcerative (chronic) pancolitis with unspecified complications; M84.477A Pathological fracture, right toe(s), initial encounter for fracture; I96 Gangrene, not elsewhere classified; M86.171 Other acute osteomyelitis, right ankle and foot; N17.9 Acute kidney failure, unspecified; D50.0 Iron deficiency anemia secondary to blood loss (chronic); E11.22 Type 2 diabetes mellitus with diabetic chronic kidney disease; I12.9 Hypertensive chronic kidney disease with stage 1 through stage 4 chronic kidney disease, or unspecified chronic kidney disease; G47.30 Sleep apnea, unspecified; E03.9 Hypothyroidism, unspecified; N18.9 Chronic kidney disease, unspecified; E11.40 Type 2 diabetes mellitus with diabetic neuropathy, unspecified; Z79.4 Long term (current) use of insulin; Z85.850 Personal history of malignant neoplasm of thyroid; Z19.2 Hormone resistant malignancy status; Z79.84 Long term (current) use of oral hypoglycemic drugs
CPT/HCPCS: 36415; 36569; 73620; 73720; 80053; 82728; 82962; 83540; 83550; 83605; 84145; 85025; 85651; 86140; 86480; 86706; 87040; 87340; 96365; 96375; 99284; A9579; J0692; J0878; J1644; J2405

== ENCOUNTER → 2025-02-06 09:10 | Outpatient (CLI) | payer OTHER, SELFPAY ==
[2025-01-28 17:58] VITALS: BMI 35.2
--- NOTE | 2025-02-06 | OV.WND_ITS ---
PROGRESS NOTE DETAILS PATIENT NAME: ANAND HAMMER PATIENT NUMBER: [id number] CLINICIAN: IZA LOPEZ RN PATIENT DATE OF : 1980 PHYSICIAN / COMMUNITY ACTION WORKER: VANESSA TAVARES PATIENT SUBJECTIVE CHIEF COMPLAINT THIS INFORMATION WAS OBTAINED FROM THE PATIENT. NEW WOUND ON THE SIDE OF MY RIGHT FOOT ALLERGIES ALCOHOL (SEVERITY: SEVERE, REACTION: SWELLING, ANAPHLAXIC) HPI THIS INFORMATION WAS OBTAINED FROM THE PATIENT. THE FOLLOWING HPI ELEMENTS WERE DOCUMENTED FOR THE PATIENT'S WOUND: LOCATION: R FOOT DURATION: 01/25/25 CONTEXT: DFU WITH OSTEO THE PATIENT IS A 44-YEAR-OLD MALE WITH DIABETES, NEUROPATHY, CHRONIC CHF, STAGE II CKD, HYPERTENSION, ULCERATIVE COLITIS, AND HISTORY OF THYROID CANCER WHO WAS REFERRED BY WARNER TOVAR NP FOR EVALUATION OF A RIGHT DIABETIC FOOT ULCER ASSOCIATED WITH OSTEOMYELITIS. THE PATIENT WAS ADMITTED TO THE HOSPITAL JANUARY 28, 2025 WITH OSTEOMYELITIS. HE WAS SEEN BY ORTHOPEDIC SURGERY WHO DID NOT FEEL THAT HE REQUIRED ANY SURGICAL INTERVENTION DURING HIS HOSPITAL STAY AND RECOMMENDED OUTPATIENT EVALUATION FOR POSSIBLE SURGICAL INTERVENTION. HE WAS DISCHARGED ON JANUARY 31, 2025 ON IV DAPTOMYCIN AND ERTAPENEM. THE PATIENT DENIES HAVING ANY PAIN OR DISCOMFORT. HE HAS NOTED SOME DRAINAGE BUT HE HAS NOT HAD ANY ERYTHEMA OR SWELLING NOR HAS HE HAD ANY FEVER OR CHILLS. THE PATIENT REPORTS A GOOD APPETITE AND GOOD CONTROL OF BLOOD SUGARS. HE HAS BEEN USING A WALKING BOOT AND KNEE SCOOTER FOR PRESSURE OFFLOADING. THE PATIENT DOES HAVE HISTORY OF DIABETIC FOOT ULCERS IN THE PAST. HE IS ON CHRONIC PREDNISONE. ABIS DONE IN CLINIC TODAY WERE 1.26 ON THE RIGHT AND 1.34 ON THE LEFT. HE DOES NOT SMOKE CIGARETTES. THE PATIENT IS BEING FOLLOWED BY DR. ORTEGA WHO IS MANAGING THE IV ANTIBIOTIC THERAPY AND PLANS FOR TOTAL OF 6 WEEKS OF TREATMENT. HE HAS AN APPOINTMENT WITH DR. WOODS IN MID FEBRUARY. LABS 02/03/25: WBC 7.0, HEMOGLOBIN 9.8, HCT 31.3, ESR 56, ELECTROLYTES UNREMARKABLE, BUN 13, CREATININE 1.45, GFR GREATER THAN 60, LFTS NORMAL, C-REACTIVE PROTEIN 1.3 01/29/25: MRI: AGE-INDETERMINATE UNUNITED 5TH METATARSAL PROXIMAL SHAFT FRACTURE, COMPLICATED BY OSTEOMYELITIS, AND LIKELY NECROSIS OF THE PROXIMAL FRACTURE FRAGMENT WITH AN INTERVENING BONY SEQUESTRUM VERSUS GRANULATION TISSUE. 01/28/25: WBC 11.3, HEMOGLOBIN 9.9, HCT 31.5, ESR 65, GFR 46, C-REACTIVE PROTEIN 8.4 12/06/24: HEMOGLOBIN A1C 6.4 FAMILY HISTORY THIS INFORMATION WAS OBTAINED FROM THE PATIENT. CANCER- PATERNAL GRANDPARENTS ANAND HAMMER [id number] 1980 DIABETES- MATERNAL GRANDPARENTS, PATERNAL GRANDPARENTS HYPERTENSION- FATHER, PATERNAL GRANDPARENTS MENTAL ILLNESS- MATERNAL GRANDPARENTS NONE- MOTHER SEIZURES- PATERNAL GRANDPARENTS THYROID PROBLEMS- PATERNAL GRANDPARENTS SOCIAL HISTORY THIS INFORMATION WAS OBTAINED FROM THE PATIENT. 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 MEDICAL HISTORY THIS INFORMATION WAS OBTAINED FROM THE PATIENT. 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 YES? COMPLETE ALL QUESTIONS.: YES LOCATION OF CANCER: THYROID SURGICAL HISTORY THIS INFORMATION WAS OBTAINED FROM THE PATIENT. PATIENT HAS A SURGICAL HISTORY OF: RIGHT ACHILLES LENGTHENING SURGERY- 03/13/2013 THYROIDECTOMY- SURGICAL DEBRIDEMENT OF BONE ON TOE- (PT UNSURE OF WHICH TOE/FOOT) REVIEW OF SYSTEMS (ROS) THIS INFORMATION WAS OBTAINED FROM THE PATIENT. COMPLAINTS AND SYMPTOMS ANAND HAMMER [id number] 1980 PATIENT COM PLAINS OF: CO-MORBID CONDITIONS: DIABETES, NEUROPATHY , OSTEOMYELITIS PRIOR WOUND HISTORY: DRAINAGE, ERYTHEMA PATIENT DENIES COM PLAINTS OR SY M PTOM S RELATED TO: CARDIOVASCULAR (CENTRAL): CHEST PAIN, DYSPNEA ON EXERTION CONSTITUTIONAL SYMPTOMS (GENERAL HEALTH): CHILLS, FEVER, LOSS OF APPETITE PRIOR WOUND HISTORY: BLEEDING, MALODOR, PAIN RESPIRATORY: COUGH, SHORTNESS OF BREATH GENERAL NOTES IMMUNIZATIONS MANAGED BY PCP. OBJECTIVE VITALS HEIGHT/LENGTH: 70 IN (177.8 CM), WEIGHT: 253.2 LBS (115.09 KGS), BMI: 36.3, TEMPERATURE: 97.6 ?F (36.44 ?C), PULSE: 79 BPM, RESPIRATORY RATE: 18 BREATHS/MIN, BLOOD PRESSURE: 142/81 MMHG, PULSE OXIMETRY: 98 %. GENERAL NOTES PATIENT REPORTS CHECKING GLUCOSE PRIOR TO EATING BREAKFAST, 54. HE CONSUMED MIXON AND EGGS, HE AGREED FOR A CBG IN CLINIC. PHYSICAL EXAM CONSTITUTIONAL: VITAL SIGNS REVIEWED AND NOTED. WELL DEVELOPED, WELL NOURISHED, AND IN NO ACUTE DISTRESS. ALERT AND ORIENTED X3. RESPIRATORY: EVEN RESPIRATIONS WITHOUT USE OF ACCESSORY MUSCLES. NO INTERCOASTAL RETRACTIONS NOTED. EVEN AND NON LABORED RESPIRATION. INTEGUMENTARY (HAIR, SKIN): RESOLVING ERYTHEMA. NO SWELLING OR TENDERNESS. SEE WOUND ASSESSMENT. SKIN WARM AND DRY. NO RASHES. NEUROLOGICAL: DECREASED LOWER EXTREMITY SENSATION. PSYCHIATRIC: ORIENTATION TO TIME, PLACE AND PERSON: NORMAL AFFECT WITH NORMAL THOUGHT PATTERN. ADDITIONAL INFORMATION THE PATIENT'S POTENTIAL TO HEAL IS: FAIR. LOWER EXTREMITY ASSESSMENT EDEMA ASSESSMENT: LEFT EXTREMITY: EDEMA IS PRESENT COMPRESSION DEVICE IN USE: NO CALF MEASUREMENT 32 CM FROM BOTTOM OF HEEL WITH LEFT MEASUREMENT OF 41 CM ANKLE MEASUREMENT 5 CM FROM ANKLE WITH LEFT MEASUREMENT OF 26.5 CM FOOT MEASUREMENT 14 CM FROM BACK OF HEEL WITH LEFT MEASUREMENT OF 24 CM RIGHT EXTREMITY: EDEMA IS PRESENT COMPRESSION DEVICE IN USE: NO CALF MEASUREMENT 32 CM FROM BOTTOM OF HEEL WITH RIGHT MEASUREMENT OF 39.5 CM ANKLE MEASUREMENT 5 CM FROM ANKLE WITH RIGHT MEASUREMENT OF 27 CM FOOT MEASUREMENT 14 CM FROM BACK OF HEEL WITH RIGHT MEASUREMENT OF 27 CM VASCULAR ASSESSMENT LEFT EXTREMITY PULSES: DORSALIS PEDIS: PALPABLE ANAND HAMMER [id number] 1980 RIGHT EXTREMITY PULSES: DORSALIS PEDIS: PALPABLE LEFT EXTREMITY COLORS, HAIR GROWTH, AND CONDITIONS: EXTREMITY COLOR: PIGMENTED HAIR GROWTH ON EXTREMITY: YES TEMPERATURE OF EXTREMITY: WARM CAPILARY REFILL: < 3 SECONDS ERYTHEMA: NO DEPENDENT RUBOR: NO HYPERPIGMENTATION: YES LIPODERMATOSCLEROSIS: NO RIGHT EXTREMITY COLORS, HAIR GROWTH, AND CONDITIONS: EXTREMITY COLOR: PIGMENTED HAIR GROWTH ON EXTREMITY: YES TEMPERATURE OF EXTREMITY: WARM CAPILARY REFILL: < 3 SECONDS ERYTHEMA: YES DEPENDENT RUBOR: NO HYPERPIGMENTATION: YES LIPODERMATOSCLEROSIS: NO OFF-LOADING: RIGHT OFF-LOADING DEVICE IN USE: YES DEVICE USED CORRECTLY: YES OFF-LOADNG DEVICE USED: YES GENERAL NOTES AIR CAST AND KNEE SCOOTER FOR OFFLOADING. WOUND ASSESSMENT(S) WOUND #3 RIGHT, LATERAL FOOT IS AN ACUTE YANG GRADE 3 DIABETIC ULCER ACQUIRED ON 01/25/2025 AND HAS RECEIVED A STATUS OF NOT HEALED. INITIAL WOUND ENCOUNTER MEASUREMENTS ARE 1.7CM LENGTH X 1.4CM WIDTH X 0.6 CM DEPTH, WITH AN AREA OF 2.38 SQ CM AND A VOLUME OF 1.428 CUBIC CM. BONE AND ADIPOSE ARE EXPOSED. NO TUNNELING HAS BEEN NOTED. NO SINUS TRACT HAS BEEN NOTED. UNDERMINING HAS BEEN NOTED AT 12:00 AND ENDS AT 12:00 WITH A MAXIMUM DISTANCE OF 1.2CM. THERE IS A MODERATE AMOUNT OF SEROSANGUINEOUS DRAINAGE NOTED WHICH HAS NO ODOR. THE PATIENT REPORTS A WOUND PAIN OF LEVEL 0/10. THE WOUND MARGIN IS UNATTACHED WOUND BED HAS NO, GRANULATION, YES SLOUGH, NO ESCHAR, NO EPITHELIALIZATION. THE PERIWOUND SKIN EXHIBITED EDEMA, CALLUS, MACERATION, ERYTHEMA AND HEMOSIDEROSIS. THE PERIWOUND SKIN WAS MOIST. THE TEMPERATURE OF THE PERIWOUND SKIN IS WARM. LOCAL PULSE IS PALPABLE. ADDITIONAL INFORMATION OTHER DEVITALIZED TISSUE PRESENT: BIOFILM VALE/VASCULAR COMPLETED?: 02/06/25 RESULTS?: R: 1.26, L: 1.34 ASSESSMENT ACTIVE PROBLEMS ICD-10 (ENCOUNTER DIAGNOSIS) L97.512 - NON-PRESSURE CHRONIC ULCER OF OTHER PART OF RIGHT FOOT WITH FAT LAYER EXPOSED (ENCOUNTER DIAGNOSIS) E11.621 - TYPE 2 DIABETES MELLITUS WITH FOOT ULCER (ENCOUNTER DIAGNOSIS) E11.42 - TYPE 2 DIABETES MELLITUS WITH DIABETIC POLYNEUROPATHY (ENCOUNTER DIAGNOSIS) M86.171 - OTHER ACUTE OSTEOMYELITIS, RIGHT ANKLE AND FOOT GENERAL NOTES ANAND HAMMER [id number] 1980 YANG 3 DIABETIC ULCER RIGHT FOOT ASSOCIATED WITH OSTEOMYELITIS THE FOLLOWING FACTORS HAVE BEEN IDENTIFIED THAT MAY AFFECT WOUND HEALING: DEVITALIZED TISSUE BIOFILM OSTEOMYELITIS PRESSURE GOALS: REMOVE DEVITALIZED TISSUE REMOVE AND PREVENT BIOFILM REDUCE PRESSURE TREAT OSTEOMYELITIS WOUND CLOSURE PREVENT RECURRENCE PLAN: DEBRIDEMENT, WOUND CULTURE OBTAINED TODAY, START DRESSING CHANGES WITH IODOFLEX AND USE FELT PAD AND WALKING CAST FOR PRESSURE OFFLOADING. START PROTEIN, VITAMIN-C, AND ZINC SUPPLEMENTATION. CONTINUE IV ANTIBIOTIC THERAPY DIRECTED BY DR. ORTEGA. FOLLOW UP IN 1 WEEK FOR A RECHECK. PROCEDURES WOUND #3 WOUND #3 (DIABETIC ULCER) IS LOCATED ON THE RIGHT, LATERAL FOOT. A SKIN/SUBCUTANEOUS TISSUE LEVEL SURGICAL DEBRIDEMENT WITH A TOTAL AREA DEBRIDED OF 2.88 SQ CM. WAS PERFORMED BY VANESSA TAVARES MD. SUBCUTANEOUS WAS REMOVED ALONG WITH DEVITALIZED TISSUE: BIOFILM, CALLUS, EXUDATE AND SLOUGH. THE FOLLOWING INSTRUMENT(S) WERE USED: CURETTE. PAIN CONTROL WAS ACHIEVED USING EMLA LIDOCAINE/PRILOCAINE 2.5%/2.5%. A TIME OUT WAS CONDUCTED PRIOR TO THE START OF THE PROCEDURE. A MODERATE AMOUNT OF BLEEDING WAS CONTROLLED WITH SILVER NITRATE. THE PROCEDURE WAS TOLERATED WELL WITH A PAIN LEVEL OF 0 THROUGHOUT AND A PAIN LEVEL OF 0 FOLLOWING THE PROCEDURE. POST DEBRIDEMENT MEASUREMENTS: 1.8CM LENGTH X 1.6CM WIDTH X 0.6CM DEPTH; WITH AN AREA OF 2.88 SQ CM AND A VOLUME OF 1.728 CUBIC CM. ADDITIONAL INFORMATION MUSCLE FASCIA OR BONE REMOVED AND SENT TO PATHOLOGY?: NO PLAN WOUND ORDERS: WOUND #3 RIGHT, LATERAL FOOT HAND HYGIENE HAND HYGIENE - WASH HANDS BEFORE AND AFTER WOUND CARE. CALL THE WOUND CENTER AT [phone] IF YOU HAVE SIGNS OR SYMPTOMS OF INFECTION, FEVER CHILLS OR SHAKES, INCREASED DRAINAGE, INCREASED ODOR OR UNUSUAL REDNESS. AFTER WOUND CENTER HOURS PLEASE NOTIFY YOUR PCP OR GO TO THE EMERGENCY ROOM. CLEANSER CLEANSE WOUND WITH NORMAL SALINE APPLY HYPOCHLOROUS ACID (VASHE OR SIMILAR) SOAKED 4X4 GAUZE TO WOUND BED FOR 5- 10 MINUTES AFTER PROVIDER HAS COMPLETED WOUND EXAM. REMOVE GAUZE AND DRESS WOUND ACCORDING TO DRESSING ORDERS. MAY SHOWER, LEAVE WOUND DRESSING INTACT. COVER WOUND DRESSING WITH A WATERPROOF BARRIER. KEEP DRESSING DRY. NO BATHS PLEASE. PROCEDURE / ANESTHETIC 5% TOPICAL LIDOCAINE TO WOUND BED PRIOR TO PROCEDURE, IN CLINIC ONLY. TOPICAL TREATMENTS APPLY ANTIBIOTIC/ANTIMICROBIAL OINTMENT/CREAM TO THE WOUND BED. - IODOSORB PASTE FILLING WOUND. DRESSING ORDERS ANAND HAMMER [id number] 1980 APPLY DRESSING(S) AND SECURE WITH: - SILICONE BORDER FOAM. DRESSING CHANGE FREQUENCY CHANGE DRESSING EVERY OTHER DAY. CHANGE DRESSING IF IT BECOMES SOILED OR WET. OFF-LOADING / PRESSURE RELIEF TOTAL NON-WEIGHT BEARING USING: - KNEE SCOOTER. USE/WEAR WHEN WALKING: - FELT ADHESIVE PAD SURROUNDING WOUND. AIR CAST WALKING BOOT. ADDITIONAL ORDERS: COMPRESSION/EDEMA CONTROL ELEVATE LEG(S) ABOVE THE LEVEL OF THE HEART MUCH POSSIBLE. AVOID STANDING IN ONE POSITION FOR MORE THAN 10 MINUTES. AVOID SITTING WITH LEGS DOWN. DO NOT CROSS LEGS WHEN SITTING. APPLY SINGLE LAYER COMPRESSION TO THE AFFECTED LEG(S). TUBULAR COMPRESSION DRESSING: APPLY TUBULAR DRESSING FROM MID-FOOT TO KNEE MAKING SURE TO COVER THE HEEL. APPLY IN THE MORNING. REMOVE AT BEDTIME AND ELEVATE LEGS OR LIE DOWN. - TUBIGRIP E. DIETARY TAKE VITAMIN C 1000MG BY MOUTH DAILY. TAKE ZINC 25MG BY MOUTH DAILY. INCREASE THE PROTEIN IN YOUR DIET. FOLLOW-UP APPOINTMENTS RETURN APPOINTMENT 1 WEEK SCRIBING ATTESTATION I ATTEST, THE NURSE, THAT I SCRIBED THESE ORDERS FOR THE WOUND CARE PROVIDER. PROVIDER REVIEW AND ATTESTATION: REVIEWED AND EVALUATED LABS. REVIEWED HOSPITAL RECORDS. DISCUSSED THE PLAN OF CARE @ BEDSIDE WITH - THE PATIENT I AGREE AND ATTEST TO THE ABOVE INFORMATION PROVIDED FROM OTHER LICENSED PROFESSIONALS. ANCILLARY SERVICES: CARDIOVASCULAR: ANKLE BRACHIAL INDEX (VALE) LABORATORY: CULTURE AND SENSITIVITY - SWAB SAMPLE TAKEN TODAY. PLAN OF CARE: 01. ENSURE/ESTABLISH OPTIMAL BLOOD FLOW : - COMPLETE LOWER EXTREMITY ASSESSMENT STATUS: INITIATED DATE: 02/06/2025 - PERFORM NON-INVASIVE VASCULAR TESTING (I.E. VALE) AND DOCUMENT FINDINGS. CONSIDER REPEATING WHEN WOUND HEALING <40% AFTER 30 DAYS OF WOUND CARE. STATUS: COMPLETED DATE: 02/06/2025 02. ASSESS FOR/TREAT INFECTION : - EVALUATE FOR SIGNS AND SYMPTOMS OF INFECTION AND DOCUMENT FINDINGS. STATUS: INITIATED DATE: 02/06/2025 - OBTAIN CULTURE AND SENSITIVITY (CANDS) OR TISSUE CULTURE WHEN INFECTION IS SUSPECTED. (NOTE:) CONSIDER REPEATING WHEN WOUND HEALING <40% AFTER 30 DAYS OF WOUND CARE. STATUS: INITIATED DATE: 02/06/2025 03. DEBRIDE WEEKLY OR MORE OFTEN PRN : - EVALUATE PATIENT IN CENTER WEEKLY TO ASSESS WOUND BED AND MARGINS FOR NEED FOR DEBRIDEMENT. STATUS: INITIATED DATE: 02/06/2025 - DEBRIDEMENT BY ANY METHOD TO REMOVE DEVITALIZED/NECROTIC TISSUE TO PROMOTE HEALING AND PREVENT FURTHER COMPLICATIONS. GOAL IS TO STIMULATE AND/OR MAINTAIN ACUTE PHASE OF WOUND HEALING BY REDUCING BACTERIAL BURDEN AND DEVITALIZED/NON-VIABLE TISSUE. STATUS: INITIATED DATE: 02/06/2025 ANAND HAMMER [id number] 1980 04. OPTIMIZE GLUCOSE CONTROL AND NUTRITION : - ORDER/REVIEW PERTINENT LABS TO EVALUATE RENAL FUNCTION, GLUCOSE CONTROL, AND NUTRITIONAL STATUS. - A1C 12/14/2024: 6.2% STATUS: INITIATED DATE: 02/06/2025 - COMPLETE A NUTRITION RISK ASSESSMENT. STATUS: COMPLETED DATE: 02/06/2025 05. OFFLOADING PLAN : - EVALUATE PLAN FOR OFFLOADING STATUS: INITIATED DATE: 02/06/2025 - ADVISE PATIENT TO OFFLOAD THE FOOT ULCER. (I.E. HALF SHOE, SURGICAL SHOE, INSERT, CUSTOM SHOE, FELT AND FOAM, CAM WALKER, MULTIPODUS SPLINT, TOTAL CONTACT CAST, BI-VALVE CAST, POSTERIOR SPLINT). STATUS: INITIATED DATE: 02/06/2025 06. OPTIMIZE HOST FACTORS: - ASSESS AND REVIEW PATIENT HISTORY FOR WOUND ETIOLOGY, CO-MORBID CONDITIONS, MEDICATION REGIME, AND SMOKING HISTORY. STATUS: INITIATED DATE: 02/06/2025 07. DRESSING SELECTION : - EVALUATE FOR DRESSING-RELATED FACTORS, SUCH AVAILABILITY, WEAR TIME, ADAPTABILITY AND USE TO BETTER OPTIMIZE WOUND HEALING AND PATIENT COMPLIANCE. STATUS: INITIATED DATE: 02/06/2025 08. ADVANCED MODALITIES : - EVALUATE FOR APPROPRIATENESS OF HYPERBARIC OXYGEN THERAPY. STATUS: INITIATED DATE: 02/06/2025 - SET TREATMENT GOALS ACCORDING TO PATIENT AND/OR CAREGIVER?S ABILITY/ COMPLIANCE. STATUS: INITIATED DATE: 02/06/2025 - RE-EVALUATE PLAN OF CARE IF NO EVIDENCE OF HEALING (40% IN 4 WEEKS). STATUS: INITIATED DATE: 02/06/2025 09. FALL PREVENTION : - REVIEWED, NOT APPLICABLE 10. PAIN MANAGEMENT : - COMPLETE PAIN ASSESSMENT STATUS: COMPLETED DATE: 02/06/2025 11. MEASURABLE GOALS FOR WOUND HEALING AND/OR HYPERBARIC OXYGEN THERAPY : - IMPLEMENT PROTOCOLS TO PROMOTE HEALING AND IMPEDE FURTHER INJURY STATUS: INITIATED DATE: 02/06/2025 12. DURATION/FREQUENCY OF WOUND CARE VISITS : - 1X WEEKLY FOR 30 DAYS STATUS: INITIATED DATE: 02/06/2025 ELECTRONIC SIGNATURE(S) SIGNED BY: DATE: VANESSA TAVARES MD 02/06/2025 12:55:36 (PT) ENTERED BY: VANESSA TAVARES MD ON 02/06/2025 12:38:43 (PT) ANAND HAMMER [id number] 1980
== END ==
PROVIDERS: PCP Internal Medicine; Referring Provider Nurse Practitioner Family; Visit Provider Surgery
DX: E11.621 Type 2 diabetes mellitus with foot ulcer (principal); L97.512 Non-pressure chronic ulcer of other part of right foot with fat layer exposed; M86.171 Other acute osteomyelitis, right ankle and foot; L98.8 Other specified disorders of the skin and subcutaneous tissue; L53.8 Other specified erythematous conditions; E11.40 Type 2 diabetes mellitus with diabetic neuropathy, unspecified
CPT/HCPCS: 11042; 87070; 87075; 87205; 99203; 99214

== ENCOUNTER → 2025-02-07 12:12 | Outpatient (CLI) | payer OTHER, SELFPAY ==
[2025-01-28 17:58] VITALS: BMI 35.2
[2025-02-07 13:04] LABS: Hematocrit 32.4 % (41-53); Hemoglobin 10.1 g/dL (13.5-17.5)
[2025-02-07 13:23] LABS: HEMOLYSIS < 15 (0-50); Iron 33 ug/dL (49-181)
[2025-02-07 13:25] LABS: BUN Creatinine Ratio 16.3 (6-22); Blood Urea Nitrogen 24 mg/dL (9-20); Calcium 9.3 mg/dL (8.4-10.2); Carbon Dioxide 24 mmol/L (22-32); Chloride 106 mmol/L (98-107); Estimated Glomerular Filt Rate 59 mL/min (>60); Glucose 63 mg/dL (70-100); HEMOLYSIS < 15 (0-50); Potassium 4.6 mmol/L (3.4-5.1); Sodium 141 mmol/L (137-145)
[2025-02-07 13:35] LABS: Percent Iron Saturation 11 % (20-50); Total Iron Binding Capacity 310 ug/dL (261-462); Transferrin 254 mg/dL (206-381)
[2025-02-07 14:01] LABS: Ferritin 11 ng/mL (18-464)
[2025-02-07 15:06] LABS: Creatinine Urine Random 125.19 mg/dL; Protein (Total) Urine Random 141 mg/dL (0-12); Protein Creatinine Ratio Urine 1.12 GRAM/24H
[2025-02-08 09:08] LABS: Parathyroid Hormone Int 31 pg/mL (15-65)
== END ==
PROVIDERS: PCP Internal Medicine; Referring Provider Student in an Organized Health Care Education/Training Program; Visit Provider Student in an Organized Health Care Education/Training Program
DX: N05.9 Unspecified nephritic syndrome with unspecified morphologic changes (principal); D50.0 Iron deficiency anemia secondary to blood loss (chronic); D70.9 Neutropenia, unspecified; N25.81 Secondary hyperparathyroidism of renal origin; D63.1 Anemia in chronic kidney disease; R80.9 Proteinuria, unspecified
CPT/HCPCS: 36415; 80048; 82570; 82728; 83540; 83550; 83970; 84156; 85014; 85018

== ENCOUNTER → 2025-02-13 09:25 | Outpatient (CLI) | payer OTHER, SELFPAY ==
[2025-01-28 17:58] VITALS: BMI 35.2
== END ==
PROVIDERS: PCP Internal Medicine; Referring Provider Internal Medicine; Visit Provider Surgery
DX: E11.621 Type 2 diabetes mellitus with foot ulcer (principal); L97.516 Non-pressure chronic ulcer of other part of right foot with bone involvement without evidence of necrosis; R60.0 Localized edema; L84 Corns and callosities; M86.171 Other acute osteomyelitis, right ankle and foot; Z91.199 Patient's noncompliance with other medical treatment and regimen due to unspecified reason
CPT/HCPCS: 11042

== ENCOUNTER → 2025-02-20 11:30 | Outpatient (CLI) | payer OTHER, SELFPAY ==
[2025-01-28 17:58] VITALS: BMI 35.2
== END ==
PROVIDERS: PCP Internal Medicine; Referring Provider Internal Medicine; Visit Provider Physician Assistant
DX: E11.621 Type 2 diabetes mellitus with foot ulcer (principal); L97.516 Non-pressure chronic ulcer of other part of right foot with bone involvement without evidence of necrosis; L98.8 Other specified disorders of the skin and subcutaneous tissue; R60.0 Localized edema; L84 Corns and callosities
CPT/HCPCS: 99212

== ENCOUNTER → 2025-02-27 09:52 | Outpatient (CLI) | payer OTHER, SELFPAY ==
[2025-01-28 17:58] VITALS: BMI 35.2
== END ==
PROVIDERS: PCP Internal Medicine; Referring Provider Internal Medicine; Visit Provider Surgery
DX: E11.621 Type 2 diabetes mellitus with foot ulcer (principal); L97.516 Non-pressure chronic ulcer of other part of right foot with bone involvement without evidence of necrosis; M86.171 Other acute osteomyelitis, right ankle and foot; R60.0 Localized edema
CPT/HCPCS: 11042

== ENCOUNTER → 2025-03-10 15:04 | Outpatient (CLI) | payer OTHER, SELFPAY ==
[2025-01-28 17:58] VITALS: BMI 35.2
== END ==
LOC: WC 15:04
PROVIDERS: PCP Internal Medicine; Referring Provider Internal Medicine; Visit Provider Surgery
DX: E11.621 Type 2 diabetes mellitus with foot ulcer (principal); L97.516 Non-pressure chronic ulcer of other part of right foot with bone involvement without evidence of necrosis; M86.171 Other acute osteomyelitis, right ankle and foot; E11.42 Type 2 diabetes mellitus with diabetic polyneuropathy; R60.0 Localized edema; L84 Corns and callosities; L53.8 Other specified erythematous conditions; L98.8 Other specified disorders of the skin and subcutaneous tissue
CPT/HCPCS: 11042; 99213

== ENCOUNTER → 2025-03-20 09:25 | Outpatient (CLI) | payer OTHER, SELFPAY ==
[2025-01-28 17:58] VITALS: BMI 35.2
== END ==
LOC: WC 09:26
PROVIDERS: PCP Internal Medicine; Referring Provider Internal Medicine; Visit Provider Surgery
DX: E11.621 Type 2 diabetes mellitus with foot ulcer (principal); L97.516 Non-pressure chronic ulcer of other part of right foot with bone involvement without evidence of necrosis; L84 Corns and callosities; M86.171 Other acute osteomyelitis, right ankle and foot; L53.9 Erythematous condition, unspecified; R60.0 Localized edema
CPT/HCPCS: 11042

== ENCOUNTER → 2025-03-25 06:42 | Outpatient (CLI) | payer OTHER, SELFPAY ==
[2025-01-28 17:58] VITALS: BMI 35.2
[2025-03-25 07:51] LABS: Hematocrit 37.1 % (41-53); Hemoglobin 11.9 g/dL (13.5-17.5)
[2025-03-25 08:33] LABS: BUN Creatinine Ratio 15.6 (6-22); Blood Urea Nitrogen 19 mg/dL (9-20); Carbon Dioxide 24 mmol/L (22-32); Chloride 106 mmol/L (98-107); Estimated Glomerular Filt Rate > 60 mL/min (>60); Glucose 101 mg/dL (70-99); HEMOLYSIS < 15 (0-50); Potassium 4.3 mmol/L (3.4-5.1); Sodium 141 mmol/L (137-145)
[2025-03-25 08:42] LABS: Iron 27 ug/dL (49-181)
[2025-03-25 09:01] LABS: Creatinine Urine Random 75.75 mg/dL; Protein (Total) Urine Random 126 mg/dL (0-12); Protein Creatinine Ratio Urine 1.66 GRAM/24H
[2025-03-25 09:05] LABS: Ferritin 7 ng/mL (18-464)
[2025-03-26 06:39] LABS: Parathyroid Hormone Int 36 pg/mL (15-65)
== END ==
LOC: LAB 06:44
PROVIDERS: PCP Internal Medicine; Referring Provider Student in an Organized Health Care Education/Training Program; Visit Provider Student in an Organized Health Care Education/Training Program
DX: N05.9 Unspecified nephritic syndrome with unspecified morphologic changes (principal); D50.0 Iron deficiency anemia secondary to blood loss (chronic); D70.9 Neutropenia, unspecified; D63.1 Anemia in chronic kidney disease; N25.81 Secondary hyperparathyroidism of renal origin; R80.9 Proteinuria, unspecified
CPT/HCPCS: 36415; 80048; 82570; 82728; 83540; 83970; 84156; 85014; 85018

== ENCOUNTER → 2025-03-27 08:43 | Outpatient (CLI) | payer OTHER, SELFPAY ==
[2025-01-28 17:58] VITALS: BMI 35.2
== END ==
LOC: WC 08:45
PROVIDERS: PCP Internal Medicine; Referring Provider Internal Medicine; Visit Provider Surgery
DX: E11.621 Type 2 diabetes mellitus with foot ulcer (principal); E11.42 Type 2 diabetes mellitus with diabetic polyneuropathy; L97.512 Non-pressure chronic ulcer of other part of right foot with fat layer exposed; M86.171 Other acute osteomyelitis, right ankle and foot; L98.8 Other specified disorders of the skin and subcutaneous tissue
CPT/HCPCS: 11042

== ENCOUNTER → 2025-04-03 09:20 | Outpatient (CLI) | payer OTHER, SELFPAY ==
[2025-01-28 17:58] VITALS: BMI 35.2
== END ==
PROVIDERS: PCP Internal Medicine; Referring Provider Internal Medicine; Visit Provider Surgery
DX: E11.621 Type 2 diabetes mellitus with foot ulcer (principal); E11.42 Type 2 diabetes mellitus with diabetic polyneuropathy; L97.512 Non-pressure chronic ulcer of other part of right foot with fat layer exposed; M86.171 Other acute osteomyelitis, right ankle and foot; L84 Corns and callosities; R60.0 Localized edema
CPT/HCPCS: 11042

== ENCOUNTER → 2025-04-10 14:33 | Outpatient (CLI) | payer OTHER, SELFPAY ==
[2025-01-28 17:58] VITALS: BMI 35.2
== END ==
PROVIDERS: PCP Internal Medicine; Referring Provider Internal Medicine; Visit Provider Surgery
DX: E11.621 Type 2 diabetes mellitus with foot ulcer (principal); E11.42 Type 2 diabetes mellitus with diabetic polyneuropathy; L97.512 Non-pressure chronic ulcer of other part of right foot with fat layer exposed; L84 Corns and callosities; M86.171 Other acute osteomyelitis, right ankle and foot; R60.0 Localized edema
CPT/HCPCS: 11042; 99213

== ENCOUNTER → 2025-04-17 08:41 | Outpatient (CLI) | payer OTHER, SELFPAY ==
[2025-01-28 17:58] VITALS: BMI 35.2
== END ==
LOC: WC 08:42
PROVIDERS: PCP Internal Medicine; Referring Provider Internal Medicine; Visit Provider Surgery
DX: E11.621 Type 2 diabetes mellitus with foot ulcer (principal); E11.42 Type 2 diabetes mellitus with diabetic polyneuropathy; L97.512 Non-pressure chronic ulcer of other part of right foot with fat layer exposed; L84 Corns and callosities; M86.171 Other acute osteomyelitis, right ankle and foot; R60.0 Localized edema
CPT/HCPCS: 11042

== ENCOUNTER → 2025-04-24 09:03 | Outpatient (CLI) | payer OTHER, SELFPAY ==
[2025-01-28 17:58] VITALS: BMI 35.2
== END ==
LOC: WC 09:03
PROVIDERS: PCP Internal Medicine; Referring Provider Internal Medicine; Visit Provider Surgery
DX: E11.621 Type 2 diabetes mellitus with foot ulcer (principal); E11.42 Type 2 diabetes mellitus with diabetic polyneuropathy; L97.512 Non-pressure chronic ulcer of other part of right foot with fat layer exposed; M86.171 Other acute osteomyelitis, right ankle and foot
CPT/HCPCS: 15275; Q4159

== ENCOUNTER → 2025-04-25 06:39 | Outpatient (CLI) | payer OTHER, SELFPAY ==
[2025-01-28 17:58] VITALS: BMI 35.2
[2025-04-25 09:11] LABS: BUN Creatinine Ratio 17.1 (6-22); Blood Urea Nitrogen 18 mg/dL (9-20); Calcium 9.2 mg/dL (8.4-10.2); Carbon Dioxide 24 mmol/L (22-32); Chloride 107 mmol/L (98-107); Estimated Glomerular Filt Rate > 60 mL/min (>60); Glucose 72 mg/dL (70-99); HEMOLYSIS < 15 (0-50); Potassium 4.3 mmol/L (3.4-5.1); Sodium 140 mmol/L (137-145)
[2025-04-25 09:44] LABS: Creatinine Urine Random 31.05 mg/dL; Protein (Total) Urine Random 72 mg/dL (0-12); Protein Creatinine Ratio Urine 2.31 GRAM/24H
== END ==
PROVIDERS: PCP Internal Medicine; Referring Provider Student in an Organized Health Care Education/Training Program; Visit Provider Student in an Organized Health Care Education/Training Program
DX: N05.9 Unspecified nephritic syndrome with unspecified morphologic changes (principal); R80.9 Proteinuria, unspecified
CPT/HCPCS: 36415; 80048; 82570; 84156

== ENCOUNTER → 2025-05-01 11:31 | Outpatient (CLI) | payer OTHER, SELFPAY ==
[2025-01-28 17:58] VITALS: BMI 35.2
== END ==
PROVIDERS: PCP Internal Medicine; Referring Provider Internal Medicine; Visit Provider Surgery
DX: E11.621 Type 2 diabetes mellitus with foot ulcer (principal); E11.42 Type 2 diabetes mellitus with diabetic polyneuropathy; L97.512 Non-pressure chronic ulcer of other part of right foot with fat layer exposed; M86.171 Other acute osteomyelitis, right ankle and foot; L84 Corns and callosities
CPT/HCPCS: 11042

== ENCOUNTER → 2025-05-08 09:57 | Outpatient (CLI) | payer OTHER, SELFPAY ==
[2025-01-28 17:58] VITALS: BMI 35.2
== END ==
PROVIDERS: PCP Internal Medicine; Referring Provider Internal Medicine; Visit Provider Surgery
DX: E11.621 Type 2 diabetes mellitus with foot ulcer (principal); E11.42 Type 2 diabetes mellitus with diabetic polyneuropathy; L97.512 Non-pressure chronic ulcer of other part of right foot with fat layer exposed; M86.171 Other acute osteomyelitis, right ankle and foot; L84 Corns and callosities; R60.0 Localized edema
CPT/HCPCS: 11042; 99213

== ENCOUNTER → 2025-05-12 11:57 | Outpatient (CLI) | payer OTHER, SELFPAY ==
[2025-01-28 17:58] VITALS: BMI 35.2
== END ==
LOC: WC 11:59
PROVIDERS: PCP Internal Medicine; Referring Provider Internal Medicine; Visit Provider Surgery
DX: E11.621 Type 2 diabetes mellitus with foot ulcer (principal); E11.42 Type 2 diabetes mellitus with diabetic polyneuropathy; L97.512 Non-pressure chronic ulcer of other part of right foot with fat layer exposed; R60.0 Localized edema
CPT/HCPCS: 11042; 99213

== ENCOUNTER → 2025-05-13 15:59 | Outpatient (CLI) | payer OTHER, SELFPAY ==
[2025-01-28 17:58] VITALS: BMI 35.2
== END ==
LOC: WC 15:59
PROVIDERS: PCP Internal Medicine; Referring Provider Internal Medicine; Visit Provider Surgery
DX: E11.621 Type 2 diabetes mellitus with foot ulcer (principal); E11.42 Type 2 diabetes mellitus with diabetic polyneuropathy; L97.512 Non-pressure chronic ulcer of other part of right foot with fat layer exposed; M86.171 Other acute osteomyelitis, right ankle and foot
CPT/HCPCS: 99183; G0277

== ENCOUNTER → 2025-05-14 16:10 | Outpatient (CLI) | payer OTHER, SELFPAY ==
[2025-01-28 17:58] VITALS: BMI 35.2
== END ==
LOC: WC 16:10
PROVIDERS: PCP Internal Medicine; Referring Provider Internal Medicine; Visit Provider Surgery
DX: E11.621 Type 2 diabetes mellitus with foot ulcer (principal); E11.42 Type 2 diabetes mellitus with diabetic polyneuropathy; L97.512 Non-pressure chronic ulcer of other part of right foot with fat layer exposed; M86.171 Other acute osteomyelitis, right ankle and foot
CPT/HCPCS: 99183; G0277

== ENCOUNTER → 2025-05-15 14:09 | Outpatient (CLI) | payer OTHER, SELFPAY ==
[2025-01-28 17:58] VITALS: BMI 35.2
== END ==
LOC: WC 14:10
PROVIDERS: PCP Internal Medicine; Referring Provider Internal Medicine; Visit Provider Surgery
DX: E11.621 Type 2 diabetes mellitus with foot ulcer (principal); E11.42 Type 2 diabetes mellitus with diabetic polyneuropathy; L97.512 Non-pressure chronic ulcer of other part of right foot with fat layer exposed; M86.171 Other acute osteomyelitis, right ankle and foot
CPT/HCPCS: 99183; G0277

== ENCOUNTER → 2025-05-19 16:06 | Outpatient (CLI) | payer OTHER, SELFPAY ==
[2025-01-28 17:58] VITALS: BMI 35.2
== END ==
PROVIDERS: PCP Internal Medicine; Referring Provider Internal Medicine; Visit Provider Surgery
DX: E11.621 Type 2 diabetes mellitus with foot ulcer (principal); E11.42 Type 2 diabetes mellitus with diabetic polyneuropathy; L97.512 Non-pressure chronic ulcer of other part of right foot with fat layer exposed; M86.171 Other acute osteomyelitis, right ankle and foot
CPT/HCPCS: 99183; G0277

== ENCOUNTER → 2025-05-20 15:54 | Outpatient (CLI) | payer OTHER, SELFPAY ==
[2025-01-28 17:58] VITALS: BMI 35.2
== END ==
PROVIDERS: PCP Internal Medicine; Referring Provider Internal Medicine; Visit Provider Surgery
DX: E11.621 Type 2 diabetes mellitus with foot ulcer (principal); E11.42 Type 2 diabetes mellitus with diabetic polyneuropathy; L97.512 Non-pressure chronic ulcer of other part of right foot with fat layer exposed; M86.171 Other acute osteomyelitis, right ankle and foot
CPT/HCPCS: 99183; G0277

== ENCOUNTER → 2025-05-21 16:03 | Outpatient (CLI) | payer OTHER, SELFPAY ==
[2025-01-28 17:58] VITALS: BMI 35.2
== END ==
PROVIDERS: PCP Internal Medicine; Referring Provider Internal Medicine; Visit Provider Surgery
DX: E11.621 Type 2 diabetes mellitus with foot ulcer (principal); E11.42 Type 2 diabetes mellitus with diabetic polyneuropathy; L97.512 Non-pressure chronic ulcer of other part of right foot with fat layer exposed; M86.171 Other acute osteomyelitis, right ankle and foot
CPT/HCPCS: 99183; G0277

== ENCOUNTER → 2025-05-22 13:55 | Outpatient (CLI) | payer OTHER, SELFPAY ==
[2025-01-28 17:58] VITALS: BMI 35.2
== END ==
LOC: WC 13:58
PROVIDERS: PCP Internal Medicine; Referring Provider Internal Medicine; Visit Provider Surgery
DX: E11.621 Type 2 diabetes mellitus with foot ulcer (principal); E11.42 Type 2 diabetes mellitus with diabetic polyneuropathy; L97.512 Non-pressure chronic ulcer of other part of right foot with fat layer exposed; M86.171 Other acute osteomyelitis, right ankle and foot; L84 Corns and callosities; R60.0 Localized edema
CPT/HCPCS: 11042; 99183; G0277

== ENCOUNTER 2025-05-28 07:10 | Day surgery (SDC) | payer OTHER, SELFPAY ==
[2025-01-28 17:58] VITALS: BMI 35.2
[2025-05-22 13:12] VITALS: BMI 35.2
[2025-05-28 07:55] VITALS: BP 138/85; PULSE 78; RESP 14; TEMP 36.3; O2SAT 99; BMI 34.0
[2025-05-28] MEDS: LACTATED RINGERS 1,000 ML 42 ML IV (08:06)
--- NOTE | 2025-05-28 08:35 | PM.PREOP ---
Pre-operative Note Interval Note History & Physical reviewed/Exam performed by Physician: Yes Changes to H&P: No
--- NOTE | 2025-05-28 08:35 | PM.OP.1 ---
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 Same procedure(s) as scheduled: Yes Indications: 45-year-old diabetic male with ongoing ulceration to the right 5th metatarsal which has had a fracture. Numerous attempts at conservative measures to heal this has been attempted and this point after conferring with his Infectious Disease provider as well as wound care provider, the decision has been made to reduce the prominences of the fracture edges of the 5th metatarsal as well as sample bone and soft tissue for testing for bacterial infection. We talked about the risks and potential complications as well as alternatives and expected outcomes. Consent was reviewed and signed and there are no contraindications to the procedure at this time. Of note he is currently taking oral doxycycline. Surgeon: Francie Quan Click Yes if Unassisted: Yes Anesthesia Type: MAC +/- and Sedation Operative Notes Findings: Fifth metatarsal fracture with ulceration as expected right foot. Closure Type: primary Specimen(s): other (Bone cultures sent for PCR testing [facility]: #1 Distal MT5 fragment, #2 Proximal MT5 fragment. Soft tissue culture swab MT5 fracture space (aerobic/anaerobic).) Applied: none Estimated Blood Loss (mL): 30 Blood products transfused: none Tourniquet time (min): 0 Procedure in detail: The patient was brought to the operating room and placed on the operating table in the supine position. Well-padded bump placed under right hip and leg, appropriately aligned. After induction of monitored anesthesia care with sedation by the anesthesiologist, local anesthesia was obtained to the right foot in the area of the fifth metatarsal. The foot and ankle were prepped and draped in the usual aseptic manner. After a check of anesthesia a full-thickness incision was made along the dorsal lateral fifth metatarsal over the ulceration and fracture. No purulence was noted, but there was mix of fibrous and granular tissue present in that wound area. No tunnelling or abscesses noted. The proximal portion of the fracture was noted and a saw was used to resect leading edge of the 5th metatarsal fracture fragment. This was removed and sent off field for PCR culture analysis. In the space between 2 edges of the fracture, culture swab was used here and sent off field. Next, 5th metatarsal distal fragment base was found to be a little more deep but was accessible and the base was a little more friable here. I was able to use a saw but the pieces came out not as 1 piece but as a few pieces together. This was sent off the field for PCR culture analysis. The saw was once again used on the proximal lateral aspect of the proximal bone fragment to angle down that edge so that there would not be as much of a prominence here closure. A rasp manually was used over this area to smooth it as well. Area was irrigated with copious amounts of normal sterile saline. Cautery was performed locally as needed. The skin was recontoured around what was the ulceration and this allowed for an attempt at primary closure. Very gently, closure was performed using a mixture of 3-0 nylon and 2-0 nylon. No absorbable suture was used. The foot remained with vascularity intact during the process. The area was dressed with a sterile lightly compressive dressing and the postoperative boot was placed on the foot in the postoperative holding area. Complications: none Post-operative Condition: stable Disposition: PACU Plan for aftercare: Following a period of postoperative monitoring, the patient will be discharged to home on written and oral postop instructions including keeping the dressing dry intact. Nonweightbearing to the foot elevating the foot when seated home. DVT prevention techniques to be performed. He will continue to take his oral doxycycline medication and we will await analysis of the 2 bone cultures and soft tissue culture to determine if further antibiosis is needed. He has his appointment coming up with [facility] to [facility] and also seeing Dr. Morrell in Infectious diseases as well as myself for a postoperative clinic visit.
--- NOTE | 2025-05-28 09:14 | SUR.OPER ---
Supine on padded OR bed, head on pillow, arms secured on padded arm boards at <90 degrees abduction, legs uncrossed, safety belt at thigh, tape over blanket over left lower, right leg elevated on blanket
[2025-05-28] MEDS: BUPIVACAINE 0.5% (PF) 30 ML VIAL INJ (09:34)
[2025-05-28] MEDS: CEFAZOLIN 2 GM/100 ML PREMIX 100 ML IV (10:12)
[2025-05-28 10:23] VITALS: BP 132/75; PULSE 70; RESP 16; TEMP 36.1; O2SAT 94
[2025-05-28 10:30] VITALS: BP 141/77; PULSE 68; RESP 14; O2SAT 97
[2025-05-28] MEDS: ACETAMINOPHEN 325 MG TABLET 975 MG PO (10:31)
[2025-05-28 10:35] VITALS: BP 146/76; PULSE 67; RESP 11; O2SAT 96
[2025-05-28 10:40] VITALS: BP 157/83; PULSE 66; RESP 20; TEMP 36.2; O2SAT 97
[2025-05-28 10:50] VITALS: BP 145/79; PULSE 64; RESP 10; O2SAT 99
== END 2025-05-28 11:11 | disposition home or self-care (01) ==
LOC: OR 07:12
PROVIDERS: PCP Internal Medicine; Referring Provider Physician Assistant; Visit Provider Podiatrist
PROC: (CPT 28122; principal; 2025-05-28 08:45)
DX: S92.351A Displaced fracture of fifth metatarsal bone, right foot, initial encounter for closed fracture (principal); E11.621 Type 2 diabetes mellitus with foot ulcer; L97.412 Non-pressure chronic ulcer of right heel and midfoot with fat layer exposed; Z79.84 Long term (current) use of oral hypoglycemic drugs
CPT/HCPCS: 28122; 82962; 87070; 87075; 87205; 87801; J0690; J1100; J2250; J2405; J2704; J3010

== ENCOUNTER → 2025-06-02 13:08 | Outpatient (CLI) | payer OTHER, SELFPAY ==
[2025-01-28 17:58] VITALS: BMI 35.2
== END ==
LOC: WC 13:09
PROVIDERS: PCP Internal Medicine; Referring Provider Internal Medicine; Visit Provider Surgery
DX: E11.621 Type 2 diabetes mellitus with foot ulcer (principal); E11.42 Type 2 diabetes mellitus with diabetic polyneuropathy; L97.512 Non-pressure chronic ulcer of other part of right foot with fat layer exposed; M86.171 Other acute osteomyelitis, right ankle and foot
CPT/HCPCS: 99183; 99212; 99213; G0277

== ENCOUNTER → 2025-06-03 13:36 | Outpatient (CLI) | payer OTHER, SELFPAY ==
[2025-01-28 17:58] VITALS: BMI 35.2
== END ==
LOC: WC 13:37
PROVIDERS: PCP Internal Medicine; Referring Provider Internal Medicine; Visit Provider Surgery
DX: L97.512 Non-pressure chronic ulcer of other part of right foot with fat layer exposed (principal); E11.621 Type 2 diabetes mellitus with foot ulcer; E11.42 Type 2 diabetes mellitus with diabetic polyneuropathy; M86.171 Other acute osteomyelitis, right ankle and foot
CPT/HCPCS: 99183; G0277

== ENCOUNTER → 2025-06-04 14:34 | Outpatient (CLI) | payer OTHER, SELFPAY ==
[2025-01-28 17:58] VITALS: BMI 35.2
== END ==
LOC: WC 14:35
PROVIDERS: PCP Internal Medicine; Referring Provider Internal Medicine; Visit Provider Surgery
DX: L97.512 Non-pressure chronic ulcer of other part of right foot with fat layer exposed (principal); E11.621 Type 2 diabetes mellitus with foot ulcer; E11.42 Type 2 diabetes mellitus with diabetic polyneuropathy; M86.171 Other acute osteomyelitis, right ankle and foot
CPT/HCPCS: 99183; G0277

== ENCOUNTER → 2025-06-06 14:44 | Outpatient (CLI) | payer OTHER, SELFPAY ==
[2025-01-28 17:58] VITALS: BMI 35.2
== END ==
LOC: WC 14:45
PROVIDERS: PCP Internal Medicine; Referring Provider Internal Medicine; Visit Provider Physician Assistant
DX: L97.512 Non-pressure chronic ulcer of other part of right foot with fat layer exposed (principal); E11.621 Type 2 diabetes mellitus with foot ulcer; E11.42 Type 2 diabetes mellitus with diabetic polyneuropathy; M86.171 Other acute osteomyelitis, right ankle and foot
CPT/HCPCS: 99183; G0277

== ENCOUNTER → 2025-06-09 15:41 | Outpatient (CLI) | payer OTHER, SELFPAY ==
[2025-01-28 17:58] VITALS: BMI 35.2
== END ==
LOC: WC 15:41
PROVIDERS: PCP Internal Medicine; Referring Provider Internal Medicine; Visit Provider Surgery
DX: L97.512 Non-pressure chronic ulcer of other part of right foot with fat layer exposed (principal); E11.621 Type 2 diabetes mellitus with foot ulcer; E11.42 Type 2 diabetes mellitus with diabetic polyneuropathy; M86.171 Other acute osteomyelitis, right ankle and foot
CPT/HCPCS: 99183; G0277

== ENCOUNTER → 2025-06-10 14:13 | Outpatient (CLI) | payer OTHER, SELFPAY ==
[2025-01-28 17:58] VITALS: BMI 35.2
== END ==
LOC: WC 14:14
PROVIDERS: PCP Internal Medicine; Referring Provider Internal Medicine; Visit Provider Surgery
DX: E11.621 Type 2 diabetes mellitus with foot ulcer (principal); L97.512 Non-pressure chronic ulcer of other part of right foot with fat layer exposed; E11.42 Type 2 diabetes mellitus with diabetic polyneuropathy; M86.171 Other acute osteomyelitis, right ankle and foot
CPT/HCPCS: 99183; G0277

== ENCOUNTER → 2025-06-23 06:42 | Outpatient (CLI) | payer OTHER, SELFPAY ==
[2025-01-28 17:58] VITALS: BMI 35.2
[2025-06-23 07:30] LABS: Hemoglobin A1C% w Est Avg Glu 6.9 % (4.0-6.0)
[2025-06-23 07:42] LABS: Blood Urea Nitrogen 22 mg/dL (9-20); Calcium 9.4 mg/dL (8.4-10.2); Carbon Dioxide 24 mmol/L (22-32); Chloride 104 mmol/L (98-107); Cholesterol 148 mg/dL (140-199); Estimated Glomerular Filt Rate > 60 mL/min (>60); Glucose 118 mg/dL (70-99); HDL Cholesterol 32 mg/dL (40-60); HEMOLYSIS < 15 (0-50); Potassium 5.0 mmol/L (3.4-5.1); Sodium 138 mmol/L (137-145); Triglycerides 181 mg/dL (35-150)
[2025-06-23 07:57] LABS: Free T4, Direct Thyroxine 1.74 ng/dL (0.78-2.19)
[2025-06-23 08:04] LABS: Microalbumi Creatinin Ratio Ur 471.0 ug/mg CR (<30)
[2025-06-23 08:11] LABS: Thyroid Stimulating Hormone 1.08 uIU/mL (0.47-4.68)
[2025-06-24 20:36] LABS: Thyroglobulin Antibodies < 1.0 IU/mL (0.0-0.9)
== END ==
PROVIDERS: PCP Internal Medicine; Referring Provider Internal Medicine Endocrinology, Diabetes & Metabolism; Visit Provider Internal Medicine Endocrinology, Diabetes & Metabolism
DX: C73 Malignant neoplasm of thyroid gland (principal); E11.65 Type 2 diabetes mellitus with hyperglycemia; E89.0 Postprocedural hypothyroidism; Z79.4 Long term (current) use of insulin
CPT/HCPCS: 36415; 80048; 80061; 82043; 82570; 83036; 84432; 84439; 84443; 86800

== ENCOUNTER → 2025-07-08 15:34 | Outpatient (CLI) | payer OTHER, SELFPAY ==
[2025-01-28 17:58] VITALS: BMI 35.2
== END ==
LOC: WC 15:35
PROVIDERS: PCP Internal Medicine; Referring Provider Internal Medicine; Visit Provider Surgery
DX: E11.621 Type 2 diabetes mellitus with foot ulcer (principal); L97.512 Non-pressure chronic ulcer of other part of right foot with fat layer exposed
CPT/HCPCS: 99183; G0277

== ENCOUNTER → 2025-07-09 14:35 | Outpatient (CLI) | payer OTHER, SELFPAY ==
[2025-01-28 17:58] VITALS: BMI 35.2
== END ==
LOC: WC 14:41
PROVIDERS: PCP Internal Medicine; Referring Provider Internal Medicine; Visit Provider Surgery
DX: E11.621 Type 2 diabetes mellitus with foot ulcer (principal); L97.512 Non-pressure chronic ulcer of other part of right foot with fat layer exposed
CPT/HCPCS: 99183; G0277

== ENCOUNTER → 2025-07-10 14:48 | Outpatient (CLI) | payer OTHER, SELFPAY ==
[2025-01-28 17:58] VITALS: BMI 35.2
== END ==
PROVIDERS: PCP Internal Medicine; Referring Provider Internal Medicine; Visit Provider Surgery
DX: E11.621 Type 2 diabetes mellitus with foot ulcer (principal); L97.512 Non-pressure chronic ulcer of other part of right foot with fat layer exposed; E11.40 Type 2 diabetes mellitus with diabetic neuropathy, unspecified; M86.9 Osteomyelitis, unspecified; I13.0 Hypertensive heart and chronic kidney disease with heart failure and stage 1 through stage 4 chronic kidney disease, or unspecified chronic kidney disease; I50.9 Heart failure, unspecified; E11.22 Type 2 diabetes mellitus with diabetic chronic kidney disease; N18.2 Chronic kidney disease, stage 2 (mild); Z79.2 Long term (current) use of antibiotics; K51.90 Ulcerative colitis, unspecified, without complications; Z85.850 Personal history of malignant neoplasm of thyroid
CPT/HCPCS: 11042; 99183; 99213; G0277

== ENCOUNTER → 2025-07-15 13:32 | Outpatient (CLI) | payer OTHER, SELFPAY ==
[2025-01-28 17:58] VITALS: BMI 35.2
== END ==
PROVIDERS: PCP Internal Medicine; Referring Provider Internal Medicine; Visit Provider Surgery
DX: L97.512 Non-pressure chronic ulcer of other part of right foot with fat layer exposed (principal); E11.621 Type 2 diabetes mellitus with foot ulcer
CPT/HCPCS: 99183; G0277

== ENCOUNTER → 2025-07-16 13:46 | Outpatient (CLI) | payer OTHER, SELFPAY ==
[2025-01-28 17:58] VITALS: BMI 35.2
== END ==
LOC: WC 07-28 13:47
PROVIDERS: PCP Internal Medicine; Referring Provider Internal Medicine; Visit Provider Physician Assistant
DX: E11.621 Type 2 diabetes mellitus with foot ulcer (principal); L97.512 Non-pressure chronic ulcer of other part of right foot with fat layer exposed
CPT/HCPCS: 99183; G0277

== ENCOUNTER → 2025-07-17 14:00 | Outpatient (CLI) | payer OTHER, SELFPAY ==
[2025-01-28 17:58] VITALS: BMI 35.2
== END ==
LOC: WC 14:01
PROVIDERS: PCP Internal Medicine; Referring Provider Internal Medicine; Visit Provider Physician Assistant
DX: L97.512 Non-pressure chronic ulcer of other part of right foot with fat layer exposed (principal); E11.621 Type 2 diabetes mellitus with foot ulcer; E11.42 Type 2 diabetes mellitus with diabetic polyneuropathy; M86.171 Other acute osteomyelitis, right ankle and foot; S91.301D Unspecified open wound, right foot, subsequent encounter; T81.31XD Disruption of external operation (surgical) wound, not elsewhere classified, subsequent encounter
CPT/HCPCS: 99183; G0277

== ENCOUNTER → 2025-07-18 13:51 | Outpatient (CLI) | payer OTHER, SELFPAY ==
[2025-01-28 17:58] VITALS: BMI 35.2
== END ==
LOC: WC 13:52
PROVIDERS: PCP Internal Medicine; Referring Provider Internal Medicine; Visit Provider Physician Assistant
DX: E11.621 Type 2 diabetes mellitus with foot ulcer (principal); L97.512 Non-pressure chronic ulcer of other part of right foot with fat layer exposed
CPT/HCPCS: 99183; G0277

== ENCOUNTER → 2025-07-22 15:09 | Outpatient (CLI) | payer OTHER, SELFPAY ==
[2025-01-28 17:58] VITALS: BMI 35.2
== END ==
LOC: WC 15:09
PROVIDERS: PCP Internal Medicine; Referring Provider Internal Medicine; Visit Provider Surgery
DX: E11.621 Type 2 diabetes mellitus with foot ulcer (principal); L97.512 Non-pressure chronic ulcer of other part of right foot with fat layer exposed
CPT/HCPCS: 99183; G0277

== ENCOUNTER → 2025-07-23 15:28 | Outpatient (CLI) | payer OTHER, SELFPAY ==
[2025-01-28 17:58] VITALS: BMI 35.2
== END ==
LOC: WC 15:28
PROVIDERS: PCP Internal Medicine; Referring Provider Internal Medicine; Visit Provider Surgery
DX: E11.621 Type 2 diabetes mellitus with foot ulcer (principal); L97.512 Non-pressure chronic ulcer of other part of right foot with fat layer exposed
CPT/HCPCS: 99183; G0277

== ENCOUNTER → 2025-07-24 14:43 | Outpatient (CLI) | payer OTHER, SELFPAY ==
[2025-01-28 17:58] VITALS: BMI 35.2
== END ==
LOC: WC 14:52
PROVIDERS: PCP Internal Medicine; Referring Provider Internal Medicine; Visit Provider Surgery
DX: E11.621 Type 2 diabetes mellitus with foot ulcer (principal); L97.512 Non-pressure chronic ulcer of other part of right foot with fat layer exposed; E11.42 Type 2 diabetes mellitus with diabetic polyneuropathy; M86.171 Other acute osteomyelitis, right ankle and foot; S91.301D Unspecified open wound, right foot, subsequent encounter; T81.31XD Disruption of external operation (surgical) wound, not elsewhere classified, subsequent encounter
CPT/HCPCS: 99183; G0277

== ENCOUNTER → 2025-07-25 13:28 | Outpatient (CLI) | payer OTHER, SELFPAY ==
[2025-01-28 17:58] VITALS: BMI 35.2
== END ==
LOC: WC 13:28
PROVIDERS: PCP Internal Medicine; Referring Provider Internal Medicine; Visit Provider Physician Assistant
DX: E11.621 Type 2 diabetes mellitus with foot ulcer (principal); L97.512 Non-pressure chronic ulcer of other part of right foot with fat layer exposed
CPT/HCPCS: 99183; G0277

== ENCOUNTER → 2025-07-28 15:45 | Outpatient (CLI) | payer OTHER, SELFPAY ==
[2025-01-28 17:58] VITALS: BMI 35.2
== END ==
LOC: WC 15:46
PROVIDERS: PCP Internal Medicine; Referring Provider Internal Medicine; Visit Provider Surgery
DX: L97.512 Non-pressure chronic ulcer of other part of right foot with fat layer exposed (principal); E11.621 Type 2 diabetes mellitus with foot ulcer; E11.42 Type 2 diabetes mellitus with diabetic polyneuropathy; M86.171 Other acute osteomyelitis, right ankle and foot; S91.301D Unspecified open wound, right foot, subsequent encounter; T81.31XD Disruption of external operation (surgical) wound, not elsewhere classified, subsequent encounter
CPT/HCPCS: 99183; G0277

== ENCOUNTER → 2025-07-29 14:37 | Outpatient (CLI) | payer OTHER, SELFPAY ==
[2025-01-28 17:58] VITALS: BMI 35.2
== END ==
LOC: WC 14:38
PROVIDERS: PCP Internal Medicine; Referring Provider Internal Medicine; Visit Provider Surgery
DX: L97.512 Non-pressure chronic ulcer of other part of right foot with fat layer exposed (principal); E11.621 Type 2 diabetes mellitus with foot ulcer; E11.42 Type 2 diabetes mellitus with diabetic polyneuropathy; M86.171 Other acute osteomyelitis, right ankle and foot; S91.301D Unspecified open wound, right foot, subsequent encounter; T81.31XD Disruption of external operation (surgical) wound, not elsewhere classified, subsequent encounter
CPT/HCPCS: 99183; G0277

== ENCOUNTER → 2025-07-30 14:03 | Outpatient (CLI) | payer OTHER, SELFPAY ==
[2025-01-28 17:58] VITALS: BMI 35.2
== END ==
LOC: WC 14:04
PROVIDERS: PCP Internal Medicine; Referring Provider Internal Medicine; Visit Provider Surgery
DX: E11.621 Type 2 diabetes mellitus with foot ulcer (principal); L97.512 Non-pressure chronic ulcer of other part of right foot with fat layer exposed; E11.42 Type 2 diabetes mellitus with diabetic polyneuropathy; M86.171 Other acute osteomyelitis, right ankle and foot; S91.301D Unspecified open wound, right foot, subsequent encounter; T81.31XD Disruption of external operation (surgical) wound, not elsewhere classified, subsequent encounter
CPT/HCPCS: 99183; G0277

== ENCOUNTER → 2025-07-31 13:32 | Outpatient (CLI) | payer OTHER, SELFPAY ==
[2025-01-28 17:58] VITALS: BMI 35.2
== END ==
LOC: WC 13:32
PROVIDERS: PCP Internal Medicine; Referring Provider Internal Medicine; Visit Provider Surgery
DX: T81.30XA Disruption of wound, unspecified, initial encounter (principal); S91.301A Unspecified open wound, right foot, initial encounter; M86.171 Other acute osteomyelitis, right ankle and foot; L53.8 Other specified erythematous conditions; L84 Corns and callosities; R60.0 Localized edema
CPT/HCPCS: 15275; Q4186

== ENCOUNTER → 2025-08-07 14:29 | Outpatient (CLI) | payer OTHER, SELFPAY ==
[2025-01-28 17:58] VITALS: BMI 35.2
== END ==
LOC: WC 14:30
PROVIDERS: PCP Internal Medicine; Referring Provider Internal Medicine; Visit Provider Surgery
DX: T81.31XA Disruption of external operation (surgical) wound, not elsewhere classified, initial encounter (principal); S91.301A Unspecified open wound, right foot, initial encounter; E11.628 Type 2 diabetes mellitus with other skin complications; M86.171 Other acute osteomyelitis, right ankle and foot; E11.42 Type 2 diabetes mellitus with diabetic polyneuropathy; L53.8 Other specified erythematous conditions; R60.0 Localized edema; L84 Corns and callosities
CPT/HCPCS: 15275; 99213; Q4187

== ENCOUNTER → 2025-08-14 15:56 | Outpatient (CLI) | payer OTHER, SELFPAY ==
[2025-01-28 17:58] VITALS: BMI 35.2
== END ==
LOC: WC 15:56
PROVIDERS: PCP Internal Medicine; Referring Provider Internal Medicine; Visit Provider Surgery
DX: T81.89XA Other complications of procedures, not elsewhere classified, initial encounter (principal); S91.301A Unspecified open wound, right foot, initial encounter; L98.8 Other specified disorders of the skin and subcutaneous tissue; L84 Corns and callosities; L53.9 Erythematous condition, unspecified; R60.0 Localized edema; L85.3 Xerosis cutis; M86.9 Osteomyelitis, unspecified; Z79.2 Long term (current) use of antibiotics; E11.628 Type 2 diabetes mellitus with other skin complications; E11.40 Type 2 diabetes mellitus with diabetic neuropathy, unspecified; E11.22 Type 2 diabetes mellitus with diabetic chronic kidney disease; I13.0 Hypertensive heart and chronic kidney disease with heart failure and stage 1 through stage 4 chronic kidney disease, or unspecified chronic kidney disease; I50.9 Heart failure, unspecified; N18.2 Chronic kidney disease, stage 2 (mild); K51.90 Ulcerative colitis, unspecified, without complications; Z85.850 Personal history of malignant neoplasm of thyroid
CPT/HCPCS: 15275; Q4187

== ENCOUNTER → 2025-08-15 06:35 | Outpatient (CLI) | payer OTHER, SELFPAY ==
[2025-01-28 17:58] VITALS: BMI 35.2
[2025-08-15 08:23] LABS: Blood Urea Nitrogen 20 mg/dL (9-20); Calcium 9.5 mg/dL (8.4-10.2); Carbon Dioxide 24 mmol/L (22-32); Chloride 105 mmol/L (98-107); Estimated Glomerular Filt Rate > 60 mL/min (>60); Glucose 87 mg/dL (70-99); HEMOLYSIS < 15 (0-50); Potassium 4.7 mmol/L (3.4-5.1); Protein (Total) Urine Random 36 mg/dL (0-12); Protein Creatinine Ratio Urine 0.81 GRAM/24H; Sodium 139 mmol/L (137-145)
== END ==
PROVIDERS: PCP Internal Medicine; Referring Provider Student in an Organized Health Care Education/Training Program; Visit Provider Student in an Organized Health Care Education/Training Program
DX: N05.9 Unspecified nephritic syndrome with unspecified morphologic changes (principal); R80.9 Proteinuria, unspecified
CPT/HCPCS: 36415; 80048; 82570; 84156

== ENCOUNTER → 2025-08-21 10:34 | Outpatient (CLI) | payer OTHER, SELFPAY ==
[2025-01-28 17:58] VITALS: BMI 35.2
== END ==
LOC: WC 10:34
PROVIDERS: PCP Internal Medicine; Referring Provider Internal Medicine; Visit Provider Surgery
DX: T81.89XA Other complications of procedures, not elsewhere classified, initial encounter (principal); S91.301A Unspecified open wound, right foot, initial encounter; L98.8 Other specified disorders of the skin and subcutaneous tissue; L84 Corns and callosities; L53.9 Erythematous condition, unspecified; L85.3 Xerosis cutis; R60.0 Localized edema; M86.9 Osteomyelitis, unspecified; Z79.2 Long term (current) use of antibiotics; E11.628 Type 2 diabetes mellitus with other skin complications; E11.40 Type 2 diabetes mellitus with diabetic neuropathy, unspecified; E11.22 Type 2 diabetes mellitus with diabetic chronic kidney disease; I13.0 Hypertensive heart and chronic kidney disease with heart failure and stage 1 through stage 4 chronic kidney disease, or unspecified chronic kidney disease; I50.9 Heart failure, unspecified; N18.2 Chronic kidney disease, stage 2 (mild); K51.90 Ulcerative colitis, unspecified, without complications; Z85.850 Personal history of malignant neoplasm of thyroid
CPT/HCPCS: 15275; Q4187

== ENCOUNTER → 2025-08-28 08:57 | Outpatient (CLI) | payer OTHER, SELFPAY ==
[2025-01-28 17:58] VITALS: BMI 35.2
== END ==
LOC: WC 08:58
PROVIDERS: PCP Internal Medicine; Referring Provider Internal Medicine; Visit Provider Physician Assistant
DX: E11.621 Type 2 diabetes mellitus with foot ulcer (principal); L97.512 Non-pressure chronic ulcer of other part of right foot with fat layer exposed; L84 Corns and callosities; L53.9 Erythematous condition, unspecified; R60.0 Localized edema; T81.31XS Disruption of external operation (surgical) wound, not elsewhere classified, sequela
CPT/HCPCS: 15275; 99214; Q4187

== ENCOUNTER → 2025-09-04 09:14 | Outpatient (CLI) | payer OTHER, SELFPAY ==
[2025-01-28 17:58] VITALS: BMI 35.2
== END ==
LOC: WC 09:14
PROVIDERS: PCP Internal Medicine; Referring Provider Internal Medicine; Visit Provider Surgery
DX: L97.512 Non-pressure chronic ulcer of other part of right foot with fat layer exposed (principal); E11.621 Type 2 diabetes mellitus with foot ulcer; T81.89XA Other complications of procedures, not elsewhere classified, initial encounter; M86.9 Osteomyelitis, unspecified; R60.0 Localized edema; L84 Corns and callosities; L53.9 Erythematous condition, unspecified
CPT/HCPCS: 11042; 99213

== ENCOUNTER → 2025-09-11 08:38 | Outpatient (CLI) | payer OTHER, SELFPAY ==
[2025-01-28 17:58] VITALS: BMI 35.2
== END ==
LOC: WC 08:56
PROVIDERS: PCP Internal Medicine; Referring Provider Internal Medicine; Visit Provider Surgery
DX: T81.31XA Disruption of external operation (surgical) wound, not elsewhere classified, initial encounter (principal); S91.301A Unspecified open wound, right foot, initial encounter; L98.8 Other specified disorders of the skin and subcutaneous tissue; L84 Corns and callosities; L53.9 Erythematous condition, unspecified; R60.0 Localized edema; L85.3 Xerosis cutis; E11.42 Type 2 diabetes mellitus with diabetic polyneuropathy; E11.628 Type 2 diabetes mellitus with other skin complications; E11.22 Type 2 diabetes mellitus with diabetic chronic kidney disease; I13.0 Hypertensive heart and chronic kidney disease with heart failure and stage 1 through stage 4 chronic kidney disease, or unspecified chronic kidney disease; I50.9 Heart failure, unspecified; N18.2 Chronic kidney disease, stage 2 (mild); M86.9 Osteomyelitis, unspecified; Z79.2 Long term (current) use of antibiotics
CPT/HCPCS: 11042

== ENCOUNTER → 2025-09-18 08:40 | Outpatient (CLI) | payer OTHER, SELFPAY ==
[2025-01-28 17:58] VITALS: BMI 35.2
== END ==
LOC: WC 08:42
PROVIDERS: PCP Internal Medicine; Referring Provider Nurse Practitioner Family; Visit Provider Surgery
DX: T81.31XA Disruption of external operation (surgical) wound, not elsewhere classified, initial encounter (principal); S91.301A Unspecified open wound, right foot, initial encounter; M86.171 Other acute osteomyelitis, right ankle and foot; E11.628 Type 2 diabetes mellitus with other skin complications; L53.8 Other specified erythematous conditions; L84 Corns and callosities; R60.0 Localized edema
CPT/HCPCS: 11042

== ENCOUNTER → 2025-09-25 08:40 | Outpatient (CLI) | payer OTHER, SELFPAY ==
[2025-01-28 17:58] VITALS: BMI 35.2
== END ==
LOC: WC 08:41
PROVIDERS: PCP Internal Medicine; Referring Provider Internal Medicine; Visit Provider Surgery
DX: T81.31XA Disruption of external operation (surgical) wound, not elsewhere classified, initial encounter (principal); S91.301A Unspecified open wound, right foot, initial encounter; M86.171 Other acute osteomyelitis, right ankle and foot; E11.42 Type 2 diabetes mellitus with diabetic polyneuropathy; L53.8 Other specified erythematous conditions; L84 Corns and callosities; R23.4 Changes in skin texture
CPT/HCPCS: 11042

== ENCOUNTER → 2025-10-02 08:53 | Outpatient (CLI) | payer OTHER, SELFPAY ==
[2025-01-28 17:58] VITALS: BMI 35.2
== END ==
LOC: WC 08:53
PROVIDERS: PCP Internal Medicine; Referring Provider Internal Medicine; Visit Provider Surgery
DX: T81.89XA Other complications of procedures, not elsewhere classified, initial encounter (principal); S91.301A Unspecified open wound, right foot, initial encounter; M86.171 Other acute osteomyelitis, right ankle and foot; E11.628 Type 2 diabetes mellitus with other skin complications; L84 Corns and callosities; R60.0 Localized edema; L53.8 Other specified erythematous conditions; R23.4 Changes in skin texture; E11.40 Type 2 diabetes mellitus with diabetic neuropathy, unspecified
CPT/HCPCS: 11042; 99213

== ENCOUNTER → 2025-10-15 10:56 | Outpatient (CLI) | payer OTHER, SELFPAY ==
[2025-01-28 17:58] VITALS: BMI 35.2
[2025-10-15 11:44] LABS: Add Manual Diff / Slide Review NO; Hematocrit 41.1 % (41-53); Hemoglobin 13.4 g/dL (13.5-17.5); Lymphocytes Absolute Auto 1000 /uL (1100-4500); Mean Corpuscular HGB Conc 32.5 % (30-36); Mean Corpuscular Hemoglobin 27.6 PG (26-34); Mean Corpuscular Volume 84.9 fL (80-100); Platelet Count 352 X10^3/uL (150-400)
[2025-10-15 12:02] LABS: Alanine Aminotransferase 15 IU/L (<50); Albumin 4.4 g/dL (3.5-5.0); Albumin Globulin Ratio 1.3 (1.0-2.8); Alkaline Phosphatase 95 U/L (38-126); Blood Urea Nitrogen 26 mg/dL (9-20); Calcium 9.0 mg/dL (8.4-10.2); Carbon Dioxide 23 mmol/L (22-32); Chloride 108 mmol/L (98-107); Creatine Kinase 78 U/L (55-170); Estimated Glomerular Filt Rate > 60 mL/min (>60); Globulin 3.3 g/dL (1.7-4.1); Glucose 109 mg/dL (70-99); HEMOLYSIS < 15 (0-50); Potassium 5.1 mmol/L (3.4-5.1); Sodium 143 mmol/L (137-145); Total Protein 7.7 g/dL (6.3-8.2)
== END ==
PROVIDERS: PCP Internal Medicine; Referring Provider Internal Medicine Infectious Disease; Visit Provider Internal Medicine Infectious Disease
DX: M86.471 Chronic osteomyelitis with draining sinus, right ankle and foot (principal)
CPT/HCPCS: 36415; 80053; 82550; 85025